=== PATIENT | female | born 1945 | race Caucasian/White ===

== ENCOUNTER 2024-05-19 04:10 | Inpatient (IN) | payer OTHER, MEDICAID, MEDICARE, SELFPAY ==
[2024-05-19] VITALS (10 sets, daily range): BP systolic 157–187; BP diastolic 73–88; PULSE 82–97; RESP 17–98; TEMP 36.2–37.2; O2SAT 93–99; BMI 18.1; BMI 19.9
--- NOTE | 2024-05-19 04:54 | PD.EDRME ---
Rapid Medical Screening Exam RME Arrival date/time: 05/19/24 04:10 78F with history of marijuana use, hypothyroidism, COPD/emphysema, fibromyalgia, and breast cancer s/p mastectomy presents to ED with several days of non-bloody diarrhea. Patient was here 2 days ago for this. Chief Complaint: Nausea/Vomiting/Diarrhea Vital signs: Vital Signs Temperature 98.5 F 05/19/24 04:22 Pulse Rate 97 05/19/24 04:22 Respiratory Rate 19 05/19/24 04:22 Blood Pressure 164/85 H 05/19/24 04:22 Pulse Oximetry (%) 97 05/19/24 04:22 Oxygen Delivery Method Room Air 05/19/24 04:22
[2024-05-19 06:15] LABS: Lactate (Lactic Acid) 1.3 mMol/L (0.4-2.0)
[2024-05-19 06:20] LABS: Basophils # (Auto) 0.1 Thou/mm3 (0.0-0.2); Basophils % (Auto) 1 % (0-2.5); Eosinophils % (Auto) 0 % (0-10); Hematocrit 41.8 % (36.0-46.0); Hemoglobin 14.2 g/dL (12.0-16.0); Immature Granulocytes % (Auto) 0 % (0-0); Immature Granulocytes Auto 0.02 Thou/mm3 (0.00-0.00); Lymphocytes # (Auto) 1.3 Thou/mm3 (1.0-4.8); Lymphocytes % (Auto) 15 % (10-50); Mean Corpuscular Hemoglobin 29.8 pg (25.0-35.0); Mean Corpuscular Volume 88 fL (80-100); Monocytes # (Auto) 0.7 Thou/mm3 (0.0-0.8); Monocytes % (Auto) 7 % (0-12); Neutrophils % (Auto) 77 % (37-80); Nucleated Red Blood Cell % 0 /100 WBC (0); Platelet Count 349 Thou/mm3 (140-440); RDW Standard Deviation 45.9 fL (36.4-46.3); Red Blood Count 4.76 Miln/mm3 (4.00-5.20); White Blood Count 9.1 Thou/mm3 (3.6-11.0)
[2024-05-19 07:03] LABS: Alanine Aminotransferase 7 U/L (10-49); Albumin, Serum 5.2 gm/dL (3.4-4.8); Albumin/Globulin Ratio 1.8 (1.2-2.2); Alkaline Phosphatase 88 U/L (46-116); Anion Gap 18 (7-16); Aspartate Amino Transferase 18 U/L (0-34); BUN/Creatinine Ratio 10 Ratio (12-20); Bilirubin,Total 0.8 mg/dL (0.3-1.2); Blood Urea Nitrogen 8 mg/dL (9-23); Calcium 9.9 mg/dL (8.3-10.6); Calcium (Corrected) 9.9 mg/dL (8.5-10.1); Carbon Dioxide 21.5 mMol/L (20.0-31.0); Chloride 98 mMol/L (98-107); Creatinine (Component) 0.8 mg/dL (0.6-1.3); Estimated Creatinine Clearance 43.3 mL/min (>60); Globulin 2.9 gm/dL (2.3-3.5); Glucose 110 mg/dL (74-106); Osmolality,Calculated 273 (275-295); Procalcitonin < 0.04 ng/ml (0.0-0.49); Sodium 137 mMol/L (136-145); Total Protein 8.1 gm/dL (5.7-8.2); eGFR > 60 See Note
--- NOTE | 2024-05-19 07:54 | EKG_ITS ---
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
--- NOTE | 2024-05-19 08:03 | XR_ITS ---
Examination: CT abdomen with intravenous contrast CT pelvis with intravenous contrast 2-D coronal reconstructions 2-D sagittal reconstructions Date and time of exam:May 19, 2024 0857 hrs. Comparison December 18, 2023 Indications: Abdominal pain and diarrhea beginning 3 days ago. CTDI: vol (mGy) 4.38 DLP: (mGycm) 190 Technique: Multiple axial sections of the abdomen and pelvis have been obtained. 64 slice high-resolution scanner used. 3 mm axial sections have been obtained, post intravenous injection 60 cc Isovue-370 2-D sagittal, coronal reconstructions obtained. Low dose protocols were performed. One or more of the following dose reduction techniques were used; automated exposure control, adjustment of the mA and/or KV according to patient size, use of iterative reconstruction technique. Findings: Retrocardiac gastric hernia No focal liver or splenic lesions 4.6 cm right renal cyst with smaller bilateral renal cysts No gallstones, suspicious for mild gallbladder wall thickening Heavy abdominal aortic calcification No hydronephrosis or ureteral calculi Normal appendix No bowel obstruction Wall of the colon shows mild diffuse hyperemia and wall thickening Intact urinary bladder Absent uterus No pelvic mass Moderate osteopenia advanced disc narrowing L1-L2, L2-L3 Bilateral advanced hip osteoarthritis, suspicious for avascular necrosis right femoral head coronal image 86 Impression: Benign renal cysts, no hydronephrosis or ureteral calculi Normal appendix Mild diffuse nonspecific colitis pattern Recommend hepatobiliary sonography follow-up to exclude gallbladder wall thickening
--- NOTE | 2024-05-19 08:25 | PD.EDNV ---
Nausea/Vomit./Diarrhea-RME/HPI General Chief complaint: Nausea/Vomiting/Diarrhea Stated complaint: diarrhea Time Seen by Provider: 05/19/24 05:03 Arrival date/time: 05/19/24 04:10 Limitations: no limitations RME / HPI RME / HPI Narrative: 05/19/24 04:10 78F with history of marijuana use, hypothyroidism, COPD/emphysema, fibromyalgia, and breast cancer s/p mastectomy presents to ED with several days of non-bloody diarrhea. Patient was here 2 days ago for this. DR. OMAR LOMBARDO ED EVALUATION: 78 year old female with history of COPD, fibromyalgia, anxiety, colitis, hypothyroidism, breast CA s/p mastectomy, recurrent UTI's, colitis presents to the ED for complaint of nausea, vomiting, and diarrhea today. Reportedly symptoms began 5 days ago and was evaluated here 2 days ago. States during that time she had pain and was given medications and sent home. Today notes the vomiting and diarrhea are green , nonbloody. Unable to control her symptoms at home. Additionally reports decreased appetite, decreased po intake, and 5lb weight loss over the course of 2 months. Denies fevers, chills, sweats, chest pain, cough, shortness of breath, or urinary symptoms. Related Data Home Medications ?Medication ?Instructions ?Recorded ?Confirmed Fluticasone Propionate NASAL * 1 spry NASAL QDAY #0 spry 11/11/13 12/28/23 (FLONASE *) albuterol sulfate 90 mcg/actuation 2 puff inhalation Q8H PRN 11/11/13 12/28/23 aerosol inhaler (ProAir HFA) SHORTNESS OF BREATH OR WHEEZE ##0 clonazepam 1 mg tablet (Klonopin) 1 mg PO TID PRN ANXIETY #0 tabs 11/11/13 12/28/23 levothyroxine 50 mcg tablet 50 mcg PO QAM 02/24/21 12/28/23 quetiapine 200 mg tablet 200 mg PO QPM 02/24/21 12/28/23 sertraline 100 mg tablet 200 mg PO QPM 02/24/21 12/28/23 gabapentin 300 mg capsule 300 mg PO TID 12/21/23 12/28/23 Previous Rx's ?Medication ?Instructions ?Recorded dicyclomine 20 mg tablet 20 mg PO BID #14 tabs 12/18/23 cephalexin 500 mg capsule 500 mg PO TID #21 caps 05/16/24 Allergies Allergy/AdvReac Type Severity Reaction Status Date / Time codeine Allergy Severe NAUSEA/VOMI Verified 05/19/24 04:11 TING gabapentin Allergy Severe Photosensit Verified 05/19/24 04:11 ivity Sulfa (Sulfonamide Allergy Severe NAUSEA/VOMI Verified 05/19/24 04:11 Antibiotics) TING Review of Systems Review of Systems Narrative Review of Systems: GEN: No fever, no chills, no weight loss EYES: No discharge, no visual changes, no pain HEENT: No ear pain, no congestion, no sore throat PULM: No shortness of breath, no cough, no congestion CV: No chest pain, no dyspnea on exertion, no palpitations GI: + nausea, +vomiting, +diarrhea, +pain, no constipation : No frequency, no urgency, no dysuria MUSC/SKEL: No joint pain, no back pain SKIN: No rash NEURO: No weakness, no headache Past Medical History Past Medical History CARDIAC: Positive Hypercholesterolemia and Hypotension REPRODUCTIVE: Positive Breast Cancer PSYCHO/SOCIAL: Positive Depression and Anxiety OTHER HISTORY: Positive Breast Cancer Family History FAMILY HISTORY: Positive Family Cancer Surgical History SURGICAL: Positive Mastectomy Social History SMOKING STATUS: Former smoker SUBSTANCE USE: does not use ED Exam General Limitations: Present no limitations General appearance: Present alert and in no apparent distress Head Head exam: Present atraumatic, normocephalic and normal inspection Eye Eye exam: Present normal appearance, PERRL and EOMI ENT ENT exam: Present normal exam, normal oropharynx and mucous membranes moist Neck Neck exam: Present normal inspection, full ROM and trachea midline Chest Chest inspection: Present normal inspection and symmetric chest wall rise Respiratory Respiratory exam: Present normal lung sounds bilaterally Cardiovascular Cardiovascular exam: Present regular rate, normal rhythm and normal heart sounds Abdominal Exam Abdominal exam: Present soft, tenderness (mild to moderate tenderness to palpation in the mid abdominal area ) and normal bowel sounds; Absent distention, guarding, rebound or rigidity Extremities Exam Extremities exam: Present normal inspection and full ROM Back Exam Back exam: Present normal inspection and full ROM Neurological Exam Neurological exam: Present alert, oriented X3 and CN II-XII intact Psychiatric Psychiatric exam: Present normal affect and normal mood Skin Skin exam: Present warm, dry, intact and normal color Course Quality Measures none Orders Category Date Time Status Admit to Inpatient Status Routine Admission 05/19/24 11:31 Active Patient Condition Routine Admission 05/19/24 11:[address] Screening NOW Care 05/19/24 08:03 Completed Bus Aide Q4H START 00 Care 05/19/24 07:54 Active Continuous Pulse Oximetry STAT Care 05/19/24 07:54 Completed EKG (ED ONLY) *Do not use* NOW Care 05/19/24 07:54 Completed In and Out Catheter X1 Care 05/19/24 07:54 Completed Insert IV STAT Care 05/19/24 07:54 Active Miscellaneous Nursing Order NOW Care 05/19/24 11:36 Active NPO NOW Care 05/19/24 11:33 Completed NPO STAT Care 05/19/24 07:54 Active Notify provider NEEDED Care 05/19/24 11:31 Active Obtain weight NOW Care 05/19/24 11:31 Active Strict Intake and Output Routine Care 05/19/24 11:[address] abdomen pelvis w con Stat Exams 05/19/24 08:03 Completed EKG (ED Only) Stat Exams 05/19/24 07:54 Draft A1C [Glycohemoglobin w (eAG)] Routine Lab 05/19/24 06:00 Completed CBC AM DRAW Lab 05/20/24 05:12 Completed CBC AM DRAW Lab 05/21/24 05:00 Ordered CBC AM DRAW Lab 05/22/24 05:00 Ordered CBC Stat Lab 05/19/24 06:00 Completed CMP [Comprehensive Metabolic Panel] Stat Lab 05/19/24 06:00 Completed Calprotectin, Stool* Routine Lab 05/19/24 Ordered Clostridium Difficile PCR Stat Lab 05/19/24 Ordered Comprehensive Metabolic Panel AM DRAW Lab 05/20/24 05:12 Completed Comprehensive Metabolic Panel AM DRAW Lab 05/21/24 05:00 Ordered Comprehensive Metabolic Panel AM DRAW Lab 05/22/24 05:00 Ordered Drug Screen,Urine Stat Lab 05/19/24 11:44 Ordered Free T4 (Free Thyroxine) AM DRAW Lab 05/20/24 05:12 Completed Giardia Antigen, EIA, Stool* Routine Lab 05/19/24 11:47 Ordered Ketone [Beta Hydroxybutyrate] Stat Lab 05/19/24 08:48 Completed Lactate (Lactic Acid) Stat Lab 05/19/24 06:00 Completed Lipase Stat Lab 05/19/24 08:48 Completed Lipid Panel AM DRAW Lab 05/20/24 05:12 Completed Magnesium AM DRAW Lab 05/20/24 05:12 Completed Magnesium Stat Lab 05/19/24 08:48 Completed Norovirus, EIA (Stool)* Routine Lab 05/19/24 11:47 Ordered Ova & Parasites, Conc, Smear* Stat Lab 05/19/24 11:47 Ordered Phosphorous AM DRAW Lab 05/20/24 05:12 Completed Phosphorous AM DRAW Lab 05/21/24 05:00 Ordered Phosphorous AM DRAW Lab 05/22/24 05:00 Ordered Procalcitonin Stat Lab 05/19/24 06:00 Completed Stool Culture Stat Lab 05/19/24 11:39 Ordered Stool for WBCs Routine Lab 05/19/24 11:39 Ordered Thyroid Stimulating Hormone AM DRAW Lab 05/20/24 05:12 Completed Urinalysis Routine Lab 05/19/24 05:00 Ordered Urinalysis Stat Lab 05/19/24 09:44 Completed VBG [Venous Blood Gas] Stat Lab 05/19/24 08:48 Completed Acetaminophen Tab [Tylenol Tab] Med 05/19/24 11:31 Active 650 mg PO Q6H PRN Acetaminophen Tab [Tylenol Tab] Med 05/19/24 11:31 Discontinued 650 mg PO Q6H PRN Albuterol* Inhaler [Proventil Inhaler] Med 05/19/24 11:42 Active 2 puff INH Q4HR PRN CIPROFLOXACIN/D5w 400 MG IVPB [Cipro Ivpb] Med 05/19/24 11:37 Active 400 mg in 200 ml IV Q12HR Heparin Inj Med 05/19/24 11:45 Active 5,000 unit SC Q12HR Ketorolac Inj [Toradol Inj] Med 05/19/24 11:42 Active 15 mg IVP Q6HR PRN Levothyroxine Sodium [Synthroid] Med 05/20/24 06:00 Active 50 mcg PO ACBR Ondansetron Inj [Zofran Inj] Med 05/19/24 11:31 Active 4 mg IV Q6HR PRN Ondansetron Inj [Zofran Inj] Med 05/19/24 07:55 Discontinued 4 mg IV X1 ONE POTASSIUM CHL 10 mEq IVPB [Kcl Ivpb] Med 05/19/24 11:45 Discontinued 10 meq in 100 ml IV Q1H Potassium Chloride [K-Dur] Med 05/19/24 11:44 Discontinued 40 meq PO X1 ONE QUEtiapine FUMARATE [SEROquel] Med 05/19/24 21:00 Active 200 mg PO HS Senna [Senokot] Med 05/19/24 11:31 Active 1 tab PO BID PRN Sodium Chloride 0.9% 1000 ml [Ns] 1,000 ml Med 05/19/24 11:45 Discontinued IV 50 mls/hr Sodium Chloride 0.9% 1000 ml [Ns] 1,000 ml Med 05/19/24 07:54 Discontinued IV 999 mls/hr Sodium Chloride 0.9% 1000 ml [Ns] 1,000 ml Med 05/19/24 10:37 Discontinued IV 999 mls/hr clonazePAM [KlonoPIN] Med 05/19/24 11:40 Active 1 mg PO TID PRN clonazePAM [KlonoPIN] Med 05/19/24 10:18 Discontinued 1 mg PO X1 ONE metroNIDAZOLE/NS 500 MG IVPB [Flagyl 500 mg IV] Med 05/19/24 12:00 Active 500 mg in 100 ml IV Q8HR Code Status Routine Oth 05/19/24 11:31 Ordered Oxygen Delivery PRN RT 05/19/24 11:31 Active Reevaluation(s) Reevaluation #1: We reviewed all the results, analysis, and treatment plans. Patient is amenable to admission. Time: 10:41 Vital Signs Vital signs: Vital Signs Temperature 98.5 F 05/19/24 04:22 Pulse Rate 97 05/19/24 04:22 Respiratory Rate 19 05/19/24 04:22 Blood Pressure 164/85 H 05/19/24 04:22 Pulse Oximetry (%) 97 05/19/24 04:22 Oxygen Delivery Method Room Air 05/19/24 04:22 Pulse ox is % on room air which is adequate. Nausea/Vomiting/Diarrhea MDM Narrative MDM Narrative:: Temitope Day am scribing for and in the presence of Dr. Chauhan. Patient data External records reviewed:: [facility] previous records (I reviewed ED visit on 05/17/2024, during that visit patient had lactic acidosis with UTI ) Clinical information provided by:: patient Social determinants that could affect healthcare access:: mental health (Anxiety ) Patient has the following chronic illnesses:: COPD, fibromyalgia, anxiety, colitis, hypothyroidism, breast CA s/p mastectomy, recurrent UTI's, colitis How is presenting disease/condition affected by chronic disease/condition?: exacerbated by Evaluation data The following diagnostics were reviewed and interpreted by me:: lab results, radiology exam(s) and EKG tracing(s) (Sinus rhythm, rate 83, normal axis, no ectopy, no signs of acute ischemia ) Lab and/or radiology exams considered but not ordered:: None Interpretation Summary: Ordering Physician: Alfredo Chauhan MD Date of Service: 05/19/24 Procedure(s): CT abdomen pelvis w con Accession Number(s): [id number] cc: Bo Garcia MD; Alfredo Chauhan MD; Yoan Ortiz PA-C~ Examination: CT abdomen with intravenous contrast CT pelvis with intravenous contrast 2-D coronal reconstructions 2-D sagittal reconstructions Date and time of exam:May 19, 2024 0857 hrs. Comparison December 18, 2023 Indications: Abdominal pain and diarrhea beginning 3 days ago. CTDI: vol (mGy) 4.38 DLP: (mGycm) 190 Technique: Multiple axial sections of the abdomen and pelvis have been obtained. 64 slice high-resolution scanner used. 3 mm axial sections have been obtained, post intravenous injection 60 cc Isovue-370 2-D sagittal, coronal reconstructions obtained. Low dose protocols were performed. One or more of the following dose reduction techniques were used; automated exposure control, adjustment of the mA and/or KV according to patient size, use of iterative reconstruction technique. Findings: Retrocardiac gastric hernia No focal liver or splenic lesions 4.6 cm right renal cyst with smaller bilateral renal cysts No gallstones, suspicious for mild gallbladder wall thickening Heavy abdominal aortic calcification No hydronephrosis or ureteral calculi Normal appendix No bowel obstruction Wall of the colon shows mild diffuse hyperemia and wall thickening Intact urinary bladder Absent uterus No pelvic mass Moderate osteopenia advanced disc narrowing L1-L2, L2-L3 Bilateral advanced hip osteoarthritis, suspicious for avascular necrosis right femoral head coronal image 86 Impression: Benign renal cysts, no hydronephrosis or ureteral calculi Normal appendix Mild diffuse nonspecific colitis pattern Recommend hepatobiliary sonography follow-up to exclude gallbladder wall thickening Dictated By: Bo Garcia MD Signed By: <Electronically signed by Bo Garcia MD in OV> 05/19/24 0933 Medications / Prescriptions Medications / Prescriptions considered but not ordered:: None Medication administrations:: Medication Administration History Acetaminophen (Acetaminophen 325 Mg Tablet) 650 mg PO Q6H PRN PRN Reason: PAIN SCALE 1-3 (mild Stop: 06/18/24 11:30 Acetaminophen (Acetaminophen 325 Mg Tablet) 650 mg PO Q6H PRN PRN Reason: Fever >100.4 Stop: 06/18/24 11:30 Albuterol (Albuterol Inh 8 Gm) 2 puff INH Q4HR PRN PRN Reason: SHORTNESS OF BREATH OR WHEEZE Stop: 06/18/24 11:41 Clonazepam (Clonazepam 0.5 Mg Tablet) 1 mg PO TID PRN PRN Reason: ANXIETY Stop: 05/24/24 13:59 Last Admin: 05/20/24 05:25 Dose: 1 mg Documented By: Admin: 05/19/24 20:27 Dose: 1 mg Documented By: Heparin Sodium (Porcine) (Heparin Sod Inj 5000 Unit/Ml Vial) 5,000 unit SC Q12HR [facility] Stop: 06/02/24 11:44 Last Admin: 05/20/24 08:08 Dose: 5,000 unit Documented By: MICHELE Co-signed By: ANA Admin: 05/19/24 20:09 Dose: 5,000 unit Documented By: Co-signed By: KAYLYN Admin: 05/19/24 12:41 Dose: 5,000 unit Documented By: RADHA Co-signed By: Ciprofloxacin/Dextrose (Cipro Ivpb) 400 mg in 200 mls @ 200 mls/hr IV Q12HR [facility] Stop: 05/26/24 11:36 Last Admin: 05/20/24 08:08 Dose: 200 mls/hr Documented By: Infusion: 05/19/24 21:17 Dose: Infused Documented By: Admin: 05/19/24 20:17 Dose: 200 mls/hr Documented By: Infusion: 05/19/24 13:40 Dose: Infused Documented By: Admin: 05/19/24 12:40 Dose: 200 mls/hr Documented By: RADHA Metronidazole (Flagyl 500 Mg Iv) 500 mg in 100 mls @ 200 mls/hr IV Q8HR [facility] Stop: 05/26/24 11:59 Last Admin: 05/20/24 13:45 Dose: 200 mls/hr Documented By: Infusion: 05/20/24 05:44 Dose: Infused Documented By: Admin: 05/20/24 05:14 Dose: 200 mls/hr Documented By: Infusion: 05/19/24 22:33 Dose: Infused Documented By: Admin: 05/19/24 22:03 Dose: 200 mls/hr Documented By: Infusion: 05/19/24 13:10 Dose: Infused Documented By: Admin: 05/19/24 12:40 Dose: 200 mls/hr Documented By: RADHA Ketorolac Tromethamine (Ketorolac Inj 30 Mg/Ml Vial) 15 mg IVP Q6HR PRN PRN Reason: Pain 4-10 Stop: 05/24/24 11:41 Levothyroxine Sodium (Levothyroxine Sodium 25 Mcg Tablet) 50 mcg PO ACBR [facility] Stop: 06/19/24 05:59 Last Admin: 05/20/24 05:13 Dose: 50 mcg Documented By: Ondansetron HCl (Ondansetron Inj 2 Mg/Ml Inj 2 Ml) 4 mg IV Q6HR PRN; Protocol PRN Reason: NAUSEA OR VOMITING Stop: 06/18/24 11:30 Quetiapine Fumarate (Quetiapine Fumarate 100 Mg Tablet) 200 mg PO [facility] Stop: 06/18/24 20:59 Last Admin: 05/19/24 20:24 Dose: Not Given Documented By: Non-Admin Reason: Patient Refused Sennosides (Senna Tablet) 1 tab PO BID PRN; Protocol PRN Reason: CONSTIPATION Stop: 06/18/24 11:30 Discontinued Medications Acetaminophen (Acetaminophen 325 Mg Tablet) 650 mg PO Q6H PRN PRN Reason: Fever >100.4 or pain Stop: 06/18/24 11:30 Calcium Carbonate (Calcium Carbonate 600 Mg Tablet) 600 mg PO X1 ONE Stop: 05/20/24 08:01 Last Admin: 05/20/24 08:00 Dose: Not Given Documented By: MICHELE Non-Admin Reason: Patient Refused Clonazepam (Clonazepam 0.5 Mg Tablet) 1 mg PO X1 ONE Stop: 05/19/24 10:19 Last Admin: 05/19/24 10:38 Dose: 1 mg Documented By: RADHA Sodium Chloride (Ns) 1,000 mls @ 999 mls/hr IV .Q1H1M ONE Stop: 05/19/24 08:54 Last Infusion: 05/19/24 09:49 Dose: Infused Documented By: Admin: 05/19/24 08:48 Dose: 999 mls/hr Documented By: RADHA Sodium Chloride (Ns) 1,000 mls @ 999 mls/hr IV .Q1H1M ONE Stop: 05/19/24 11:37 Last Admin: 05/19/24 10:46 Dose: 999 mls/hr Documented By: RADHA Sodium Chloride (Ns) 1,000 mls @ 50 mls/hr IV .Q20H [facility] Stop: 05/20/24 07:44 Last Admin: 05/19/24 14:16 Dose: 50 mls/hr Documented By: MICHELE Potassium Chloride (Kcl Ivpb) 10 meq in 100 mls @ 100 mls/hr IV Q1H [facility] Stop: 05/19/24 13:44 Last Admin: 05/19/24 14:15 Dose: 100 mls/hr Documented By: Infusion: 05/19/24 13:41 Dose: Infused Documented By: Admin: 05/19/24 12:41 Dose: 100 mls/hr Documented By: RADHA Sodium Chloride (Ns) 1,000 mls @ 75 mls/hr IV .[id number] [facility] Stop: 05/20/24 04:21 Dextrose/Sodium Chloride (D5-Ns) 500 mls @ 125 mls/hr IV .Q4H [facility] Stop: 05/21/24 20:14 Dextrose/Sodium Chloride (D5-Ns) 1,000 mls @ 125 mls/hr IV .Q8H [facility] Stop: 05/21/24 22:51 Last Admin: 05/19/24 23:16 Dose: 125 mls/hr Documented By: Ondansetron HCl (Ondansetron Inj 2 Mg/Ml Inj 2 Ml) 4 mg IV X1 ONE; Protocol Stop: 05/19/24 07:56 Last Admin: 05/19/24 08:48 Dose: 4 mg Documented By: RADHA Potassium Chloride (Potassium Chloride 20 Meq Tabcr) 40 meq PO X1 ONE Stop: 05/19/24 11:45 Last Admin: 05/19/24 14:15 Dose: 40 meq Documented By: MICHELE Potassium Chloride (Potassium Chloride 20 Meq Tabcr) 40 meq PO X1 ONE Stop: 05/20/24 08:01 Last Admin: 05/20/24 08:00 Dose: Not Given Documented By: MICHELE Non-Admin Reason: Patient Refused Potassium Chloride (Potassium Chloride 20 Meq Tabcr) 40 meq PO X1 ONE Stop: 05/20/24 12:01 Last Admin: 05/20/24 12:04 Dose: 40 meq Documented By: MICHELE See above Consultations Consultation(s) initiated? (list below): Yes Consultation #1 (Physician, Specialty, Details): I spoke with resident Dr. Hart working with Dr. Acharya. Discussed patients PMHx, HPI, ED course, exam findings, labs, and radiology results. The hospitalist agree to accept the patient for admission. Time: 10:36 Diagnosis Nausea Differential Diagnosis: gastroenteritis, clostridium difficile infection, drug-induced nausea and vomiting, dehydration and other (Colitis ) Most likely diagnosis given after review of the tests above:: Colitis Admission Indicated Admission indicated?: indicated Admission Request Was there a request for admission?: Yes Admission Attestation Admission request attestation: Discussed case with [] from Hospitalist service regarding admission. Discussed patients ED course, exam findings, labs, and radiology results. The Hospitalist [agrees,declines] to accept the patient for admission. Disposition Plan Disposition Plan: Admit Discharge Plan Plan Patient Disposition: Admit Acute Care w/in Hospital Problem List Clinical Impression: Colitis, Intractable vomiting with nausea
[2024-05-19] MEDS: ONDANSETRON INJ 2 MG/ML INJ 2 ML 4 MG IV (08:48)
[2024-05-19] MEDS: SODIUM CHLORIDE 0.9% 1000 ML 1,000 ML 999 ML IV ×2 (08:48→10:46)
[2024-05-19 09:02] LABS: Base Excess, Venous 1 (-3-3); O2 Saturation, Venous 54 % (96-97); PCO2, Venous 44 mmHg (36-56); PO2, Venous 30 mmHg (15-58); pH, Venous 7.38 (7.33-7.66)
[2024-05-19 09:49] LABS: Collection Type, Urine Catheter
[2024-05-19 09:57] LABS: Bilirubin,Urine Negative (Negative); Blood,Urine 1+ (Negative); Clarity,Urine Clear (Clear/Hazy); Color,Urine Lt-Yellow (Lt Yel-Yel); Glucose, Urine Negative (Negative); Ketones,Urine 2+ (Negative); Leukocyte Esterase,Urine Negative (Negative); Nitrite,Urine Negative (Negative); Protein,Urine 1+ (Neg - Trace); RBC,Urine 4 /hpf (0-3); Specific Gravity,Urine 1.009 (1.001-1.035); Squamous Epithelial Cell,Urine < 1 /hpf (0-5); Urobilinogen,Urine Negative mg/dL (0.0-1.0); WBC,Urine 1 /hpf (0-5)
--- NOTE | 2024-05-19 10:19 | PC.NURSE ---
Spoke w/MD about pt request for Klonopin that she typically takes for anxiety. Provider gave verbal pt could have one.
[2024-05-19] MEDS: clonazePAM 0.5 MG TABLET 1 MG PO ×2 (10:38→20:27)
--- NOTE | 2024-05-19 10:57 | PC.NURSE ---
Pt connected to [place] at this time at pts request.
[2024-05-19 11:46] LABS: Lipase 29 U/L (12-53)
[2024-05-19] MEDS: metroNIDAZOLE/NS 500 MG IVPB 500 MG/100 ML BAG 200 MG IV ×2 (12:40→22:03)
[2024-05-19] MEDS: CIPROFLOXACIN/D5w 400 MG IVPB 400 MG/200 ML BAG 200 MG IV ×2 (12:40→20:17)
[2024-05-19] MEDS: HEPARIN SOD INJ 5000 UNIT/ML VIAL SC ×2 (12:41→20:09)
[2024-05-19] MEDS: POTASSIUM CHL 10 mEq IVPB 10 MEQ/100 ML BAG 100 MEQ IV ×2 (12:41→14:15)
[2024-05-19 13:04] LABS: Glucose Estimated Average 103 mg/dL (80-131); Hemoglobin A1C 5.2 % Hgb (4.8-6.0)
--- NOTE | 2024-05-19 14:02 | PC.NURSE ---
Pt transferred up stairs w/meds infusing, confirmed iv compatability w/meds prior to starting infusions. Pt taken up connected to tele w/o incident by this RN and fellow [employer]
[2024-05-19] MEDS: POTASSIUM CHLORIDE 20 mEq TABCR 40 MEQ PO (14:15)
[2024-05-19] MEDS: SODIUM CHLORIDE 0.9% 1000 ML 1,000 ML 50 ML IV (14:16)
--- NOTE | 2024-05-19 15:06 | ESHP_ITS ---
<Statement entered by Rob Acharya MD - 05/20/24 12:15> I have discussed and was present for the essential components of the history, physical examination, diagnosis, and treatment plan with the resident. I agree with the patient's care as documented by the resident and amended herein by me. Rob Acharya MD. 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 Patient reported that she had been having weight loss of few pounds from past 1 month. She also lost her appetite. She reported that her stool is fluid in consistency with foul-smelling and greenish color. She reported that she was taking Keflex for UTI infection which was prescribed here in the ED and before that she was also taking an additional antibiotic the name she does not remember for possible UTI. She reported that she did not had any fever or chills, chest pain, shortness of breath or any other symptom. She denied any abdominal discomfort and there was no relation of diarrhea to her food intake. She denied any blood in the stools. No recent travel or sick contacts around her. Per chart review, patient appears to have previous history of diarrhea as well as she got prescription for ciprofloxacin and Flagyl in the past based on med rec. In the ED, patient was hypertensive with blood pressure 160/85, tachycardic, afebrile and saturating well on room air. Labs were stable with WBC 9.1 although WBC on 05/16 was 11. Hemoglobin was stable at 14.2. VBG showed pH 7.38, pCO2 44 and pO2 30. Chemistry panel showed mild hypokalemia anion gap elevated. BUN and creatinine was stable. Lipase was negative. Beta- hydroxybutyrate was more than 4. Procalcitonin was negative. UA showed mild proteinuria, ketones 2+ and blood 1+. RBCs 4+. CT abdomen pelvis was consistent with colitis pattern. Mild diffuse. Benign renal cyst. Retrocardiac gastric hernia. Mild gallbladder wall thickening EKG showed sinus rhythm. PMH: As above PSH: mastectomy post breast cancer, history of fracture repair for wrist fracture Allergies: Codeine causes nausea vomiting, gabapentin causes photosensitivity, sulfa causes nausea and vomiting Home medications: Levothyroxine, quetiapine, sertraline, albuterol inhaler, clonazepam 3 times daily as needed Patient is admitted for further workup and management for workup of diarrhea, possible GI infection versus colitis. Review of Systems Review of Systems Systems Reviewed: All systems reviewed, normal except as documented Past Medical History Past Medical History CARDIAC: Positive Hypercholesterolemia and Hypotension REPRODUCTIVE: Positive Breast Cancer PSYCHO/SOCIAL: Positive Depression and Anxiety OTHER HISTORY: Positive Breast Cancer Family History FAMILY HISTORY: Positive Family Cancer Surgical History SURGICAL: Positive Mastectomy Social History SMOKING STATUS: Former smoker SUBSTANCE USE: does not use Exam Vital Signs Temp Pulse Resp BP Pulse Ox O2 Del Method 98.2 F 88 20 184/86 H 97 Room Air 05/19/24 11:00 05/19/24 11:00 05/19/24 11:00 05/19/24 11:00 05/19/24 11:00 05/19/24 11:00 Narrative Exam GENERAL APPEARANCE: Patient is cachectic appearing thin female AOx3 was lying on bed. HEENT: NC, AT. Dry mucous membrane. EOMI, clear conjunctiva, oropharynx clear. NECK: Supple without lymphadenopathy. No stiffness or restricted ROM. HEART: Sinus tachycardia with regular rhythm, normal S1/S2, no m/r/g LUNGS: CTAB, moving air well. No crackles or wheezes are heard. ABDOMEN: Soft, nontender, nondistended with good bowel sounds heard. BACK: No CVAT, no obvious deformity. EXTREMITIES: Upper extremities right wrist joint deviated laterally. No extremity edema noticed. NEUROLOGICAL: Grossly nonfocal. Alert and oriented, moving all 4 extremities. CN not formally tested but appear grossly intact. Use walker for ambulation. Skin: Warm and dry without any rash. Decreased skin turgor. Psych: Appropriate mood and affect Results: Labs 05/19/24 06:00 05/19/24 06:00 Labs: Short CBC 05/19/24 Range/Units 06:00 WBC 9.1 (3.6-11.0) Thou/mm3 Hgb 14.2 (12.0-16.0) g/dL Hct 41.8 (36.0-46.0) % Plt Count 349 (140-440) Thou/mm3 BMP 05/19/24 06:00 Sodium 137 Potassium 3.0 L D Chloride 98 Carbon Dioxide 21.5 BUN 8 L Creatinine 0.8 Glucose 110 H Calcium 9.9 Liver Function 05/19/24 Range/Units 06:00 Total Bilirubin 0.8 (0.3-1.2) mg/dL AST 18 (0-34) U/L ALT 7 L (10-49) U/L Alkaline Phosphatase 88 (46-116) U/L Albumin 5.2 H (3.4-4.8) gm/dL Urine 05/19/24 05/19/24 Range/Units 06:00 09:44 Urine Color Cancelled Lt-Yellow Urine Clarity Cancelled Clear Urine pH Cancelled 6.0 Ur Specific [place] Cancelled 1.009 Urine Protein Cancelled 1+ A Urine Glucose (UA) Cancelled Negative ABG Interpretation ABG results: 05/19/24 08:48 VBG pH 7.38 VBG pCO2 44 VBG pO2 30 VBG Base Excess 1 Quality Measures Quality Measures VTE prophylaxis (Heparin subcut) Advance care planning discussed with:: patient Medications Home Medications and Allergies Home Medications ?Medication ?Instructions ?Recorded ?Confirmed ?Type Fluticasone Propionate NASAL * 1 spry NASAL QDAY #0 spry 11/11/13 12/28/23 History (FLONASE *) albuterol sulfate 90 mcg/actuation 2 puff inhalation Q8H PRN 11/11/13 12/28/23 History aerosol inhaler (ProAir HFA) SHORTNESS OF BREATH OR WHEEZE ##0 clonazepam 1 mg tablet (Klonopin) 1 mg PO TID PRN ANXIETY #0 tabs 11/11/13 12/28/23 History levothyroxine 50 mcg tablet 50 mcg PO QAM 02/24/21 12/28/23 History quetiapine 200 mg tablet 200 mg PO QPM 02/24/21 12/28/23 History sertraline 100 mg tablet 200 mg PO QPM 02/24/21 12/28/23 History gabapentin 300 mg capsule 300 mg PO TID 12/21/23 12/28/23 History Allergies Allergy/AdvReac Type Severity Reaction Status Date / Time codeine Allergy Severe NAUSEA/VOMI Verified 05/19/24 04:11 TING gabapentin Allergy Severe Photosensit Verified 05/19/24 04:11 ivity Sulfa (Sulfonamide Allergy Severe NAUSEA/VOMI Verified 05/19/24 04:11 Antibiotics) TING Visit Medications Acetaminophen (Acetaminophen 325 Mg Tablet) 650 mg PO Q6H PRN PRN Reason: Fever >100.4 or pain Stop: 06/18/24 11:30 Acetaminophen (Acetaminophen 325 Mg Tablet) 650 mg PO Q6H PRN PRN Reason: PAIN SCALE 1-3 (mild Stop: 06/18/24 11:30 Albuterol (Albuterol Inh 8 Gm) 2 puff INH Q4HR PRN PRN Reason: SHORTNESS OF BREATH OR WHEEZE Stop: 06/18/24 11:41 Clonazepam (Clonazepam 0.5 Mg Tablet) 1 mg PO TID PRN PRN Reason: ANXIETY Stop: 05/24/24 13:59 Heparin Sodium (Porcine) (Heparin Sod Inj 5000 Unit/Ml Vial) 5,000 unit SC Q12HR [facility] Stop: 06/02/24 11:44 Last Admin: 05/19/24 12:41 Dose: 5,000 unit Ciprofloxacin/Dextrose (Cipro Ivpb) 400 mg in 200 mls @ 200 mls/hr IV Q12HR [facility] Stop: 05/26/24 11:36 Last Admin: 05/19/24 12:40 Dose: 200 mls/hr Metronidazole (Flagyl 500 Mg Iv) 500 mg in 100 mls @ 200 mls/hr IV Q8HR [facility] Stop: 05/26/24 11:59 Last Admin: 05/19/24 12:40 Dose: 200 mls/hr Sodium Chloride (Ns) 1,000 mls @ 75 mls/hr IV .[id number] [facility] Stop: 05/20/24 04:21 Ketorolac Tromethamine (Ketorolac Inj 30 Mg/Ml Vial) 15 mg IVP Q6HR PRN PRN Reason: Pain 4-10 Stop: 05/24/24 11:41 Levothyroxine Sodium (Levothyroxine Sodium 25 Mcg Tablet) 50 mcg PO ACBR [facility] Stop: 06/19/24 05:59 Ondansetron HCl (Ondansetron Inj 2 Mg/Ml Inj 2 Ml) 4 mg IV Q6HR PRN; Protocol PRN Reason: NAUSEA OR VOMITING Stop: 06/18/24 11:30 Quetiapine Fumarate (Quetiapine Fumarate 100 Mg Tablet) 200 mg PO HS HONORIO Stop: 06/18/24 20:59 Sennosides (Senna Tablet) 1 tab PO BID PRN; Protocol PRN Reason: CONSTIPATION Stop: 06/18/24 11:30 Discontinued Medications Clonazepam (Clonazepam 0.5 Mg Tablet) 1 mg PO X1 ONE Stop: 05/19/24 10:19 Last Admin: 05/19/24 10:38 Dose: 1 mg Sodium Chloride (Ns) 1,000 mls @ 999 mls/hr IV .Q1H1M ONE Stop: 05/19/24 08:54 Last Infusion: 05/19/24 09:49 Dose: Infused Sodium Chloride (Ns) 1,000 mls @ 999 mls/hr IV .Q1H1M ONE Stop: 05/19/24 11:37 Last Admin: 05/19/24 10:46 Dose: 999 mls/hr Sodium Chloride (Ns) 1,000 mls @ 50 mls/hr IV .Q20H HONORIO Stop: 05/20/24 07:44 Last Admin: 05/19/24 14:16 Dose: 50 mls/hr Potassium Chloride (Kcl Ivpb) 10 meq in 100 mls @ 100 mls/hr IV Q1H HON[facility]IO Stop: 05/19/24 13:44 Last Admin: 05/19/24 14:15 Dose: 100 mls/hr Ondansetron HCl (Ondansetron Inj 2 Mg/Ml Inj 2 Ml) 4 mg IV X1 ONE; Protocol Stop: 05/19/24 07:56 Last Admin: 05/19/24 08:48 Dose: 4 mg Potassium Chloride (Potassium Chloride 20 Meq Tabcr) 40 meq PO X1 ONE Stop: 05/19/24 11:45 Last Admin: 05/19/24 14:15 Dose: 40 meq Assessment & Plan Plan This 78-year-old female with 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 Admitted for workup of diarrhea possible GI infection/colitis. # ?Acute on chronic diarrhea # Possible malabsorption syndrome # Possible GI infection versus colitis ? Patient presented with chief complaint of nausea, vomiting and diarrhea from past 6 days. She reported that her stool is greenish color foul-smelling and fluid in consistency. She was taking antibiotics Keflex for UTI infection for last 2 days and was taking an additional antibiotic earlier a week ago. No fevers recorded. No abdominal discomfort on examination. She appears to be dehydrated and looks cachectic. Endorses appetite loss and some weight loss from past 1 month. Diarrhea is not related to food intake. ? Vitals were stable. WBC count was elevated on 05/16 downtrended to 9.1. VBG's showed normal pH. Elevated anion gap. Lactic acid within normal limits. ? Patient received 2 L bolus of NS in the ED. Elevated beta-hydroxybutyrate ? Patient's CT abdomen showed colitis pattern with gallbladder wall thickening. Procalcitonin negative Plan: ? Started IV fluids at 75 cc/h ? Started IV antibiotic therapy with ciprofloxacin and Flagyl ? Follow-up on stool studies ? Given history of recent antibiotic use and mild elevation of white count on 05/16 ordered C. difficile testing ? Replating electrolytes as necessary ? Follow-up on morning labs ? Follow-up on liver ultrasound # Starvation ketosis # Low BMI ? Related to diarrhea/appetite loss ? Patient had mildly elevated blood glucose however BHB was elevated ? Patient has been having weight loss, appetite loss and chronic diarrhea Plan: ? Started fluid therapy D5 NS due to starvation ketosis and discontinue normal saline ? Refer to registered dietitianfito # Electrolyte disturbance # Hypokalemia ? Potassium was 3.0 Plan: ? Patient received 40 mEq potassium x 1 and IV potassium therapy ? Replete as necessary # History of fibromyalgia's # History of anxiety # History of depression ? Patient takes clonazepam, Seroquel and Zoloft Plan: ? Resumed home medications # History of recurrent UTIs ? Patient denied any symptoms of burning sensation or discomfort in urination. ? She was taking Keflex from past 2 days. Before that she took some unknown antibiotic therapy for a week. Plan: ? Urinalysis showed proteinuria, ketones and blood 1+ with RBCs 4+. No elevation of WBCs or negative leukocyte esterase # History of hypothyroidism ? Patient takes levothyroxine Plan: ? Resumed home medications ?Follow-up on thyroid functions Health maintenance Diet: Clear liquid diet GI prophylaxis: Not given due to concern for C. difficile infection DVT prophylaxis: Heparin subcut Disposition: Patient is admitted for workup and management of acute diarrhea possible GI infection/colitis. CODE STATUS: Full code -- Patient was seen and discussed with attending physician, Dr. Patrizia Hart MD, PGY 2
--- NOTE | 2024-05-19 20:00 | XR_ITS ---
Examination: Abdomen sonogram, Limited Date and time of exam: May 19, 2024 10:25 PM Indications: Abdominal pain beginning 4 days ago Technique: Real-time manzo scale transabdominal sonographic images of the upper abdomen obtained. Findings: Gallbladder wall 0.3 cm with possible edema Common bile duct 0.6 cm no stones Pancreatic head 2.8 cm Liver 14.6 cm fatty infiltration no focal liver lesions Normal hepatopedal portal venous flow Patent IVC Right renal cysts, the largest 4 cm Impression: Gallbladder wall 0.3 cm with possible edema, clinical correlation advised, if cholecystitis is a clinical consideration, recommend HIDA scan or MRCP follow-up
[2024-05-19] MEDS: DEXTROSE 5%-NS 1,000 ML 125 ML IV (23:16)
--- NOTE | 2024-05-19 23:16 | PC.NURSE ---
Unable to scan barcode of D5-NS despite multiple attempts, RX# entered manually. Charge Nurse, akil Gaytan.
[2024-05-20] VITALS (13 sets, daily range): BP systolic 130–153; BP diastolic 63–87; PULSE 69–93; RESP 15–96; TEMP 36.2–37.3; O2SAT 92–96
[2024-05-20] MEDS: LEVOTHYROXINE SODIUM 25 MCG TABLET 50 MCG PO (05:13)
[2024-05-20] MEDS: metroNIDAZOLE/NS 500 MG IVPB 500 MG/100 ML BAG 200 MG IV ×3 (05:14→22:21)
[2024-05-20] MEDS: clonazePAM 0.5 MG TABLET 1 MG PO ×2 (05:25→18:10)
[2024-05-20 05:48] LABS: Basophils % (Auto) 1 % (0-2.5); Eosinophils % (Auto) 1 % (0-10); Hematocrit 34.7 % (36.0-46.0); Immature Granulocytes % (Auto) 0 % (0-0); Immature Granulocytes Auto 0.01 Thou/mm3 (0.00-0.00); Lymphocytes # (Auto) 1.4 Thou/mm3 (1.0-4.8); Lymphocytes % (Auto) 26 % (10-50); Mean Corpuscular HGB Conc 34.6 g/dl (31.0-37.0); Mean Corpuscular Hemoglobin 30.7 pg (25.0-35.0); Mean Corpuscular Volume 89 fL (80-100); Monocytes # (Auto) 0.5 Thou/mm3 (0.0-0.8); Monocytes % (Auto) 9 % (0-12); Neutrophils # (Auto) 3.3 Thou/mm3 (1.8-7.7); Neutrophils % (Auto) 63 % (37-80); Nucleated Red Blood Cell % 0 /100 WBC (0); Platelet Count 216 Thou/mm3 (140-440); RDW Standard Deviation 46.4 fL (36.4-46.3); Red Blood Count 3.91 Miln/mm3 (4.00-5.20); White Blood Count 5.2 Thou/mm3 (3.6-11.0)
[2024-05-20 06:26] LABS: Alanine Aminotransferase < 7 U/L (10-49); Albumin/Globulin Ratio 1.9 (1.2-2.2); Alkaline Phosphatase 67 U/L (46-116); Anion Gap 9 (7-16); Aspartate Amino Transferase 15 U/L (0-34); BUN/Creatinine Ratio 6 Ratio (12-20); Bilirubin,Total 0.5 mg/dL (0.3-1.2); Blood Urea Nitrogen < 5 mg/dL (9-23); Calcium 8.3 mg/dL (8.3-10.6); Calcium (Corrected) 8.3 mg/dL (8.5-10.1); Carbon Dioxide 26.5 mMol/L (20.0-31.0); Cardiac Risk Estimate 4.6 RATIO (3.7-5.6); Chloride 103 mMol/L (98-107); Cholesterol 232 mg/dL (132-200); Creatinine (Component) 0.8 mg/dL (0.6-1.3); Estimated Creatinine Clearance 43.3 mL/min (>60); Free T4 (Free Thyroxine) 1.08 ng/dL (0.89-1.76); Globulin 2.1 gm/dL (2.3-3.5); Glucose 116 mg/dL (74-106); HDL Cholesterol 50 mg/dL (40-60); LDL Cholesterol,Calculated 156 mg/dL (0-130); Magnesium 1.6 mg/dL (1.6-2.6); Osmolality,Calculated 273 (275-295); Phosphorous 2.5 mg/dL (2.4-5.1); Potassium 3.1 mMol/L (3.4-5.1); Sodium 138 mMol/L (136-145); Thyroid Stimulating Hormone 5.65 uIU/mL (0.55-4.78); Total Protein 6.1 gm/dL (5.7-8.2); Triglycerides 128 mg/dL (30-150); eGFR > 60 See Note
--- NOTE | 2024-05-20 08:01 | ESPR_ITS ---
<Statement entered by Rob Acharya MD - 05/20/24 13:06> I have discussed and was present for the essential components of the history, physical examination, diagnosis, and treatment plan with the resident. I agree with the patient's care as documented by the resident and amended herein by me. Rob Acharya MD. Documentation for date of: 05/20/24 Subjective Subjective Interval history: Patient seen and examined at bedside. Patient states she had 3 episodes of green diarrhea yesterday but no bowel movement today. Noted electrolytes were low, patient was not able to tolerate to oral electrolyte repletion yesterday. Will attempt to crush meds, patient says she may be able to take them with vanilla pudding. Exam Vital Signs Temp Pulse Resp BP Pulse Ox O2 Del Method 97.5 F 92 16 153/72 H 94 L Room Air 05/20/24 07:56 05/20/24 07:56 05/20/24 07:56 05/20/24 07:56 05/20/24 07:56 05/20/24 07:56 Narrative Exam Constitutional: NAD. Resting comfortably. Cachetic, thin HEENT: NCAT. Vision grossly intact. Respiratory: CTAB bilaterally. Normal S1, S2. No MRG appreciated. Abdomen: Soft, non-distended, non-tender. No guarding, no rebound. MSK: No B/L LE edema. Skin: Warm, dry, intact. No obvious lesions. Neuro: Motor and sensation grossly intact. Psychiatric: Appropriate mood and affect. Objective Labs 05/20/24 05:12 05/20/24 05:12 Labs: Laboratory Results - last 24 hr 05/19/24 05/19/24 05/19/24 06:00 08:48 09:44 WBC RBC Hgb Hct MCV MCH MCHC RDW Std Deviation Plt Count Neut % (Auto) Lymph % (Auto) [place] % (Auto) Eos % (Auto) Baso % (Auto) Neut # (Auto) Lymph # (Auto) [place] # (Auto) Eos # (Auto) Baso # (Auto) Immature Gran # (Auto) Absolute Nucleated RBC Immature Gran % Nucleated RBC % VBG pH 7.38 VBG pCO2 44 VBG pO2 30 VBG O2 Sat ([place]) 54 L VBG Base Excess 1 Sodium Potassium Chloride Carbon Dioxide Anion Gap BUN Creatinine Estim Creat Clear Calc eGFR BUN/Creatinine Ratio Glucose Estimated Ave Glu mg/dL 103 Hemoglobin A1c 5.2 Calculated Osmolality Calcium Corrected Calcium Phosphorus Magnesium 2.0 Total Bilirubin AST ALT Alkaline Phosphatase Total Protein Albumin Globulin Albumin/Globulin Ratio Triglycerides Cholesterol LDL Cholesterol, Calc HDL Cholesterol Cholesterol/HDL Ratio Lipase 29 Beta-Hydroxybutyrate/Acetoacetate 4.0 H TSH Free T4 Ur Collection Type Catheter Urine Color Lt-Yellow Urine Clarity Clear Urine pH 6.0 Ur Specific [place] 1.009 Urine Protein 1+ A Urine Glucose (UA) Negative Urine Ketones 2+ A Urine Blood 1+ A Urine Nitrite Negative Urine Bilirubin Negative Urine Urobilinogen (Auto) Negative Ur Leukocyte Esterase Negative Urine RBC 4 H Urine WBC 1 Ur Squamous Epith Cells < 1 Urine Bacteria None 05/20/24 05:12 WBC 5.2 D RBC 3.91 L Hgb 12.0 D Hct 34.7 L MCV 89 MCH 30.7 MCHC 34.6 RDW Std Deviation 46.4 H Plt Count 216 D Neut % (Auto) 63 Lymph % (Auto) 26 [place] % (Auto) 9 Eos % (Auto) 1 Baso % (Auto) 1 Neut # (Auto) 3.3 Lymph # (Auto) 1.4 [place] # (Auto) 0.5 Eos # (Auto) 0.0 Baso # (Auto) 0.0 Immature Gran # (Auto) 0.01 H Absolute Nucleated RBC 0.00 Immature Gran % 0 Nucleated RBC % 0 VBG pH VBG pCO2 VBG pO2 VBG O2 Sat ([place]) VBG Base Excess Sodium 138 Potassium 3.1 L Chloride 103 Carbon Dioxide 26.5 Anion Gap 9 BUN < 5 L Creatinine 0.8 Estim Creat Clear Calc 43.3 L eGFR > 60 BUN/Creatinine Ratio 6 L Glucose [address] Glu mg/dL Hemoglobin A1c Calculated Osmolality 273 L Calcium 8.3 D Corrected Calcium 8.3 L D Phosphorus 2.5 Magnesium 1.6 Total Bilirubin 0.5 AST 15 ALT < 7 L Alkaline Phosphatase 67 D Total Protein 6.1 Albumin 4.0 D Globulin 2.1 L Albumin/Globulin Ratio 1.9 Triglycerides 128 Cholesterol 232 H LDL Cholesterol, Calc 156 H HDL Cholesterol 50 Cholesterol/HDL Ratio 4.6 Lipase Beta-Hydroxybutyrate/Acetoacetate TSH 5.65 H Free T4 1.08 Ur Collection Type Urine Color Urine Clarity Urine pH Ur Specific [place] Urine Protein Urine Glucose (UA) Urine Ketones Urine Blood Urine Nitrite Urine Bilirubin Urine Urobilinogen (Auto) Ur Leukocyte Esterase Urine RBC Urine WBC Ur Squamous Epith Cells Urine Bacteria ABG Interpretation ABG results: 05/19/24 08:48 VBG pH 7.38 VBG pCO2 44 VBG pO2 30 VBG Base Excess 1 Quality Measures Quality Measures VTE prophylaxis (Heparin subcut) Advance care planning discussed with:: patient Assessment & Plan Assessment Current Active Medications: Generic Name Dose Route Start Last Admin Trade Name Freq PRN Reason Stop Dose Admin Acetaminophen 650 mg 05/19/24 11:31 Acetaminophen 325 Mg Tablet PO 06/18/24 11:30 Q6H PRN Fever >100.4 or pain Acetaminophen 650 mg 05/19/24 11:31 Acetaminophen 325 Mg Tablet PO 06/18/24 11:30 Q6H PRN PAIN SCALE 1-3 (mild Albuterol 2 puff 05/19/24 11:42 Albuterol Inh 8 Gm INH 06/18/24 11:41 Q4HR PRN SHORTNESS OF BREATH OR WHEEZE Calcium Carbonate 600 mg 05/20/24 08:00 Calcium Carbonate 600 Mg Tablet PO 05/20/24 08:01 X1 ONE Clonazepam 1 mg 05/19/24 11:40 05/20/24 05:25 Clonazepam 0.5 Mg Tablet PO 05/24/24 13:59 1 mg TID PRN Administration ANXIETY Heparin Sodium (Porcine) 5,000 unit 05/19/24 11:45 05/19/24 20:09 Heparin Sod Inj 5000 Unit/Ml Vial SC 06/02/24 11:44 5,000 unit Q12HR HONORIO Administration Ciprofloxacin/Dextrose 400 mg in 200 mls @ 200 mls/hr 05/19/24 11:37 05/19/24 20:17 Cipro Ivpb IV 05/26/24 11:36 200 mls/hr Q12HR HONORIO Administration Metronidazole 500 mg in 100 mls @ 200 mls/hr 05/19/24 12:00 05/20/24 05:14 Flagyl 500 Mg Iv IV 05/26/24 11:59 200 mls/hr Q8HR HON[facility]IO Administration Dextrose/Sodium Chloride 1,000 mls @ 125 mls/hr 05/19/24 22:52 05/19/24 23:16 D5-Ns IV 05/21/24 22:51 125 mls/hr .Q8H HONORIO Administration Ketorolac Tromethamine 15 mg 05/19/24 11:42 Ketorolac Inj 30 Mg/Ml Vial IVP 05/24/24 11:41 Q6HR PRN Pain 4-10 Levothyroxine Sodium 50 mcg 05/20/24 06:00 05/20/24 05:13 Levothyroxine Sodium 25 Mcg Tablet PO 06/19/24 05:59 50 mcg ACBR HONORIO Administration Ondansetron HCl 4 mg 05/19/24 11:31 Ondansetron Inj 2 Mg/Ml Inj 2 Ml IV 06/18/24 11:30 Q6HR PRN NAUSEA OR VOMITING Protocol Potassium Chloride 40 meq 05/20/24 08:00 Potassium Chloride 20 Meq Tabcr PO 05/20/24 08:01 X1 ONE Potassium Chloride 40 meq 05/20/24 12:00 Potassium Chloride 20 Meq Tabcr PO 05/20/24 12:01 X1 ONE Quetiapine Fumarate 200 mg 05/19/24 21:00 05/19/24 20:24 Quetiapine Fumarate 100 Mg Tablet PO 06/18/24 20:59 Not Given HS HONORIO Sennosides 1 tab 05/19/24 11:31 Senna Tablet PO 06/18/24 11:30 BID PRN CONSTIPATION Protocol Plan Radha Hu is a 78-year-old female with 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 Admitted for workup of diarrhea possible GI infection/colitis. # ?Acute on chronic diarrhea, colitis Differential diagnosis include acute gastritis versus colitis vs malabsoprtion disorder N/V, diarrhea x 6 days with green foul-smelling stool, unrelated to food intake Recent antibiotic use (Keflex) for UTI x 2 days, and additional antibiotic 1 week ago. No fever, no significant leukocytosis so low suspicion for C-Diff but give recent antibiotic use will check anyway CT abd/p shows Mild diffuse nonspecific colitis pattern - Discontinue IVF - Encourage oral intake - Follow up stool studies, C-diff - Continue cipro, flaglyl (05/19- #Starvation ketosis #Low BMI Elevated BHB. Suspect related to diarrhea, appetite, loss, diarrhea - Ensure plus BID ? Refer to registered dietitian, appreciate recs #Electrolyte disturbance #Hypokalemia Related to GI loss - Repleted # History of fibromyalgia # History of anxiety # History of depression ? Patient takes clonazepam, Seroquel and Zoloft ? Resumed home medications # History of hypothyroidism ? Continue home levothyroxine Health Maintenance Disposition: Admit for acute colitis Diet and fluids: FLD, advance as tolerated DVT prophylaxis: heparin GI prophylaxis: none CODE STATUS: FULL I have reviewed and discussed the patient's care with my attending, Dr. Patrizia Valles MD PGY-3
[2024-05-20] MEDS: HEPARIN SOD INJ 5000 UNIT/ML VIAL SC ×2 (08:08→20:38)
[2024-05-20] MEDS: CIPROFLOXACIN/D5w 400 MG IVPB 400 MG/200 ML BAG 200 MG IV ×2 (08:08→20:41)
[2024-05-20] MEDS: POTASSIUM CHLORIDE 20 mEq TABCR 40 MEQ PO (12:04)
[2024-05-21] VITALS (12 sets, daily range): BP systolic 116–160; BP diastolic 61–74; PULSE 69–92; RESP 16–94; TEMP 36.4–37.6; O2SAT 90–95; BMI 18.1
[2024-05-21] MEDS: clonazePAM 0.5 MG TABLET 1 MG PO ×3 (01:52→22:36)
[2024-05-21] MEDS: metroNIDAZOLE/NS 500 MG IVPB 500 MG/100 ML BAG 200 MG IV ×3 (05:16→22:17)
[2024-05-21] MEDS: LEVOTHYROXINE SODIUM 25 MCG TABLET 50 MCG PO (05:19)
[2024-05-21 06:17] LABS: Basophils % (Auto) 1 % (0-2.5); Eosinophils # (Auto) 0.1 Thou/mm3 (0.0-0.5); Eosinophils % (Auto) 2 % (0-10); Hematocrit 35.3 % (36.0-46.0); Immature Granulocytes % (Auto) 0 % (0-0); Immature Granulocytes Auto 0.01 Thou/mm3 (0.00-0.00); Lymphocytes # (Auto) 1.6 Thou/mm3 (1.0-4.8); Lymphocytes % (Auto) 28 % (10-50); Mean Corpuscular Hemoglobin 30.3 pg (25.0-35.0); Mean Corpuscular Volume 89 fL (80-100); Monocytes # (Auto) 0.5 Thou/mm3 (0.0-0.8); Monocytes % (Auto) 10 % (0-12); Neutrophils # (Auto) 3.4 Thou/mm3 (1.8-7.7); Neutrophils % (Auto) 59 % (37-80); Nucleated Red Blood Cell % 0 /100 WBC (0); Platelet Count 221 Thou/mm3 (140-440); RDW Standard Deviation 46.5 fL (36.4-46.3); Red Blood Count 3.96 Miln/mm3 (4.00-5.20); White Blood Count 5.6 Thou/mm3 (3.6-11.0)
[2024-05-21 06:50] LABS: Alanine Aminotransferase 7 U/L (10-49); Albumin, Serum 3.8 gm/dL (3.4-4.8); Albumin/Globulin Ratio 1.8 (1.2-2.2); Alkaline Phosphatase 65 U/L (46-116); Anion Gap 9 (7-16); Aspartate Amino Transferase 12 U/L (0-34); BUN/Creatinine Ratio 13 Ratio (12-20); Bilirubin,Total 0.5 mg/dL (0.3-1.2); Blood Urea Nitrogen 9 mg/dL (9-23); Calcium 8.7 mg/dL (8.3-10.6); Calcium (Corrected) 8.9 mg/dL (8.5-10.1); Carbon Dioxide 26.3 mMol/L (20.0-31.0); Chloride 103 mMol/L (98-107); Creatinine (Component) 0.7 mg/dL (0.6-1.3); Estimated Creatinine Clearance 49.5 mL/min (>60); Globulin 2.1 gm/dL (2.3-3.5); Glucose 99 mg/dL (74-106); Osmolality,Calculated 274 (275-295); Phosphorous 3.7 mg/dL (2.4-5.1); Potassium 3.1 mMol/L (3.4-5.1); Sodium 138 mMol/L (136-145); Total Protein 5.9 gm/dL (5.7-8.2); eGFR > 60 See Note
[2024-05-21] MEDS: POTASSIUM CHLORIDE 20 mEq TABCR 40 MEQ PO (08:32)
[2024-05-21] MEDS: Magnesium Sulfate 2 GM Ivpb 2 GM/50 ML BAG IV (08:32)
[2024-05-21 09:18] LABS: Magnesium 1.9 mg/dL (1.6-2.6)
[2024-05-21] MEDS: LACTOBACILLUS RHAMNOSUS 1 CAP PO ×2 (10:02→20:23)
[2024-05-21] MEDS: HEPARIN SOD INJ 5000 UNIT/ML VIAL SC ×2 (10:03→20:19)
[2024-05-21] MEDS: CIPROFLOXACIN/D5w 400 MG IVPB 400 MG/200 ML BAG 200 MG IV ×2 (10:54→20:23)
--- NOTE | 2024-05-21 12:17 | ESPR_ITS ---
<Statement entered by Marquez Hart MD - 05/21/24 15:55> Patient was seen and examined at the bedside. Patient reported that she still have some loose stools however appears to be better in terms of her appetite. We consulted GI for further evaluation given weight loss and appetite loss in past couple of months and based on her presentation of chronic diarrhea. Will continue with ciprofloxacin and Flagyl and follow on GI recommendations. Electrolytes were repleted. All labs and orders were reviewed. I saw and examined the patient, and I agree with current management stated by Dr Low MD,PGY1. Plan of care was discussed with the attending physician and resident physician. Disclaimer: Despite multiple revisions, due to the dictation software being used, the document bellow may not be free of grammatical errors including phonetic/typographic errors. However, this does not deter from our commitment to providing health care in the patient's best interest in mind. Dr. Hailey MD, PGY 2 Documentation for date of: 05/21/24 Subjective Subjective Interval history: Patient was seen and examined at bedside this AM. No acute exents overnight. Patient tolerating Full liquid diet, adequate urine output and mentation is at baseline. Patient had two episodes of green diarrhea this am Will graduate to regular diet from lunch Patient reported that she had an episode of colitis when she was 7 years old and also 1-2 episodes in the 1980s for months for which she received treatment but unsure of the medication she used. Stool studies including C. difficile, stool culture and Gram stain, ova system parasites, calprotectin stool, Giardia antigen, norovirus and stool for WBCs were ordered Patient currently on day 3 Cipro and Flagyl IV for treatment of colitis K3.1. Patient repleted with KCl 40 Mg p.o. and mag sulfate 2 g IV x 1 GI, Dr. Whittaker was consulted for change in bowel habits and history of colitis. Appreciate recommendations Exam Vital Signs Temp Pulse Resp BP Pulse Ox O2 Del Method 98.6 F 70 16 139/71 H 94 L Room Air 05/21/24 11:32 05/21/24 11:32 05/21/24 11:32 05/21/24 11:32 05/21/24 11:32 05/21/24 11:32 Narrative Exam Constitutional Alert, oriented x 3 and comfortable. Elderly female, thin HEENT Vision grossly intact. Patent nares. Trachea midline Respiratory Chest normal on inspection and clear auscultation bilaterally Cardiovascular S1 and S2 audible, RRR. No murmurs carotid bruit. No gross JVD. Abdominal Soft and non tender to palpation in all quadrants. BS + Genitourinary No bladder tenderness, no flank pain. Normal to palpation Musculoskeletal Extremities tone within normal limits. No LE edema. Neurological CN II - XII grossly intact. Extremity motor and sensation grossly intact. Skin Warm, dry and intact. No apparent lesions. Psychiatric Patient has good affect, is cooperative Objective Labs 05/22/24 05:03 05/22/24 05:03 Labs: Laboratory Results - last 24 hr 05/21/24 05:28 WBC 5.6 RBC 3.96 L Hgb 12.0 Hct 35.3 L MCV 89 MCH 30.3 MCHC 34.0 RDW Std Deviation 46.5 H Plt Count 221 Neut % (Auto) 59 Lymph % (Auto) 28 [place] % (Auto) 10 Eos % (Auto) 2 Baso % (Auto) 1 Neut # (Auto) 3.4 Lymph # (Auto) 1.6 [place] # (Auto) 0.5 Eos # (Auto) 0.1 Baso # (Auto) 0.0 Immature Gran # (Auto) 0.01 H Absolute Nucleated RBC 0.00 Immature Gran % 0 Nucleated RBC % 0 Sodium 138 Potassium 3.1 L Chloride 103 Carbon Dioxide 26.3 Anion Gap 9 BUN 9 Creatinine 0.7 Estim Creat Clear Calc 49.5 L eGFR > 60 BUN/Creatinine Ratio 13 Glucose 99 Calculated Osmolality 274 L Calcium 8.7 Corrected Calcium 8.9 Phosphorus 3.7 Magnesium 1.9 Total Bilirubin 0.5 AST 12 ALT 7 L Alkaline Phosphatase 65 Total Protein 5.9 Albumin 3.8 Globulin 2.1 L Albumin/Globulin Ratio 1.8 ABG Interpretation ABG results: 05/19/24 08:48 VBG pH 7.38 VBG pCO2 44 VBG pO2 30 VBG Base Excess 1 Quality Measures Quality Measures VTE prophylaxis (Heparin subcut) Advance care planning discussed with:: patient Assessment & Plan Assessment Current Active Medications: Generic Name Dose Route Start Last Admin Trade Name Freq PRN Reason Stop Dose Admin Acetaminophen 650 mg 05/19/24 11:31 Acetaminophen 325 Mg Tablet PO 06/18/24 11:30 Q6H PRN PAIN SCALE 1-3 (mild Acetaminophen 650 mg 05/20/24 11:30 Acetaminophen 325 Mg Tablet PO 06/18/24 11:30 Q6H PRN Fever >100.4 Albuterol 2 puff 05/19/24 11:42 Albuterol Inh 8 Gm INH 06/18/24 11:41 Q4HR PRN SHORTNESS OF BREATH OR WHEEZE Clonazepam 1 mg 05/19/24 11:40 05/21/24 10:02 Clonazepam 0.5 Mg Tablet PO 05/24/24 13:59 1 mg TID PRN Administration ANXIETY Heparin Sodium (Porcine) 5,000 unit 05/19/24 11:45 05/21/24 10:03 Heparin Sod Inj 5000 Unit/Ml Vial SC 06/02/24 11:44 5,000 unit Q12HR HONORIO Administration Ciprofloxacin/Dextrose 400 mg in 200 mls @ 200 mls/hr 05/19/24 11:37 05/21/24 10:54 Cipro Ivpb IV 05/26/24 11:36 200 mls/hr Q12HR HONORIO Administration Metronidazole 500 mg in 100 mls @ 200 mls/hr 05/19/24 12:00 05/21/24 05:16 Flagyl 500 Mg Iv IV 05/26/24 11:59 200 mls/hr Q8HR HONORIO Administration Ketorolac Tromethamine 15 mg 05/19/24 11:42 Ketorolac Inj 30 Mg/Ml Vial IVP 05/24/24 11:41 Q6HR PRN Pain 4-10 Lactobacillus Rhamnosus 1 cap 05/21/24 09:00 05/21/24 10:02 Lactobacillus Rhamnosus 1 Cap PO 05/25/24 08:59 1 cap BID HONORIO Administration Levothyroxine Sodium 50 mcg 05/20/24 06:00 05/21/24 05:19 Levothyroxine Sodium 25 Mcg Tablet PO 06/19/24 05:59 50 mcg ACBR HONORIO Administration Ondansetron HCl 4 mg 05/19/24 11:31 Ondansetron Inj 2 Mg/Ml Inj 2 Ml IV 06/18/24 11:30 Q6HR PRN NAUSEA OR VOMITING Protocol Quetiapine Fumarate 200 mg 05/19/24 21:00 05/20/24 20:48 Quetiapine Fumarate 100 Mg Tablet PO 06/18/24 20:59 Not Given HS HONORIO Sennosides 1 tab 05/19/24 11:31 Senna Tablet PO 06/18/24 11:30 BID PRN CONSTIPATION Protocol Plan Radha Hu is a 78-year-old female with 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 Admitted for workup of diarrhea possible GI infection/colitis. # ?Acute on chronic diarrhea, colitis Differential diagnosis include acute gastritis versus colitis vs malabsoprtion disorder N/V, diarrhea x 6 days with green foul-smelling stool, unrelated to food intake Recent antibiotic use (Keflex) for UTI x 2 days, and additional antibiotic 1 week ago. No fever, no significant leukocytosis so low suspicion for C-Diff but give recent antibiotic use will check anyway CT abd/p shows Mild diffuse nonspecific colitis pattern Patient tolerating Full liquid diet, adequate urine output and mentation is at baseline. Patient had two episodes of green diarrhea this am Will graduate to regular diet from lunch Patient reported that she had an episode of colitis when she was 7 years old and also 1-2 episodes in the 1980s for months for which she received treatment but unsure of the medication she used. Stool studies including C. difficile, stool culture and Gram stain, ova system parasites, calprotectin stool, Giardia antigen, norovirus and stool for WBCs were ordered Plan: ? Graduate to solid diet from lunch - Stool studies including C. difficile, stool culture and Gram stain, ova system parasites, calprotectin stool, Giardia antigen, norovirus and stool for WBCs were ordered - D3 cipro, flaglyl (05/19- - GI, Dr. Whittaker was consulted for change in bowel habits and history of colitis. Appreciate recommendations #Starvation ketosis #Low BMI Elevated BHB. Suspect related to diarrhea, appetite, loss, diarrhea Referred to vice president underwriting #Electrolyte disturbance #Hypokalemia Related to diarrhea K3.1. Patient repleted with KCl 40 Mg p.o. and mag sulfate 2 g IV x 1 # History of fibromyalgia # History of anxiety # History of depression ? Patient takes clonazepam, Seroquel and Zoloft ? Resumed home medications # History of hypothyroidism Plan: ? Continue home levothyroxine 50mcg po ACBR .Health maintenance: Disposition: Pending Stool studies and GI recommendations Diet: Regular Lines: pIVs GI Prophylaxis: None Thrombo Prophylaxis: Heparin Code status: FULL CODE Plan of care discussed with Attending Dr. Bass and PGY2 Dr. Hailey Gregorio MD PGY 1 Attending Provider Attestation/Addendum I have discussed and was present for the essential components of the history, physical examination, diagnosis, and treatment plan with the resident. I agree with the patient's care as documented by the resident and amended herein by me. Clint Bass DO. Although this document has been carefully reviewed, there may still be some phonetic and other typographical errors. These errors are purely grammatical due to imperfections in the software program and should not be construed in any way to compromise the substance of the patient's medical care during this visit.
--- NOTE | 2024-05-21 12:47 | PC.SS ---
This is 78-year-old, , single female who presente to the ED due to suffering from nausea and vomiting. Patient appeared alert and oriented to self, place and situation. Patient was pleasant. Patient resides at an apartment. She is independent with all ADLs; she uses a walker and nebulizer. Patient assigned her friend, Suyapa HendricksBrayan ([phone]) as her medical decision maker. Patient's PCP is [facility]. When medically clear, patient will return home.
[2024-05-21] MEDS: QUEtiapine FUMARATE 100 MG TABLET 200 MG PO (20:24)
[2024-05-21 21:52] LABS: Stool for WBCs Negative (Negative)
--- NOTE | 2024-05-21 22:18 | ESCONSULT_ITS ---
HPI Data of Consult Requesting Physician: Kenan Bass DO Primary Care Provider: Yoan Ortiz PA-C Consult Narrative Reason for consult: Nonbloody diarrhea, abnormal CTAP History of present illness: 70 years old female presented to the emergency room evaluated by the ER physician trust operations assistant for nonbloody diarrhea for few days Multiple stools CT scan of the abdomen pelvis with contrast showed nonspecific colitis Patient has a history of colitis at age 7 and then reemerges few years later He does not recall the exact amount of treatment No blood in the stool All the stool studies have been ordered cc:: cc: Kenan Bass DO Review of Systems Review of Systems Systems Reviewed: All systems reviewed, normal except as documented Past Medical History Surgical History OTHER SURGICAL HX: COPD Fibromyalgia's Recurrent UTI Status postmastectomy for breast carcinoma Meds Home Medications and Allergies Home Medications ?Medication ?Instructions ?Recorded ?Confirmed ?Type Fluticasone Propionate NASAL * 1 spry NASAL QDAY #0 spry 11/11/13 12/28/23 History (FLONASE *) albuterol sulfate 90 mcg/actuation 2 puff inhalation Q8H PRN 11/11/13 12/28/23 History aerosol inhaler (ProAir HFA) SHORTNESS OF BREATH OR WHEEZE ##0 clonazepam 1 mg tablet (Klonopin) 1 mg PO TID PRN ANXIETY #0 tabs 11/11/13 12/28/23 History levothyroxine 50 mcg tablet 50 mcg PO QAM 02/24/21 12/28/23 History quetiapine 200 mg tablet 200 mg PO QPM 02/24/21 12/28/23 History sertraline 100 mg tablet 200 mg PO QPM 02/24/21 12/28/23 History gabapentin 300 mg capsule 300 mg PO TID 12/21/23 12/28/23 History Allergies Allergy/AdvReac Type Severity Reaction Status Date / Time codeine Allergy Severe NAUSEA/VOMI Verified 05/19/24 04:11 TING gabapentin Allergy Severe Photosensit Verified 05/19/24 04:11 ivity Sulfa (Sulfonamide Allergy Severe NAUSEA/VOMI Verified 05/19/24 04:11 Antibiotics) TING Exam Vital Signs Temp Pulse Resp BP Pulse Ox O2 Del Method 98.8 F 71 17 128/70 95 Room Air 05/21/24 20:00 05/21/24 20:22 05/21/24 20:00 05/21/24 20:00 05/21/24 20:00 05/21/24 20:00 Constitutional Comments: Chronically ill-appearing Routine Respiratory Exam Comments: Normal to auscultation Routine Abdominal Exam Comments: Soft nontender Results Labs 05/22/24 05:03 05/22/24 05:03 Labs: Short CBC 05/21/24 Range/Units 05:28 WBC 5.6 (3.6-11.0) Thou/mm3 Hgb 12.0 (12.0-16.0) g/dL Hct 35.3 L (36.0-46.0) % Plt Count 221 (140-440) Thou/mm3 BMP 05/21/24 05:28 Sodium 138 Potassium 3.1 L Chloride 103 Carbon Dioxide 26.3 BUN 9 Creatinine 0.7 Glucose 99 Calcium 8.7 Liver Function 05/21/24 Range/Units 05:28 Total Bilirubin 0.5 (0.3-1.2) mg/dL AST 12 (0-34) U/L ALT 7 L (10-49) U/L Alkaline Phosphatase 65 (46-116) U/L Albumin 3.8 (3.4-4.8) gm/dL ABG Interpretation ABG results: 05/19/24 08:48 VBG pH 7.38 VBG pCO2 44 VBG pO2 30 VBG Base Excess 1 Assessment and Plan Additional Assessment & Plan Additional Plan: # chronic persistent diarrhea with previous history of colitis Patient may have underlying inflammatory bowel disease microscopic colitis or symptom complex of functional bowel disease Plan Will await results of the stool analysis ANCA antibody CRP GoLytely prep Colonoscopy with possible biopsies possible therapeutic intervention for diagnostic reasons Informed consent obtained At the procedure has been scheduled tentatively for tomorrow pending patient's GoLytely prep Other medical problems include # COPD # Anxiety neurosis # Fibromyalgia's # Status postmastectomy for breast carcinoma Thank you very much for the opportunity to participate in the care of this patient
[2024-05-21] MEDS: NA SU/NAHCO3/KC/PEG (Golytely) 4,000 ML BTL 4000 ML PO (22:39)
--- NOTE | 2024-05-21 22:53 | PC.NURSE ---
Patient agreed to drink Golytely but said will start it in the morning 05/22/[address] Panfilo martinez.
[2024-05-22] VITALS (11 sets, daily range): BP systolic 122–168; BP diastolic 67–88; PULSE 66–87; RESP 16–97; TEMP 36.2–36.8; O2SAT 91–97
[2024-05-22] MEDS: metroNIDAZOLE/NS 500 MG IVPB 500 MG/100 ML BAG 200 MG IV ×3 (05:33→22:00)
[2024-05-22] MEDS: LEVOTHYROXINE SODIUM 25 MCG TABLET 50 MCG PO (05:33)
--- NOTE | 2024-05-22 06:05 | PC.NURSE ---
Pt started drinking golytely, tolerating well.
[2024-05-22 06:11] LABS: Basophils % (Auto) 1 % (0-2.5); Eosinophils # (Auto) 0.2 Thou/mm3 (0.0-0.5); Eosinophils % (Auto) 4 % (0-10); Hematocrit 35.3 % (36.0-46.0); Hemoglobin 11.8 g/dL (12.0-16.0); Immature Granulocytes % (Auto) 0 % (0-0); Immature Granulocytes Auto 0.01 Thou/mm3 (0.00-0.00); Lymphocytes # (Auto) 1.3 Thou/mm3 (1.0-4.8); Lymphocytes % (Auto) 27 % (10-50); Mean Corpuscular HGB Conc 33.4 g/dl (31.0-37.0); Mean Corpuscular Hemoglobin 29.9 pg (25.0-35.0); Mean Corpuscular Volume 90 fL (80-100); Monocytes # (Auto) 0.6 Thou/mm3 (0.0-0.8); Monocytes % (Auto) 12 % (0-12); Neutrophils # (Auto) 2.7 Thou/mm3 (1.8-7.7); Neutrophils % (Auto) 57 % (37-80); Nucleated Red Blood Cell % 0 /100 WBC (0); Platelet Count 209 Thou/mm3 (140-440); RDW Standard Deviation 47.8 fL (36.4-46.3); Red Blood Count 3.94 Miln/mm3 (4.00-5.20); White Blood Count 4.7 Thou/mm3 (3.6-11.0)
[2024-05-22 06:51] LABS: Alanine Aminotransferase < 7 U/L (10-49); Albumin, Serum 3.7 gm/dL (3.4-4.8); Albumin/Globulin Ratio 1.7 (1.2-2.2); Alkaline Phosphatase 63 U/L (46-116); Anion Gap 9 (7-16); Aspartate Amino Transferase 11 U/L (0-34); BUN/Creatinine Ratio 11 Ratio (12-20); Bilirubin,Total 0.4 mg/dL (0.3-1.2); Blood Urea Nitrogen 9 mg/dL (9-23); C-Reactive Protein < 0.4 mg/dL (0.0-0.9); Calcium 8.8 mg/dL (8.3-10.6); Carbon Dioxide 26.9 mMol/L (20.0-31.0); Chloride 106 mMol/L (98-107); Creatinine (Component) 0.8 mg/dL (0.6-1.3); Estimated Creatinine Clearance 43.3 mL/min (>60); Globulin 2.2 gm/dL (2.3-3.5); Glucose 92 mg/dL (74-106); Osmolality,Calculated 281 (275-295); Phosphorous 3.6 mg/dL (2.4-5.1); Potassium 3.4 mMol/L (3.4-5.1); Sodium 142 mMol/L (136-145); Total Protein 5.9 gm/dL (5.7-8.2); eGFR > 60 See Note
--- NOTE | 2024-05-22 08:35 | ESPR_ITS ---
<Statement entered by Marquez Hart MD - 05/22/24 15:59> Patient was seen and examined at the bedside. She reported that she has been passing bowel movements due to GoLytely prep. GI specialist ordered JUSTINO, ANCA, CRP and recommended that he wants to proceed with colonoscopy. Stool cultures and C. difficile testing pending. Will continuing ciprofloxacin and Flagyl for now. All labs and orders were reviewed. I saw and examined the patient, and I agree with current management stated by Dr Yuliya MD,PGY1. Plan of care was discussed with the attending physician and resident physician. Disclaimer: Despite multiple revisions, due to the dictation software being used, the document bellow may not be free of grammatical errors including phonetic/typographic errors. However, this does not deter from our commitment to providing health care in the patient's best interest in mind. Dr. Hailey MD, PGY 2 Documentation for date of: 05/22/24 Subjective Subjective Interval history: Patient was seen and examined at bedside this AM. No acute exents overnight. Patient tolerating clear liquid diet, adequate urine output and mentation is at baseline. Patient started GoLytely prep this a.m. and currently has no complaints Patient currently on day 4 Cipro and Flagyl IV for treatment of colitis K3.4. Patient repleted with KCl 20 Mg p.o. For colonoscopy once cleared GI, Dr. Whittaker was consulted for change in bowel habits and history of colitis. Appreciate recommendations Exam Vital Signs Temp Pulse Resp BP Pulse Ox O2 Del Method 97.3 F 77 16 143/70 H 91 L Room Air 05/22/24 07:55 05/22/24 07:55 05/22/24 07:55 05/22/24 07:55 05/22/24 07:55 05/22/24 04:00 Narrative Exam Constitutional Alert, oriented x 3 and comfortable. Elderly female, thin HEENT Vision grossly intact. Patent nares. Trachea midline Respiratory Chest normal on inspection and clear auscultation bilaterally Cardiovascular S1 and S2 audible, RRR. No murmurs carotid bruit. No gross JVD. Abdominal Soft and non tender to palpation in all quadrants. BS + Genitourinary No bladder tenderness, no flank pain. Normal to palpation Musculoskeletal Extremities tone within normal limits. No LE edema. Neurological CN II - XII grossly intact. Extremity motor and sensation grossly intact. Skin Warm, dry and intact. No apparent lesions. Psychiatric Patient has good affect, is cooperative Objective Labs 05/22/24 05:03 05/22/24 05:03 Labs: Laboratory Results - last 24 hr 05/21/24 05/21/24 05/22/24 05:28 21:05 05:03 WBC 4.7 RBC 3.94 L Hgb 11.8 L Hct 35.3 L MCV 90 MCH 29.9 MCHC 33.4 RDW Std Deviation 47.8 H Plt Count 209 Neut % (Auto) 57 Lymph % (Auto) 27 [place] % (Auto) 12 Eos % (Auto) 4 Baso % (Auto) 1 Neut # (Auto) 2.7 Lymph # (Auto) 1.3 [place] # (Auto) 0.6 Eos # (Auto) 0.2 Baso # (Auto) 0.0 Immature Gran # (Auto) 0.01 H Absolute Nucleated RBC 0.00 Immature Gran % 0 Nucleated RBC % 0 Sodium 142 Potassium 3.4 Chloride 106 Carbon Dioxide 26.9 Anion Gap 9 BUN 9 Creatinine 0.8 Estim Creat Clear Calc 43.3 L eGFR > 60 BUN/Creatinine Ratio 11 L Glucose 92 Calculated Osmolality 281 Calcium 8.8 Corrected Calcium 9.0 Phosphorus 3.6 Magnesium 1.9 Total Bilirubin 0.4 AST 11 ALT < 7 L Alkaline Phosphatase 63 C-Reactive Prot, Quant < 0.4 Total Protein 5.9 Albumin 3.7 Globulin 2.2 L Albumin/Globulin Ratio 1.7 Stool for White Cells Negative Stl C. diff Tox B Gene Cancelled ABG Interpretation ABG results: 05/19/24 08:48 VBG pH 7.38 VBG pCO2 44 VBG pO2 30 VBG Base Excess 1 Quality Measures Quality Measures VTE prophylaxis (Heparin subcut) Advance care planning discussed with:: patient Assessment & Plan Assessment Current Active Medications: Generic Name Dose Route Start Last Admin Trade Name Freq PRN Reason Stop Dose Admin Acetaminophen 650 mg 05/19/24 11:31 Acetaminophen 325 Mg Tablet PO 06/18/24 11:30 Q6H PRN PAIN SCALE 1-3 (mild Acetaminophen 650 mg 05/20/24 11:30 Acetaminophen 325 Mg Tablet PO 06/18/24 11:30 Q6H PRN Fever >100.4 Albuterol 2 puff 05/19/24 11:42 Albuterol Inh 8 Gm INH 06/18/24 11:41 Q4HR PRN SHORTNESS OF BREATH OR WHEEZE Clonazepam 1 mg 05/19/24 11:40 05/21/24 22:36 Clonazepam 0.5 Mg Tablet PO 05/24/24 13:59 1 mg TID PRN Administration ANXIETY Heparin Sodium (Porcine) 5,000 unit 05/19/24 11:45 05/21/24 20:19 Heparin Sod Inj 5000 Unit/Ml Vial SC 06/02/24 11:44 5,000 unit Q12HR HONORIO Administration Ciprofloxacin/Dextrose 400 mg in 200 mls @ 200 mls/hr 05/19/24 11:37 05/21/24 20:23 Cipro Ivpb IV 05/26/24 11:36 200 mls/hr Q12HR HONORIO Administration Metronidazole 500 mg in 100 mls @ 200 mls/hr 05/19/24 12:00 05/22/24 05:33 Flagyl 500 Mg Iv IV 05/26/24 11:59 200 mls/hr Q8HR HONORIO Administration Ketorolac Tromethamine 15 mg 05/19/24 11:42 Ketorolac Inj 30 Mg/Ml Vial IVP 05/24/24 11:41 Q6HR PRN Pain 4-10 Lactobacillus Rhamnosus 1 cap 05/21/24 09:00 05/21/24 20:23 Lactobacillus Rhamnosus 1 Cap PO 05/25/24 08:59 1 cap BID HONORIO Administration Levothyroxine Sodium 50 mcg 05/20/24 06:00 05/22/24 05:33 Levothyroxine Sodium 25 Mcg Tablet PO 06/19/24 05:59 50 mcg ACBR HONORIO Administration Ondansetron HCl 4 mg 05/19/24 11:31 Ondansetron Inj 2 Mg/Ml Inj 2 Ml IV 06/18/24 11:30 Q6HR PRN NAUSEA OR VOMITING Protocol Quetiapine Fumarate 200 mg 05/19/24 21:00 05/21/24 20:24 Quetiapine Fumarate 100 Mg Tablet PO 06/18/24 20:59 200 mg HS HONORIO Administration Sennosides 1 tab 05/19/24 11:31 Senna Tablet PO 06/18/24 11:30 BID PRN CONSTIPATION Protocol Plan Radha Hu is a 78-year-old female with 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 Admitted for workup of diarrhea possible GI infection/colitis. # ?Acute on chronic diarrhea, colitis Differential diagnosis include acute gastritis versus colitis vs malabsoprtion disorder N/V, diarrhea x 6 days with green foul-smelling stool, unrelated to food intake Recent antibiotic use (Keflex) for UTI x 2 days, and additional antibiotic 1 week ago. No fever, no significant leukocytosis so low suspicion for C-Diff but give recent antibiotic use will check anyway CT abd/p shows Mild diffuse nonspecific colitis pattern Patient reported that she had an episode of colitis when she was 7 years old and also 1-2 episodes in the 1980s for months for which she received treatment but unsure of the medication she used. Stool for WBC negative Pending ANCA panel Pending Stool studies including C. difficile, stool culture and Gram stain, ova system parasites, calprotectin stool, Giardia antigen, norovirus Patient tolerating clear liquid diet, adequate urine output and mentation is at baseline. Patient started GoLytely prep this a.m. and currently has no complaints Patient currently on day 4 Cipro and Flagyl IV for treatment of colitis K3.4. Patient repleted with KCl 20 Mg p.o. For colonoscopy once cleared Plan: ? Clear liquid diet - Pending stool studies including C. difficile, stool culture and Gram stain, ova system parasites, calprotectin stool, Giardia antigen, norovirus ? Pending ANCA panel - D4 cipro, flaglyl (05/19- ? For colonoscopy once GoLytely I have discussed and was present for the essential components of the history, physical examination, diagnosis, and treatment plan with the resident. I agree with the patient's care as documented by the resident and amended herein by me. Clint Bass, . #Starvation ketosis #Low BMI Elevated BHB. Suspect related to diarrhea, appetite, loss, diarrhea Referred to mobile therapist #Electrolyte disturbance #Hypokalemia Related to diarrhea K3.1. Patient repleted with KCl 40 Mg p.o. and mag sulfate 2 g IV x 1 # History of fibromyalgia # History of anxiety # History of depression ? Patient takes clonazepam, Seroquel and Zoloft ? Continue home medications # History of hypothyroidism Plan: ? Continue home levothyroxine 50mcg po ACBR .Health maintenance: Disposition: Pending Stool studies and colonoscopy Diet: Clear liquid Lines: pIVs GI Prophylaxis: None Thrombo Prophylaxis: Heparin Code status: FULL CODE Plan of care discussed with Attending Dr. Bass and PGY2 Dr. Hailey Gregorio MD PGY 1 Attending Provider Attestation/Addendum I have discussed and was present for the essential components of the history, physical examination, diagnosis, and treatment plan with the resident. I agree with the patient's care as documented by the resident and amended herein by me. Clint Bass, DO. Patient seen and evaluated this AM. In Short, patient is a 78-year-old female with a significant past medical history of COPD secondary to tobacco use, virology, longstanding history of unspecified colitis since approximately 7 years old, hypothyroidism, anxiety, breast cancer status postmastectomy, recurrent UTIs who presented to the ED 05/19 for persistent nausea and vomiting approximately 6 days prior to admission, subsequently admitted for intractable nausea and vomiting and colitis. Interval Hx: 05/22: No significant events overnight, vital signs stable, patient afebrile overnight, CBC unremarkable, BMP largely unremarkable, stool cultures as well as additional autoimmune studies are pending. Liver ultrasound performed on 05/19 demonstrated gallbladder wall is 0.3 cm with possible edema however, patient completely asymptomatic, no TTP to the right upper quadrant, negative Lombardo sign. Patient has no other additional complaints SIGNIFICANT PROBLEM LIST: #Colitis with associated nausea, vomiting and diarrhea?improved #Likely starvation ketosis -resolved #Hypokalemia likely secondary to diarrhea?improved PLAN: Will continue to follow-up with stool studies and autoimmune workup. I do not feel the need to pursue any other studies on the patient's gallbladder she is completely asymptomatic, liver enzymes normal. Will continue ciprofloxacin and Flagyl at this time for possible infectious causes. GI consulted, colonoscopy pending, the patient is tolerating GoLytely well. Will continue to monitor closely MEDICATIONS: Ciprofloxacin 400 mg every 12 hours Clonazepam 1 mg p.o. 3 times daily as needed for anxiety Heparin PPx 5000 units every 12 hours Lactobacillus 1 capsule p.o. twice daily Levothyroxine 50 mcg daily Flagyl 500 mg every 8 hours GoLytely Seroquel 200 mg p.o. at bedtime Although this document has been carefully reviewed, there may still be some phonetic and other typographical errors. These errors are purely grammatical due to imperfections in the software program and should not be construed in any way to compromise the substance of the patient's medical care during this visit.
[2024-05-22] MEDS: POTASSIUM CHLORIDE 20 mEq TABCR PO (08:36)
[2024-05-22] MEDS: CIPROFLOXACIN/D5w 400 MG IVPB 400 MG/200 ML BAG 200 MG IV ×2 (08:36→20:33)
[2024-05-22] MEDS: HEPARIN SOD INJ 5000 UNIT/ML VIAL SC ×2 (08:36→20:38)
[2024-05-22] MEDS: LACTOBACILLUS RHAMNOSUS 1 CAP PO ×2 (08:36→20:38)
[2024-05-22 10:38] LABS: Magnesium 1.6 mg/dL (1.6-2.6)
--- NOTE | 2024-05-22 18:32 | PC.NURSE ---
update Dr. Oliveira about pt. bowel still no clear. quater of golytely left in 1st bottle per Dr. oliveira possible colonoscopy tommorow and have pt. started on 2nd bottle for golytely if bowel is still not clear after the 1st bottle complete.
[2024-05-22] MEDS: QUEtiapine FUMARATE 100 MG TABLET 200 MG PO (20:38)
--- NOTE | 2024-05-22 20:47 | ESPR_ITS ---
Documentation for date of: 05/22/24 Subjective Subjective Interval history: Patient was on the schedule for colonoscopy But she is not clear Continue GoLytely prep Colonoscopy scheduled for tomorrow Exam Vital Signs Temp Pulse Resp BP Pulse Ox O2 Del Method 98.3 F 78 18 168/88 H 92 L Room Air 05/22/24 20:00 05/22/24 20:00 05/22/24 20:00 05/22/24 20:00 05/22/24 20:00 05/22/24 20:00 Objective Labs 05/22/24 05:03 05/22/24 05:03 Labs: Laboratory Results - last 24 hr 05/21/24 05/22/24 05/22/24 21:05 05:03 09:48 WBC 4.7 RBC 3.94 L Hgb 11.8 L Hct 35.3 L MCV 90 MCH 29.9 MCHC 33.4 RDW Std Deviation 47.8 H Plt Count 209 Neut % (Auto) 57 Lymph % (Auto) 27 [place] % (Auto) 12 Eos % (Auto) 4 Baso % (Auto) 1 Neut # (Auto) 2.7 Lymph # (Auto) 1.3 [place] # (Auto) 0.6 Eos # (Auto) 0.2 Baso # (Auto) 0.0 Immature Gran # (Auto) 0.01 H Absolute Nucleated RBC 0.00 Immature Gran % 0 Nucleated RBC % 0 Sodium 142 Potassium 3.4 Chloride 106 Carbon Dioxide 26.9 Anion Gap 9 BUN 9 Creatinine 0.8 Estim Creat Clear Calc 43.3 L eGFR > 60 BUN/Creatinine Ratio 11 L Glucose 92 Calculated Osmolality 281 Calcium 8.8 Corrected Calcium 9.0 Phosphorus 3.6 Magnesium 1.6 Total Bilirubin 0.4 AST 11 ALT < 7 L Alkaline Phosphatase 63 C-Reactive Prot, Quant < 0.4 Total Protein 5.9 Albumin 3.7 Globulin 2.2 L Albumin/Globulin Ratio 1.7 Stool for White Cells Negative Stl C. diff Tox B Gene Cancelled Impressions Impression: # Chronic persistent diarrhea Colonoscopy a.m. once the colon is clear Continue GoLytely prep ABG Interpretation ABG results: 05/19/24 08:48 VBG pH 7.38 VBG pCO2 44 VBG pO2 30 VBG Base Excess 1 Assessment & Plan A&P Narrative # chronic persistent diarrhea with previous history of colitis Patient may have underlying inflammatory bowel disease microscopic colitis or symptom complex of functional bowel disease Plan Will await results of the stool analysis ANCA antibody CRP GoLytely prep Colonoscopy with possible biopsies possible therapeutic intervention for diagnostic reasons Informed consent obtained At the procedure has been scheduled tentatively for tomorrow pending patient's GoLytely prep Other medical problems include # COPD # Anxiety neurosis # Fibromyalgia's # Status postmastectomy for breast carcinoma Thank you very much for the opportunity to participate in the care of this patient Time Spent With Patient Time: Total time spent is greater than 50% in coordination of care (as documented) at patient's floor/unit and/or counseling patient:
[2024-05-23] VITALS (19 sets, daily range): BP systolic 127–194; BP diastolic 67–96; PULSE 71–99; RESP 15–20; TEMP 36.2–36.9; O2SAT 93–100
[2024-05-23] MEDS: metroNIDAZOLE/NS 500 MG IVPB 500 MG/100 ML BAG 200 MG IV (05:00)
[2024-05-23] MEDS: LEVOTHYROXINE SODIUM 25 MCG TABLET 50 MCG PO (05:00)
[2024-05-23 05:59] LABS: Basophils % (Auto) 1 % (0-2.5); Eosinophils # (Auto) 0.2 Thou/mm3 (0.0-0.5); Eosinophils % (Auto) 4 % (0-10); Hematocrit 37.1 % (36.0-46.0); Hemoglobin 12.7 g/dL (12.0-16.0); Immature Granulocytes % (Auto) 0 % (0-0); Immature Granulocytes Auto 0.01 Thou/mm3 (0.00-0.00); Lymphocytes # (Auto) 1.2 Thou/mm3 (1.0-4.8); Lymphocytes % (Auto) 25 % (10-50); Mean Corpuscular HGB Conc 34.2 g/dl (31.0-37.0); Mean Corpuscular Hemoglobin 30.5 pg (25.0-35.0); Mean Corpuscular Volume 89 fL (80-100); Monocytes # (Auto) 0.7 Thou/mm3 (0.0-0.8); Monocytes % (Auto) 14 % (0-12); Neutrophils # (Auto) 2.7 Thou/mm3 (1.8-7.7); Neutrophils % (Auto) 56 % (37-80); Nucleated Red Blood Cell % 0 /100 WBC (0); Platelet Count 201 Thou/mm3 (140-440); RDW Standard Deviation 47.8 fL (36.4-46.3); Red Blood Count 4.16 Miln/mm3 (4.00-5.20); White Blood Count 4.8 Thou/mm3 (3.6-11.0)
[2024-05-23] MEDS: clonazePAM 0.5 MG TABLET 1 MG PO (06:13)
[2024-05-23 06:48] LABS: Alanine Aminotransferase 9 U/L (10-49); Albumin, Serum 3.9 gm/dL (3.4-4.8); Albumin/Globulin Ratio 1.7 (1.2-2.2); Alkaline Phosphatase 66 U/L (46-116); Anion Gap 10 (7-16); Aspartate Amino Transferase 17 U/L (0-34); BUN/Creatinine Ratio 6 Ratio (12-20); Bilirubin,Total 0.5 mg/dL (0.3-1.2); Blood Urea Nitrogen < 5 mg/dL (9-23); Calcium 9.1 mg/dL (8.3-10.6); Calcium (Corrected) 9.2 mg/dL (8.5-10.1); Chloride 103 mMol/L (98-107); Creatinine (Component) 0.8 mg/dL (0.6-1.3); Estimated Creatinine Clearance 43.3 mL/min (>60); Globulin 2.3 gm/dL (2.3-3.5); Glucose 95 mg/dL (74-106); Magnesium 1.9 mg/dL (1.6-2.6); Osmolality,Calculated 272 (275-295); Potassium 3.7 mMol/L (3.4-5.1); Sodium 138 mMol/L (136-145); Total Protein 6.2 gm/dL (5.7-8.2); eGFR > 60 See Note
[2024-05-23] MEDS: LACTOBACILLUS RHAMNOSUS 1 CAP PO ×2 (08:36→20:12)
[2024-05-23] MEDS: HEPARIN SOD INJ 5000 UNIT/ML VIAL SC ×2 (08:36→20:10)
[2024-05-23] MEDS: CIPROFLOXACIN/D5w 400 MG IVPB 400 MG/200 ML BAG 200 MG IV ×2 (08:36→20:10)
[2024-05-23] MEDS: NA SU/NAHCO3/KC/PEG (Golytely) 4,000 ML BTL 4000 ML PO (09:51)
--- NOTE | 2024-05-23 11:00 | PC.NURSE ---
Pt. is clear and spoke with Dr. Jimenez put pt NPO now
--- NOTE | 2024-05-23 11:21 | ESPR_ITS ---
<Statement entered by Marquez Hart MD - 05/23/24 14:36> Patient was seen and examined at the bedside. She was feeling fine and was passing bowel movement still. She was still not clear in terms of bowel movement with GoLytely prep and was started on second GoLytely prep for colonoscopy today. Will continue ciprofloxacin and Flagyl until today and likely discontinue tomorrow morning. Patient was maintaining stable vitals and labs were stable as well. All labs and orders were reviewed. I saw and examined the patient, and I agree with current management stated by Dr Darline MD,PGY1. Plan of care was discussed with the attending physician and resident physician. Disclaimer: Despite multiple revisions, due to the dictation software being used, the document bellow may not be free of grammatical errors including phonetic/typographic errors. However, this does not deter from our commitment to providing health care in the patient's best interest in mind. Dr. Hailey MD, PGY 2 Documentation for date of: 05/23/24 Subjective Subjective Interval history: Patient was seen and examined at bedside this AM. No acute exents overnight. Patient tolerating clear liquid diet, adequate urine output and mentation is at baseline. Patient started on second GoLytely prep this a.m. as she is still not clear and currently has no complaints Patient currently on day 5 Cipro and Flagyl IV for treatment of colitis. Will discontinue antibiotics tomorrow K 3.7 and Mg 1.9. For colonoscopy once cleared GI, Dr. Whittaker was consulted for change in bowel habits and history of colitis. Appreciate recommendations Exam Vital Signs Temp Pulse Resp BP Pulse Ox O2 Del Method 97.2 F 83 18 132/70 H 94 L Room Air 05/23/24 08:00 05/23/24 08:00 05/23/24 08:00 05/23/24 08:00 05/23/24 08:00 05/23/24 08:00 Narrative Exam Constitutional Alert, oriented x 3 and comfortable. Elderly female, thin HEENT Vision grossly intact. Patent nares. Trachea midline Respiratory Chest normal on inspection and clear auscultation bilaterally Cardiovascular S1 and S2 audible, RRR. No murmurs carotid bruit. No gross JVD. Abdominal Soft and non tender to palpation in all quadrants. BS + Genitourinary No bladder tenderness, no flank pain. Normal to palpation Musculoskeletal Extremities tone within normal limits. No LE edema. Neurological CN II - XII grossly intact. Extremity motor and sensation grossly intact. Skin Warm, dry and intact. No apparent lesions. Psychiatric Patient has good affect, is cooperative Objective Labs 05/24/24 05:40 05/24/24 05:40 Labs: Laboratory Results - last 24 hr 05/23/24 05:44 WBC 4.8 RBC 4.16 Hgb 12.7 Hct 37.1 MCV 89 MCH 30.5 MCHC 34.2 RDW Std Deviation 47.8 H Plt Count 201 Neut % (Auto) 56 Lymph % (Auto) 25 [place] % (Auto) 14 H Eos % (Auto) 4 Baso % (Auto) 1 Neut # (Auto) 2.7 Lymph # (Auto) 1.2 [place] # (Auto) 0.7 Eos # (Auto) 0.2 Baso # (Auto) 0.0 Immature Gran # (Auto) 0.01 H Absolute Nucleated RBC 0.00 Immature Gran % 0 Nucleated RBC % 0 Sodium 138 Potassium 3.7 Chloride 103 Carbon Dioxide 25.0 Anion Gap 10 BUN < 5 L Creatinine 0.8 Estim Creat Clear Calc 43.3 L eGFR > 60 BUN/Creatinine Ratio 6 L Glucose 95 Calculated Osmolality 272 L Calcium 9.1 Corrected Calcium 9.2 Phosphorus 4.0 Magnesium 1.9 Total Bilirubin 0.5 AST 17 ALT 9 L Alkaline Phosphatase 66 Total Protein 6.2 Albumin 3.9 Globulin 2.3 Albumin/Globulin Ratio 1.7 ABG Interpretation ABG results: 05/19/24 08:48 VBG pH 7.38 VBG pCO2 44 VBG pO2 30 VBG Base Excess 1 Quality Measures Quality Measures VTE prophylaxis (Heparin subcut) Advance care planning discussed with:: other Assessment & Plan Assessment Current Active Medications: Generic Name Dose Route Start Last Admin Trade Name Freq PRN Reason Stop Dose Admin Acetaminophen 650 mg 05/19/24 11:31 Acetaminophen 325 Mg Tablet PO 06/18/24 11:30 Q6H PRN PAIN SCALE 1-3 (mild Acetaminophen 650 mg 05/20/24 11:30 Acetaminophen 325 Mg Tablet PO 06/18/24 11:30 Q6H PRN Fever >100.4 Albuterol 2 puff 05/19/24 11:42 Albuterol Inh 8 Gm INH 06/18/24 11:41 Q4HR PRN SHORTNESS OF BREATH OR WHEEZE Clonazepam 1 mg 05/19/24 11:40 05/23/24 06:13 Clonazepam 0.5 Mg Tablet PO 05/24/24 13:59 1 mg TID PRN Administration ANXIETY Heparin Sodium (Porcine) 5,000 unit 05/19/24 11:45 05/23/24 08:36 Heparin Sod Inj 5000 Unit/Ml Vial SC 06/02/24 11:44 5,000 unit Q12HR HONORIO Administration Ciprofloxacin/Dextrose 400 mg in 200 mls @ 200 mls/hr 05/19/24 11:37 05/23/24 08:36 Cipro Ivpb IV 05/24/24 11:36 200 mls/hr Q12HR HONORIO Administration Ketorolac Tromethamine 15 mg 05/19/24 11:42 Ketorolac Inj 30 Mg/Ml Vial IVP 05/24/24 11:41 Q6HR PRN Pain 4-10 Lactobacillus Rhamnosus 1 cap 05/21/24 09:00 05/23/24 08:36 Lactobacillus Rhamnosus 1 Cap PO 05/25/24 08:59 1 cap BID HONORIO Administration Levothyroxine Sodium 50 mcg 05/20/24 06:00 05/23/24 05:00 Levothyroxine Sodium 25 Mcg Tablet PO 06/19/24 05:59 50 mcg ACBR HONORIO Administration Ondansetron HCl 4 mg 05/19/24 11:31 Ondansetron Inj 2 Mg/Ml Inj 2 Ml IV 06/18/24 11:30 Q6HR PRN NAUSEA OR VOMITING Protocol Quetiapine Fumarate 200 mg 05/19/24 21:00 05/22/24 20:38 Quetiapine Fumarate 100 Mg Tablet PO 06/18/24 20:59 200 mg HS HONORIO Administration Sennosides 1 tab 05/19/24 11:31 Senna Tablet PO 06/18/24 11:30 BID PRN CONSTIPATION Protocol Plan Radha Hu is a 78-year-old female with 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 Admitted for workup of diarrhea possible GI infection/colitis. # Acute on chronic diarrhea #Colitis likely noninfectious Differential diagnosis include acute gastritis versus microscopic colitis vs malabsoprtion disorder N/V, diarrhea x 6 days with green foul-smelling stool, unrelated to food intake Recent antibiotic use (Keflex) for UTI x 2 days, and additional antibiotic 1 week ago. No fever, no significant leukocytosis so low suspicion for C-Diff but give recent antibiotic use will check anyway CT abd/p shows Mild diffuse nonspecific colitis pattern Patient reported that she had an episode of colitis when she was 7 years old and also 1-2 episodes in the 1980s for months for which she received treatment but unsure of the medication she used. Stool for WBC negative. Stool culture negative Pending ANCA panel Pending Stool studies, ova system parasites, calprotectin stool, Giardia antigen, norovirus Stool study for C. difficile not done as it did not meet criteria [foul- smelling, watery] Patient tolerating clear liquid diet, adequate urine output and mentation is at baseline. Patient started on second GoLytely prep this a.m. as she is still not clear and currently has no complaints Patient currently on day 5 Cipro and Flagyl IV for treatment of colitis. Will discontinue antibiotics tomorrow K 3.7 and Mg 1.9. For colonoscopy once cleared GI, Dr. Whittaker was consulted for change in bowel habits and history of colitis. Appreciate recommendations Plan: ? Clear liquid diet - Pending stool studies including C. difficile, stool culture and Gram stain, ova system parasites, calprotectin stool, Giardia antigen, norovirus ? Pending ANCA panel - D5 cipro, flaglyl (05/19-will discontinue antibiotics tomorrow as etiology likely inflammatory and not infectious. Stool culture returned negative and Pro-José <0.04 ? For colonoscopy once GoLytely bowel prep completed ? GI, Dr. Whittaker consulted. Appreciate recommendations #Starvation ketosis?resolved #Low BMI Elevated BHB. Suspect related to diarrhea, appetite, loss, diarrhea Referred to seismograph chief #Electrolyte disturbance #Hypokalemia?resolved Related to diarrhea Currently K3.7 and Mg 1.9 # History of fibromyalgia # Anxiety # Major depressive disorder ? Patient takes clonazepam, Seroquel and Zoloft ? Continue home medications # Hypothyroidism Plan: ? Continue home levothyroxine 50mcg po ACBR .Health maintenance: Disposition: Pending Stool studies and colonoscopy Diet: Clear liquid Lines: pIVs GI Prophylaxis: None Thrombo Prophylaxis: Heparin Code status: FULL CODE Plan of care discussed with Attending Dr. Bass and PGY2 Dr. Hailey Gregorio MD PGY 1 Attending Provider Attestation/Addendum I have discussed and was present for the essential components of the history, physical examination, diagnosis, and treatment plan with the resident. I agree with the patient's care as documented by the resident and amended herein by me. Clint Bass, DO. Although this document has been carefully reviewed, there may still be some phonetic and other typographical errors. These errors are purely grammatical due to imperfections in the software program and should not be construed in any way to compromise the substance of the patient's medical care during this visit.
--- NOTE | 2024-05-23 12:02 | PD.IMPROG ---
Documentation for date of: 05/23/24 Exam Vital Signs Temp Pulse Resp BP Pulse Ox O2 Del Method 97.2 F 83 18 132/70 H 94 L Room Air 05/23/24 08:00 05/23/24 08:00 05/23/24 08:00 05/23/24 08:00 05/23/24 08:00 05/23/24 08:00 Objective Labs 05/24/24 05:40 05/24/24 05:40 Labs: Laboratory Results - last 24 hr 05/23/24 05:44 WBC 4.8 RBC 4.16 Hgb 12.7 Hct 37.1 MCV 89 MCH 30.5 MCHC 34.2 RDW Std Deviation 47.8 H Plt Count 201 Neut % (Auto) 56 Lymph % (Auto) 25 [place] % (Auto) 14 H Eos % (Auto) 4 Baso % (Auto) 1 Neut # (Auto) 2.7 Lymph # (Auto) 1.2 [place] # (Auto) 0.7 Eos # (Auto) 0.2 Baso # (Auto) 0.0 Immature Gran # (Auto) 0.01 H Absolute Nucleated RBC 0.00 Immature Gran % 0 Nucleated RBC % 0 Sodium 138 Potassium 3.7 Chloride 103 Carbon Dioxide 25.0 Anion Gap 10 BUN < 5 L Creatinine 0.8 Estim Creat Clear Calc 43.3 L eGFR > 60 BUN/Creatinine Ratio 6 L Glucose 95 Calculated Osmolality 272 L Calcium 9.1 Corrected Calcium 9.2 Phosphorus 4.0 Magnesium 1.9 Total Bilirubin 0.5 AST 17 ALT 9 L Alkaline Phosphatase 66 Total Protein 6.2 Albumin 3.9 Globulin 2.3 Albumin/Globulin Ratio 1.7 ABG Interpretation ABG results: 05/19/24 08:48 VBG pH 7.38 VBG pCO2 44 VBG pO2 30 VBG Base Excess 1 Assessment & Plan A&P Narrative # chronic persistent diarrhea with previous history of colitis Patient may have underlying inflammatory bowel disease microscopic colitis or symptom complex of functional bowel disease Plan Will await results of the stool analysis ANCA antibody CRP GoLytely prep Colonoscopy with possible biopsies possible therapeutic intervention for diagnostic reasons Informed consent obtained At the procedure has been scheduled tentatively for tomorrow pending patient's GoLytely prep Other medical problems include # COPD # Anxiety neurosis # Fibromyalgia's # Status postmastectomy for breast carcinoma Thank you very much for the opportunity to participate in the care of this patient Time Spent With Patient Time: Total time spent is greater than 50% in coordination of care (as documented) at patient's floor/unit and/or counseling patient:
--- NOTE | 2024-05-23 19:35 | PC.NURSE ---
RECVD FROM PACU S/P COLONOSCOPY. MADE COMFORTABLE IN BED. FULLY AWAKE AND VERBAL. NO C/O OFFERED. VS MONITORED. CLEAR LIQUIDS OFFERED TOOK SIPS ONLY. BED LOCKED AND IN LOWEST POSITION CALL LIGHT AND BEDSIDE TABLE IN REACH
[2024-05-24] VITALS (7 sets, daily range): BP systolic 119–143; BP diastolic 57–83; PULSE 73–94; RESP 13–94; TEMP 36.3–36.7; O2SAT 91–94; BMI 18.1; BMI 13.0
[2024-05-24 05:56] LABS: Basophils # (Auto) 0.1 Thou/mm3 (0.0-0.2); Basophils % (Auto) 1 % (0-2.5); Eosinophils # (Auto) 0.2 Thou/mm3 (0.0-0.5); Eosinophils % (Auto) 3 % (0-10); Hematocrit 36.1 % (36.0-46.0); Hemoglobin 12.4 g/dL (12.0-16.0); Immature Granulocytes % (Auto) 0 % (0-0); Immature Granulocytes Auto 0.01 Thou/mm3 (0.00-0.00); Lymphocytes # (Auto) 1.2 Thou/mm3 (1.0-4.8); Lymphocytes % (Auto) 18 % (10-50); Mean Corpuscular HGB Conc 34.3 g/dl (31.0-37.0); Mean Corpuscular Hemoglobin 30.5 pg (25.0-35.0); Mean Corpuscular Volume 89 fL (80-100); Monocytes # (Auto) 0.6 Thou/mm3 (0.0-0.8); Monocytes % (Auto) 10 % (0-12); Neutrophils # (Auto) 4.4 Thou/mm3 (1.8-7.7); Neutrophils % (Auto) 68 % (37-80); Nucleated Red Blood Cell % 0 /100 WBC (0); Platelet Count 201 Thou/mm3 (140-440); Red Blood Count 4.07 Miln/mm3 (4.00-5.20); White Blood Count 6.5 Thou/mm3 (3.6-11.0)
[2024-05-24] MEDS: LEVOTHYROXINE SODIUM 25 MCG TABLET 50 MCG PO (05:57)
[2024-05-24] MEDS: clonazePAM 0.5 MG TABLET 1 MG PO ×2 (05:59→17:16)
[2024-05-24 06:30] LABS: Alanine Aminotransferase 11 U/L (10-49); Albumin, Serum 3.9 gm/dL (3.4-4.8); Albumin/Globulin Ratio 1.8 (1.2-2.2); Alkaline Phosphatase 63 U/L (46-116); Anion Gap 9 (7-16); Aspartate Amino Transferase 20 U/L (0-34); BUN/Creatinine Ratio 10 Ratio (12-20); Bilirubin,Total 0.5 mg/dL (0.3-1.2); Blood Urea Nitrogen 8 mg/dL (9-23); Calcium 8.9 mg/dL (8.3-10.6); Carbon Dioxide 25.2 mMol/L (20.0-31.0); Chloride 104 mMol/L (98-107); Creatinine (Component) 0.8 mg/dL (0.6-1.3); Estimated Creatinine Clearance 43.3 mL/min (>60); Globulin 2.2 gm/dL (2.3-3.5); Glucose 84 mg/dL (74-106); Magnesium 1.9 mg/dL (1.6-2.6); Osmolality,Calculated 272 (275-295); Phosphorous 3.7 mg/dL (2.4-5.1); Potassium 3.5 mMol/L (3.4-5.1); Sodium 138 mMol/L (136-145); Total Protein 6.1 gm/dL (5.7-8.2); eGFR > 60 See Note
--- NOTE | 2024-05-24 08:30 | ESDS_ITS ---
<Statement entered by Marquez Hart MD - 05/24/24 12:47> Patient was seen and examined at the bedside. Patient was doing well and reported that she did not had any abdominal discomfort now after eating her breakfast. Colonoscopy results showed multiple rectal polyps and erythema in her colon. Biopsies were taken. Patient was advised to follow-up with [facility] as outpatient. Patient wanted to go to SNF as she has some pain in her right hip. PT evaluation ordered. Patient will likely discharge to SNF once we find a place. We recommended her to continue l actobacillus/probiotic and continue her home medications as prescribed. All labs and orders were reviewed. I saw and examined the patient, and I agree with current management stated by Dr Darline MD,PGY1. Plan of care was discussed with the attending physician and resident physician. Disclaimer: Despite multiple revisions, due to the dictation software being used, the document bellow may not be free of grammatical errors including phonetic/typographic errors. However, this does not deter from our commitment to providing health care in the patient's best interest in mind. Dr. Hailey MD, PGY 2 Planned Discharge Date 05/24/24 DS: Providers Provider Date of admission: 05/19/24 12:06 Primary care physician: Yoan Ortiz PA-C Admitting Provider: Rob Acharya MD Attending Provider on Admission: Kenan Bass DO Consults: 05/19/24 15:01 Referral Registered Dietitian Routine Comment: 05/21/24 11:52 Consult to Gastroenterology Routine Comment: change in bowel habitus and weight loss Consulting Provider: Kaye Whittaker Attending Provider on DC: Low Gregorio MD Discharging Provider: Low Gregorio MD DS: Diagnosis Problem List Completed Was Problem List Reviewed/Reconciled?: Yes Hospital Course Time Spent with Patient Time attestation: Total time spent providing and/or coordinating discharge services: Exam Vital Signs Temp Pulse Resp BP Pulse Ox O2 Del Method O2 Flow Rate 97.6 F 92 16 119/59 L 92 L Room Air 1 05/24/24 08:00 05/24/24 08:00 05/24/24 08:00 05/24/24 08:00 05/24/24 08:00 05/24/24 08:00 05/23/24 22:24 Discharge Plan Plan Patient Disposition: Home w/HOME HEALTH Patient condition on transfer: Stable Care Plan Goals: ? We have started you on a probiotic, lactobacilli. Please take 1 tablet once daily for the next 2 days. This will help with your diarrhea. ? You have been treated with 5 days of antibiotics during your hospital stay, and have completed your course. ? Please follow-up with your primary doctor within 1 week of discharge. ? Please ask your primary doctor for a referral to [facility], Dr. Whittaker and also call his office to make an appointment. ? Please follow-up with [facility], Dr. Whittaker in 2 weeks to review your biopsy results and the results of your blood tests. ? Recommend a low residue diet due to your diarrhea, avoid diarrhea and limits vegetables. ? If you experience any new, worsening or persistent symptoms please call your primary doctor, or dial [phone] or present to the emergency department. We are grateful to be able to participate in your care Ms. Hu and we wish you all the best. Prescriptions/Referrals Prescriptions/Med Rec: New Lactobacillus acidophilus 20 billion cell capsule 100 mmu cells PO QDAY Qty: 30 0RF Continued clonazepam [Klonopin] 1 MG tablet 1 mg PO TID PRN (Reason: ANXIETY) Qty: 0 albuterol sulfate [ProAir HFA] 8.5 GM HFA aerosol inhaler 2 puff Inhalation Q8H PRN (Reason: SHORTNESS OF BREATH OR WHEEZE) Qty: 0 Fluticasone Propionate NASAL * (FLONASE *) 160 SPRAY/BTL SPRAY 1 spry NASAL QDAY Qty: 0 sertraline 100 mg tablet 200 mg PO QPM Patient Comments: TAKE 2 TABLETS BY MOUTH AT BEDTIME (90 DAYS) quetiapine 200 mg tablet 200 mg PO QPM Patient Comments: TAKE 1 TABLET BY MOUTH AT BEDTIME (90 DAYS) levothyroxine 50 mcg tablet 50 mcg PO QAM Patient Comments: TAKE 1 TABLET BY MOUTH IN THE MORNING FOR 90 DAYS TAKE ON AN EMPTY STOMACH dicyclomine 20 mg tablet 20 mg PO BID Qty: 14 0RF Discontinued gabapentin 300 mg capsule 300 mg PO TID Patient Comments: TAKE 1 CAPSULE BY MOUTH THREE TIMES A DAY FOR 90 DAYS cephalexin 500 mg capsule 500 mg PO TID Qty: 21 0RF Referrals: Kaye Whittaker MD [Physician] - Yoan Ortiz PA-C [Primary Care Provider] - Patient/Caregiver Discharge Instructions Other Discharge Activity Instructions:: Please f/u with PCP within 1 week of discharge for refills. Print Language: Malay Stand Alone Forms: [facility] Award Info., Patient Portal Info Letter Discharge Order Discharge Orders: Discharge (Routine); Ordered 05/24/24 Ordered By: Marquez Hart Quality Discharge Quality Measures VTE prophylaxis Attestestation MD Attestation Please see progress note for 05/24, patient not discharged today
[2024-05-24] MEDS: POTASSIUM CHLORIDE 20 mEq TABCR PO (10:09)
[2024-05-24] MEDS: LACTOBACILLUS RHAMNOSUS 1 CAP PO ×2 (10:09→20:06)
[2024-05-24] MEDS: Magnesium Sulfate 2 GM Ivpb 2 GM/50 ML BAG IV (10:13)
[2024-05-24] MEDS: HEPARIN SOD INJ 5000 UNIT/ML VIAL SC ×2 (10:22→20:08)
--- NOTE | 2024-05-24 10:51 | PC.SS ---
SS was informed by DR. Lovett that patient was requesting SNF. SS submitted inquiry to local facilities via [employer].
--- NOTE | 2024-05-24 11:01 | PC.SS ---
Addendum entered by NICK Rivera 05/24/24 16:30: Received call from [facility] refrigeration unit repairer Sergio Goddard. [facility]. Addendum entered by NICK Rivera 05/24/24 15:40: Informed Irina with physical therapy that evaluation would be needed to submit for insurance authorization for SNF. Addendum entered by NICK Rivera 05/24/24 12:12: [facility] completed. Level 2. Pending review. Addendum entered by NICK Rivera 05/24/24 12:07: Updated Dr. Valles that patient will need insurance authorization for SNF. Addendum entered by NICK Rivera 05/24/24 12:02: Spoke with Evelyn at [facility], informs she can accept the patient and will begin insurance authorization process for SNF today. Addendum entered by NICK Rivera 05/24/24 11:24: Patient will require insurance authorization for SNF. Informed the patient. Original Note: SS update: patient informed she would like SNF placement. Preferred is [facility] as she has been there before. Updated bed side nurse.
--- NOTE | 2024-05-24 14:24 | ESPR_ITS ---
<Statement entered by Marquez Hart MD - 05/24/24 14:54> Patient was seen and examined at the bedside. Patient was doing well and reported that she did not had any abdominal discomfort now after eating her breakfast. Colonoscopy results showed multiple rectal polyps and erythema in her colon. Biopsies were taken. Patient was advised to follow-up with intervention specialist as outpatient. Patient wanted to go to SNF as she has some pain in her right hip. PT evaluation ordered. [facility]. We recommended her to continue lactobacillus/probiotic and continue her home medications as prescribed. All labs and orders were reviewed. I saw and examined the patient, and I agree with current management stated by Dr Darline MD,PGY1. Plan of care was discussed with the attending physician and resident physician. Disclaimer: Despite multiple revisions, due to the dictation software being used, the document bellow may not be free of grammatical errors including phonetic/typographic errors. However, this does not deter from our commitment to providing health care in the patient's best interest in mind. Dr. Hailey MD, PGY 2 Documentation for date of: 05/24/24 Subjective Subjective Interval history: Patient was seen and examined at bedside this AM. No acute exents overnight. Patient tolerating clear liquid diet, adequate urine output and mentation is at baseline. Patient says she feels weak this a.m. and would also like a employment advisor Colonoscopy completed on 05/23/2024 findings include: Hemorrhoids on perianal exam. A large [1 cm or greater] polyp was found in the rectum. Polyp was sessile and removed with hot snare, resection and retrieval were complete. Multiple additional rectal polyps also sessile, at least 5 were found in the rectum. Varied in size from 7-9 mm. A localized area of mildly erythematous mucosa was found in descending colon, sigmoid colon and rectum. Biopsies were taken for histology. Will order physiotherapy, news assistant referral and switch to regular diet from lunch with ensure Also started patient on pure wik catheter as she is too weak to ambulate. Exam Vital Signs Temp Pulse Resp BP Pulse Ox O2 Del Method O2 Flow Rate 97.3 F 82 17 129/60 91 L Room Air 1 05/24/24 12:00 05/24/24 12:00 05/24/24 12:00 05/24/24 12:00 05/24/24 12:00 05/24/24 12:00 05/23/24 22:24 Narrative Exam Constitutional Alert, oriented x 3 and comfortable. Elderly female, thin HEENT Vision grossly intact. Patent nares. Trachea midline Respiratory Chest normal on inspection and clear auscultation bilaterally Cardiovascular S1 and S2 audible, RRR. No murmurs carotid bruit. No gross JVD. Abdominal Soft and non tender to palpation in all quadrants. BS + Genitourinary No bladder tenderness, no flank pain. Normal to palpation Musculoskeletal Extremities tone within normal limits. No LE edema. Neurological CN II - XII grossly intact. Extremity motor and sensation grossly intact. Skin Warm, dry and intact. No apparent lesions. Psychiatric Patient has good affect, is cooperative Objective Labs 05/24/24 05:40 05/24/24 05:40 Labs: Laboratory Results - last 24 hr 05/24/24 05:40 WBC 6.5 RBC 4.07 Hgb 12.4 Hct 36.1 MCV 89 MCH 30.5 MCHC 34.3 RDW Std Deviation 48.0 H Plt Count 201 Neut % (Auto) 68 Lymph % (Auto) 18 Benson % (Auto) 10 Eos % (Auto) 3 Baso % (Auto) 1 Neut # (Auto) 4.4 Lymph # (Auto) 1.2 Benson # (Auto) 0.6 Eos # (Auto) 0.2 Baso # (Auto) 0.1 Immature Gran # (Auto) 0.01 H Absolute Nucleated RBC 0.00 Immature Gran % 0 Nucleated RBC % 0 Sodium 138 Potassium 3.5 Chloride 104 Carbon Dioxide 25.2 Anion Gap 9 BUN 8 L Creatinine 0.8 Estim Creat Clear Calc 43.3 L eGFR > 60 BUN/Creatinine Ratio 10 L Glucose 84 Calculated Osmolality 272 L Calcium 8.9 Corrected Calcium 9.0 Phosphorus 3.7 Magnesium 1.9 Total Bilirubin 0.5 AST 20 ALT 11 Alkaline Phosphatase 63 Total Protein 6.1 Albumin 3.9 Globulin 2.2 L Albumin/Globulin Ratio 1.8 ABG Interpretation ABG results: 05/19/24 08:48 VBG pH 7.38 VBG pCO2 44 VBG pO2 30 VBG Base Excess 1 Quality Measures Quality Measures VTE prophylaxis Advance care planning discussed with:: patient Assessment & Plan Assessment Current Active Medications: Generic Name Dose Route Start Last Admin Trade Name Freq PRN Reason Stop Dose Admin Acetaminophen 650 mg 05/19/24 11:31 Acetaminophen 325 Mg Tablet PO 06/18/24 11:30 Q6H PRN PAIN SCALE 1-3 (mild Acetaminophen 650 mg 05/20/24 11:30 Acetaminophen 325 Mg Tablet PO 06/18/24 11:30 Q6H PRN Fever >100.4 Albuterol 2 puff 05/19/24 11:42 Albuterol Inh 8 Gm INH 06/18/24 11:41 Q4HR PRN SHORTNESS OF BREATH OR WHEEZE Heparin Sodium (Porcine) 5,000 unit 05/19/24 11:45 05/24/24 10:22 Heparin Sod Inj 5000 Unit/Ml Vial SC 06/02/24 11:44 5,000 unit Q12HR HONORIO Administration Lactobacillus Rhamnosus 1 cap 05/21/24 09:00 05/24/24 10:09 Lactobacillus Rhamnosus 1 Cap PO 05/25/24 08:59 1 cap BID HONORIO Administration Levothyroxine Sodium 50 mcg 05/20/24 06:00 05/24/24 05:57 Levothyroxine Sodium 25 Mcg Tablet PO 06/19/24 05:59 50 mcg ACBR HONORIO Administration Ondansetron HCl 4 mg 05/19/24 11:31 Ondansetron Inj 2 Mg/Ml Inj 2 Ml IV 06/18/24 11:30 Q6HR PRN NAUSEA OR VOMITING Protocol Quetiapine Fumarate 200 mg 05/19/24 21:00 05/23/24 20:11 Quetiapine Fumarate 100 Mg Tablet PO 06/18/24 20:59 Not Given HS HONORIO Sennosides 1 tab 05/19/24 11:31 Senna Tablet PO 06/18/24 11:30 BID PRN CONSTIPATION Protocol Plan Radha Hu is a 78-year-old female with 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 Admitted for workup of diarrhea possible GI infection/colitis. 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 No fever, no significant leukocytosis so low suspicion for C-Diff but give recent antibiotic use will check anyway CT abd/p shows Mild diffuse nonspecific colitis pattern Patient reported that she had an episode of colitis when she was 7 years old and also 1-2 episodes in the 1980s for months for which she received treatment but unsure of the medication she used. Stool for WBC negative. Stool culture negative Pending ANCA panel Pending Stool studies, ova system parasites, calprotectin stool, Giardia antigen, norovirus Stool study for C. difficile not done as it did not meet criteria [foul- smelling, watery] Completed 5 days of IV Cipro and Flagyl [05/19 - 05/23] Colonoscopy completed on 05/23/2024 findings include: Hemorrhoids on perianal exam. A large [1 cm or greater] polyp was found in the rectum. Polyp was sessile and removed with hot snare, resection and retrieval were complete. Multiple additional rectal polyps also sessile, at least 5 were found in the rectum. Varied in size from 7-9 mm. A localized area of mildly erythematous mucosa was found in descending colon, sigmoid colon and rectum. Biopsies were taken for histology. Plan: ? Advance to solid diet with Ensure - Pending stool studies including C. difficile, stool culture and Gram stain, ova system parasites, calprotectin stool, Giardia antigen, norovirus ? Pending ANCA panel - Pending PT recommendations and insurance authorization to decide on disposition upon discharge ? GI, Dr. Whittaker consulted. Appreciate recommendations #Starvation ketosis?resolved #Low BMI Elevated BHB. Suspect related to diarrhea, appetite, loss, diarrhea Referred to information security specialist #Electrolyte disturbance #Hypokalemia?resolved Related to diarrhea Currently K3.7 and Mg 1.9 # History of fibromyalgia # Anxiety # Major depressive disorder ? Patient takes clonazepam, Seroquel and Zoloft ? Continue home medications # Hypothyroidism Plan: ? Continue home levothyroxine 50mcg po ACBR Health maintenance: Disposition: Pending PT recommendations and insurance authorization to decide on disposition [SNF versus home health] upon discharge. Diet: Regular with Ensure Lines: pIVs GI Prophylaxis: None Thrombo Prophylaxis: Heparin Code status: FULL CODE Plan of care discussed with Attending Dr. Bass and PGY2 Dr. Hailey Gregorio MD PGY 1 Attending Provider Attestation/Addendum I have discussed and was present for the essential components of the history, physical examination, diagnosis, and treatment plan with the resident. I agree with the patient's care as documented by the resident and amended herein by me. Clint Bass, DO. In short, the patient is a 78-year-old female with significant past medical history of COPD, fibromyalgia, anxiety, longstanding history of unspecified colitis beginning when she was approximately 7 years old, hypothyroidism, breast cancer post vasectomy, recurrent UTIs who presented to the ED with complaints of intractable nausea and vomiting which began approximately 1 week prior to admission. Patient subsequently admitted for colitis/and/or other potential intra-abdominal infection No acute events overnight, patient has no subjective complaints in the AM. Labs largely unremarkable, Dr. Whittaker did perform an EGD on 05/23 demonstrating hemorrhoids and 1 large polyp greater than 1 cm which was removed. Biopsies were taken in the left, right and rectum, results pending. Will advance diet today, follow-up with pathology results however likely will not return while the patient is here. Will continue to follow-up with stool studies that were ordered, physical therapy is recommending SNF for the patient however insurance authorization pending. Will continue to monitor closely while she is here. Although this document has been carefully reviewed, there may still be some phonetic and other typographical errors. These errors are purely grammatical due to imperfections in the software program and should not be construed in any way to compromise the substance of the patient's medical care during this visit.
--- NOTE | 2024-05-24 19:01 | PD.IMPROG ---
Documentation for date of: 05/24/24 Subjective Subjective Interval history: Patient evaluated Colonic biopsies and rectal polyp resection path results are pending Exam Vital Signs Temp Pulse Resp BP Pulse Ox O2 Del Method O2 Flow Rate 97.7 F 78 17 120/57 L 92 L Room Air 1 05/24/24 16:00 05/24/24 16:00 05/24/24 16:00 05/24/24 16:00 05/24/24 16:00 05/24/24 16:00 05/23/24 22:24 Objective Labs 05/24/24 05:40 05/24/24 05:40 Labs: Laboratory Results - last 24 hr 05/24/24 05:40 WBC 6.5 RBC 4.07 Hgb 12.4 Hct 36.1 MCV 89 MCH 30.5 MCHC 34.3 RDW Std Deviation 48.0 H Plt Count 201 Neut % (Auto) 68 Lymph % (Auto) 18 [place] % (Auto) 10 Eos % (Auto) 3 Baso % (Auto) 1 Neut # (Auto) 4.4 Lymph # (Auto) 1.2 [place] # (Auto) 0.6 Eos # (Auto) 0.2 Baso # (Auto) 0.1 Immature Gran # (Auto) 0.01 H Absolute Nucleated RBC 0.00 Immature Gran % 0 Nucleated RBC % 0 Sodium 138 Potassium 3.5 Chloride 104 Carbon Dioxide 25.2 Anion Gap 9 BUN 8 L Creatinine 0.8 Estim Creat Clear Calc 43.3 L eGFR > 60 BUN/Creatinine Ratio 10 L Glucose 84 Calculated Osmolality 272 L Calcium 8.9 Corrected Calcium 9.0 Phosphorus 3.7 Magnesium 1.9 Total Bilirubin 0.5 AST 20 ALT 11 Alkaline Phosphatase 63 Total Protein 6.1 Albumin 3.9 Globulin 2.2 L Albumin/Globulin Ratio 1.8 Impressions Impression: # Diarrhea chronic colonoscopy has no evidence of inflammatory bowel disease Could be microscopic colitis biopsies pending Continue current management ABG Interpretation ABG results: 05/19/24 08:48 VBG pH 7.38 VBG pCO2 44 VBG pO2 30 VBG Base Excess 1 Assessment & Plan A&P Narrative # chronic persistent diarrhea with previous history of colitis Patient may have underlying inflammatory bowel disease microscopic colitis or symptom complex of functional bowel disease Plan Will await results of the stool analysis ANCA antibody CRP GoLytely prep Colonoscopy with possible biopsies possible therapeutic intervention for diagnostic reasons Informed consent obtained At the procedure has been scheduled tentatively for tomorrow pending patient's GoLytely prep Other medical problems include # COPD # Anxiety neurosis # Fibromyalgia's # Status postmastectomy for breast carcinoma Thank you very much for the opportunity to participate in the care of this patient Time Spent With Patient Time: Total time spent is greater than 50% in coordination of care (as documented) at patient's floor/unit and/or counseling patient:
[2024-05-24] MEDS: QUEtiapine FUMARATE 100 MG TABLET 200 MG PO (20:05)
--- NOTE | 2024-05-24 23:46 | PC.NURSE ---
Addendum entered by True Jenkins RN 05/25/24 05:31: was also made aware. Original Note: Per patient, is upset regarding not having her Zoloft ordered by the doctor and added to her medication list. House sup made aware.
[2024-05-24] MEDS: SERTRALINE HCL 25 MG TABLET 200 MG PO (23:59)
[2024-05-25] VITALS: BP 108/54; PULSE 81; PULSE 93; RESP 21; TEMP 37; O2SAT 92
[2024-05-25] MEDS: clonazePAM 0.5 MG TABLET 1 MG PO (02:31)
--- NOTE | 2024-05-25 02:31 | PC.NURSE ---
Patient requested to speak with nurse. Per patient, I would like to have my Clonazepam . House sup made aware of patient's request.
[2024-05-25 04:00] VITALS: BP 116/59; PULSE 78; PULSE 82; RESP 14; TEMP 36.5; O2SAT 92
[2024-05-25] MEDS: LEVOTHYROXINE SODIUM 25 MCG TABLET 50 MCG PO (05:25)
[2024-05-25 05:54] LABS: Basophils % (Auto) 1 % (0-2.5); Eosinophils # (Auto) 0.3 Thou/mm3 (0.0-0.5); Eosinophils % (Auto) 5 % (0-10); Hematocrit 34.4 % (36.0-46.0); Hemoglobin 11.5 g/dL (12.0-16.0); Immature Granulocytes % (Auto) 0 % (0-0); Immature Granulocytes Auto 0.01 Thou/mm3 (0.00-0.00); Lymphocytes # (Auto) 1.8 Thou/mm3 (1.0-4.8); Lymphocytes % (Auto) 33 % (10-50); Mean Corpuscular HGB Conc 33.4 g/dl (31.0-37.0); Mean Corpuscular Hemoglobin 30.3 pg (25.0-35.0); Mean Corpuscular Volume 91 fL (80-100); Monocytes # (Auto) 0.6 Thou/mm3 (0.0-0.8); Monocytes % (Auto) 11 % (0-12); Neutrophils # (Auto) 2.9 Thou/mm3 (1.8-7.7); Neutrophils % (Auto) 51 % (37-80); Nucleated Red Blood Cell % 0 /100 WBC (0); Platelet Count 205 Thou/mm3 (140-440); RDW Standard Deviation 50.3 fL (36.4-46.3); Red Blood Count 3.79 Miln/mm3 (4.00-5.20); White Blood Count 5.7 Thou/mm3 (3.6-11.0)
[2024-05-25 06:09] LABS: Alanine Aminotransferase 10 U/L (10-49); Albumin, Serum 3.8 gm/dL (3.4-4.8); Albumin/Globulin Ratio 1.8 (1.2-2.2); Alkaline Phosphatase 57 U/L (46-116); Anion Gap 6 (7-16); Aspartate Amino Transferase 15 U/L (0-34); BUN/Creatinine Ratio 10 Ratio (12-20); Bilirubin,Total 0.4 mg/dL (0.3-1.2); Blood Urea Nitrogen 9 mg/dL (9-23); Calcium 8.9 mg/dL (8.3-10.6); Calcium (Corrected) 9.1 mg/dL (8.5-10.1); Carbon Dioxide 27.3 mMol/L (20.0-31.0); Chloride 105 mMol/L (98-107); Creatinine (Component) 0.9 mg/dL (0.6-1.3); Estimated Creatinine Clearance 38.5 mL/min (>60); Globulin 2.1 gm/dL (2.3-3.5); Glucose 91 mg/dL (74-106); Osmolality,Calculated 274 (275-295); Potassium 3.7 mMol/L (3.4-5.1); Sodium 138 mMol/L (136-145); Total Protein 5.9 gm/dL (5.7-8.2); eGFR > 60 See Note
[2024-05-25 08:00] VITALS: BP 120/51; PULSE 71; PULSE 80; RESP 17; TEMP 36.6; O2SAT 93
[2024-05-25 08:27] VITALS: PULSE 83; RESP 16; O2SAT 99
[2024-05-25] MEDS: HEPARIN SOD INJ 5000 UNIT/ML VIAL SC (08:33)
--- NOTE | 2024-05-25 11:11 | PD.HHDS ---
Planned Discharge Date 05/25/24 DS: Providers Provider Date of admission: 05/19/24 12:06 Primary care physician: Yoan Ortiz PA-C Admitting Provider: Rob Acharya MD Attending Provider on Admission: Kenan Bass DO Consults: 05/19/24 15:01 Referral Registered Dietitian Routine Comment: 05/21/24 11:52 Consult to Gastroenterology Routine Comment: change in bowel habitus and weight loss Consulting Provider: Kaye Whittaker 05/24/24 09:10 Referral [facility] Comment: Wants a spiritual adviser 05/24/24 09:15 PT [Referral Physical Therapy] Routine Comment: Physician Instructions: Instructions: Uses a walker at home. Did not ambulate since admission. She feels weak Attending Provider on DC: Alexandra Espinal DO Discharging Provider: Alexandra Espinal DO Diagnosis Problem List Completed Was Problem List Reviewed/Reconciled?: Yes Hospital Course - Hospitalist Hospital Course Hospital course: # Acute colitis, infectious versus inflammatory; Suspicious for microscopic colitis # Acute on chronic diarrhea # Generalized weakness #Starvation ketosis?resolved #Low BMI #Electrolyte disturbance #Hypokalemia?resolved # History of fibromyalgia # Anxiety # Major depressive disorder # Hypothyroidism Patient is a 78-year-old female with past medical history of COPD, fibromyalgia, anxiety, colitis, hypothyroid, breast cancer status postmastectomy and recurrent UTI who presented to the ED due to nausea, vomiting and diarrhea for the past 6 days. Patient states she had lost weight for the past month due to poor p.o. intake. She reported that her stool is fluid in consistency with foul-smelling and greenish color. She reported that she was taking Keflex for UTI infection which was prescribed here in the ED and before that she was also taking an additional antibiotic the name she does not remember for possible UTI. She reported that she did not had any fever or chills, chest pain, shortness of breath or any other symptom. She denied any abdominal discomfort and there was no relation of diarrhea to her food intake. She denied any blood in the stools. No recent travel or sick contacts around her. Per chart review, patient appears to have previous history of diarrhea as well as she got prescription for ciprofloxacin and Flagyl in the past based on med rec. In the ED, patient was hypertensive with blood pressure 160/85, tachycardic, afebrile and saturating well on room air. Labs were stable with WBC 9.1 although WBC on 05/16 was 11. Hemoglobin was stable at 14.2. VBG showed pH 7.38, pCO2 44 and pO2 30. Chemistry panel showed mild hypokalemia anion gap elevated. BUN and creatinine was stable. Lipase was negative. Beta-hydroxybutyrate was more than 4. Procalcitonin was negative. UA showed mild proteinuria, ketones 2+ and blood 1+. RBCs 4+. CT abdomen pelvis was consistent with colitis pattern. Mild diffuse. Benign renal cyst. Retrocardiac gastric hernia. Mild gallbladder wall thickening EKG showed sinus rhythm. Patient was admitted to med/surg on chronic diarrhea and possible colitis. Elevated beta hydroxybutyrate likely 2/2 starvation ketoacidosis. GI was consulted and did a colonoscopy on 05/23/2024 during which patient was found to have hemorrhoids on perianal exam, a large polyp in the rectum removed with biopsy, as well as erythematous mucosa in the ascending colon send sigmoid and rectum. Patient will need to follow-up outpatient regarding biopsies. She reported improvement of her abdominal pain and diarrhea. Patient has been tolerating p.o. intake without issue. She is encouraged p.o. hydration. Patient completed IV antibiotics here in the hospital on 05/24. Stool culture was negative and stool WBCs were also negative. Patient recommended to follow-up with PCP within 1 week of discharge as well as GI for biopsy results. There is a suspicion for possible microscopic colitis. On discharge, Patient stated that she ran out of clonazepam at home which she has been taking 3 times a day daily at home. Patient was given a short supply before she could see her PCP outpatient. She is also to continue with lactobacillus. Patient is stable for discharge home with home health Time Spent with Patient Time attestation: Total time spent providing and/or coordinating discharge services: >30min Home Health Home Health Referral Orders: 05/25/24 11:08 Home Health Referral Routine Reason For Exam: colitis Home-Bound The patient must either because of illness or injury, need the aid of supportive devices such as crutches, canes, wheelchairs, and walkers; the use of special transportation; or the assistance of another person in order to leave their place of residence; OR have a condition such that leaving his or her home is medically contraindicated. In addition, the patient also meets the following criteria: patient is normally unable to leave the home and leaving home requires considerable taxing effort. Addendum to Home Health Certification Practitioner's Certification: I certify that the patient has been under my care in the hospital and the care of attending physician (see below). We had a [id number] encounter on (see date below). My clinical findings indicate that the patient is home bound per the above criteria and the Home Health Services noted in these orders are medically necessary. The primary reason for the [id number] encounter is related to the fact that the patient requires home health services. Date Certifying Dazg-hi-[id number] Physician Encounter: 05/19/24 Physician's Name who will Assume Oversight for Services: Yoan Ortiz Physician's Phone No.who will Assume Oversight for Service: AIR CONDITIONING EQUIPMENT MECHANIC - Community Resources: No PT to Evaluate: Yes PT to evaluate and provide a treatmnet plan to increase patient's mobility and strength. Wound Care: No IV Therapy: No RN Safety Evaluation: Yes RN to evaluate and create a plan of care that will produce positive outcomes. Palliative Treatment: No Palliative treatment and evaluate the need for hospice. Home Health Aide - Personal Care: Yes Home Health Aide to assist with any ADL's. Discharge Results Labs Diagrams: 05/25/24 05:04 05/25/24 05:04 Labs: Short CBC 05/25/24 Range/Units 05:04 WBC 5.7 (3.6-11.0) Thou/mm3 Hgb 11.5 L (12.0-16.0) g/dL Hct 34.4 L (36.0-46.0) % Plt Count 205 (140-440) Thou/mm3 BMP 05/25/24 05:04 Sodium 138 Potassium 3.7 Chloride 105 Carbon Dioxide 27.3 BUN 9 Creatinine 0.9 Glucose 91 Calcium 8.9 Liver Function 05/25/24 Range/Units 05:04 Total Bilirubin 0.4 (0.3-1.2) mg/dL AST 15 (0-34) U/L ALT 10 (10-49) U/L Alkaline Phosphatase 57 (46-116) U/L Albumin 3.8 (3.4-4.8) gm/dL Exam Vital Signs Temp Pulse Resp BP Pulse Ox O2 Del Method O2 Flow Rate 97.8 F 83 16 120/51 L 99 Room Air 1 05/25/24 08:00 05/25/24 08:27 05/25/24 08:27 05/25/24 08:00 05/25/24 08:27 05/25/24 08:00 05/23/24 22:24 Narrative Gen: No acute distress, thin HEENT: NCAT, PERRLOU, Sclera anicteric, conjunctiva noninjected, oral mucosa moist without erythema Neck: Supple, full range of motion, no LAD CV: RRR, no murmurs, rubs or gallops Resp: CTAB/L, no wheezing, rhonchi or rales GI: abdomen soft, bowel sounds noted, no tenderness to palpation, no guarding or rebound tenderness, no organomegaly Skin: clean, dry, no rashes, lesions or ecchymosis Ext: no clubbing, cyanosis, or edema Neuro: A&O x3, CN II- XII intact b/l, no focal neurological deficits Discharge Plan Plan Patient Disposition: Home w/HOME HEALTH Patient condition on transfer: Stable Care Plan Goals: ? We have started you on a probiotic, lactobacilli. Please take 1 tablet once daily for the next 2 days. This will help with your diarrhea. ? You have been treated with 5 days of antibiotics during your hospital stay, and have completed your course. ? Please follow-up with your primary doctor within 1 week of discharge. ? Please ask your primary doctor for a referral to Dr. Panfilo RIVERA and also call his office to make an appointment. ? Please follow-up with Dr. Panfilo RIVERA in 2 weeks to review your biopsy results and the results of your blood tests. ? Recommend a low residue diet due to your diarrhea, avoid diarrhea and limits vegetables. ? If you experience any new, worsening or persistent symptoms please call your primary doctor, or dial [phone] or present to the emergency department. We are grateful to be able to participate in your care Ms. Hu and we wish you all the best. Prescriptions/Referrals Prescriptions/Med Rec: New Lactobacillus acidophilus 20 billion cell capsule 100 mmu cells PO QDAY Qty: 30 0RF clonazepam 1 mg tablet 1 mg PO TID MDD 3 PRN (Reason: anxiety) 3 Days Qty: 8 0RF Continued clonazepam [Klonopin] 1 MG tablet 1 mg PO TID PRN (Reason: ANXIETY) Qty: 0 albuterol sulfate [ProAir HFA] 8.5 GM HFA aerosol inhaler 2 puff Inhalation Q8H PRN (Reason: SHORTNESS OF BREATH OR WHEEZE) Qty: 0 Fluticasone Propionate NASAL * (FLONASE *) 160 SPRAY/BTL SPRAY 1 spry NASAL QDAY Qty: 0 sertraline 100 mg tablet 200 mg PO QPM Patient Comments: TAKE 2 TABLETS BY MOUTH AT BEDTIME (90 DAYS) quetiapine 200 mg tablet 200 mg PO QPM Patient Comments: TAKE 1 TABLET BY MOUTH AT BEDTIME (90 DAYS) levothyroxine 50 mcg tablet 50 mcg PO QAM Patient Comments: TAKE 1 TABLET BY MOUTH IN THE MORNING FOR 90 DAYS TAKE ON AN EMPTY STOMACH dicyclomine 20 mg tablet 20 mg PO BID Qty: 14 0RF Discontinued gabapentin 300 mg capsule 300 mg PO TID Patient Comments: TAKE 1 CAPSULE BY MOUTH THREE TIMES A DAY FOR 90 DAYS cephalexin 500 mg capsule 500 mg PO TID Qty: 21 0RF Referrals: Kaye Whittaker MD [Physician] - Yoan Ortiz PA-C [Primary Care Provider] - Patient/Caregiver Discharge Instructions Other Discharge Activity Instructions:: Please f/u with PCP within 1 week of discharge for refills. Print Language: Frisian Stand Alone Forms: [facility] Award Info., Patient Portal Info Letter Discharge Order Discharge Orders: Discharge (Routine); Ordered 05/24/24 Ordered By: Marquez Hart Quality Discharge Quality Measures VTE prophylaxis
[2024-05-25 12:00] VITALS: BP 118/62; PULSE 77; PULSE 83; RESP 18; TEMP 36.8; O2SAT 93
--- NOTE | 2024-05-25 12:14 | PC.SS ---
Addendum entered by NICK Rivera 05/25/24 12:25: Updated bed side nurse on the d/c plan. Addendum entered by NICK Rivera 05/25/24 12:21: Spoke with the patient to confirm d/c home with home health. No preferred agency. Patient informs her friend, Suyapa is able to transport her home today. Suyapa's contact number is . Original Note: SS update: plan is for the patient to return home with home health. Contacted Evelyn at [facility] to make aware of change of discharge plan back to home.
--- NOTE | 2024-05-25 13:00 | PC.CM ---
Patient was referred to [facility], SOC 05/29/24.
[2024-05-25 16:00] VITALS: BP 141/81; PULSE 82; PULSE 90; RESP 16; TEMP 36.3; O2SAT 91
--- NOTE | 2024-05-26 17:50 | PC.CM ---
Per SS notes no preferred HH agency.
--- NOTE | 2024-05-26 17:53 | PC.CM ---
HH referral was sent on [facility] by [facility] transfer nurse. [facility] accepted the pt and it was booked by [facility]. Start of care date is 05/29/24.
[2024-05-28 06:56] LABS: Calprotectin, Stool* 24 mcg/g
[2024-05-28 07:02] LABS: Giardia Result NOT DETECTED; Norovirus, EIA (Stool)* NOT DETECTED
[2024-05-28 07:02] LABS: ANCA Screen NEGATIVE (NEGATIVE); Myeloperoxidase Ab <1.0 AI (<1.0); Proteinase-3 Ab <1.0 AI (<1.0)
== END 2024-05-25 17:10 | disposition home health service (06) | DRG 392 ==
LOC: SERX 07:44 → S3NX 05-21 08:25 → SERHOLD 06-01 11:15
PROVIDERS: Emergency Medicine; Physician Assistant; Specialist; Student in an Organized Health Care Education/Training Program; Admitting Provider Internal Medicine; Emergency Provider Emergency Medicine; PCP Physician Assistant; Visit Provider Student in an Organized Health Care Education/Training Program
PROC: 0DJD8ZZ Inspection of Lower Intestinal Tract, Via Natural or Artificial Opening Endoscopic (ICD-10-PCS; CPT 45378; principal; 2024-05-23 15:00)
DX: K52.839 Microscopic colitis, unspecified (principal); Z68.1 Body mass index [BMI] 19.9 or less, adult; E87.29 Other acidosis; E87.6 Hypokalemia; M79.7 Fibromyalgia; E03.9 Hypothyroidism, unspecified; R63.4 Abnormal weight loss; N28.1 Cyst of kidney, acquired; R63.0 Anorexia; R73.9 Hyperglycemia, unspecified; K64.9 Unspecified hemorrhoids; D12.8 Benign neoplasm of rectum; K63.89 Other specified diseases of intestine; K62.89 Other specified diseases of anus and rectum; F32.9 Major depressive disorder, single episode, unspecified; F41.1 Generalized anxiety disorder; K45.8 Other specified abdominal hernia without obstruction or gangrene; I10 Essential (primary) hypertension; E78.00 Pure hypercholesterolemia, unspecified; J44.9 Chronic obstructive pulmonary disease, unspecified; Z85.3 Personal history of malignant neoplasm of breast; Z87.440 Personal history of urinary (tract) infections; Z90.10 Acquired absence of unspecified breast and nipple; Z87.891 Personal history of nicotine dependence; Z79.890 Hormone replacement therapy; Z79.899 Other long term (current) drug therapy; Z88.5 Allergy status to narcotic agent; Z88.2 Allergy status to sulfonamides
CPT/HCPCS: 36415; 74177; 76705; 80053; 80061; 81001; 82010; 82803; 83036; 83605; 83690; 83735; 83993; 84100; 84145; 84439; 84443; 85025; 86021; 86036; 86140; 87015; 87045; 87046; 87177; 87205; 87209; 87329; 87449; 87493; 87899; 93005; 93225; 94664; 96361; 96372; 96374; 97162; 99285; A4217; A4649; J0744; J1200; J1643; J2175; J2250; J2405; J3010; J3475; J3480; J3490; J7030; J7042; Q9967; A9270; J1644; J1836

== ENCOUNTER 2024-06-28 01:13 | Emergency (ER) | payer OTHER, MEDICAID, SELFPAY ==
[2024-06-28 01:22] VITALS: BP 156/80; PULSE 100; RESP 16; TEMP 36.6; O2SAT 95
[2024-06-28 02:32] LABS: Basophils % (Auto) 0 % (0-2.5); Eosinophils % (Auto) 0 % (0-10); Hematocrit 37.5 % (36.0-46.0); Hemoglobin 12.9 g/dL (12.0-16.0); Immature Granulocytes % (Auto) 0 % (0-0); Immature Granulocytes Auto 0.01 Thou/mm3 (0.00-0.00); Lymphocytes # (Auto) 1.4 Thou/mm3 (1.0-4.8); Lymphocytes % (Auto) 21 % (10-50); Mean Corpuscular HGB Conc 34.4 g/dl (31.0-37.0); Mean Corpuscular Hemoglobin 30.9 pg (25.0-35.0); Mean Corpuscular Volume 90 fL (80-100); Monocytes # (Auto) 0.4 Thou/mm3 (0.0-0.8); Monocytes % (Auto) 6 % (0-12); Neutrophils # (Auto) 4.9 Thou/mm3 (1.8-7.7); Neutrophils % (Auto) 73 % (37-80); Nucleated Red Blood Cell % 0 /100 WBC (0); Platelet Count 214 Thou/mm3 (140-440); RDW Standard Deviation 49.4 fL (36.4-46.3); Red Blood Count 4.17 Miln/mm3 (4.00-5.20); White Blood Count 6.8 Thou/mm3 (3.6-11.0)
[2024-06-28 02:40] LABS: Albumin, Serum 4.9 gm/dL (3.4-4.8); Alkaline Phosphatase 69 U/L (46-116); Anion Gap 9 (7-16); Aspartate Amino Transferase 18 U/L (0-34); BUN/Creatinine Ratio 11 Ratio (12-20); Bilirubin,Total 0.6 mg/dL (0.3-1.2); Blood Urea Nitrogen 9 mg/dL (9-23); Calcium 9.8 mg/dL (8.3-10.6); Calcium (Corrected) 9.8 mg/dL (8.5-10.1); Carbon Dioxide 24.8 mMol/L (20.0-31.0); Chloride 98 mMol/L (98-107); Creatinine (Component) 0.8 mg/dL (0.6-1.3); Globulin 2.5 gm/dL (2.3-3.5); Glucose 112 mg/dL (74-106); Osmolality,Calculated 264 (275-295); Potassium 3.6 mMol/L (3.4-5.1); Sodium 132 mMol/L (136-145); Total Protein 7.4 gm/dL (5.7-8.2); eGFR > 60 See Note
[2024-06-28 02:43] LABS: Alanine Aminotransferase 8 U/L (10-49)
--- NOTE | 2024-06-28 02:49 | PD.EDANX ---
ED Anxiety RME/HPI General Chief Complaint: Anxiety Stated Complaint: ANXIETY Time Seen by Provider: 06/28/24 02:40 Source: patient Arrival date/time: 06/28/24 01:13 78-year-old female presents to the emergency room with a chief complaint of anxiety after taking her Zoloft without food, and not being able to sleep x 1 day. Patient states he normally takes clonazepam and recently ran out of her medication. Mode of arrival: ambulatory Limitations: no limitations Related Data Home Medications ?Medication ?Instructions ?Recorded ?Confirmed Fluticasone Propionate NASAL * 1 spry NASAL QDAY #0 spry 11/11/13 12/28/23 (FLONASE *) albuterol sulfate 90 mcg/actuation 2 puff inhalation Q8H PRN 11/11/13 12/28/23 aerosol inhaler (ProAir HFA) SHORTNESS OF BREATH OR WHEEZE ##0 clonazepam 1 mg tablet (Klonopin) 1 mg PO TID PRN ANXIETY #0 tabs 11/11/13 12/28/23 levothyroxine 50 mcg tablet 50 mcg PO QAM 02/24/21 12/28/23 quetiapine 200 mg tablet 200 mg PO QPM 02/24/21 12/28/23 sertraline 100 mg tablet 200 mg PO QPM 02/24/21 05/24/24 Previous Rx's ?Medication ?Instructions ?Recorded dicyclomine 20 mg tablet 20 mg PO BID #14 tabs 12/18/23 Lactobacillus acidophilus 20 100 mmu cells (0.005 x 20 billion 05/24/24 billion cell capsule cell) PO QDAY #30 caps Allergies Allergy/AdvReac Type Severity Reaction Status Date / Time codeine Allergy Severe NAUSEA/VOMI Verified 05/19/24 04:11 TING gabapentin Allergy Severe Photosensit Verified 05/19/24 04:11 ivity Sulfa (Sulfonamide Allergy Severe NAUSEA/VOMI Verified 05/19/24 04:11 Antibiotics) TING Review of Systems Review of Systems Systems Reviewed: All systems reviewed, normal except as documented Constitutional Constitutional: Reports system reviewed and no additional complaints, except as documented, Denies fatigue, Denies fever(s), Denies headache(s) and Reports weakness Eyes Eyes: Reports system reviewed and no additional complaints, except as documented, Denies blurry vision and Denies change in vision ENT Ears, Nose, Mouth, and Throat: Reports system reviewed and no additional complaints, except as documented, Denies otalgia, Denies headache(s), Denies nasal congestion, Denies throat swelling and Denies vertigo Cardiovascular Cardiovascular: Reports system reviewed and no additional complaints, except as documented, Denies chest pain, Denies dyspnea and Denies dyspnea on exertion Respiratory Respiratory: Reports system reviewed and no additional complaints, except as documented, Denies chest congestion, Denies cough, Denies dyspnea, Denies dyspnea on exertion and Denies wheezing Gastrointestinal Gastrointestinal: Reports system reviewed and no additional complaints, except as documented, Denies abdominal pain, Denies cramping, Denies nausea and Denies vomiting Genitourinary Genitourinary: Reports system reviewed and no additional complaints, except as documented Musculoskeletal Musculoskeletal: Reports system reviewed and no additional complaints, except as documented and Denies back pain Integumentary/Breasts Skin/Breast: Reports system reviewed and no additional complaints, except as documented and Denies wounds Neurologic Neurologic: Reports system reviewed and no additional complaints, except as documented, Denies confusion, Denies headache(s), Denies lack of coordination, Denies vertigo and Reports weakness Psychiatric Psychiatric: Reports system reviewed and no additional complaints, except as documented, Reports anxiety, Denies confusion, Denies depression, Reports panic attacks, Denies paranoia, Denies suicidal ideation and Denies tactile hallucinations Endocrine Endocrine: Reports system reviewed and no additional complaints, except as documented and Denies fatigue Hematologic/Lymphatic Hematologic/Lymphatic: Reports system reviewed and no additional complaints, except as documented and Denies lymphadenopathy Allergic/Immunologic Allergic/Immunologic: Reports system reviewed and no additional complaints, except as documented, Denies throat swelling, Denies urticaria and Denies wheezing Past Medical History Past Medical History NEUROLOGIC: Negative Seizures CARDIAC: Positive Hypercholesterolemia and Hypotension; Negative Cardiac Disorders or Congestive Heart Failure RESPIRATORY: Positive Chronic Obstructive Pulmonary Disease (COPD); Negative Asthma GENITOURINARY: Negative Renal Disease REPRODUCTIVE: Positive Breast Cancer ENT: Positive Ear Infection ENDOCRINE: Negative Diabetes Mellitus Type 1 or Diabetes Mellitus Type 2 HEMATOLOGIC: Negative Sickle Cell Disease PSYCHO/SOCIAL: Positive Depression and Anxiety OTHER HISTORY: Positive Breast Cancer; Negative Blood Transfusions or Anesthesia Reactions Family History FAMILY HISTORY: Positive Family Cancer Surgical History SURGICAL: Positive Mastectomy and Hysterectomy Social History SMOKING STATUS: Never smoker SUBSTANCE USE: does not use ED Exam General Limitations: Present no limitations General appearance: Present alert, in no apparent distress and anxious; Absent appears intoxicated, lethargic, obtunded, in distress, obese or cachectic Head Head exam: Present atraumatic Eye Eye exam: Present normal appearance, PERRL and EOMI ENT ENT exam: Present normal exam, normal oropharynx and mucous membranes moist Neck Neck exam: Present normal inspection, full ROM and trachea midline Chest Chest inspection: Present normal inspection and symmetric chest wall rise Respiratory Respiratory exam: Present normal lung sounds bilaterally Cardiovascular Cardiovascular exam: Present regular rate, normal rhythm and normal heart sounds Abdominal Exam Abdominal exam: Present soft and normal bowel sounds Extremities Exam Extremities exam: Present normal inspection and full ROM Back Exam Back exam: Present normal inspection and full ROM Neurological Exam Neurological exam: Present alert, oriented X3, CN II-XII intact, normal gait and reflexes normal Expanded Neurological Exam Patient oriented to: Present person, place and time Coma scale eye opening: spontaneous Coma scale motor response: obeys commands Coma scale verbal response: oriented Coma scale total: 15 Psychiatric Psychiatric exam: Present normal affect, normal mood and anxious; Absent depressed, agitated, flat affect, manic, homicidal ideation or suicidal ideation Skin Skin exam: Present warm, dry, intact and normal color Course Quality Measures none Orders Category Date Time Status CBC Stat Lab 06/28/24 01:48 Completed CMP [Comprehensive Metabolic Panel] Stat Lab 06/28/24 01:48 Completed clonazePAM [KlonoPIN] Med 06/28/24 01:26 Discontinued 1 mg PO X1 ONE clonazePAM [KlonoPIN] Med 06/28/24 02:48 Once 1 mg PO X1 ONE Vital Signs Vital signs: Vital Signs Temperature 97.8 F 06/28/24 01:22 Pulse Rate 100 06/28/24 01:22 Respiratory Rate 16 06/28/24 01:22 Blood Pressure 156/80 H 06/28/24 01:22 Pulse Oximetry (%) 95 06/28/24 01:22 Oxygen Delivery Method Room Air 06/28/24 01:22 Anxiety MDM Narrative MDM Narrative: 78-year-old female presents to the emergency room with a chief complaint of anxiety after taking her Zoloft without food, and not being able to sleep x 1 day. Patient states he normally takes clonazepam and recently ran out of her medication. Clinically the patient appears nontoxic and in no apparent distress. Physical examination shows a normal neurological exam. The patient is a GCS of 15 AAO x 3. Pupils are PERRLA EOMs are intact. Patient states she is having anxiety due to taking medication without food. 1 mg of clonazepam was given and the patient was reevaluated in 45 minutes with significant improvement to her symptoms. CBC CMP were also completed and were negative for any acute findings. Patient was discharged and educated to follow-up with her primary care provider and return to the emergency room for any evidence of worsening signs or symptoms Patient data External records reviewed:: [facility] previous records Clinical information provided by:: patient Social determinants that could affect healthcare access:: none Patient has the following chronic illnesses:: Hypothyroidism How is presenting disease/condition affected by chronic disease/condition?: no chronic disease Evaluation data The following diagnostics were reviewed and interpreted by me:: lab results and radiology exam(s) Lab and/or radiology exams considered but not ordered:: Labs and radiology exams considered and ordered Interpretation Summary: N/A Medications / Prescriptions Medications or Prescriptions considered but not ordered:: Medication given Medication administrations:: Medication Administration History Discontinued Medications Clonazepam (Clonazepam 0.5 Mg Tablet) 1 mg PO X1 ONE Stop: 06/28/24 01:27 Consultations Consultation(s) initiated? (list below): No Diagnosis Differential diagnosis anxiety: panic disorder and acute anxiety Most likely diagnosis given after review of the tests above:: Acute anxiety Admission Indicated Admission indicated?: not indicated Admission Request Was there a request for admission?: No Disposition Plan Disposition Plan: Discharge Discharge Attestation Discharge Attestation: The patient and all family members were given an opportunity to ask questions and understood the discharge instructions. Discharge instructions specifically effects, indications for sooner follow up or return to the emergency department, and the expected course of current diagnosis. Patient condition: Stable Discharge Plan Plan Patient Disposition: HOME (Self Care) Disposition Comment: Stable Prescriptions/Referrals Prescriptions/Med Rec: No Action clonazepam [Klonopin] 1 MG tablet 1 mg PO TID PRN (Reason: ANXIETY) Qty: 0 albuterol sulfate [ProAir HFA] 8.5 GM HFA aerosol inhaler 2 puff Inhalation Q8H PRN (Reason: SHORTNESS OF BREATH OR WHEEZE) Qty: 0 Fluticasone Propionate NASAL * (FLONASE *) 160 SPRAY/BTL SPRAY 1 spry NASAL QDAY Qty: 0 sertraline 100 mg tablet 200 mg PO QPM Patient Comments: TAKE 2 TABLETS BY MOUTH AT BEDTIME (90 DAYS) quetiapine 200 mg tablet 200 mg PO QPM Patient Comments: TAKE 1 TABLET BY MOUTH AT BEDTIME (90 DAYS) levothyroxine 50 mcg tablet 50 mcg PO QAM Patient Comments: TAKE 1 TABLET BY MOUTH IN THE MORNING FOR 90 DAYS TAKE ON AN EMPTY STOMACH dicyclomine 20 mg tablet 20 mg PO BID Qty: 14 0RF Lactobacillus acidophilus 20 billion cell capsule 100 mmu cells PO QDAY Qty: 30 0RF Referrals: Donovan Vasques MD [Primary Care Provider] - In 1 week Problem List Clinical Impression: Acute anxiety Patient/Caregiver Discharge Instructions Education Materials: ED Anxiety Reaction Additional Instructions: Please follow-up with your primary care provider in the next 24 to 48 hours. For any evidence of worsening signs or symptoms please return to emergency room immediately Print Language: Latvian Stand Alone Forms: [facility] Award Info., Patient Portal Info Letter PA/RAJESH Supervising Physician PA/RAJESH Supervising Physician: Dr. Ahuja
[2024-06-28] MEDS: clonazePAM 0.5 MG TABLET 1 MG PO (03:33)
[2024-06-28 04:38] VITALS: RESP 18
--- NOTE | 2024-06-28 07:42 | PC.CC ---
ASW, was consulted regarding ride for patient. ASW arranged [facility].
== END 2024-06-28 04:39 | disposition home or self-care (01) ==
PROVIDERS: Nurse Practitioner Family; Emergency Provider Emergency Medicine; PCP Family Medicine
DX: F41.9 Anxiety disorder, unspecified (principal)
CPT/HCPCS: 36415; 80053; 85025; 99283; A9270

== ENCOUNTER 2024-06-29 06:18 | Emergency (ER) | payer OTHER, MEDICAID, SELFPAY ==
[2024-06-29] VITALS (10 sets, daily range): BP systolic 112–173; BP diastolic 68–86; PULSE 79–109; RESP 16–19; TEMP 36.7–37; O2SAT 95–97; BMI 18.0
--- NOTE | 2024-06-29 06:43 | XR_ITS ---
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
--- NOTE | 2024-06-29 06:43 | PD.EDRME ---
Rapid Medical Screening Exam RME Arrival date/time: 06/29/24 06:18 78-year-old female presents the emergency department today complaints of inability to sleep patient reports has not been able to take her psychiatric medication for 1 week patient reports she has been shaky and she fell patient reports previous hip injury requiring surgery patient reports pain to the right hip region Chief Complaint: Psychiatric Symptoms Time Seen by Provider: 06/29/24 06:29
[2024-06-29] MEDS: ONDANSETRON ODT 4 MG TABRAP PO (06:53)
[2024-06-29] MEDS: LORazepam 0.5 MG TABLET PO (06:53)
[2024-06-29 07:36] LABS: Basophils # (Auto) 0.1 Thou/mm3 (0.0-0.2); Basophils % (Auto) 1 % (0-2.5); Eosinophils % (Auto) 0 % (0-10); Hematocrit 40.9 % (36.0-46.0); Hemoglobin 14.2 g/dL (12.0-16.0); Immature Granulocytes % (Auto) 0 % (0-0); Immature Granulocytes Auto 0.02 Thou/mm3 (0.00-0.00); Lymphocytes # (Auto) 1.5 Thou/mm3 (1.0-4.8); Lymphocytes % (Auto) 15 % (10-50); Mean Corpuscular HGB Conc 34.7 g/dl (31.0-37.0); Mean Corpuscular Volume 89 fL (80-100); Monocytes # (Auto) 0.6 Thou/mm3 (0.0-0.8); Monocytes % (Auto) 6 % (0-12); Neutrophils # (Auto) 7.7 Thou/mm3 (1.8-7.7); Neutrophils % (Auto) 78 % (37-80); Nucleated Red Blood Cell % 0 /100 WBC (0); Platelet Count 334 Thou/mm3 (140-440); Red Blood Count 4.58 Miln/mm3 (4.00-5.20)
[2024-06-29 08:12] LABS: Alanine Aminotransferase 11 U/L (10-49); Albumin, Serum 5.1 gm/dL (3.4-4.8); Albumin/Globulin Ratio 1.8 (1.2-2.2); Alkaline Phosphatase 73 U/L (46-116); Anion Gap 13 (7-16); Aspartate Amino Transferase 20 U/L (0-34); BUN/Creatinine Ratio 11 Ratio (12-20); Bilirubin,Total 0.7 mg/dL (0.3-1.2); Blood Urea Nitrogen 9 mg/dL (9-23); Calcium 9.8 mg/dL (8.3-10.6); Calcium (Corrected) 9.8 mg/dL (8.5-10.1); Carbon Dioxide 21.3 mMol/L (20.0-31.0); Chloride 100 mMol/L (98-107); Creatinine (Component) 0.8 mg/dL (0.6-1.3); Estimated Creatinine Clearance 42.9 mL/min (>60); Globulin 2.8 gm/dL (2.3-3.5); Glucose 120 mg/dL (74-106); Lipase 28 U/L (12-53); Osmolality,Calculated 267 (275-295); Potassium 3.9 mMol/L (3.4-5.1); Sodium 134 mMol/L (136-145); Total Protein 7.9 gm/dL (5.7-8.2); eGFR > 60 See Note
--- NOTE | 2024-06-29 08:48 | PC.NURSE ---
PT NOW C/O BEING DIZZY. INFORMED MONO Miller N/P WHO WANTS EKG DONE.
--- NOTE | 2024-06-29 08:50 | EKG_ITS ---
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
--- NOTE | 2024-06-29 10:03 | PD.EDPSYCH ---
ED Psych RME/HPI General Chief Complaint: Psychiatric Symptoms Stated Complaint: CANT SLEEP Time Seen by Provider: 06/29/24 06:29 Arrival date/time: 06/29/24 06:18 RME / HPI RME / HPI Narrative: DR. OLEARY MAIN ED EVALUATION: 78 year old female presents to the Emergency Department BIB from home with complaint of insomnia, can't sleep . Patient states she ran out of her psychiatric medication a week ago and feels shaky and anxious. She also reported right hip pain. PMHx: COPD, fibromyalgia, anxiety, colitis, hypothyroidism, breast CA s/p mastectomy, recurrent UTI's, colitis. Social Hx: No tobacco, alcohol, or substance use. Related Data Home Medications ?Medication ?Instructions ?Recorded ?Confirmed albuterol sulfate 90 mcg/actuation 2 puff inhalation Q8H PRN 11/11/13 06/30/24 aerosol inhaler (ProAir HFA) SHORTNESS OF BREATH OR WHEEZE ##0 clonazepam 1 mg tablet (Klonopin) 1 mg PO TID PRN ANXIETY #0 tabs 11/11/13 06/30/24 levothyroxine 50 mcg tablet 50 mcg PO QAM 02/24/21 06/30/24 quetiapine 200 mg tablet 200 mg PO QPM 02/24/21 06/30/24 sertraline 100 mg tablet 200 mg PO QPM 02/24/21 06/30/24 Previous Rx's ?Medication ?Instructions ?Recorded dicyclomine 20 mg tablet 20 mg PO BID #14 tabs 12/18/23 Allergies Allergy/AdvReac Type Severity Reaction Status Date / Time codeine Allergy Severe NAUSEA/VOMI Verified 06/29/24 06:22 TING gabapentin Allergy Severe Photosensit Verified 06/29/24 06:22 ivity Sulfa (Sulfonamide Allergy Severe NAUSEA/VOMI Verified 06/29/24 06:22 Antibiotics) TING Review of Systems Review of Systems Systems Reviewed: All systems reviewed, normal except as documented Narrative Review of Systems: GEN: No fever, no chills, no weight loss EYES: No discharge, no visual changes, no pain HEENT: No ear pain, no congestion, no sore throat PULM: No shortness of breath, no cough, no congestion CV: No chest pain, no dyspnea on exertion, no palpitations GI: No nausea, no vomiting, no diarrhea, no pain, no constipation : No frequency, no urgency and no dysuria MUSC/SKEL: + right hip pain, no back pain SKIN: No rash PSYCH: No hallucinations, no depression, + anxiety HEME/LYMPH: No easy bleeding or bruising tendencies NEURO: No weakness, no headache Past Medical History Past Medical History NEUROLOGIC: Negative Seizures CARDIAC: Positive Hypercholesterolemia and Hypotension; Negative Cardiac Disorders or Congestive Heart Failure RESPIRATORY: Positive Chronic Obstructive Pulmonary Disease (COPD); Negative Asthma GENITOURINARY: Negative Renal Disease REPRODUCTIVE: Positive Breast Cancer ENT: Positive Ear Infection ENDOCRINE: Negative Diabetes Mellitus Type 1 or Diabetes Mellitus Type 2 HEMATOLOGIC: Negative Sickle Cell Disease PSYCHO/SOCIAL: Positive Depression and Anxiety OTHER HISTORY: Positive Breast Cancer; Negative Blood Transfusions or Anesthesia Reactions Family History FAMILY HISTORY: Positive Family Cancer Surgical History SURGICAL: Positive Mastectomy and Hysterectomy Social History SMOKING STATUS: Never smoker SUBSTANCE USE: does not use ALCOHOL: Never ED Exam Narrative Physical exam: GENERAL APPEARANCE: alert and oriented x 4, well-developed, well-nourished, no acute distress VITALS: All vitals were reviewed and the pulse ox is 95% on room air, which is normal according to my interpretation. HEENT: Normocephalic, atraumatic; pupils equal, round, reactive to light; EOMI; mucous membranes pink, moist; oropharynx clear NECK: Supple LUNGS: CTABL; no wheezes, no rales, no rhonchi HEART: Regular rate, regular rhythm; normal S1, S2; no murmurs ABDOMEN: non distended; normal BS; soft, no tenderness, no guarding, no rebound; no masses, no organomegaly, no hernia BACK: no CVA tenderness EXTREMITIES: atraumatic; no edema NEUROLOGIC: awake; alert and oriented x4; cranial nerves II-XII grossly intact; no focal sensory or motor deficits PSYCHIATRIC: appropriate mood and affect SKIN: warm, dry, normal color; no rashes Course Course Course Narrative: 1800: Patient was signed out to Dr. Vasquez. Past medical, surgical, social and family history reviewed. Vitals and home medications reviewed. Results and treatment plan discussed. They will assume the care of the patient at this time and will follow the patient, pending insurance authorization for SNF. Quality Measures none Orders Category Date Time Status Bedside Influenza A&B Antigen Test NOW Care 06/29/24 06:43 Completed EKG (ED ONLY) *Do not use* NOW Care 06/29/24 08:50 Completed Referral Physical Therapy Stat Cons 06/29/24 13:51 Completed Diet Regular Diet 06/30/24 Lunch Completed Diet Regular Diet 07/01/24 Breakfast Completed Diet Regular Diet 07/03/24 Lunch Active EKG (ED Only) Stat Exams 06/29/24 08:50 Draft XR hip RT w pelvis 2-3V Stat Exams 06/29/24 06:43 Completed CBC Stat Lab 06/29/24 07:23 Completed Comprehensive Metabolic Panel Stat Lab 06/29/24 07:23 Completed Drug Screen,Urine Stat Lab 06/29/24 10:15 Completed Lipase Stat Lab 06/29/24 07:23 Completed UA, C/S IF [Urinalysis, C/S if Indicated] Stat Lab 06/29/24 10:15 Completed Acetaminophen Tab [Tylenol Tab] Med 07/03/24 15:09 Discontinued 650 mg PO X1 ONE Albuterol* Inhaler [Proventil Inhaler] Med 07/01/24 14:39 Discontinued 2 puff INH Q8HR PRN Diazepam [Valium] Med 06/30/24 18:55 Discontinued 10 mg PO X1 ONE Diazepam [Valium] Med 06/30/24 22:23 Discontinued 10 mg PO X1 ONE Diazepam [Valium] Med 06/29/24 19:51 Discontinued 5 mg PO X1 ONE Diazepam [Valium] Med 06/30/24 01:04 Discontinued 5 mg PO X1 ONE Diazepam [Valium] Med 06/30/24 03:43 Discontinued 5 mg PO X1 ONE Dicyclomine [Bentyl] Med 07/01/24 21:00 Discontinued 20 mg PO BID LORazepam [Ativan] Med 06/29/24 06:43 Discontinued 0.5 mg PO X1 ONE Levothyroxine Sodium [Synthroid] Med 07/02/24 06:00 Discontinued 50 mcg PO ACBR Ondansetron Odt [Zofran Odt] Med 06/29/24 06:43 Discontinued 4 mg PO X1 ONE QUEtiapine FUMARATE [SEROquel] Med 07/01/24 21:00 Discontinued 200 mg PO QPM Sertraline HCl [Zoloft] Med 07/01/24 21:00 Discontinued 100 mg PO QPM clonazePAM [KlonoPIN] Med 07/01/24 14:41 Discontinued 1 mg PO TID PRN clonazePAM [KlonoPIN] Med 07/01/24 11:46 Discontinued 1 mg PO X1 ONE Late Tray Request Routine Oth 07/03/24 13:01 Active Oxygen Delivery PRN RT 07/01/24 15:54 Completed Vital Signs Vital signs: Vital Signs Temperature 98.1 F 06/29/24 06:51 Pulse Rate 109 H 06/29/24 06:51 Respiratory Rate 19 06/29/24 06:51 Blood Pressure 114/80 06/29/24 06:51 Pulse Oximetry (%) 96 06/29/24 06:51 Oxygen Delivery Method Room Air 06/29/24 06:51 Psych MDM Narrative MDM Narrative:: I, Catarina Pemberton am scribing for and in the presence of Dr. Oleary. Patient data External records reviewed:: [facility] previous records (Reviewed last ED visit dated 06/28/24, discharged with the following: Acute anxiety.) Clinical information provided by:: patient and EMS Social determinants that could affect healthcare access:: none Patient has the following chronic illnesses:: COPD, fibromyalgia, anxiety, colitis, hypothyroidism, breast CA s/p mastectomy, recurrent UTI's, colitis How is presenting disease/condition affected by chronic disease/condition?: exacerbated by Evaluation data The following diagnostics were reviewed and interpreted by me:: lab results, radiology exam(s) and EKG tracing(s) (EKG at 0912: sinus rhythm, rate 84, QTc 406,) Lab and/or radiology exams considered but not ordered:: none Interpretation Summary: Procedure(s): XR hip RT w pelvis 2-3V Accession Number(s): [id number] cc: Sangeeta (ANDREWS),Kem SPARROW; Bo Garcia MD; Yoan Ortiz PA-C~ 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 Dictated By: Bo Garcia MD Medications / Prescriptions Medications or Prescriptions considered but not ordered:: none Medication administrations:: Medication Administration History Discontinued Medications Acetaminophen (Acetaminophen 325 Mg Tablet) 650 mg PO X1 ONE Stop: 07/03/24 15:10 Last Admin: 07/03/24 16:16 Dose: Not Given Documented By: ANDREE Non-Admin Reason: Patient Refused Albuterol (Albuterol Inh 8 Gm) 2 puff INH Q8HR PRN PRN Reason: SHORTNESS OF BREATH OR WHEEZE Stop: 07/31/24 14:38 Clonazepam (Clonazepam 0.5 Mg Tablet) 1 mg PO X1 ONE Stop: 07/01/24 11:47 Last Admin: 07/01/24 12:20 Dose: 1 mg Documented By: TELMA Clonazepam (Clonazepam 0.5 Mg Tablet) 1 mg PO TID PRN PRN Reason: ANXIETY Stop: 07/06/24 21:59 Last Admin: 07/04/24 01:03 Dose: 1 mg Documented By: Admin: 07/03/24 17:12 Dose: 1 mg Documented By: Admin: 07/03/24 08:01 Dose: 1 mg Documented By: Admin: 07/03/24 00:32 Dose: 1 mg Documented By: Admin: 07/02/24 10:34 Dose: 1 mg Documented By: SONNY Diazepam (Diazepam 5 Mg Tablet) 5 mg PO X1 ONE Stop: 06/29/24 19:52 Last Admin: 06/29/24 19:57 Dose: 5 mg Documented By: GHANSHYAM Diazepam (Diazepam 5 Mg Tablet) 5 mg PO X1 ONE Stop: 06/30/24 01:05 Last Admin: 06/30/24 01:31 Dose: 5 mg Documented By: GEETHA Diazepam (Diazepam 5 Mg Tablet) 5 mg PO X1 ONE Stop: 06/30/24 03:44 Last Admin: 06/30/24 03:51 Dose: 5 mg Documented By: GEETHA Diazepam (Diazepam 5 Mg Tablet) 10 mg PO X1 ONE Stop: 06/30/24 18:56 Last Admin: 06/30/24 18:57 Dose: 10 mg Documented By: SHAKIR Diazepam (Diazepam 5 Mg Tablet) 10 mg PO X1 ONE Stop: 06/30/24 22:24 Last Admin: 06/30/24 22:32 Dose: 10 mg Documented By: GEETHA Dicyclomine HCl (Dicyclomine 10 Mg Capsule) 20 mg PO BID HONORIO Stop: 07/31/24 20:59 Last Admin: 07/04/24 09:37 Dose: 20 mg Documented By: Admin: 07/03/24 21:08 Dose: 20 mg Documented By: Admin: 07/03/24 09:58 Dose: Not Given Documented By: SONNY Non-Admin Reason: Patient Refused Admin: 07/02/24 21:04 Dose: 20 mg Documented By: Admin: 07/02/24 10:34 Dose: 20 mg Documented By: Admin: 07/01/24 22:12 Dose: 20 mg Documented By: GEETHA Levothyroxine Sodium (Levothyroxine Sodium 25 Mcg Tablet) 50 mcg PO ACBR HONORIO Stop: 08/01/24 05:59 Last Admin: 07/04/24 06:11 Dose: 50 mcg Documented By: Admin: 07/03/24 05:48 Dose: 50 mcg Documented By: Admin: 07/02/24 06:50 Dose: 50 mcg Documented By: GEETHA Lorazepam (Lorazepam 0.5 Mg Tablet) 0.5 mg PO X1 ONE Stop: 06/29/24 06:44 Last Admin: 06/29/24 06:53 Dose: 0.5 mg Documented By: LIS Ondansetron HCl (Ondansetron Odt 4 Mg Tabrap) 4 mg PO X1 ONE; Protocol Stop: 06/29/24 06:44 Last Admin: 06/29/24 06:53 Dose: 4 mg Documented By: LIS Quetiapine Fumarate (Quetiapine Fumarate 100 Mg Tablet) 200 mg PO QPM HONORIO Stop: 07/31/24 20:59 Last Admin: 07/03/24 21:07 Dose: 200 mg Documented By: Admin: 07/02/24 21:03 Dose: 200 mg Documented By: Admin: 07/01/24 22:13 Dose: 200 mg Documented By: GEETHA Sertraline HCl (Sertraline Hcl 25 Mg Tablet) 100 mg PO QPM HONORIO Stop: 07/31/24 20:59 Last Admin: 07/03/24 21:08 Dose: 100 mg Documented By: Admin: 07/02/24 21:04 Dose: 100 mg Documented By: Admin: 07/01/24 22:11 Dose: 100 mg Documented By: GEETHA see above Consultations Consultation(s) initiated? (list below): No Diagnosis Psych Differential Diagnosis: acute anxiety and other (right hip fracture, insomnia) Most likely diagnosis given after review of the tests above:: As noted below. Admission Indicated Admission indicated?: not indicated Explain why admission is indicated or not indicated:: Pending SNF placement. Admission Request Was there a request for admission?: No Disposition Plan Disposition Plan: other (specify) (Signed out to slot shift manager doctor.) Discharge Plan Plan Patient Disposition: Xfer Skilled Nsg Fac (SNF) Prescriptions/Referrals Prescriptions/Med Rec: No Action clonazepam [Klonopin] 1 MG tablet 1 mg PO TID PRN (Reason: ANXIETY) Qty: 0 albuterol sulfate [ProAir HFA] 8.5 GM HFA aerosol inhaler 2 puff Inhalation Q8H PRN (Reason: SHORTNESS OF BREATH OR WHEEZE) Qty: 0 sertraline 100 mg tablet 200 mg PO QPM Patient Comments: TAKE 2 TABLETS BY MOUTH AT BEDTIME (90 DAYS) quetiapine 200 mg tablet 200 mg PO QPM Patient Comments: TAKE 1 TABLET BY MOUTH AT BEDTIME (90 DAYS) levothyroxine 50 mcg tablet 50 mcg PO QAM Patient Comments: TAKE 1 TABLET BY MOUTH IN THE MORNING FOR 90 DAYS TAKE ON AN EMPTY STOMACH dicyclomine 20 mg tablet 20 mg PO BID Qty: 14 0RF Referrals: Yoan Ortiz PA-C [Primary Care Provider] - In 1 week Problem List Clinical Impression: Acute anxiety Patient/Caregiver Discharge Instructions Print Language: Divehi Stand Alone Forms: [facility] Award Info., Patient Portal Info Letter
[2024-06-29 10:22] LABS: Collection Type, Urine Clean Catch; Squamous Epithelial Cell,Urine 0 /hpf (0-5)
[2024-06-29 10:39] LABS: Amphetamine/Methamp Scrn,U Negative (Negative); Barbiturate Screen,Urine Negative (Negative); Benzodiazepines Screen,Urine Positive (Negative); Benzoylecgonine Screen, Ur Negative (Negative); Fentanyl Screen,Urine Negative (Negative); Opiate Screen,Urine Negative (Negative); THC Screen,Urine Positive (Negative)
[2024-06-29 11:20] LABS: Bacteria,Urine Rare; Bilirubin,Urine Negative (Negative); Blood,Urine Trace (Negative); Clarity,Urine Clear (Clear/Hazy); Color,Urine Lt-Yellow (Lt Yel-Yel); Culture Indicated,Urine Not Indicated; Glucose, Urine Negative (Negative); Hyaline Casts,Urine < 1 /hpf (0-1); Ketones,Urine 1+ (Negative); Leukocyte Esterase,Urine Negative (Negative); Nitrite,Urine Negative (Negative); PH,Urine 5.5 (5.0-7.0); Protein,Urine Negative (Neg - Trace); RBC,Urine 1 /hpf (0-3); Urobilinogen,Urine Negative mg/dL (0.0-1.0); WBC,Urine 1 /hpf (0-5)
--- NOTE | 2024-06-29 12:07 | PC.CC ---
Patient is a 78 year-old female who presents to the hospital because she cannot sleep. ASWAria made [id number] contact with patient. ASW introduced self, role, and reason for visit. Patient appeared alert and oriented to self, location, and situation. Patient was pleasant and engaged in initial assessment. Patient confirmed information on demographics and reports to living alone with her cat. Patient reports she has no family locally and all her family is in the [facility] but does not have their contact information. Patient uses a rollator to ambulate but reports she has been having difficulty lately with ambulation. Patient was able to complete her own ADLs but reports she is not able to complete them any longer and needs assistance. Patient would like to go to a shelter facility upon discharge as she reports she can no longer care for herself. ASW to remain available and will be sending referral out to shelter facility upon receiving PT Eval recommendations.
--- NOTE | 2024-06-29 14:24 | PC.CC ---
ASW sent referral for SNF placement for patient. [facility] has accepted the patient and patient was made aware and is okay with this facility. Spoke with Yue and she is submitting for auth.
--- NOTE | 2024-06-29 18:01 | PD.EDADDENDU ---
Emergency Room Addendum Addendum Narrative: 1800: Care assumed from Dr. Oleary the previous shift emergency physician. Past medical, surgical, social and family history reviewed. Vitals and home medications reviewed. Results and treatment plan discussed. I will assume the care of the patient at this time and will follow the patient, pending insurance authorization for SNF placement. Please refer to the emergency department record for history and examination from initial visit. The patient was placed in ED observation care at 06/29/24 at 1800 hours. The patient was placed in ED observation care because of pending authorization for SNF placement. The patients past medical history, social history, and family history were reviewed. 0600: Care signed out to Dr. Oleary (emergency physician). Past medical, surgical, social and family history reviewed. Vitals and home medications reviewed. Results and treatment plan discussed. They will assume the care of the patient at this time and will follow the patient, pending insurance authorization for SNF placement. At this time, observation has ended.
--- NOTE | 2024-06-29 19:35 | PC.NURSE ---
First contact with pt in Room 5, pt in gown, connected to bedside manager technical training, whiteboard updated, call light within reach.
[2024-06-29] MEDS: DIAZEPAM 5 MG TABLET PO (19:57)
--- NOTE | 2024-06-29 22:13 | PC.NURSE ---
waiting for SNF PLACEMENT APPEARS IN NAD
[2024-06-30] VITALS (10 sets, daily range): BP systolic 120–159; BP diastolic 60–83; PULSE 69–90; RESP 14–20; TEMP 36.7–37.1; O2SAT 92–96
[2024-06-30] MEDS: DIAZEPAM 5 MG TABLET PO ×2 (01:31→03:51)
--- NOTE | 2024-06-30 06:00 | PD.EDADDENDU ---
Emergency Room Addendum Addendum Narrative: 0600: Care assumed from Dr. Vasquez, the previous shift emergency physician. Past medical, surgical, social and family history reviewed. Vitals and home medications reviewed. I will assume the care of the patient at this time, pending insurance authorization for SNF. The patient was placed in ED observation care at 06/30/2024 at 0600 hours. The patient was placed in ED observation care, pending SNF placement. The patients past medical history, social history, and family history were reviewed. The plan of care will include serial examinations. Please refer to the emergency department record for history and examination.? While in ED observation the patient will have access to water, food, and personal hygiene. If the patient takes home medication(s), they will be continued in ED observation. Physical exam by me shows patient under no acute distress at this time. 1800: Patient was signed out to Dr. Vasquez. Past medical, surgical, social and family history reviewed. Vitals and home medications reviewed. Results and treatment plan discussed. They will assume the care of the patient at this time and will follow the patient, pending insurance authorization for SNF.
--- NOTE | 2024-06-30 08:00 | PC.NURSE ---
PT RESTING IN BED IN NO APPARENT DISTRESS. PT STATES THAT SHE IS HAVING SOME PAIN TO HER R LEG FROM HER ARTHRITIS PER PT. PT STATES THAT SHE TAKES CLONAZEPAM FOR THIS PAIN AND WANTS A CLONAZEPAM. WILL INFORM DR BANGURA
--- NOTE | 2024-06-30 12:30 | PC.NURSE ---
pt given lunch tray; pt ate 75% of meal tray.
--- NOTE | 2024-06-30 16:07 | PC.NURSE ---
PT GIVEN JELLO AND CRANBERRY JUICE AT THIS TIME, PER PT'S REQUEST.
--- NOTE | 2024-06-30 16:17 | PC.NURSE ---
SKIN CHECK DONE ON PT; NO PRESSURE INJURY NOTED ON ANY BONY PROMINENCES ON PT.
--- NOTE | 2024-06-30 18:30 | PD.EDADDENDU ---
Emergency Room Addendum <Oscar Vasquez MD - Last Filed: 06/30/24 23:55> Addendum Narrative: 1800 care assumed by previous shift provider. Past medical, surgical, social and family history reviewed. Vitals and home medications reviewed. Results and treatment plan discussed. I will assume the care of the patient at this time and will follow the patient, pending final disposition. <Jared Adams - Last Filed: 07/01/24 04:54> Addendum Narrative: 1800 care assumed by previous shift provider. Past medical, surgical, social and family history reviewed. Vitals and home medications reviewed. Results and treatment plan discussed. I will assume the care of the patient at this time and will follow the patient, pending final disposition. 0000 Patient re-evaluated by me. Vitals reviewed. Stable. 0400 Patient re-evaluated by me. Vitals reviewed. Stable. 0600 Care signed out to Dr. Campos. Past medical, surgical, social and family history reviewed. Vitals and home medications reviewed. Results and treatment plan discussed. They will assume the care of the patient at this time and will follow the patient, pending SNF placement.
--- NOTE | 2024-06-30 18:55 | PC.NURSE ---
RN AT BEDSIDE; PT REQUESTING MEDICATION FOR ANXIETY; PT STATES SHE TAKES CLONAZEPAM AT HOME FOR ANXIETY. DR. GONSALEZ MADE AWARE; VERBAL ORDERS WITH READBACK RECEIVED TO GIVE PT 10MG OF VALIUM PO.
[2024-06-30] MEDS: DIAZEPAM 5 MG TABLET 10 MG PO ×2 (18:57→22:32)
--- NOTE | 2024-06-30 22:33 | PC.NURSE ---
Pt has beenresting quietly since my arrival. awake and alert. pt requesting meds for anxiety. MD aware and med ordered and given. Also gave pt water and pudding. pt is calm and cooperative.
[2024-07-01] VITALS (35 sets, daily range): BP systolic 120–170; BP diastolic 52–88; PULSE 67–90; RESP 11–29; TEMP 36.7–36.8; O2SAT 88–98
--- NOTE | 2024-07-01 06:19 | PC.NURSE ---
PT SLEPT THROUGHOUT THE NIGHT WITH NO INCIDENTS. ATTEMPTED TO CHANGE PTS BRIEF OR AMBULATE TO BATHROOM THIS AM BUT PATIENT DENIED. PT STILL AWAITING WITH SNF PLACEMENT. WILL CONTINUE WITH PLAN OF CARE.
--- NOTE | 2024-07-01 07:26 | PD.EDADDENDU ---
Emergency Room Addendum Addendum Narrative: 0600: Care assumed from Dr. Vasquez, the previous shift emergency physician. Past medical, surgical, social and family history reviewed. Vitals and home medications reviewed. I will assume the care of the patient at this time, pending insurance authorization for SNF. The patient was placed in ED observation care at 07/01/2024 at 0600 hours. The patient was placed in ED observation care, pending SNF placement. The patients past medical history, social history, and family history were reviewed. The plan of care will include serial examinations. Please refer to the emergency department record for history and examination.? While in ED observation the patient will have access to water, food, and personal hygiene. If the patient takes home medication(s), they will be continued in ED observation. Physical exam by me shows patient under no acute distress at this time. 1800: Patient was signed out to Dr. Vasquez. Past medical, surgical, social and family history reviewed. Vitals and home medications reviewed. Results and treatment plan discussed. They will assume the care of the patient at this time and will follow the patient, pending insurance authorization for SNF.
--- NOTE | 2024-07-01 08:58 | PC.CC ---
Pt Radha Hu is a 78 yr old female, holding in ED for SNF placement. From SS notes pt has been accepted to [facility], and is pending insurance authorization for placement.
[2024-07-01] MEDS: clonazePAM 0.5 MG TABLET 1 MG PO (12:20)
--- NOTE | 2024-07-01 14:27 | PC.NURSE ---
SPOKE WITH DOCTOR AWAN REGARDING RESTARTING PATIENT'S HOME MEDICATIONS, VERIFIED MEDICATIONS WITH PATIENT PRIOR, DR. AWAN ORDERED TO RESTART HOME MEDICATIONS.
--- NOTE | 2024-07-01 17:07 | PC.NURSE ---
PATIENT RESTING IN BED, DENIES PAIN OR DISCOMFORT. PATIENT STATES SHE IS OKAY AND DOES NOT NEED ANYTHING AT THIS TIME.
[2024-07-01] MEDS: SERTRALINE HCL 25 MG TABLET 100 MG PO (22:11)
[2024-07-01] MEDS: DICYCLOMINE 10 MG CAPSULE 20 MG PO (22:12)
[2024-07-01] MEDS: QUEtiapine FUMARATE 100 MG TABLET 200 MG PO (22:13)
--- NOTE | 2024-07-01 22:15 | EDNOTE_ITS ---
Emergency Room Addendum Addendum Narrative: 1800: Care assumed from Dr. Campos, the previous shift emergency physician. Past medical, surgical, social and family history reviewed. Vitals and home medications reviewed. I will assume the care of the patient at this time, pending SNF placement. The patient continues in ED observation care. The patient was placed in ED observation care, pending SNF placement. The patients past medical history, social history, and family history were reviewed. The plan of care will include serial examinations. Please refer to the initial emergency department record for history and examination. While in ED observation the patient will have access to water, food, and person al hygiene. If the patient takes home medication(s), they will be continued in ED observation. Physical exam by me shows patient under no acute distress at this time. 0600: Patient was signed out to Dr. Campos. Past medical, surgical, social and family history reviewed. Vitals and home medications reviewed. Results and treatment plan discussed. They will assume the care of the patient at this time and will follow the patient, pending SNF placement. MD Attestation MD Attestation Scribe Attestation: I, Lindsey Adams, am scribing for and in the presence of Dr. Vasquez. Provider Notation: Although this document has been carefully reviewed, there may still be some phonetic and other typographical errors. These errors are purely grammatical due to imperfections in the software program and should not be construed in any way to compromise the substance of the patient's medical care during this visit.
--- NOTE | 2024-07-01 23:00 | PC.NURSE ---
Pt has been sleeping well. arouses easily, pt offered po fluids.
[2024-07-02] VITALS (34 sets, daily range): BP systolic 86–145; BP diastolic 45–75; PULSE 73–102; RESP 10–25; TEMP 36.7–37; O2SAT 92–98
--- NOTE | 2024-07-02 02:18 | PC.NURSE ---
Pt continues to sleep. arouses easily N changes.
--- NOTE | 2024-07-02 02:43 | PC.NURSE ---
pt sleeping well tonight. pt occasinaly up with cane ambulating to th BR.
[2024-07-02] MEDS: LEVOTHYROXINE SODIUM 25 MCG TABLET 50 MCG PO (06:50)
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
--- NOTE | 2024-07-02 07:04 | PC.NURSE ---
Received report from Albert ALONZO and assumed care of patient. Patient sleeping at this time and appears to be in no distress.
--- NOTE | 2024-07-02 07:59 | PC.NURSE ---
BREAKFAST TRAY GIVEN
--- NOTE | 2024-07-02 08:04 | PC.CC ---
Addendum entered by Santiago Perdomo II 07/02/24 12:44: ASW met with pt at bedside. ASW provided pt with update on status and pending authorization. Pt inquired if she can be provided with the contact information for [facility]. ASW facilitated pts request. Pt expressed understanding that placement is pending insurance authorization. Addendum entered by Santiago Perdomo II 07/02/24 08:45: Follow up communication from Yue with [facility]. Pts health coverage is closed for the long holiday weekend, regular business hours will resume 07/03/24. Original Note: Pt Radha Hu is a 78 yr old female, holding in ED for SNF placement. Pt tentatively accepted to [facility] pending insurance authorization. ASW has communicated with Yue Kendrick, admission coordinator with [facility]. Per Yue plan is for her to follow up this morning.
[2024-07-02] MEDS: DICYCLOMINE 10 MG CAPSULE 20 MG PO ×2 (10:34→21:04)
[2024-07-02] MEDS: clonazePAM 0.5 MG TABLET 1 MG PO (10:34)
--- NOTE | 2024-07-02 18:12 | EDNOTE_ITS ---
Emergency Room Addendum <Catarina Pemberton - Last Filed: 07/02/24 21:56> Addendum Narrative: 1800: Care assumed from Dr. Campos, the previous shift emergency physician. Past medical, surgical, social and family history reviewed. Vitals and home medications reviewed. I will assume the care of the patient at this time, pending SNF placement. The patient was placed in ED observation care at 07/02/2024 at 1800 hours. The patient was placed in ED observation care, pending SNF placement. The patients past medical history, social history, and family history were reviewed. The plan of care will include serial examinations. Please refer to the emergency department record for history and examination.? While in ED observation the patient will have access to water, food, and personal hygiene. If the patient takes home medication(s), they will be continued in ED observation. Physical exam by me shows patient under no acute distress at this time. 0600: Patient was signed out to Dr. Sargent. Past medical, surgical, social and family history reviewed. Vitals and home medications reviewed. Results and treatment plan discussed. They will assume the care of the patient at this time and will follow the patient, pending SNF placement. <Makenna Vasques - Last Filed: 07/03/24 05:41> Addendum Narrative: 1800: Care assumed from Dr. Campos, the previous shift emergency physician. Past medical, surgical, social and family history reviewed. Vitals and home medications reviewed. I will assume the care of the patient at this time, pend ing SNF placement. The patient was placed in ED observation care at 07/02/2024 at 1800 hours. The patient was placed in ED observation care, pending SNF placement. The patients past medical history, social history, and family history were reviewed. The plan of care will include serial examinations. Please refer to the emergency department record for history and examination.? While in ED observation the patient will have access to water, food, and personal hygiene. If the patient takes home medication(s), they will be continued in ED observation. Physical exam by me shows patient under no acute distress at this time. 0600: Patient was signed out to Dr. Sargent. Past medical, surgical, social and family history reviewed. Vitals and home medications reviewed. Results and treatment plan discussed. They will assume the care of the patient at this time and will follow the patient, pending SNF placement. At this time, observation israel s ended.
[2024-07-02] MEDS: QUEtiapine FUMARATE 100 MG TABLET 200 MG PO (21:03)
[2024-07-02] MEDS: SERTRALINE HCL 25 MG TABLET 100 MG PO (21:04)
[2024-07-03] VITALS (29 sets, daily range): BP systolic 95–142; BP diastolic 47–74; PULSE 75–87; RESP 15–19; TEMP 36.5–36.8; O2SAT 91–100
[2024-07-03] MEDS: clonazePAM 0.5 MG TABLET 1 MG PO ×3 (00:32→17:12)
--- NOTE | 2024-07-03 04:22 | PC.NURSE ---
resituated pt. linen change. pt brief clean and dry
[2024-07-03] MEDS: LEVOTHYROXINE SODIUM 25 MCG TABLET 50 MCG PO (05:48)
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
--- NOTE | 2024-07-03 08:41 | PC.CC ---
Addendum entered by Santiago Perdomo II 07/03/24 10:15: 1006-Call from Bonnie with [facility]-per Bonnie she will follow up with team to make contact with ASW with auth for placement. Addendum entered by Santiago Perdomo II 07/03/24 09:18: 0848-Call back from [facility], ASW spoke with Tomasz-call transferred to Inpatient Services, ASW spoke with Josefa. Request for clinical packet to be faxed to [phone], packet faxed at this time. Original Note: Pt Radha Hu is a 78 yr old female, holding in ED for SNF placement. Pt has been tentatively accepted to [facility], pending insurance authorization. 0835-ASW communicated with Yue Kendrick with [facility] admissions, for update on authorization status. Upon review of pts historical-ASW has been in communication with pts health coverage. 0837-ASW left call back request with [facility].
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
--- NOTE | 2024-07-03 12:30 | PC.SS ---
SS follow up note; SS attempted to contact patient's [facility] and left Voicemail with SS contact information. EXT: [phone] as well as EX: [phone] and EXT: [phone]. SS has been on hold with main number, however has not been able to get through.
[2024-07-03] MEDS: QUEtiapine FUMARATE 100 MG TABLET 200 MG PO (21:07)
[2024-07-03] MEDS: SERTRALINE HCL 25 MG TABLET 100 MG PO (21:08)
[2024-07-03] MEDS: DICYCLOMINE 10 MG CAPSULE 20 MG PO (21:08)
--- NOTE | 2024-07-03 23:30 | PD.EDADDENDU ---
Emergency Room Addendum Addendum Narrative: 1800: Care assumed from Dr. Sargent, the previous shift emergency physician. Past medical, surgical, social and family history reviewed. Vitals and home medications reviewed. Results and treatment plan discussed. I will assume the care of the patient at this time and will follow the patient, pending insurance authorization for SNF placement. Please refer to the emergency department record for history and examination from initial visit. OBSERVATION NOTE: The patient was placed in ED observation care at 06/28/24 at 1800 hours. The patient was placed in ED observation care because of pending insurance authorization for SNF placement. The patients past medical history, social history, and family history were reviewed. 0600: Care signed out to Dr. Sargent (emergency physician). Past medical, surgical, social and family history reviewed. Vitals and home medications reviewed. Results and treatment plan discussed. They will assume the care of the patient at this time and will follow the patient, pending insurance authorization for SNF placement. At this time, observation has ended.
[2024-07-04 00:37] VITALS: BP 138/68; PULSE 80; RESP 19; TEMP 36.7; O2SAT 96
[2024-07-04] MEDS: clonazePAM 0.5 MG TABLET 1 MG PO (01:03)
[2024-07-04 03:13] VITALS: BP 127/90; PULSE 78; RESP 19; TEMP 36.7; O2SAT 96
--- NOTE | 2024-07-04 05:25 | PC.NURSE ---
PT'S LINEN AND BRIEF CHANGED. PUREWICK IN PLACE. PT IN NAD AT THIS TIME.
[2024-07-04 06:10] VITALS: BP 129/68; PULSE 76; RESP 16; TEMP 36.7; O2SAT 95
[2024-07-04] MEDS: LEVOTHYROXINE SODIUM 25 MCG TABLET 50 MCG PO (06:11)
--- NOTE | 2024-07-04 07:06 | PD.EDADDENDU ---
Emergency Room Addendum <Temitope Magana - Last Filed: 07/04/24 10:32> Addendum Narrative: 0600: Care assumed from Dr. Ellington, the previous shift emergency physician. Past medical, surgical, social and family history reviewed. Vitals and home medications reviewed. I will assume the care of the patient at this time, pending insurance authorization for SNF placement. Please refer to the emergency department record for history and examination from initial visit.? Nursing notes reviewed by me. Vital signs reviewed by me. [place] medical records reviewed by me. Insurance authorized placement to [facility]. EMS p/u 09:45 am. <Lars Sargent MD - Last Filed: 07/04/24 13:25> Addendum Narrative: 0600: Care assumed from Dr. Ellington, the previous shift emergency physician. Past medical, surgical, social and family history reviewed. Vitals and home medications reviewed. I will assume the care of the patient at this time, pending insurance authorization for SNF placement. Please refer to the emergency department record for history and examination from initial visit.? Nursing notes reviewed by me. Vital signs reviewed by me. [place] medical records reviewed by me. Insurance authorized placement to [facility]. EMS p/u 09:45 am. Note patient was comfort this morning had no complaints or problems.
[2024-07-04 08:45] VITALS: BP 121/70; PULSE 81; RESP 16; TEMP 37; O2SAT 95
--- NOTE | 2024-07-04 08:58 | PC.CC ---
Aria BOCANEGRA spoke with Yue who reports they received authorization and can accept patient. ASW arranged transportation with [facility] for eta p/u 0905.
[2024-07-04] MEDS: DICYCLOMINE 10 MG CAPSULE 20 MG PO (09:37)
--- NOTE | 2024-07-04 09:50 | PC.CC ---
Patient is aware of share of cost for SNF placement and is okay with paying the share of cost. Patient's nephew Yrn Morales who is at bedside reports he is well aware of share of cost and the family has had the discussion that patient cannot live alone any longer and all are agreeable with the cost including the patient.
--- NOTE | 2024-07-04 10:45 | PC.NURSE ---
Report given to CLINTON Caro to continue care at SNF.
== END 2024-07-04 10:22 | disposition skilled nursing facility (03) ==
PROVIDERS: Emergency Medicine; Nurse Practitioner Primary Care; Emergency Provider Emergency Medicine; PCP Physician Assistant
DX: F41.9 Anxiety disorder, unspecified (principal); Z75.1 Person awaiting admission to adequate facility elsewhere; M25.551 Pain in right hip; G47.00 Insomnia, unspecified
CPT/HCPCS: 36415; 73502; 80053; 80307; 81001; 83690; 85025; 87400; 93005; 99285; Q0162; A9270

== ENCOUNTER 2024-08-25 22:32 | Emergency (ER) | payer OTHER, SELFPAY ==
[2024-08-25 22:38] VITALS: BP 133/80; PULSE 86; RESP 18; TEMP 36.6; O2SAT 93
--- NOTE | 2024-08-25 22:57 | PD.EDANX ---
ED Anxiety RME/HPI General Chief Complaint: Anxiety Stated Complaint: ANXIETY Time Seen by Provider: 08/25/24 22:43 Arrival date/time: 08/25/24 22:32 RME / HPI RME / HPI narrative: DR. OMAR LOMBARDO ED EVALUATION: 78 year old female with past medical history significant for anxiety since the presents to the Emergency Department with complaint of anxiety. Symptoms are moderate. Medications include clonazepam, seroquel, and zoloft. Per pateint, her PCP took her off her clonazepam medication cold turkey 4 days ago and she wants another doctor. She states she has not been able to sleep in the last 4 days. She also mentioned that her doctor wanted to see her in the office to get her the medication and then she mentioned the doctor was not in the office. Reviewed last ED visit dated 07/04/24, discharged with the following: Acute anxiety; she has been here for acute anxiety last 7 visits. Patient denies any of the following: fevers, chills, chest pain, or any other symptoms at this time. Related Data Home Medications ?Medication ?Instructions ?Recorded ?Confirmed albuterol sulfate 90 mcg/actuation 2 puff inhalation Q8H PRN 11/11/13 06/30/24 aerosol inhaler (ProAir HFA) SHORTNESS OF BREATH OR WHEEZE ##0 clonazepam 1 mg tablet (Klonopin) 1 mg PO TID PRN ANXIETY #0 tabs 11/11/13 06/30/24 levothyroxine 50 mcg tablet 50 mcg PO QAM 02/24/21 06/30/24 quetiapine 200 mg tablet 200 mg PO QPM 02/24/21 06/30/24 sertraline 100 mg tablet 200 mg PO QPM 02/24/21 06/30/24 Previous Rx's ?Medication ?Instructions ?Recorded dicyclomine 20 mg tablet 20 mg PO BID #14 tabs 12/18/23 Allergies Allergy/AdvReac Type Severity Reaction Status Date / Time codeine Allergy Severe NAUSEA/VOMI Verified 06/29/24 06:22 TING gabapentin Allergy Severe Photosensit Verified 06/29/24 06:22 ivity Sulfa (Sulfonamide Allergy Severe NAUSEA/VOMI Verified 06/29/24 06:22 Antibiotics) TING Review of Systems Review of Systems Systems Reviewed: All systems reviewed, normal except as documented Narrative Review of Systems: GEN: No fever, no chills, no weight loss EYES: No discharge, no visual changes, no pain HEENT: No ear pain, no congestion, no sore throat PULM: No shortness of breath, no cough, no congestion CV: No chest pain, no dyspnea on exertion, no palpitations GI: No nausea, no vomiting, no diarrhea, no pain, no constipation : No frequency, no urgency and no dysuria MUSC/SKEL: No joint pain, no back pain SKIN: No rash PSYCH: No hallucinations, no depression, no suicidal ideation, + anxiety (see HPI) HEME/LYMPH: No easy bleeding or bruising tendencies NEURO: No weakness, no headache Past Medical History Past Medical History CARDIAC: Positive Hypercholesterolemia and Hypotension RESPIRATORY: Positive Chronic Obstructive Pulmonary Disease (COPD) GASTROINTESTINAL: Positive Ulcerative Colitis REPRODUCTIVE: Positive Breast Cancer ENT: Positive Ear Infection PSYCHO/SOCIAL: Positive Schizophrenia (PER PATIENT), Bipolar Disorder (PER PATIENT), Depression and Anxiety OTHER HISTORY: Positive Breast Cancer Family History FAMILY HISTORY: Positive Family Cancer Surgical History SURGICAL: Positive Mastectomy and Hysterectomy Social History SMOKING STATUS: Never smoker SUBSTANCE USE: does not use ALCOHOL: Never ED Exam Narrative Physical exam: GENERAL APPEARANCE:? alert and oriented x 4, well-developed, well-nourished, no acute distress HEENT: Normocephalic, atraumatic; pupils equal, round, reactive to light; EOMI; mucous membranes pink, moist; oropharynx clear NECK: Supple LUNGS: CTABL; no wheezes, no rales, no rhonchi HEART: Regular rate, regular rhythm; normal S1, S2; no murmurs ABDOMEN: non distended; normal BS;? soft, no tenderness, no guarding, no rebound; no masses, no organomegaly, no hernia?? BACK:? no CVA tenderness EXTREMITIES:? atraumatic; no edema NEUROLOGIC: awake; alert and oriented x4; cranial nerves II-XII grossly intact; no focal sensory or motor deficits PSYCHIATRIC:? appropriate mood and affect SKIN: warm, dry, normal color; no rashes Course Quality Measures none Vital Signs Vital signs: Vital Signs Temperature 97.8 F 08/25/24 22:38 Pulse Rate 86 08/25/24 22:38 Respiratory Rate 18 08/25/24 22:38 Blood Pressure 133/80 H 08/25/24 22:38 Pulse Oximetry (%) 93 L 08/25/24 22:38 Oxygen Delivery Method Room Air 08/25/24 22:38 Anxiety MDM Narrative MDM Narrative: I, Catarina Pemberton, am scribing for and in the presence of Dr. Chauhan. Patient data External records reviewed:: [facility] previous records (Reviewed last ED visit dated 07/04/24, discharged with the following: Acute anxiety; she has been here for acute anxiety last 7 visits.) Clinical information provided by:: patient Social determinants that could affect healthcare access:: none Patient has the following chronic illnesses:: Acute anxiety How is presenting disease/condition affected by chronic disease/condition?: caused by Evaluation data The following diagnostics were reviewed and interpreted by me:: other (specify) (none) Lab and/or radiology exams considered but not ordered:: none Interpretation Summary: n/a Medications / Prescriptions Medications or Prescriptions considered but not ordered:: none Medication administrations:: see above if any Consultations Consultation(s) initiated? (list below): No Diagnosis Differential diagnosis anxiety: hyperventilation, panic disorder, acute anxiety and other (insomnia) Most likely diagnosis given after review of the tests above:: Acute anxiety Admission Indicated Admission indicated?: not indicated Admission Request Was there a request for admission?: No Disposition Plan Disposition Plan: Discharge Discharge Attestation Discharge Attestation: The patient and all family members were given an opportunity to ask questions and understood the discharge instructions. Discharge instructions specifically effects, indications for sooner follow up or return to the emergency department, and the expected course of current diagnosis. Patient condition: Stable Discharge Plan Plan Patient Disposition: HOME (Self Care) Patient condition on transfer: Stable Prescriptions/Referrals Prescriptions/Med Rec: No Action clonazepam [Klonopin] 1 MG tablet 1 mg PO TID PRN (Reason: ANXIETY) Qty: 0 albuterol sulfate [ProAir HFA] 8.5 GM HFA aerosol inhaler 2 puff Inhalation Q8H PRN (Reason: SHORTNESS OF BREATH OR WHEEZE) Qty: 0 sertraline 100 mg tablet 200 mg PO QPM Patient Comments: TAKE 2 TABLETS BY MOUTH AT BEDTIME (90 DAYS) quetiapine 200 mg tablet 200 mg PO QPM Patient Comments: TAKE 1 TABLET BY MOUTH AT BEDTIME (90 DAYS) levothyroxine 50 mcg tablet 50 mcg PO QAM Patient Comments: TAKE 1 TABLET BY MOUTH IN THE MORNING FOR 90 DAYS TAKE ON AN EMPTY STOMACH dicyclomine 20 mg tablet 20 mg PO BID Qty: 14 0RF Referrals: No Primary/Family,Physician [Primary Care Provider] - In 1 week Problem List Clinical Impression: Acute anxiety Patient/Caregiver Discharge Instructions Print Language: Bengali Stand Alone Forms: [facility] Award Info., Patient Portal Info Letter
[2024-08-25 23:00] VITALS: PULSE 98; RESP 20; O2SAT 99; BMI 17.5
[2024-08-25 23:22] VITALS: BP 149/76; PULSE 87; RESP 18; TEMP 36.7; O2SAT 95
[2024-08-25] MEDS: clonazePAM 0.5 MG TABLET 1 MG PO (23:25)
--- NOTE | 2024-08-26 00:30 | PC.NURSE ---
Pt resting with eyes closed. Respirations are even and unlabored. No s/s of acute distress noted. Waiting for ride home, pediatric critical care nurse Jenny on her way.
[2024-08-26 00:45] VITALS: BP 150/77; PULSE 85; RESP 18; TEMP 36.6; O2SAT 95
== END 2024-08-26 00:45 | disposition home or self-care (01) ==
PROVIDERS: Emergency Provider Emergency Medicine
DX: F41.9 Anxiety disorder, unspecified (principal)
CPT/HCPCS: 99282; A9270

== ENCOUNTER 2024-08-28 16:03 | Emergency (ER) | payer OTHER, SELFPAY ==
[2024-08-28 16:22] VITALS: PULSE 83; RESP 22; O2SAT 99
[2024-08-28 16:45] VITALS: BP 156/87; PULSE 88; RESP 20; TEMP 36.6; O2SAT 96
--- NOTE | 2024-08-28 16:51 | EKG_ITS ---
[facility] Test Date: 2024-08-28 Pat Name: MAYLIN RODRIGUES Department: Room: - Gender: Female Gage Maker: : 1945 Requested By: Maciel Hendricks Order Number: [id number] Reading MD: Maciel Hendricks Measurements Intervals [place] Rate: 84 P: 80 VT: 140 QRS: 64 QRSD: 84 T: 56 QT: 372 QTc: 441 Interpretive Statements SINUS RHYTHM POSSIBLE RIGHT ATRIAL ENLARGEMENT [0.25mV P-WAVE] POSSIBLE LEFT ATRIAL ENLARGEMENT [-0.1mV P-WAVE IN V1/V2] MODERATE T-WAVE ABNORMALITY, CONSIDER ANTERIOR ISCHEMIA [-0.1+ mV T-WAVE IN V3/V4] Compared to ECG 06/29/2024 09:12:31 T-wave abnormality now present Possible ischemia now present ST (T wave) deviation no longer present /store/S0/[id number]/ecg/[id number].pdf
--- NOTE | 2024-08-28 16:55 | PD.EDRME ---
Rapid Medical Screening Exam RME Arrival date/time: 08/28/24 16:03 78 yo f present to Ed for c/o sob, and kidney pain. I have greeted and performed a focused initial assessment of this patient. A comprehensive ED assessment and evaluation of the patient, analysis of all test results, and completion of the medical decision making process will be conducted by additional ED providers. Time Seen by Provider: 08/28/24 16:28 Vital signs: Vital Signs Temperature 97.8 F 08/28/24 16:45 Pulse Rate 88 08/28/24 16:45 Respiratory Rate 20 08/28/24 16:45 Blood Pressure 156/87 H 08/28/24 16:45 Pulse Oximetry (%) 96 08/28/24 16:45 Oxygen Delivery Method Nasal Cannula 08/28/24 16:45 Oxygen Flow Rate 2 08/28/24 16:45
[2024-08-28 18:18] LABS: Basophils # (Auto) 0.1 Thou/mm3 (0.0-0.2); Basophils % (Auto) 1 % (0-2.5); Eosinophils # (Auto) 0.1 Thou/mm3 (0.0-0.5); Eosinophils % (Auto) 1 % (0-10); Hematocrit 39.6 % (36.0-46.0); Hemoglobin 13.6 g/dL (12.0-16.0); Immature Granulocytes % (Auto) 0 % (0-0); Immature Granulocytes Auto 0.02 Thou/mm3 (0.00-0.00); Lymphocytes # (Auto) 1.8 Thou/mm3 (1.0-4.8); Lymphocytes % (Auto) 18 % (10-50); Mean Corpuscular HGB Conc 34.3 g/dl (31.0-37.0); Mean Corpuscular Hemoglobin 31.9 pg (25.0-35.0); Mean Corpuscular Volume 93 fL (80-100); Monocytes # (Auto) 0.9 Thou/mm3 (0.0-0.8); Monocytes % (Auto) 8 % (0-12); Neutrophils # (Auto) 7.4 Thou/mm3 (1.8-7.7); Neutrophils % (Auto) 73 % (37-80); Nucleated Red Blood Cell % 0 /100 WBC (0); Platelet Count 282 Thou/mm3 (140-440); RDW Standard Deviation 45.1 fL (36.4-46.3); Red Blood Count 4.26 Miln/mm3 (4.00-5.20); White Blood Count 10.2 Thou/mm3 (3.6-11.0)
[2024-08-28 18:42] LABS: B-Type Natriuretic Peptide < 20 pg/mL (0-100)
[2024-08-28 18:45] LABS: Alanine Aminotransferase 12 U/L (10-49); Albumin, Serum 4.6 gm/dL (3.4-4.8); Albumin/Globulin Ratio 1.5 (1.2-2.2); Alkaline Phosphatase 83 U/L (46-116); Anion Gap 6 (7-16); Aspartate Amino Transferase 21 U/L (0-34); BUN/Creatinine Ratio 23 Ratio (12-20); Bilirubin,Total 0.5 mg/dL (0.3-1.2); Blood Urea Nitrogen 18 mg/dL (9-23); Calcium 9.8 mg/dL (8.3-10.6); Calcium (Corrected) 9.8 mg/dL (8.5-10.1); Carbon Dioxide 24.6 mMol/L (20.0-31.0); Chloride 104 mMol/L (98-107); Creatinine (Component) 0.8 mg/dL (0.6-1.3); Glucose 98 mg/dL (74-106); Lipase 32 U/L (12-53); Osmolality,Calculated 272 (275-295); Potassium 3.9 mMol/L (3.4-5.1); Sodium 135 mMol/L (136-145); Total Protein 7.6 gm/dL (5.7-8.2); Troponin I < 0.020 ng/mL (0.0-0.045); eGFR > 60 See Note
[2024-08-28 20:58] LABS: Collection Type, Urine Voided
[2024-08-28 21:10] LABS: Bilirubin,Urine Negative (Negative); Blood,Urine Negative (Negative); Clarity,Urine Clear (Clear/Hazy); Color,Urine Yellow (Lt Yel-Yel); Glucose, Urine Negative (Negative); Hyaline Casts,Urine < 1 /hpf (0-1); Ketones,Urine Negative (Negative); Leukocyte Esterase,Urine Negative (Negative); Nitrite,Urine Negative (Negative); Protein,Urine Trace (Neg - Trace); RBC,Urine 10 /hpf (0-3); Specific Gravity,Urine 1.021 (1.001-1.035); Squamous Epithelial Cell,Urine < 1 /hpf (0-5); Urobilinogen,Urine Negative mg/dL (0.0-1.0); WBC,Urine 2 /hpf (0-5)
[2024-08-28 21:45] VITALS: BP 108/71; PULSE 94; RESP 18; TEMP 36.6; O2SAT 94
--- NOTE | 2024-08-28 22:14 | EDNOTE_ITS ---
ED General RME/HPI General Chief complaint: Weakness Stated complaint: WEAKNESS Time Seen by Provider: 08/28/24 16:28 Arrival date/time: 08/28/24 16:03 CC: Shortness of breath and kidney pain HPI ongoing for the last week. Patient also states she has had loss of appetite loss of weight. Patient points to her right lower back as the source of her pain. Patient denies chest pain shortness of breath or difficulty placed also states that she has hot flashes. Patient denies chest pain and exhibits no shortness of breath as she is speaking in full sentences during the interview. RME / HPI RME / HPI narrative: 08/28/24 16:03 78 yo f present to Ed for c/o sob, and kidney pain. I have greeted and performed a focused initial assessment of this patient. A comprehensive ED assessment and evaluation of the patient, analysis of all test results, and completion of the medical decision making process will be conducted by additional ED providers. Related Data Home Medications ?Medication ?Instructions ?Recorded ?Confirmed albuterol sulfate 90 mcg/actuation 2 puff inhalation Q 8H PRN 11/11/13 06/30/24 aerosol inhaler (ProAir HFA) SHORTNESS OF BREATH OR WH EEZE ##0 clonazepam 1 mg tablet (Klonopin) 1 mg PO TID PRN ANXI ETY #0 tabs 11/11/13 06/30/24 levothyroxine 50 mcg tablet 50 mcg PO QAM 02/24/21 quetiapine 200 mg tablet 200 mg PO QPM 02/24/2106/30 sertraline 100 mg tablet 200 mg PO QPM 02/24/2106/30 Previous Rx's ?Medication ?Instructions ?Recorded dicyclomine 20 mg tablet 20 mg PO BID #14 tabs Allergies Allergy/AdvReac Type Severity Reaction Status Date / Time codeine Allergy Severe Nausea/VOMI Verified 08/28/24 16:28 TING Sulfa (Sulfonamide Allergy Severe NAUSEA/VOMI Verified 08/28/24 16:28 Antibiotics) TING Review of Systems Review of Systems Narrative Review of Systems: GEN: No fever, no chills, no weight loss EYES: No discharge, no visual changes, no pain HEENT: No ear pain, no congestion, no sore throat PULM: No shortness of breath, no cough, no congestion CV: No chest pain, no dyspnea on exertion, no palpitations GI: No nausea, no vomiting, no diarrhea, no pain, no constipation : No frequency, no urgency, no dysuria MUSC/SKEL: No joint pain, no back pain SKIN: No rash PSYCH: No hallucinations, no depression HEME/LYMPH: No easy bleeding or bruising tendencies NEURO: No weakness, no headache Past Medical History Past Medical History NEUROLOGIC: Negative Seizures CARDIAC: Positive Cardiac Disorders, Hypercholesterolemia and Hypotension; Negative Congestive Heart Failure RESPIRATORY: Positive Chronic Obstructive Pulmonary Disease (COPD); Negative Asthma GASTROINTESTINAL: Positive Ulcerative Colitis GENITOURINARY: Negative Renal Disease REPRODUCTIVE: Positive Breast Cancer MUSCULOSKELETAL: Positive Musculoskeletal Disorders and Arthritis ENT: Positive Ear Infection ENDOCRINE: Negative Diabetes Mellitus Type 1 or Diabetes Mellitus Type 2 HEMATOLOGIC: Negative Sickle Cell Disease PSYCHO/SOCIAL: Positive Schizophrenia (PER PATIENT), Bipolar Disorder (PER PATIENT), Depression and Anxiety OTHER HISTORY: Positive Breast Cancer; Negative Blood Transfusions or Anesthesia Reactions Family History FAMILY HISTORY: Positive Family Cancer Surgical History SURGICAL: Positive Mastectomy and Hysterectomy Social History SMOKING STATUS: Never smoker SUBSTANCE USE: does not use ED Exam Narrative Physical exam: [General: Thin but not emaciated not in any acute distress Head normocephalic HEENT: Eyes pupils are PERRLA EOMs are intact mouth pink dry membranes uvula is midline swallow symmetrical phonation is normal. Nose no rhinorrhea. All other subsystems of ATTR within acceptable limits Neck is supple nontender, no JVD Chest equal chest rise nontender to palpation Respiratory: Clear to auscultation no wheezes crackles or rubs CV: Rate rhythm is regular no murmurs rubs or clicks Abdomen is flat soft nontender no masses positive bowel sounds all 4 quadrants Back: Lumbar paraspinal tenderness no lumbar spinous process tenderness with palpation no thoracic or cervical tenderness with palpation. Skin: Intact no petechiae rash induration ulceration or crepitus Extremities: Moving all extremity against resistance cap refill less than 2 seconds neurosensory intact Neuro: Awake alert oriented x2, person and place, Glascow coma 15 no focal deficits] Course Quality Measures none Orders Category Date Time Status EKG (ED ONLY) *Do not use* NOW Care 08/28/24 16:51 Completed EKG (ED Only) Stat Exams 08/28/24 16:51 Draft BNP [B-Type Natriuretic Peptide] Stat Lab 08/28/24 17:02 Completed CBC Stat Lab 08/28/24 17:02 Completed CMP [Comprehensive Metabolic Panel] Stat Lab 08/28/24 17:02 Completed Lipase Stat Lab 08/28/24 17:02 Completed Troponin I Stat Lab 08/28/24 17:02 Completed UA [Urinalysis] Stat Lab 08/28/24 20:55 Completed Urine Culture Stat Lab 08/28/24 20:55 Received Ketorolac Inj [Toradol Inj] Med 08/28/24 22:14 Once 15 mg IM X1 ONE Vital Signs Vital signs: Vital Signs Temperature 97.8 F 08/28/24 16:45 Pulse Rate 88 08/28/24 16:45 Respiratory Rate 20 08/28/24 16:45 Blood Pressure 156/87 H 08/28/24 16:45 Pulse Oximetry (%) 96 08/28/24 16:45 Oxygen Delivery Method Nasal Cannula 08/28/24 16:45 Oxygen Flow Rate 2 08/28/24 16:45 [facility] Patient data External records reviewed:: [facility] previous records Clinical information provided by:: patient Social determinants that could affect healthcare access:: none Patient has the following chronic illnesses:: Hypothyroidism depression anxiety How is presenting disease/condition affected by chronic disease/condition?: u neffected by Evaluation data The following diagnostics were reviewed and interpreted by me:: lab results, radiology exam(s) and EKG tracing(s) Lab and/or radiology exams considered but not ordered:: CBC shows no acute leukocytosis anemia thrombocytopenia CMP shows no significant electrolyte imbalances renal impairment transaminitis T. bili elevation. Troponin is negative BNP is negative Urine is negative Interpretation Summary: Patient has no acute finding that requires emergent or immediate intervention. The more discussion I had with the patient the more complaints that she has including warmness in her face, flushed sensation, losing weight, losing appetite, losing [place] and has no ride home. Medications Medications considered but not ordered:: None Medication administrations:: Medication Administration History Ketorolac Tromethamine (Ketorolac Inj 60 Mg/2 Ml Vial) 15 mg IM X1 ONE Stop: 08/28/24 22:15 None Consultations Consultation(s) initiated? (list below): No Diagnosis Differential Diagnosis ED Complaint MDM: UTI electrolyte imbalance renal impairment Most likely diagnosis given after review of the tests above:: Low back pain loss of appetite Admission Indicated Admission indicated?: not indicated Explain why admission is indicated or not indicated:: Stable for discharge Admission Request Was there a request for admission?: No Disposition Plan Disposition Plan: Discharge Discharge Attestation Discharge Attestation: The patient and all family members were given an opportunity to ask questions and understood the discharge instructions. Discharge instructions specifically effects, indications for sooner follow up or return to the emergency department, and the expected course of current diagnosis. Patient condition: Stable Medical Decision Making Differential Diagnosis Differential Diagnosis: UTI electrolyte imbalance renal impairment Lab Data 08/28/24 17:02 08/28/24 17:02 Labs: Lab Results 08/28/24 08/28/24 Range/Units 17:02 20:55 WBC 10.2 (3.6-11.0) Thou/mm3 RBC 4.26 (4.00-5.20) Miln/mm3 Hgb 13.6 (12.0-16.0) g/dL Hct 39.6 (36.0-46.0) % MCV 93 (80-100) fL MCH 31.9 (25.0-35.0) pg MCHC 34.3 (31.0-37.0) g/dl RDW Std Deviation 45.1 (36.4-46.3) fL Plt Count 282 (140-440) Thou/mm3 Neut % (Auto) 73 (37-80) % Lymph % (Auto) 18 (10-50) % Saline % (Auto) 8 (0-12) % Eos % (Auto) 1 (0-10) % Baso % (Auto) 1 (0-2.5) % Neut # (Auto) 7.4 (1.8-7.7) Thou/mm3 Lymph # (Auto) 1.8 (1.0-4.8) Thou/mm3 Saline # (Auto) 0.9 H (0.0-0.8) Thou/mm3 Eos # (Auto) 0.1 (0.0-0.5) Thou/mm3 Baso # (Auto) 0.1 (0.0-0.2) Thou/mm3 Immature Gran # (Auto) 0.02 H (0.00-0.00) Thou/mm3 Absolute Nucleated RBC 0.00 (0.00-0.00) Thou/mm3 Immature Gran % 0 (0-0) % Nucleated RBC % 0 (0) /100 WBC Sodium 135 L (136-145) mMol/L Potassium 3.9 (3.4-5.1) mMol/L Chloride 104 (98-107) mMol/L Carbon Dioxide 24.6 (20.0-31.0) mMol/L Anion Gap 6 L (7-16) BUN 18 (9-23) mg/dL Creatinine 0.8 (0.6-1.3) mg/dL Estim Creat Clear Calc Not Performed. eGFR > 60 (60 - ) See Note BUN/Creatinine Ratio 23 H (12-20) Ratio Glucose 98 (74-106) mg/dL Calculated Osmolality 272 L (275-295) Calcium 9.8 (8.3-10.6) mg/dL Corrected Calcium 9.8 (8.5-10.1) mg/dL Total Bilirubin 0.5 (0.3-1.2) mg/dL AST 21 (0-34) U/L ALT 12 (10-49) U/L Alkaline Phosphatase 83 (46-116) U/L Troponin I < 0.020 (0.0-0.045) ng/mL B-Natriuretic Peptide < 20 (0-100) pg/mL Total Protein 7.6 (5.7-8.2) gm/dL Albumin 4.6 (3.4-4.8) gm/dL Globulin 3.0 (2.3-3.5) gm/dL Albumin/Globulin Ratio 1.5 (1.2-2.2) Lipase 32 (12-53) U/L Ur Collection Type Voided Urine Color Yellow (Lt Yel-Yel) Urine Clarity Clear (Clear/Hazy) Urine pH 6.0 (5.0-7.0) Ur Specific [place] 1.021 (1.001-1.035) Urine Protein Trace (Neg - Trace) Urine Glucose (UA) Negative (Negative) Urine Ketones Negative (Negative) Urine Blood Negative (Negative) Urine Nitrite Negative (Negative) Urine Bilirubin Negative (Negative) Urine Urobilinogen (Auto) Negative (0.0-1.0) mg/dL Ur Leukocyte Esterase Negative (Negative) Urine RBC 10 H (0-3) /hpf Urine WBC 2 (0-5) /hpf Ur Squamous Epith Cells < 1 (0-5) /hpf Urine Bacteria None (None) Hyaline Casts < 1 (0-1) /hpf Discharge Plan Plan Patient Disposition: HOME (Self Care) Patient condition on transfer: Stable Prescriptions/Referrals Prescriptions/Med Rec: No Action clonazepam [Klonopin] 1 MG tablet 1 mg PO TID PRN (Reason: ANXIETY) Qty: 0 albuterol sulfate [ProAir HFA] 8.5 GM HFA aerosol inhaler 2 puff Inhalation Q8H PRN (Reason: SHORTNESS OF BREATH OR WHEEZE) Qty: 0 sertraline 100 mg tablet 200 mg PO QPM Patient Comments: TAKE 2 TABLETS BY MOUTH AT BEDTIME (90 DAYS) quetiapine 200 mg tablet 200 mg PO QPM Patient Comments: TAKE 1 TABLET BY MOUTH AT BEDTIME (90 DAYS) levothyroxine 50 mcg tablet 50 mcg PO QAM Patient Comments: TAKE 1 TABLET BY MOUTH IN THE MORNING FOR 90 DAYS TAKE ON AN EMPTY STOMACH dicyclomine 20 mg tablet 20 mg PO BID Qty: 14 0RF Referrals: Vera Diaz PA-C [Primary Care Provider] - In 1 week Problem List Clinical Impression: Low back pain Patient/Caregiver Discharge Instructions Education Materials: ED Back Pain (Acute or Chronic) Print Language: Citizen Of [place] Stand Alone Forms: [facility] Award Info., Work/School Release, Patient Portal Info Letter MERRITT/RAJESH Supervising Physician MERRITT/RAJESH Supervising Physician: Gregory Evans ENP
[2024-08-28] MEDS: KETOROLAC INJ 60 MG/2 ML VIAL 15 MG IM (22:26)
== END 2024-08-28 22:29 | disposition home or self-care (01) ==
PROVIDERS: Physician Assistant; Emergency Provider Emergency Medicine; PCP Physician Assistant Medical
DX: M54.50 Low back pain, unspecified (principal); R06.02 Shortness of breath
CPT/HCPCS: 36415; 80053; 81001; 83690; 83880; 84484; 85025; 87086; 93005; 96372; 99283; J1885

== ENCOUNTER 2024-08-29 11:28 | Emergency (ER) | payer OTHER, SELFPAY ==
[2024-08-29 11:30] VITALS: BP 158/82; PULSE 85; RESP 17; TEMP 36.4; O2SAT 96
[2024-08-29 11:40] VITALS: PULSE 88; RESP 97; BMI 17.2
--- NOTE | 2024-08-29 11:42 | EKG_ITS ---
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
--- NOTE | 2024-08-29 11:43 | XR_ITS ---
Examination: AP chest single view TECHNIQUE: AP portable upright chest single view Exam date and time: August 29, 2024 1102 hours INDICATIONS: Weakness today. FINDINGS: Normal heart size No lobar pneumonia or pulmonary edema Prominent osteopenia IMPRESSION: No pneumonia or pulmonary edema
--- NOTE | 2024-08-29 11:44 | EDNOTE_ITS ---
ED General RME/HPI General Chief complaint: General Adult/Misc Complain Stated complaint: WEAKNESS Time Seen by Provider: 08/29/24 11:38 Arrival date/time: 08/29/24 11:28 RME / HPI RME / HPI narrative: 78-year-old female, who lives alone, with significant history of hypothyroidism, anxiety, came in with EMS for evaluation regarding not feeling well. Apparently patient told me that he is not eating food, last time she ate was 3 days ago was only drinking water. She told me the reason for not eating because she is not hungry. And the food smells bad. Patient denies any nausea vomiting. Patient denies any abdominal pain. Denies any fever. Denies any diarrhea or constipation. Denies any other complaints. Patient was seen here yesterday for kidney pain and was discharged home. Today patient told me that he wanted to go to intermediate or rehabilitation hospital. Related Data Home Medications ?Medication ?Instructions ?Recorded ?Confirmed albuterol sulfate 90 mcg/actuation 2 puff inhalation Q 8H PRN 11/11/13 06/30/24 aerosol inhaler (ProAir HFA) SHORTNESS OF BREATH OR WH EEZE ##0 clonazepam 1 mg tablet (Klonopin) 1 mg PO TID PRN ANXI ETY #0 tabs 11/11/13 06/30/24 levothyroxine 50 mcg tablet 50 mcg PO QAM 02/24/21 quetiapine 200 mg tablet 200 mg PO QPM 02/24/2106/30 sertraline 100 mg tablet 200 mg PO QPM 02/24/2106/30 Previous Rx's ?Medication ?Instructions ?Recorded dicyclomine 20 mg tablet 20 mg PO BID #14 tabs Allergies Allergy/AdvReac Type Severity Reaction Status Date / Time codeine Allergy Severe Nausea/VOMI Verified 08/29/24 11:40 TING Sulfa (Sulfonamide Allergy Severe NAUSEA/VOMI Verified 08/29/24 11:40 Antibiotics) TING Review of Systems Review of Systems Narrative Review of Systems: Review of system reviewed and within normal limits except mentioned in HPI ED Exam Narrative Physical exam: VITAL SIGNS: Reviewed. GENERAL APPEARANCE: Alert and interactive, follows commands, no acute distress, HEAD AND FACE: Non-traumatic. ENT: PERRL, pale conjunctiva, eyelid no trauma, Mucous membrane moist. NECK: Supple, nontender, no nuchal rigidity. CHEST: No tenderness, no crepitus, no paradoxical movement, no retractions. LUNGS: Clear, well ventilated, symmetric, no rales, no wheezing, no ronchi, no stridor, good breath sounds bilaterally. HEART: Regular rate, regular rhythm, no murmur, no gallops. ABDOMEN: Soft, positive bowel sounds, nondistended, no guarding, nontender, no rebound, no masses, RECTAL: Deferred. GENITAL: Deferred. NEUROLOGICAL: Gross motor function intact sensory function intact, Appropriate for age. MUSCULOSKELETAL: low back nontender, full range of motion. EXTREMITIES: Nontender, full range of motion. SKIN: Color pink, dry, no rash, no lacerations, no abrasions, no contusions. LYMPHATICS: Deferred. Course Quality Measures none Orders Category Date Time Status EKG (ED ONLY) *Do not use* NOW Care 08/29/24 11:42 Completed PT [Referral Physical Therapy] Stat Cons 08/29/24 11:47 Completed Diet Regular Diet 08/30/24 Lunch Active EKG (ED Only) Stat Exams 08/29/24 11:42 Draft XR chest 1V Stat Exams 08/29/24 11:43 Completed CBC [CBC] Stat Lab 08/29/24 12:52 Completed CMP [Comprehensive Metabolic Panel] Stat Lab 08/29/24 12:52 Completed Troponin I Stat Lab 08/29/24 12:52 Completed UA, C/S IF [Urinalysis, C/S if Indicated] Stat Lab 08/29/24 13:00 Completed Ketorolac Inj [Toradol Inj] Med 08/29/24 15:02 Discontinued 15 mg IM X1 ONE LORazepam [Ativan Inj] Med 08/29/24 23:00 Discontinued 1 mg IV X1 ONE Sodium Chloride 0.9% 1000 ml [Ns] 1,000 ml Med 08/29/24 11:43 Discontinued IV 999 mls/hr Vital Signs Vital signs: Vital Signs Temperature 97.6 F 08/29/24 11:30 Pulse Rate 85 08/29/24 11:30 Respiratory Rate 17 08/29/24 11:30 Blood Pressure 158/82 H 08/29/24 11:30 Pulse Oximetry (%) 96 08/29/24 11:30 Oxygen Delivery Method Room Air 08/29/24 11:30 [facility] Patient data External records reviewed:: None Clinical information provided by:: patient Social determinants that could affect healthcare access:: none Patient has the following chronic illnesses:: Although pt's initial presentation was concerning, Pt now reports feeling better after Ativan and has an unremarkable vital signs. Stable for D/C. Hydroxyzine given as needed How is presenting disease/condition affected by chronic disease/condition?: e xacerbated by Evaluation data The following diagnostics were reviewed and interpreted by me:: lab results and radiology exam(s) Lab and/or radiology exams considered but not ordered:: None Interpretation Summary: See results in MDM Medications Medications considered but not ordered:: None Medication administrations:: Medication Administration History Discontinued Medications Sodium Chloride (Ns) 1,000 mls @ 999 mls/hr IV .Q1H1M ONE Stop: 08/29/24 12:43 Last Infusion: 08/29/24 20:16 Dose: Infused Documented By: Admin: 08/29/24 12:26 Dose: 999 mls/hr Documented By: NAZ Ketorolac Tromethamine (Ketorolac Inj 60 Mg/2 Ml Vial) 15 mg IM X1 ONE Stop: 08/29/24 15:03 Last Admin: 08/29/24 16:00 Dose: 15 mg Documented By: NAZ Lorazepam (Lorazepam 2 Mg/Ml Vial) 1 mg IV X1 ONE Stop: 08/29/24 23:01 Last Admin: 08/29/24 23:39 Dose: 1 mg Documented By: LIS Ativan Toradol and IV fluids for hydration Consultations Consultation(s) initiated? (list below): No Diagnosis Differential Diagnosis ED Complaint MDM: Adult failure to thrive, dehydration,anxiety Most likely diagnosis given after review of the tests above:: Adult failure to thrive Admission Indicated Admission indicated?: indicated Explain why admission is indicated or not indicated:: Transfer to intermediate Admission Request Was there a request for admission?: No Disposition Plan Disposition Plan: Transfer Medical Decision Making [facility] Narrative MDM Narrative: 78-year-old female, who lives alone, with significant history of hypothyroidism, anxiety, came in with EMS for evaluation regarding not feeling well. Apparently patient told me that he is not eating food, last time she ate was 3 days ago was only drinking water. She told me the reason for not eating because she is not hungry. And the food smells bad. Patient denies any nausea vomiting. Patient denies any abdominal pain. Denies any fever. Denies any diarrhea or constipation. Denies any other complaints. Patient was seen here yesterday for kidney pain and was discharged home. Today patient told me that he wanted to go to intermediate or rehabilitation hospital. Laboratory workup all came back unremarkable. Patient is medically cleared for placement to intermediate. 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 Patient was placed in a intermediate Differential Diagnosis Differential Diagnosis: Adult failure to thrive, dehydration,anxiety Lab Data 08/29/24 12:52 08/29/24 12:52 Labs: Lab Results 08/29/24 08/29/24 Range/Units 12:52 13:00 WBC 7.8 (3.6-11.0) Thou/mm3 RBC 3.83 L (4.00-5.20) Miln/mm3 Hgb 12.2 (12.0-16.0) g/dL Hct 36.1 (36.0-46.0) % MCV 94 (80-100) fL MCH 31.9 (25.0-35.0) pg MCHC 33.8 (31.0-37.0) g/dl RDW Std Deviation 45.6 (36.4-46.3) fL Plt Count 227 D (140-440) Thou/mm3 Neut % (Auto) 74 (37-80) % Lymph % (Auto) 18 (10-50) % [place] % (Auto) 8 (0-12) % Eos % (Auto) 0 (0-10) % Baso % (Auto) 0 (0-2.5) % Neut # (Auto) 5.7 (1.8-7.7) Thou/mm3 Lymph # (Auto) 1.4 (1.0-4.8) Thou/mm3 [place] # (Auto) 0.6 (0.0-0.8) Thou/mm3 Eos # (Auto) 0.0 (0.0-0.5) Thou/mm3 Baso # (Auto) 0.0 (0.0-0.2) Thou/mm3 Immature Gran # (Auto) 0.01 H (0.00-0.00) Thou/mm3 Absolute Nucleated RBC 0.00 (0.00-0.00) Thou/mm3 Immature Gran % 0 (0-0) % Nucleated RBC % 0 (0) /100 WBC Sodium 138 (136-145) mMol/L Potassium 3.8 (3.4-5.1) mMol/L Chloride 106 (98-107) mMol/L Carbon Dioxide 25.5 (20.0-31.0) mMol/L Anion Gap 7 (7-16) BUN 17 (9-23) mg/dL Creatinine 0.8 (0.6-1.3) mg/dL Estim Creat Clear Calc 40.8 L (>60) mL/min eGFR > 60 (60 - ) See Note BUN/Creatinine Ratio 21 H (12-20) Ratio Glucose 98 (74-106) mg/dL Calculated Osmolality 277 (275-295) Calcium 8.7 (8.3-10.6) mg/dL Corrected Calcium 8.7 (8.5-10.1) mg/dL Total Bilirubin 0.7 (0.3-1.2) mg/dL AST 19 (0-34) U/L ALT 11 (10-49) U/L Alkaline Phosphatase 72 (46-116) U/L Troponin I < 0.020 (0.0-0.045) ng/mL Total Protein 6.5 (5.7-8.2) gm/dL Albumin 4.0 D (3.4-4.8) gm/dL Globulin 2.5 (2.3-3.5) gm/dL Albumin/Globulin Ratio 1.6 (1.2-2.2) Ur Collection Type Clean Catch Urine Color Lt-Yellow (Lt Yel-Yel) Urine Clarity Clear (Clear/Hazy) Urine pH 7.0 (5.0-7.0) Ur Specific [place] 1.018 (1.001-1.035) Urine Protein Trace (Neg - Trace) Urine Glucose (UA) Negative (Negative) Urine Ketones Negative (Negative) Urine Blood Negative (Negative) Urine Nitrite Negative (Negative) Urine Bilirubin Negative (Negative) Urine Urobilinogen (Auto) Negative (0.0-1.0) mg/dL Ur Leukocyte Esterase Negative (Negative) Urine RBC 6 H (0-3) /hpf Urine WBC < 1 (0-5) /hpf Ur Squamous Epith Cells < 1 (0-5) /hpf Urine Bacteria None (None) Hyaline Casts < 1 (0-1) /hpf Ur Culture Indicated? Not Indicated Discharge Plan Plan Patient Disposition: Xfer Skilled Nsg Fac (SNF) Prescriptions/Referrals Prescriptions/Med Rec: No Action clonazepam [Klonopin] 1 MG tablet 1 mg PO TID PRN (Reason: ANXIETY) Qty: 0 albuterol sulfate [ProAir HFA] 8.5 GM HFA aerosol inhaler 2 puff Inhalation Q8H PRN (Reason: SHORTNESS OF BREATH OR WHEEZE) Qty: 0 sertraline 100 mg tablet 200 mg PO QPM Patient Comments: TAKE 2 TABLETS BY MOUTH AT BEDTIME (90 DAYS) quetiapine 200 mg tablet 200 mg PO QPM Patient Comments: TAKE 1 TABLET BY MOUTH AT BEDTIME (90 DAYS) levothyroxine 50 mcg tablet 50 mcg PO QAM Patient Comments: TAKE 1 TABLET BY MOUTH IN THE MORNING FOR 90 DAYS TAKE ON AN EMPTY STOMACH dicyclomine 20 mg tablet 20 mg PO BID Qty: 14 0RF Referrals: Vera Diaz PA-C [Primary Care Provider] - In 1 week Problem List Clinical Impression: Adult failure to thrive Patient/Caregiver Discharge Instructions Discharge Activity: activity as tolerated Education Materials: ED Feeding Disorder Additional Instructions: Thank you for the opportunity for serving you today. You are stable for discharged . Print Language: Vietnamese Stand Alone Forms: [facility]ley Award Info., Patient Portal Info Letter
--- NOTE | 2024-08-29 12:08 | PC.CC ---
Addendum entered by Aria Hope 08/29/24 18:11: Patient's Level II PASSR was completed and uploaded to [employer]. PASSR was sent to [facility]. Addendum entered by Aria Hope 08/29/24 14:59: Patient reports that she would like to go to [facility]. ASW submitted referral for SNF placement. Patient was accepted to [facility]. ASW informed patient that she is pending insurance authorization. Original Note: Patient is a 78 year-old female who presents to the hospital for Generalized Weakness. ASWAria made [id number] contact with patient. ASW introduced self, role, and reason for visit. Patient appeared alert and oriented to self, location, and situation. Patient was pleasant and engaged in initial assessment. Patient reports she lives home alone and confirmed her information on the demographics. Patient reports she has been struggling with ambulation and completing her ADLs. Patient has been using a walker for ambulation but is unsteady. Patient reports she has no one at home to help her. Patient would like to go to a SNF. Provider ANDREWS Mccurdy will request a PT eval for SNF placement. ASW to remain available.
[2024-08-29] MEDS: SODIUM CHLORIDE 0.9% 1000 ML 1,000 ML 999 ML IV (12:26)
[2024-08-29 13:13] LABS: Basophils % (Auto) 0 % (0-2.5); Eosinophils % (Auto) 0 % (0-10); Hematocrit 36.1 % (36.0-46.0); Hemoglobin 12.2 g/dL (12.0-16.0); Immature Granulocytes % (Auto) 0 % (0-0); Immature Granulocytes Auto 0.01 Thou/mm3 (0.00-0.00); Lymphocytes # (Auto) 1.4 Thou/mm3 (1.0-4.8); Lymphocytes % (Auto) 18 % (10-50); Mean Corpuscular HGB Conc 33.8 g/dl (31.0-37.0); Mean Corpuscular Hemoglobin 31.9 pg (25.0-35.0); Mean Corpuscular Volume 94 fL (80-100); Monocytes # (Auto) 0.6 Thou/mm3 (0.0-0.8); Monocytes % (Auto) 8 % (0-12); Neutrophils # (Auto) 5.7 Thou/mm3 (1.8-7.7); Neutrophils % (Auto) 74 % (37-80); Nucleated Red Blood Cell % 0 /100 WBC (0); Platelet Count 227 Thou/mm3 (140-440); RDW Standard Deviation 45.6 fL (36.4-46.3); Red Blood Count 3.83 Miln/mm3 (4.00-5.20); White Blood Count 7.8 Thou/mm3 (3.6-11.0)
[2024-08-29 13:30] LABS: Alanine Aminotransferase 11 U/L (10-49); Albumin/Globulin Ratio 1.6 (1.2-2.2); Alkaline Phosphatase 72 U/L (46-116); Anion Gap 7 (7-16); Aspartate Amino Transferase 19 U/L (0-34); BUN/Creatinine Ratio 21 Ratio (12-20); Bilirubin,Total 0.7 mg/dL (0.3-1.2); Blood Urea Nitrogen 17 mg/dL (9-23); Calcium 8.7 mg/dL (8.3-10.6); Calcium (Corrected) 8.7 mg/dL (8.5-10.1); Carbon Dioxide 25.5 mMol/L (20.0-31.0); Chloride 106 mMol/L (98-107); Creatinine (Component) 0.8 mg/dL (0.6-1.3); Estimated Creatinine Clearance 40.8 mL/min (>60); Globulin 2.5 gm/dL (2.3-3.5); Glucose 98 mg/dL (74-106); Osmolality,Calculated 277 (275-295); Potassium 3.8 mMol/L (3.4-5.1); Sodium 138 mMol/L (136-145); Total Protein 6.5 gm/dL (5.7-8.2); Troponin I < 0.020 ng/mL (0.0-0.045); eGFR > 60 See Note
[2024-08-29 13:37] LABS: Collection Type, Urine Clean Catch
[2024-08-29 13:50] LABS: Bilirubin,Urine Negative (Negative); Blood,Urine Negative (Negative); Clarity,Urine Clear (Clear/Hazy); Color,Urine Lt-Yellow (Lt Yel-Yel); Culture Indicated,Urine Not Indicated; Glucose, Urine Negative (Negative); Hyaline Casts,Urine < 1 /hpf (0-1); Ketones,Urine Negative (Negative); Leukocyte Esterase,Urine Negative (Negative); Nitrite,Urine Negative (Negative); Protein,Urine Trace (Neg - Trace); RBC,Urine 6 /hpf (0-3); Specific Gravity,Urine 1.018 (1.001-1.035); Squamous Epithelial Cell,Urine < 1 /hpf (0-5); Urobilinogen,Urine Negative mg/dL (0.0-1.0); WBC,Urine < 1 /hpf (0-5)
[2024-08-29 14:03] VITALS: BMI 13.0
[2024-08-29 14:09] VITALS: BP 176/86; PULSE 81; RESP 18; TEMP 36.4; O2SAT 98
--- NOTE | 2024-08-29 14:18 | PC.PT ---
PT eval complete. Please see eval for details.
[2024-08-29] MEDS: KETOROLAC INJ 60 MG/2 ML VIAL 15 MG IM (16:00)
[2024-08-29 18:56] VITALS: BP 192/94; PULSE 78; RESP 25; TEMP 36.5; O2SAT 96
--- NOTE | 2024-08-29 19:45 | PC.NURSE ---
ASSUMED CARE OF PATIENT, PT IN NO ACUTE DISTRESS, CAREGIVER AT BEDSIDE, PT AWAITING SNF PLACEMENT, DENIES ANY PAIN, WILL CONTINUE WITH PLAN OF CARE
--- NOTE | 2024-08-29 20:40 | PC.NURSE ---
pt saturated through own clothes. soiled clothing removed, gown and linen replaced. theresa care provided and purewick in place per pt request.
[2024-08-29 22:03] VITALS: BP 180/84; PULSE 80; RESP 18; TEMP 36.8; O2SAT 98
[2024-08-29] MEDS: LORazepam 2 MG/ML VIAL 1 MG IV (23:39)
[2024-08-30 03:59] VITALS: BP 149/72; PULSE 99; RESP 18; TEMP 36.7; O2SAT 96
--- NOTE | 2024-08-30 05:37 | PD.EDADDENDU ---
Emergency Room Addendum Addendum Narrative: 2300: Care assumed from Kemi Mccurdy, the previous shift emergency physician. Past medical, surgical, social and family history reviewed. Vitals and home medications reviewed. Results and treatment plan discussed. I will assume the care of the patient at this time and will follow the patient, pending insurance authorization for SNF placement. Please refer to the emergency department record for history and examination from initial visit. OBSERVATION NOTE: The patient was placed in ED observation care at 08/29/24 at 2300 hours. The patient was placed in ED observation care because of pending insurance authorization for SNF placement. The patients past medical history, social history, and family history were reviewed. 0600: Care signed out to [facility] emergency physician. Past medical, surgical, social and family history reviewed. Vitals and home medications reviewed. Results and treatment plan discussed. They will assume the care of the patient at this time and will follow the patient, pending insurance authorization for SNF placement. At this time, observation has ended. MD Attestation Attestation Scribe Attestation: I, Lindsey Adams, am scribing for and in the presence of Dr. Chauhan. Provider Notation: Although this document has been carefully reviewed, there may still be some phonetic and other typographical errors. These errors are purely grammatical due to imperfections in the software program and should not be construed in any way to compromise the substance of the patient's medical care during this visit.
--- NOTE | 2024-08-30 06:55 | EDNOTE_ITS ---
Emergency Room Addendum Addendum Narrative: 1800: Care assumed from Dr. Chauhan, the previous shift emergency physician. Past medical, surgical, social and family history reviewed. Vitals and home medications reviewed. I will assume the care of the patient at this time, pending insurance authorization for SNF placement. The patient was placed in ED observation care at 08/30/2024 at 0600 hours. The patient was placed in ED observation care pending SNF placement. The patients past medical history, social history, and family history were reviewed. The plan of care will include serial examinations. Please refer to the emergency department record for history and examination.? While in ED observation the patient will have access to water, food, and personal hygiene. If the patient takes home medication(s), they will be continued in ED observation. Physical exam by me shows patient under no acute distress at this time. 1200: Patient was signed out to Cortney Mccurdy, Past medical, surgical, social and family history reviewed. Vitals and home medications reviewed. Results and tr eatment plan discussed. They will assume the care of the patient at this time and will follow the patient, pending SNF placement. My ED observation care ended at 08/30/2024 at 1200 hours.
[2024-08-30 08:09] VITALS: BP 151/79; PULSE 79; RESP 16; TEMP 36.9; O2SAT 98
--- NOTE | 2024-08-30 08:30 | PC.NURSE ---
ASKED PT IF SHE WANTS BREAKFAST. PT DECLINED FOOD AT THIS TIME STATING THAT SHE WAS NOT HUNGRY BUT PT REQUESTED COFFEE. COFFEE WAS GIVEN TO PT
--- NOTE | 2024-08-30 12:03 | PC.CC ---
Aria BOCANEGRA made contact with Yue at [facility] who reports they have authorization from the insurance. They can /u the patient. Patient was provided with update that she will be going d/c and transported to the SNF. ASW provided update to ANDREWS Mccurdy, Dr. Vasquez, talent acquisition lead Denise, and bedside CLINTON Bradford.
--- NOTE | 2024-08-30 12:07 | EDNOTE_ITS ---
Emergency Room Addendum Addendum Narrative: 1200: Care assumed from Dr. Vasquez, the previous shift emergency physician. Past medical, surgical, social and family history reviewed. Vitals and home medications reviewed. I will assume the care of the patient at this time, pending insurance authorization for SNF placement. The patient was placed in ED observation care at 08/30/2024 at 1200 hours. The patient was placed in ED observation care pending SNF placement. The patients past medical history, social history, and family history were reviewed. The plan of care will include serial examinations. Please refer to the emergency department record for history and examination.? While in ED observation the patient will have access to water, food, and personal hygiene. If the patient takes home medication(s), they will be continued in ED observation. Physical exam by me shows patient under no acute distress at this time. 1210: Patient accepted for placement to [facility]. ETA is 1530 hours. 1630: EMS here to transport the patient to [facility]. My ED observation care ended at 08/30/2024 at 1630 hours.
[2024-08-30 14:24] VITALS: BP 150/76; PULSE 88; RESP 14; O2SAT 94
--- NOTE | 2024-08-30 16:20 | PC.NURSE ---
report given to Vania at [facility].
[2024-08-30 16:37] VITALS: BP 163/90; PULSE 70; RESP 18; TEMP 36.7; O2SAT 98
== END 2024-08-30 16:41 | disposition skilled nursing facility (03) ==
PROVIDERS: Nurse Practitioner Family; Emergency Provider Emergency Medicine; PCP Physician Assistant Medical
DX: R62.7 Adult failure to thrive (principal); E03.9 Hypothyroidism, unspecified; F41.9 Anxiety disorder, unspecified; R53.1 Weakness
CPT/HCPCS: 36415; 71045; 80053; 81001; 84484; 85025; 93005; 96360; 96361; 96372; 99284; J1885; J2060; J7030

== ENCOUNTER 2024-09-19 21:39 | Observation (INO) | payer OTHER, MEDICAID, SELFPAY ==
[2024-09-19 21:45] VITALS: PULSE 108; O2SAT 96
[2024-09-19 21:58] VITALS: BMI 17.5
--- NOTE | 2024-09-19 21:58 | PD.EDADULT ---
ED General RME/HPI General Chief complaint: General Adult/Misc Complain Stated complaint: BODY ACHES/PAIN Time Seen by Provider: 09/19/24 23:05 Arrival date/time: 09/19/24 21:39 RME / HPI RME / HPI narrative: This section includes all my notes and documentations, including HPI, PE, and ED course. Roberto Carlos Wagner MD HPI: 79yo female with a history of COPD, HTN, HLD, anemia BIBA from [facility] presents to the ED for a chief complaint of generalized weakness x today. Patient endorses associated body aches, vomiting, and a dry cough. With abdominal pain. And fever at the [facility]. No other complaints reported. ROS: All negative except as documented in HPI. Physical Exam: General: Alert and oriented. Appearance of malaise noted. Eyes: Conjunctivae and lids clear. ENT: No nasal congestion. Pharynx normal. TM normal bilaterally. Neck: Supple. Heart: RRR. Lungs: No respiratory distress. Good air movement. No rhonchi, wheezing, rales. Abdomen: Soft with epigastric and RUQ tenderness. No rebound or guarding. Legs: No clubbing, cyanosis, edema. Skin: Warm and dry. Neuro: Alert and oriented X 3. I reviewed all diagnostic test results. My interpretation of the EKG is sinus rhythm with no acute ST?T changes. My interpretation of the chest x-ray is no acute findings. My review of the abdominal CT report is gallbladder sludge versus stones. My review of the gallbladder US report is sludge/calculi in the fundus of the gallbladder. Blood tests ESR 47, CRP 1.6. UA normal. COVID/influenza/RSV/strep negative. At this point, diagnoses include cholecystitis, despite obvious signs on CT or US. Patient presented with abdominal pain and vomiting and fever and we have no other source of the fever. Treatment here included Duoneb, NS Tylenol, Toradol, Ativan, Methylprednisolone, Zosyn, and Zofran. Significant improvement not noted. I discussed the case with our surgeon and our hospitalist. About the presentation and exam and diagnostics and treatments here. And need of further care in the hospital. Will accept the patient. Roberto Carlos Wagner MD Related Data Home Medications ?Medication ?Instructions ?Recorded ?Confirmed albuterol sulfate 90 mcg/actuation 2 puff inhalation Q8H PRN 11/11/13 06/30/24 aerosol inhaler (ProAir HFA) SHORTNESS OF BREATH OR WHEEZE ##0 clonazepam 1 mg tablet (Klonopin) 1 mg PO TID PRN ANXIETY #0 tabs 11/11/13 06/30/24 levothyroxine 50 mcg tablet 50 mcg PO QAM 02/24/21 06/30/24 quetiapine 200 mg tablet 200 mg PO QPM 02/24/21 06/30/24 sertraline 100 mg tablet 200 mg PO QPM 02/24/21 06/30/24 Previous Rx's ?Medication ?Instructions ?Recorded dicyclomine 20 mg tablet 20 mg PO BID #14 tabs 12/18/23 Allergies Allergy/AdvReac Type Severity Reaction Status Date / Time codeine Allergy Severe Nausea/VOMI Verified 08/29/24 11:40 TING Sulfa (Sulfonamide Allergy Severe NAUSEA/VOMI Verified 08/29/24 11:40 Antibiotics) TING Review of Systems Review of Systems Systems Reviewed: All systems reviewed, normal except as documented Past Medical History Past Medical History NEUROLOGIC: Negative Neurological Disorders or Seizures CARDIAC: Positive Cardiac Disorders, Hypercholesterolemia and Hypotension; Negative Congestive Heart Failure RESPIRATORY: Positive Chronic Obstructive Pulmonary Disease (COPD); Negative Asthma GASTROINTESTINAL: Positive Gastrointestinal Disorders and Ulcerative Colitis GENITOURINARY: Positive Genitourinary Disorders; Negative Renal Disease REPRODUCTIVE: Positive Breast Cancer MUSCULOSKELETAL: Positive Musculoskeletal Disorders and Arthritis ENT: Positive Ear Infection ENDOCRINE: Negative Diabetes Mellitus Type 1 or Diabetes Mellitus Type 2 HEMATOLOGIC: Negative Blood Disorders or Sickle Cell Disease PSYCHO/SOCIAL: Positive Schizophrenia, Bipolar Disorder, Depression and Anxiety OTHER HISTORY: Positive Breast Cancer; Negative Blood Transfusions or Anesthesia Reactions Family History FAMILY HISTORY: Positive Family Cancer Surgical History SURGICAL: Positive Mastectomy and Hysterectomy Social History SMOKING STATUS: Never smoker SUBSTANCE USE: does not use ED Exam Narrative Physical exam: As noted in HPI. Course Course Course Narrative: CXR is ordered for determining the etiology of weakness. Quality Measures none Orders Category Date Time Status Bedside COVID-19 Antigen Test NOW Care 09/19/24 22:07 Active Bedside Influenza A&B Antigen Test NOW Care 09/19/24 22:07 Completed COVID-19 Screening Questionnaire NOW Care 09/20/24 02:33 Active Decision to Admit X1 Care 09/20/24 02:33 Completed EKG (ED ONLY) *Do not use* NOW Care 09/19/24 22:12 Completed Miscellaneous Nursing Order NOW Care 09/19/24 22:07 Active Saline [Insert IV] NOW Care 09/19/24 22:07 Active Straight [In and Out Catheter] X1 Care 09/19/24 22:07 Completed Consult to Gastroenterology Stat Cons 09/20/24 02:[address] abdomen pelvis wo con Stat Exams 09/19/24 22:12 Completed EKG (ED Only) Stat Exams 09/19/24 22:12 Draft US gall bladder Stat Exams 09/20/24 00:13 Taken XR chest 1V portable Stat Exams 09/19/24 22:12 Completed Amylase Stat Lab 09/19/24 22:24 Completed Bilirubin,Direct Stat Lab 09/19/24 22:24 Completed Blood Culture (Lab) Stat Lab 09/19/24 22:13 Received CBC Stat Lab 09/19/24 22:24 Completed CMP [Comprehensive Metabolic Panel] Stat Lab 09/19/24 22:24 Completed CRP [C-Reactive Protein] Stat Lab 09/19/24 22:24 Completed ESR [Sed Rate (ESR)] Stat Lab 09/19/24 22:24 Completed Free T4 (Free Thyroxine) Stat Lab 09/19/24 22:24 Completed Lactate (Lactic Acid) Stat Lab 09/19/24 22:27 Completed Lipase Stat Lab 09/19/24 22:24 Completed Magnesium Stat Lab 09/19/24 22:24 Completed Prolactin* Stat Lab 09/19/24 22:24 Received RSV [Respiratory Syncytial Virus Ag] Stat Lab 09/20/24 00:44 Completed Strep A Rapid Stat Lab 09/20/24 00:44 Completed TSH [Thyroid Stimulating Hormone] Stat Lab 09/19/24 22:24 Completed Troponin I Stat Lab 09/19/24 22:24 Completed UA, C/S IF [Urinalysis, C/S if Indicated] Stat Lab 09/20/24 00:30 Completed Acetaminophen Ivpb [Ofirmev Inj] Med 09/19/24 22:35 Discontinued 1,000 mg in 100 ml IV X1 Albuterol/Ipratr Rt Tabitha [Duoneb Rt Tabitha] Med 09/19/24 22:08 Discontinued 3 ml INH X1 ONE Ketorolac Inj [Toradol Inj] Med 09/19/24 22:35 Discontinued 7.5 mg IVP X1 ONE LORazepam [Ativan Inj] Med 09/19/24 22:08 Discontinued 1 mg IVP X1 ONE MethylPREDNISolone.* [SoluMEDROL Inj] Med 09/19/24 22:08 Discontinued 125 mg IVP X1 ONE Ondansetron Inj [Zofran Inj] Med 09/19/24 22:08 Discontinued 4 mg IV X1 ONE Piper/Tazo 3.375 gm Premix [Zosyn] Med 09/20/24 02:34 Ordered 3.375 gm in 50 ml IV X1 Sodium Chloride 0.9% 1000 ml [Ns] 1,000 ml Med 09/19/24 22:08 Discontinued IV 999 mls/hr Vital Signs Vital signs: Vital Signs Temperature 99.3 F 09/19/24 22:02 Pulse Rate 76 09/19/24 22:02 Respiratory Rate 16 09/19/24 22:02 Blood Pressure 123/62 09/19/24 22:02 Pulse Oximetry (%) 92 L 09/19/24 22:02 Oxygen Delivery Method Room Air 09/19/24 22:02 [facility] Patient data External records reviewed:: [facility] previous records (Per chart review, patient was seen here on 08/29/24 for failure to thrive.) Clinical information provided by:: patient Social determinants that could affect healthcare access:: housing (SNF resident) Patient has the following chronic illnesses:: COPD, HTN, HLD, anemia How is presenting disease/condition affected by chronic disease/condition?: uneffected by Evaluation data The following diagnostics were reviewed and interpreted by me:: lab results, radiology exam(s) and EKG tracing(s) Lab and/or radiology exams considered but not ordered:: none Interpretation Summary: Cholecystitis Medications Medications considered but not ordered:: none Medication administrations:: Medication Administration History Piperacillin/Tazobactam/Dextrose (Zosyn) 3.375 gm in 50 mls @ 100 mls/hr IV X1 ONE Stop: 09/20/24 03:03 Discontinued Medications Albuterol/Ipratropium (Albuterol/Ipratropium (Duoneb) Rt Tabitha 3 Ml Nebu) 3 ml INH X1 ONE Stop: 09/19/24 22:09 Last Admin: 09/19/24 22:47 Dose: 3 ml Documented By: GB Sodium Chloride (Ns) 1,000 mls @ 999 mls/hr IV .Q1H1M ONE Stop: 09/19/24 23:08 Last Infusion: 09/19/24 23:46 Dose: Infused Documented By: Admin: 09/19/24 22:41 Dose: 999 mls/hr Documented By: EF Acetaminophen (Ofirmev Inj) 1,000 mg in 100 mls @ 250 mls/hr IV X1 ONE Stop: 09/19/24 22:58 Last Infusion: 09/19/24 23:46 Dose: Infused Documented By: Admin: 09/19/24 23:22 Dose: 250 mls/hr Documented By: EF Ketorolac Tromethamine (Ketorolac Inj 30 Mg/Ml Vial) 7.5 mg IVP X1 ONE Stop: 09/19/24 22:36 Last Admin: 09/19/24 23:22 Dose: 7.5 mg Documented By: EF Lorazepam (Lorazepam 2 Mg/Ml Vial) 1 mg IVP X1 ONE Stop: 09/19/24 22:09 Last Admin: 09/19/24 22:51 Dose: Not Given Documented By: EF Non-Admin Reason: Cancelled by Provider Methylprednisolone Sodium Succinate (Methylprednisolone Sod Succ 62.5 Mg/Ml 2ml Vial) 125 mg IVP X1 ONE Stop: 09/19/24 22:09 Last Admin: 09/19/24 22:41 Dose: 125 mg Documented By: EF Ondansetron HCl (Ondansetron Inj 2 Mg/Ml Inj 2 Ml) 4 mg IV X1 ONE; Protocol Stop: 09/19/24 22:09 Last Admin: 09/19/24 22:41 Dose: 4 mg Documented By: EF Duoneb, NS, Tylenol, Toradol, Ativan, Methylprednisolone, Zofran Consultations Consultation(s) initiated? (list below): Yes Consultation #1 (Physician, Specialty, Details): Discussed case with Dr. Paris from general surgery regarding consultation. Discussed patients ED course, exam findings, labs, and radiology results. Recommended admission and will consult. Time: 02:30 Diagnosis Differential Diagnosis ED Complaint MDM: UTI, pneumonia, COVID, influenza, sepsis, cholecystitis Most likely diagnosis given after review of the tests above:: Cholecystitis Admission Indicated Admission indicated?: indicated Explain why admission is indicated or not indicated:: Admission criteria met. Admission Request Was there a request for admission?: Yes Admission Attestation Admission request attestation: Discussed case with [] from Hospitalist service regarding admission. Discussed patients ED course, exam findings, labs, and radiology results. The Hospitalist [agrees,declines] to accept the patient for admission. Disposition Plan Disposition Plan: Admit Medical Decision Making MDM Narrative MDM Narrative: Scribe Attestation: 09/19/24 - Makenna Day am scribing for and in the presence of Dr. Wagner. Differential Diagnosis Differential Diagnosis: UTI, pneumonia, COVID, influenza, sepsis, cholecystitis Lab Data 09/19/24 22:24 09/19/24 22:24 Labs: Lab Results 09/19/24 09/19/24 09/20/24 Range/Units 22:24 22:27 00:30 WBC 5.2 (3.6-11.0) Thou/mm3 RBC 4.15 (4.00-5.20) Miln/mm3 Hgb 13.2 (12.0-16.0) g/dL Hct 39.8 (36.0-46.0) % MCV 96 (80-100) fL MCH 31.8 (25.0-35.0) pg MCHC 33.2 (31.0-37.0) g/dl RDW Std Deviation 45.4 (36.4-46.3) fL Plt Count 249 (140-440) Thou/mm3 Neut % (Auto) 61 (37-80) % Lymph % (Auto) 27 (10-50) % [place] % (Auto) 10 (0-12) % Eos % (Auto) 2 (0-10) % Baso % (Auto) 0 (0-2.5) % Neut # (Auto) 3.2 (1.8-7.7) Thou/mm3 Lymph # (Auto) 1.4 (1.0-4.8) Thou/mm3 [place] # (Auto) 0.5 (0.0-0.8) Thou/mm3 Eos # (Auto) 0.1 (0.0-0.5) Thou/mm3 Baso # (Auto) 0.0 (0.0-0.2) Thou/mm3 Immature Gran # (Auto) 0.01 H (0.00-0.00) Thou/mm3 Absolute Nucleated RBC 0.00 (0.00-0.00) Thou/mm3 Immature Gran % 0 (0-0) % Nucleated RBC % 0 (0) /100 WBC ESR 47 H (0-30) mm/hr Sodium 139 (136-145) mMol/L Potassium 3.9 (3.4-5.1) mMol/L Chloride 103 (98-107) mMol/L Carbon Dioxide 27.9 (20.0-31.0) mMol/L Anion Gap 8 (7-16) BUN 9 (9-23) mg/dL Creatinine 0.9 (0.6-1.3) mg/dL Estim Creat Clear Calc 36.4 L (>60) mL/min eGFR > 60 (60 - ) See Note BUN/Creatinine Ratio 10 L (12-20) Ratio Glucose 75 (74-106) mg/dL Calculated Osmolality 275 (275-295) Lactic Acid 1.4 (0.4-2.0) mMol/L Calcium 9.3 (8.3-10.6) mg/dL Corrected Calcium 9.3 (8.5-10.1) mg/dL Magnesium 2.1 (1.6-2.6) mg/dL Total Bilirubin 0.6 (0.3-1.2) mg/dL Direct Bilirubin 0.1 (0.0-0.3) mg/dL AST 18 (0-34) U/L ALT 8 L (10-49) U/L Alkaline Phosphatase 80 (46-116) U/L Troponin I < 0.020 (0.0-0.045) ng/mL C-Reactive Prot, Quant 1.6 H (0.0-0.9) mg/dL Total Protein 7.4 (5.7-8.2) gm/dL Albumin 4.4 (3.4-4.8) gm/dL Globulin 3.0 (2.3-3.5) gm/dL Albumin/Globulin Ratio 1.5 (1.2-2.2) Amylase 92 (30-118) U/L Lipase 33 (12-53) U/L TSH 2.08 (0.55-4.78) uIU/mL Free T4 1.24 (0.89-1.76) ng/dL Ur Collection Type Clean Catch Urine Color Lt-Yellow (Lt Yel-Yel) Urine Clarity Clear (Clear/Hazy) Urine pH 6.5 (5.0-7.0) Ur Specific [place] 1.012 (1.001-1.035) Urine Protein Negative (Neg - Trace) Urine Glucose (UA) Negative (Negative) Urine Ketones Negative (Negative) Urine Blood Negative (Negative) Urine Nitrite Negative (Negative) Urine Bilirubin Negative (Negative) Urine Urobilinogen (Auto) Negative (0.0-1.0) mg/dL Ur Leukocyte Esterase Negative (Negative) Urine RBC 2 (0-3) /hpf Urine WBC < 1 (0-5) /hpf Ur Squamous Epith Cells 0 (0-5) /hpf Urine Bacteria None (None) Ur Culture Indicated? Not Indicated RSV Rapid (Negative) Group A Strep Rapid (Negative) 09/20/24 Range/Units 00:44 WBC (3.6-11.0) Thou/mm3 RBC (4.00-5.20) Miln/mm3 Hgb (12.0-16.0) g/dL Hct (36.0-46.0) % MCV (80-100) fL MCH (25.0-35.0) pg MCHC (31.0-37.0) g/dl RDW Std Deviation (36.4-46.3) fL Plt Count (140-440) Thou/mm3 Neut % (Auto) (37-80) % Lymph % (Auto) (10-50) % [place] % (Auto) (0-12) % Eos % (Auto) (0-10) % Baso % (Auto) (0-2.5) % Neut # (Auto) (1.8-7.7) Thou/mm3 Lymph # (Auto) (1.0-4.8) Thou/mm3 [place] # (Auto) (0.0-0.8) Thou/mm3 Eos # (Auto) (0.0-0.5) Thou/mm3 Baso # (Auto) (0.0-0.2) Thou/mm3 Immature Gran # (Auto) (0.00-0.00) Thou/mm3 Absolute Nucleated RBC (0.00-0.00) Thou/mm3 Immature Gran % (0-0) % Nucleated RBC % (0) /100 WBC ESR (0-30) mm/hr Sodium (136-145) mMol/L Potassium (3.4-5.1) mMol/L Chloride (98-107) mMol/L Carbon Dioxide (20.0-31.0) mMol/L Anion Gap (7-16) BUN (9-23) mg/dL Creatinine (0.6-1.3) mg/dL Estim Creat Clear Calc (>60) mL/min eGFR (60 - ) See Note BUN/Creatinine Ratio (12-20) Ratio Glucose (74-106) mg/dL Calculated Osmolality (275-295) Lactic Acid (0.4-2.0) mMol/L Calcium (8.3-10.6) mg/dL Corrected Calcium (8.5-10.1) mg/dL Magnesium (1.6-2.6) mg/dL Total Bilirubin (0.3-1.2) mg/dL Direct Bilirubin (0.0-0.3) mg/dL AST (0-34) U/L ALT (10-49) U/L Alkaline Phosphatase (46-116) U/L Troponin I (0.0-0.045) ng/mL C-Reactive Prot, Quant (0.0-0.9) mg/dL Total Protein (5.7-8.2) gm/dL Albumin (3.4-4.8) gm/dL Globulin (2.3-3.5) gm/dL Albumin/Globulin Ratio (1.2-2.2) Amylase (30-118) U/L Lipase (12-53) U/L TSH (0.55-4.78) uIU/mL Free T4 (0.89-1.76) ng/dL Ur Collection Type Urine Color (Lt Yel-Yel) Urine Clarity (Clear/Hazy) Urine pH (5.0-7.0) Ur Specific [place] (1.001-1.035) Urine Protein (Neg - Trace) Urine Glucose (UA) (Negative) Urine Ketones (Negative) Urine Blood (Negative) Urine Nitrite (Negative) Urine Bilirubin (Negative) Urine Urobilinogen (Auto) (0.0-1.0) mg/dL Ur Leukocyte Esterase (Negative) Urine RBC (0-3) /hpf Urine WBC (0-5) /hpf Ur Squamous Epith Cells (0-5) /hpf Urine Bacteria (None) Ur Culture Indicated? RSV Rapid Negative (Negative) Group A Strep Rapid Negative (Negative) Discharge Plan Plan Patient Disposition: Admit Acute Care w/in Hospital Prescriptions/Referrals Prescriptions/Med Rec: No Action clonazepam [Klonopin] 1 MG tablet 1 mg PO TID PRN (Reason: ANXIETY) Qty: 0 albuterol sulfate [ProAir HFA] 8.5 GM HFA aerosol inhaler 2 puff Inhalation Q8H PRN (Reason: SHORTNESS OF BREATH OR WHEEZE) Qty: 0 sertraline 100 mg tablet 200 mg PO QPM Patient Comments: TAKE 2 TABLETS BY MOUTH AT BEDTIME (90 DAYS) quetiapine 200 mg tablet 200 mg PO QPM Patient Comments: TAKE 1 TABLET BY MOUTH AT BEDTIME (90 DAYS) levothyroxine 50 mcg tablet 50 mcg PO QAM Patient Comments: TAKE 1 TABLET BY MOUTH IN THE MORNING FOR 90 DAYS TAKE ON AN EMPTY STOMACH dicyclomine 20 mg tablet 20 mg PO BID Qty: 14 0RF Referrals: Rik([facility])Eugenia MD [Primary Care Provider] - In 1 week Problem List Clinical Impression: Cholecystitis Patient/Caregiver Discharge Instructions Print Language: Togolese Stand Alone Forms: [facility] Award Info., Patient Portal Info Letter
[2024-09-19 22:02] VITALS: BP 123/62; PULSE 76; RESP 16; TEMP 37.4; O2SAT 92
--- NOTE | 2024-09-19 22:12 | EKG_ITS ---
[facility] Test Date: 2024-09-19 Pat Name: MAYLIN RODRIGUES Department: Room: - Gender: Female Manager Requirements: : 1945 Requested By: Roberto Carlos Echavarria Order Number: [id number] Reading MD: Roberto Carlos Echavarria Measurements Intervals [place] Rate: 84 P: 77 MN: 146 QRS: 31 QRSD: 86 T: 50 QT: 354 QTc: 420 Interpretive Statements SINUS RHYTHM POSSIBLE LEFT ATRIAL ENLARGEMENT [-0.1mV P-WAVE IN V1/V2] SEPTAL MYOCARDIAL INFARCTION , OF INDETERMINATE AGE [40+ ms Q WAVE IN V1/V2] Compared to ECG 08/29/2024 11:50:43 Myocardial infarct finding now present /store/S0/[id number]/ecg/[id number].pdf
--- NOTE | 2024-09-19 22:12 | XR_ITS ---
Examination: CT abdomen and pelvis without contrast. Coronal 3-D reconstructions. Sagittal 2-D reconstructions. Date and time of exam:September 19, 2024 at 11:08 PM Comparison May 19, 2024 Indications: Abdominal pain vomiting beginning this morning CTDI: vol (mGy): 4.45 DLP: (mGycm): 214 Technique: Axial images of the abdomen have been obtained, 3 mm slice thickness Intravenous contrast material has not been administered. Low dose protocols were performed. One or more of the following dose reduction techniques were used; automated exposure control, adjustment of the mA and/or KV according to patient size, use of iterative reconstruction technique. Findings: Suspicious for mild septal edema at the lung bases Trace pericardial thickening No focal liver or splenic lesions Suspicious for gallbladder sludge versus stones No pancreatic mass Bilateral advanced Bilateral renal cysts, the largest in the lateral right kidney 4.5 cm No renal or ureteral calculi, no hydronephrosis Abdominal aortic calcification no aneurysmal dilatation No bowel obstruction Normal appendix No diverticulitis Absent uterus No pelvic mass Intact urinary bladder Diffuse rectal wall thickening Severe osteopenia Moderate to advanced disc narrowing L1-L2, L2-L3 Bilateral advanced hip osteoarthritis Old healed right hip fracture Impression: Suspicious for mild septal edema the lung bases, consider AP chest follow-up Recommend hepatobiliary sonography follow-up to assess for gallbladder sludge versus stones Normal appendix No bowel obstruction Diffuse rectal wall thickening, differential would include proctitis, rectal tumor not excluded, clinical correlation advised, recommend direct inspection
--- NOTE | 2024-09-19 22:12 | XR_ITS ---
Examination: AP chest single view Technique one AP portable upright chest single view Exam date and time: September 19, 2024 10:33 PM Comparison August 29, 2024 Indications: Shortness of breath today Findings: Normal heart size No pneumonia or pulmonary edema Significant osteopenia Impression: No pneumonia or pulmonary edema
[2024-09-19 22:32] VITALS: TEMP 38.7
[2024-09-19] MEDS: SODIUM CHLORIDE 0.9% 1000 ML 1,000 ML 999 ML IV (22:41)
[2024-09-19] MEDS: MethylPREDNISolone SOD SUCC 62.5 MG/ML 2ML VIAL 125 MG IVP (22:41)
[2024-09-19] MEDS: ONDANSETRON INJ 2 MG/ML INJ 2 ML 4 MG IV (22:41)
[2024-09-19 22:45] LABS: Lactate (Lactic Acid) 1.4 mMol/L (0.4-2.0)
[2024-09-19] MEDS: ALBUTEROL/IPRATROPIUM (Duoneb) RT SOL 3 ML NEBU INH (22:47)
[2024-09-19 22:50] VITALS: PULSE 79; RESP 20; O2SAT 99
[2024-09-19 22:58] LABS: Basophils % (Auto) 0 % (0-2.5); Eosinophils # (Auto) 0.1 Thou/mm3 (0.0-0.5); Eosinophils % (Auto) 2 % (0-10); Hematocrit 39.8 % (36.0-46.0); Hemoglobin 13.2 g/dL (12.0-16.0); Immature Granulocytes % (Auto) 0 % (0-0); Immature Granulocytes Auto 0.01 Thou/mm3 (0.00-0.00); Lymphocytes # (Auto) 1.4 Thou/mm3 (1.0-4.8); Lymphocytes % (Auto) 27 % (10-50); Mean Corpuscular HGB Conc 33.2 g/dl (31.0-37.0); Mean Corpuscular Hemoglobin 31.8 pg (25.0-35.0); Mean Corpuscular Volume 96 fL (80-100); Monocytes # (Auto) 0.5 Thou/mm3 (0.0-0.8); Monocytes % (Auto) 10 % (0-12); Neutrophils # (Auto) 3.2 Thou/mm3 (1.8-7.7); Neutrophils % (Auto) 61 % (37-80); Nucleated Red Blood Cell % 0 /100 WBC (0); Platelet Count 249 Thou/mm3 (140-440); RDW Standard Deviation 45.4 fL (36.4-46.3); Red Blood Count 4.15 Miln/mm3 (4.00-5.20); White Blood Count 5.2 Thou/mm3 (3.6-11.0)
[2024-09-19 23:18] LABS: Sed Rate (ESR) 47 mm/hr (0-30)
[2024-09-19] MEDS: KETOROLAC INJ 30 MG/ML VIAL 7.5 MG IVP (23:22)
[2024-09-19] MEDS: ACETAMINOPHEN IVPB 1,000 MG/100 ML VIAL 250 MG IV (23:22)
[2024-09-20] VITALS (8 sets, daily range): BP systolic 91–112; BP diastolic 53–59; PULSE 64–88; RESP 16–97; TEMP 36.1–36.8; O2SAT 91–97; BMI 16.4
[2024-09-20 00:01] LABS: Alanine Aminotransferase 8 U/L (10-49); Albumin, Serum 4.4 gm/dL (3.4-4.8); Albumin/Globulin Ratio 1.5 (1.2-2.2); Alkaline Phosphatase 80 U/L (46-116); Amylase 92 U/L (30-118); Anion Gap 8 (7-16); Aspartate Amino Transferase 18 U/L (0-34); BUN/Creatinine Ratio 10 Ratio (12-20); Bilirubin,Direct 0.1 mg/dL (0.0-0.3); Bilirubin,Total 0.6 mg/dL (0.3-1.2); Blood Urea Nitrogen 9 mg/dL (9-23); C-Reactive Protein 1.6 mg/dL (0.0-0.9); Calcium 9.3 mg/dL (8.3-10.6); Calcium (Corrected) 9.3 mg/dL (8.5-10.1); Carbon Dioxide 27.9 mMol/L (20.0-31.0); Chloride 103 mMol/L (98-107); Creatinine (Component) 0.9 mg/dL (0.6-1.3); Estimated Creatinine Clearance 36.4 mL/min (>60); Free T4 (Free Thyroxine) 1.24 ng/dL (0.89-1.76); Glucose 75 mg/dL (74-106); Lipase 33 U/L (12-53); Magnesium 2.1 mg/dL (1.6-2.6); Osmolality,Calculated 275 (275-295); Potassium 3.9 mMol/L (3.4-5.1); Sodium 139 mMol/L (136-145); Thyroid Stimulating Hormone 2.08 uIU/mL (0.55-4.78); Total Protein 7.4 gm/dL (5.7-8.2); Troponin I < 0.020 ng/mL (0.0-0.045); eGFR > 60 See Note
--- NOTE | 2024-09-20 00:13 | XR_ITS ---
Examination: Abdomen sonogram, Limited Date and time of exam: September 20, 2024 0123 hrs. Indications: Right upper abdominal pain and tenderness today Technique: Real-time manzo scale transabdominal sonographic images of the upper abdomen obtained. Findings: Tiny gallstones and gallbladder sludge Gallbladder wall 0.2 cm Common bile duct 0.4 cm Pancreatic head 1.4 cm Liver 17.0 cm fatty infiltration Normal hepatopedal portal venous flow Patent IVC Impression: Cholelithiasis, negative for cholecystitis Mild hepatomegaly fatty liver
[2024-09-20 01:18] LABS: Collection Type, Urine Clean Catch; Squamous Epithelial Cell,Urine 0 /hpf (0-5)
[2024-09-20 01:24] LABS: Bilirubin,Urine Negative (Negative); Blood,Urine Negative (Negative); Clarity,Urine Clear (Clear/Hazy); Color,Urine Lt-Yellow (Lt Yel-Yel); Culture Indicated,Urine Not Indicated; Glucose, Urine Negative (Negative); Ketones,Urine Negative (Negative); Leukocyte Esterase,Urine Negative (Negative); Nitrite,Urine Negative (Negative); PH,Urine 6.5 (5.0-7.0); Protein,Urine Negative (Neg - Trace); RBC,Urine 2 /hpf (0-3); Specific Gravity,Urine 1.012 (1.001-1.035); Urobilinogen,Urine Negative mg/dL (0.0-1.0); WBC,Urine < 1 /hpf (0-5)
[2024-09-20 01:45] LABS: Strep A Rapid Negative (Negative)
[2024-09-20 01:53] LABS: Respiratory Syncytial Virus Ag Negative (Negative)
--- NOTE | 2024-09-20 02:45 | PRELIM_ITS ---
Ultrasound of gallbladder with Limited Doppler. September 20, 2024 at 0123 hours Clinical history: Right upper quadrant tenderness. No prior study is available for comparison. Findings: The liver measures 17 cm in length and demonstrates coarse echotexture. No intrahepatic biliary ductal dilatation. Small echogenic foci in the fundus of the gallbladder, likely sludge/calculi. No wall thickening or pericholecystic fluid is demonstrated. The common bile duct is normal in caliber at 4 mm. No free fluid is demonstrated on the submitted images. The portal vein demonstrates normal flow and is patent. The pancreas is unremarkable to the extent visualized. The inferior vena cava to the extent visualized is within normal limits. Impression: Sludge/calculi in the fundus of the gallbladder. No wall thickening, pericholecystic fluid or biliary dilatation. Coarse echotexture of the liver. Report Electronically Signed By: Oren Guidry 09/20/2024 2:44:46 AM [EST]
--- NOTE | 2024-09-20 03:19 | PD.EVENT ---
Documentation for date of: 09/20/24 Event Note Event Note: An 79-year-old female presented to the ER with the chief complaint of sore throat and diffuse body aches. She reported waking up the day prior with a severe sore throat and swollen glands. She consumed part of a protein shake and some coffee but subsequently felt nauseated and experienced a diffuse headache and generalized body pain. She also reported sweating and subjective fever, though she was unaware of the exact temperature. She denied abdominal pain and dysuria. She was able to tolerate a small amount of food and fluids after taking a pill provided by her facility. At baseline, she is able to ambulate with a walker and uses a wheelchair as needed. The patient has a history of COPD (secondary to secondhand smoke exposure), fibromyalgia, anxiety, colitis, hypothyroidism (on Levothyroxine), breast cancer status post-mastectomy, and recurrent UTIs. Surgical history includes hip repair with rosa placement and hand surgery following a fall. She does not smoke, drink alcohol, or use recreational drugs. In the ER, vital signs recorded as temp 99.3?F, HR 76 bpm, RR 16, BP 123/62 mmHg. Labs revealed WBC 5.2, Hb 13.2, Plt 249, Na 139, K 3.9, BUN 9, Creatinine 0.9, Lactic Acid 1.4, ESR 47, CRP 1.6. UA was clear with WBC <1. Infectious panel including COVID, influenza, RSV, and strep was negative. CXR showed no pneumonia or pulmonary edema. CT showed diffuse rectal wall thickening suggestive of proctitis; rectal tumor not excluded. Abdominal ultrasound revealed sludge and calculi in the gallbladder fundus with coarse liver echotexture, without wall thickening or biliary dilatation. The patient had a documented fever of 101.6?F managed with Tylenol. She is being admitted for observation.
--- NOTE | 2024-09-20 04:24 | PD.RESHP ---
Documentation for date of: 09/20/24 [facility] History of Present Illness Chief complaint: general weakness, fever, chills History of present illness: The patient is a 79-year-old female with previous medical history of COPD (secondhand smoke exposure), anxiety, hypothyroidism, fibromyalgia, colitis, breast cancer status postmastectomy, recurrent UTIs who was brought to the ED on 09/19/[address] [facility] due to fever, chills, general weakness. Today she woke up with sore throat, had subjective fever, chills, had nausea, vomiting. She denies diarrhea, constipation, bloody stools. She reports mild cough with phlegm. The day before she reported feeling fine and and was able to tolerate a workout. ED course: Blood pressure 123/62, heart rate 76, saturation 92% on room air, initial temperature was 99.3, temperature went up to 101.6. Labs showed WBC count of 5.2, hemoglobin 13.2, platelets 249, UA was negative for signs of UTI, abdomen/pelvis CT was negative for bowel obstruction, showed diffuse rectal thickening, possible proctitis or rectal tumor. Chest x-ray was negative for pneumonia or pulmonary edema. She reported that she had a psychotic episode due to the stress, was put on medications, but does not take them anymore because she feels better. Patient received 1 L of fluids, methylprednisolone, ondansetron, one-time DuoNeb inhalations, IV paracetamol and ketorolac IV. Surgical history: Status post right hip repair, status post hand fracture repair surgery, s/p mastectomy. Home medications: Clonazepam, levothyroxine, sertraline, quetiapine. Patient is going to be admitted for observation, will receive IV antibiotics, will wait for the results of the cultures. Review of Systems Review of Systems Systems Reviewed: All systems reviewed, normal except as documented Past Medical History Past Medical History NEUROLOGIC: Negative Neurological Disorders or Seizures CARDIAC: Positive Cardiac Disorders, Hypercholesterolemia and Hypotension; Negative Congestive Heart Failure RESPIRATORY: Positive Chronic Obstructive Pulmonary Disease (COPD); Negative Asthma GASTROINTESTINAL: Positive Gastrointestinal Disorders and Ulcerative Colitis GENITOURINARY: Positive Genitourinary Disorders; Negative Renal Disease REPRODUCTIVE: Positive Breast Cancer MUSCULOSKELETAL: Positive Musculoskeletal Disorders and Arthritis ENT: Positive Ear Infection ENDOCRINE: Negative Diabetes Mellitus Type 1 or Diabetes Mellitus Type 2 HEMATOLOGIC: Negative Blood Disorders or Sickle Cell Disease PSYCHO/SOCIAL: Positive Schizophrenia, Bipolar Disorder, Depression and Anxiety OTHER HISTORY: Positive Breast Cancer; Negative Blood Transfusions or Anesthesia Reactions Family History FAMILY HISTORY: Positive Family Cancer Surgical History SURGICAL: Positive Mastectomy and Hysterectomy Social History SMOKING STATUS: Never smoker SUBSTANCE USE: does not use Exam Vital Signs Temp Pulse Resp BP Pulse Ox O2 Del Method O2 Flow Rate 98.2 F 88 16 101/54 L 95 Nasal Cannula 2 09/20/24 03:01 09/20/24 03:01 09/20/24 03:01 09/20/24 03:01 09/20/24 03:01 09/20/24 03:01 09/20/24 03:01 Narrative Exam Physical Exam General: Awake and in no acute distress. Conversational and non-toxic appearing. HEENT: Normocephalic, atraumatic, mucous membranes moist. Heart: Regular rate and rhythm, no murmurs. Lungs: Clear to auscultation with no wheezing or crackles. Abdomen: Soft, nondistended, nontender, positive bowel sounds. ?No guarding or rebound tenderness. Neurologic: Alert and oriented x3, no gross neurological deficit, and patient able to move all 4 extremities. Extremities: No edema. Right wrist S-like deformation. Skin: No rash or ecchymoses. Results: Labs 09/20/24 04:44 09/20/24 04:44 Labs: Short CBC 09/19/24 Range/Units 22:24 WBC 5.2 (3.6-11.0) Thou/mm3 Hgb 13.2 (12.0-16.0) g/dL Hct 39.8 (36.0-46.0) % Plt Count 249 (140-440) Thou/mm3 BMP 09/19/24 22:24 Sodium 139 Potassium 3.9 Chloride 103 Carbon Dioxide 27.9 BUN 9 Creatinine 0.9 Glucose 75 Calcium 9.3 Cardiac Enzymes 09/19/24 Range/Units 22:24 Troponin I < 0.020 (0.0-0.045) ng/mL Liver Function 09/19/24 Range/Units 22:24 Total Bilirubin 0.6 (0.3-1.2) mg/dL Direct Bilirubin 0.1 (0.0-0.3) mg/dL AST 18 (0-34) U/L ALT 8 L (10-49) U/L Alkaline Phosphatase 80 (46-116) U/L Albumin 4.4 (3.4-4.8) gm/dL Urine 09/20/24 Range/Units 00:30 Urine Color Lt-Yellow (Lt Yel-Yel) Urine Clarity Clear (Clear/Hazy) Urine pH 6.5 (5.0-7.0) Ur Specific [place] 1.012 (1.001-1.035) Urine Protein Negative (Neg - Trace) Urine Glucose (UA) Negative (Negative) Quality Measures Quality Measures VTE prophylaxis Advance care planning discussed with:: patient Medications Home Medications and Allergies Home Medications ?Medication ?Instructions ?Recorded ?Confirmed ?Type albuterol sulfate 90 mcg/actuation 2 puff inhalation Q8H PRN 11/11/13 06/30/24 History aerosol inhaler (ProAir HFA) SHORTNESS OF BREATH OR WHEEZE ##0 clonazepam 1 mg tablet (Klonopin) 1 mg PO TID PRN ANXIETY #0 tabs 11/11/13 06/30/24 History levothyroxine 50 mcg tablet 50 mcg PO QAM 02/24/21 06/30/24 History quetiapine 200 mg tablet 200 mg PO QPM 02/24/21 06/30/24 History sertraline 100 mg tablet 200 mg PO QPM 02/24/21 06/30/24 History Allergies Allergy/AdvReac Type Severity Reaction Status Date / Time codeine Allergy Severe Nausea/VOMI Verified 08/29/24 11:40 TING Sulfa (Sulfonamide Allergy Severe NAUSEA/VOMI Verified 08/29/24 11:40 Antibiotics) TING Visit Medications Acetaminophen (Acetaminophen 325 Mg Tablet) 650 mg PO Q6H PRN PRN Reason: Fever >101.5 Stop: 10/20/24 03:04 Albuterol/Ipratropium (Albuterol/Ipratropium (Duoneb) Rt Tabitha 3 Ml Nebu) 3 ml INH Q2HR PRN PRN Reason: SHORTNESS OF BREATH OR WHEEZE Stop: 10/20/24 03:41 Clonazepam (Clonazepam 0.5 Mg Tablet) 1 mg PO PRN PRN PRN Reason: ANXIETY Stop: 09/25/24 03:11 Heparin Sodium (Porcine) (Heparin Sod Inj 5000 Unit/Ml Vial) 5,000 unit SC Q8HR HONORIO Stop: 10/04/24 05:59 Sodium Chloride (Ns) 1,000 mls @ 75 mls/hr IV .[id number] HONORIO Stop: 10/20/24 03:14 Ceftriaxone Sodium/Dextrose (Rocephin/D5w 1gm Iv Premix) 50 mls @ 100 mls/hr IV QDAY HONORIO Stop: 09/27/24 08:59 Ceftriaxone Sodium/Dextrose (Rocephin/D5w 1gm Iv Premix) 1 gm in 50 mls @ 100 mls/hr IV X1 ONE Stop: 09/20/24 04:29 Levothyroxine Sodium (Levothyroxine Sodium 25 Mcg Tablet) 50 mcg PO ACBR HONORIO Stop: 10/20/24 05:59 Quetiapine Fumarate (Quetiapine Fumarate 100 Mg Tablet) 200 mg PO QDAY [facility] Stop: 10/20/24 08:59 Discontinued Medications Albuterol/Ipratropium (Albuterol/Ipratropium (Duoneb) Rt Tabitha 3 Ml Nebu) 3 ml INH X1 ONE Stop: 09/19/24 22:09 Last Admin: 09/19/24 22:47 Dose: 3 ml Sodium Chloride (Ns) 1,000 mls @ 999 mls/hr IV .[id number] ONE Stop: 09/19/24 23:08 Last Infusion: 09/19/24 23:46 Dose: Infused Acetaminophen (Ofirmev Inj) 1,000 mg in 100 mls @ 250 mls/hr IV X1 ONE Stop: 09/19/24 22:58 Last Infusion: 09/19/24 23:46 Dose: Infused Piperacillin/Tazobactam/Dextrose (Zosyn) 3.375 gm in 50 mls @ 100 mls/hr IV X1 ONE Stop: 09/20/24 03:03 Ketorolac Tromethamine (Ketorolac Inj 30 Mg/Ml Vial) 7.5 mg IVP X1 ONE Stop: 09/19/24 22:36 Last Admin: 09/19/24 23:22 Dose: 7.5 mg Lorazepam (Lorazepam 2 Mg/Ml Vial) 1 mg IVP X1 ONE Stop: 09/19/24 22:09 Last Admin: 09/19/24 22:51 Dose: Not Given Methylprednisolone Sodium Succinate (Methylprednisolone Sod Succ 62.5 Mg/Ml 2ml Vial) 125 mg IVP X1 ONE Stop: 09/19/24 22:09 Last Admin: 09/19/24 22:41 Dose: 125 mg Ondansetron HCl (Ondansetron Inj 2 Mg/Ml Inj 2 Ml) 4 mg IV X1 ONE; Protocol Stop: 09/19/24 22:09 Last Admin: 09/19/24 22:41 Dose: 4 mg Assessment & Plan Plan The patient is a 79-year-old female with previous medical history of COPD (secondhand smoke exposure), anxiety, hypothyroidism, fibromyalgia, colitis, breast cancer status postmastectomy, recurrent UTIs who was brought to the ED on 09/19/[address] [facility] due to fever, chills, general weakness. Patient is going to be admitted for observation, will receive IV antibiotics, will wait for the results of the cultures. #Suspected cholecystitis Patient had episode of vomiting, nausea. ESR 47 mm/hr. CRP 1.6 mg/dl. Plan: - Pending gallbladder US read - Ceftriaxone 1 g qday 09/20/2024-current - Follow-up cultures - Tylenol for fever as needed #COPD Due to secondhand smoke exposure. Patient denies smoking, denies using oxygen at home. Plan: - Wean down oxygen as tolerated - Duonebs inhalations as needed #Anxiety - Resumed home medications #Hypothyroidism Plan: - Resumed home levothyroxine #Fibromyalgia Chronic condition, stable #Colitis CT showed possible proctitis or rectal tumor. Plan: - Consider GI consult Health maintenance: FEN: regular DVT prophylaxis: heparin sc GI prophylaxis: none Dispo: med surg CODE STATUS:Full code Plan of care discussed with attending Dr. Kevin. Brooklynn Ross MD, PGY 1. Attending Provider Attestation/Addendum Pt was evaluated and plan formulated together with the housestaff team. I have reviewed the residents note above and agree with most of its content. Please refer to the residents note for additional details.
--- NOTE | 2024-09-20 04:27 | PC.NURSE ---
patient states she was picked up with a blue purse from sn[facility] and upon arrival she no longer had it she believes that she might have left it in the ambulance. upon arrival patient just came with robe, red shirt, 5 rings and a necklace no blue purse was ever seen.
[2024-09-20] MEDS: PIPER/TAZO 3.375 GM PREMIX 3.375 GM/50 ML BAG IV (04:45)
[2024-09-20] MEDS: SODIUM CHLORIDE 0.9% 1000 ML 1,000 ML 75 ML IV (04:50)
[2024-09-20 05:18] LABS: Basophils % (Auto) 0 % (0-2.5); Eosinophils % (Auto) 0 % (0-10); Hematocrit 32.2 % (36.0-46.0); Hemoglobin 10.5 g/dL (12.0-16.0); Immature Granulocytes % (Auto) 0 % (0-0); Immature Granulocytes Auto 0.02 Thou/mm3 (0.00-0.00); Lymphocytes # (Auto) 0.4 Thou/mm3 (1.0-4.8); Lymphocytes % (Auto) 6 % (10-50); Mean Corpuscular HGB Conc 32.6 g/dl (31.0-37.0); Mean Corpuscular Hemoglobin 31.3 pg (25.0-35.0); Mean Corpuscular Volume 96 fL (80-100); Monocytes # (Auto) 0.1 Thou/mm3 (0.0-0.8); Monocytes % (Auto) 1 % (0-12); Neutrophils # (Auto) 5.7 Thou/mm3 (1.8-7.7); Neutrophils % (Auto) 93 % (37-80); Nucleated Red Blood Cell % 0 /100 WBC (0); Platelet Count 240 Thou/mm3 (140-440); RDW Standard Deviation 44.2 fL (36.4-46.3); Red Blood Count 3.35 Miln/mm3 (4.00-5.20); White Blood Count 6.2 Thou/mm3 (3.6-11.0)
[2024-09-20] MEDS: LEVOTHYROXINE SODIUM 25 MCG TABLET 50 MCG PO (05:34)
[2024-09-20] MEDS: cefTRIAXone/D5w 1gm IV premix 1 GM/50 ML BAG IV (05:34)
[2024-09-20] MEDS: HEPARIN SOD INJ 5000 UNIT/ML VIAL SC ×3 (05:35→21:09)
[2024-09-20 05:40] LABS: Anion Gap 7 (7-16); BUN/Creatinine Ratio 11 Ratio (12-20); Blood Urea Nitrogen 10 mg/dL (9-23); Calcium 8.4 mg/dL (8.3-10.6); Carbon Dioxide 24.8 mMol/L (20.0-31.0); Chloride 108 mMol/L (98-107); Creatinine (Component) 0.9 mg/dL (0.6-1.3); Estimated Creatinine Clearance 34.2 mL/min (>60); Glucose 156 mg/dL (74-106); Osmolality,Calculated 281 (275-295); Potassium 4.4 mMol/L (3.4-5.1); Sodium 140 mMol/L (136-145); eGFR > 60 See Note
--- NOTE | 2024-09-20 07:50 | PC.NURSE ---
0725 patient SaO2 at 88% on RA, notified nurse, placed patient on 2L via NC. Rechecked at 0750 SaO2 at 92% on 2L via NC.
--- NOTE | 2024-09-20 09:53 | PC.SS ---
Addendum entered by NICK Rviera 09/20/24 10:00: Jenny Gema . Original Note: Initial assessment: this is 79 year-old female who presents to the hospital from [facility]. Patient uses a rollator walker to ambulate and requires some assistance completing ADL's. The patient recenly discharged to [facility] as she was living home alone and required more assistance with care. Patient is seen by facility PCP. Patient would like to return to [facility] upon discharge. Patient assigned her caregiver/friend Jennyzackery Torreschago as her emergency contact. D/c plan: return to [facility] Next of kin: Jenny Herrera
--- NOTE | 2024-09-20 10:00 | PC.SS ---
Addendum entered by NICK Rivera 09/20/24 12:24: SS update: sent update clinicals to [facility] via [employer]. Pending PT eval. Original Note: SS follow up: per Margret at [facility], the patient will require new authorization upon returning back to facility.
[2024-09-20] MEDS: ACETAMINOPHEN 325 MG TABLET 650 MG PO ×2 (10:56→22:58)
--- NOTE | 2024-09-20 12:14 | ESPR_ITS ---
<Statement entered by Celio Tovar MD - 09/21/24 14:20> Senior Resident Attestation: I supervised/discussed management plan with technical support internship physician Dr. Noguera, and was involved in the care of this patient. I personally saw and examined the patient and discussed the assessment and plan with the entire medicine team, including my attending. I agree with the assessment and plan as documented. Patient's care was discussed with attending physician, Dr. Edwards. Celio Tovar MD PGY-2. Documentation for date of: 09/20/24 Subjective Subjective Interval history: Patient is an overnight admit. Patient seen and examined at bedside this morning patient is saturating above 95% on room air patient denies any abdominal pain nausea or vomiting patient states she has complete resolution of her symptoms. Vitals are stable with blood pressure 91/57 patient remain afebrile. Chest x-ray and UA is negative labs are within normal limits with the exception of hemoglobin 10.5 patient's baseline is 12 patient denies any history of melena or hematochezia there are no bleeding plan continue to follow patient PT is ordered as patient feels like she has generalized weakness. Exam Vital Signs Temp Pulse Resp BP Pulse Ox O2 Del Method O2 Flow Rate 97.3 F 70 16 112/53 L 93 L Room Air 2 09/20/24 11:50 09/20/24 11:50 09/20/24 11:50 09/20/24 11:50 09/20/24 11:50 09/20/24 11:50 09/20/24 08:00 Narrative Exam GENERAL: A&Ox3 . elderly thing female, relaxed, cooperative and pleasant NEURO: no focal neurological deficits HEENT: Atraumatic, Normocephalic. mucous membranes moist. Eyes open, symmetrical, & clear HEART: Normal Heart Sounds LUNGS: Clear to auscultation with no wheezing or crackles. ABDOMEN: soft, non-distended, non-tender, bowel sounds heard, no guarding or rebound tenderness SKIN: No Rash or ecchymoses EXTREMITIES: No edema, tenderness, able to move all 4 extremities, pedal pulses palpated Objective Labs 09/21/24 05:07 09/21/24 05:07 Labs: Laboratory Results - last 24 hr 09/19/24 09/19/24 09/20/24 22:24 22:27 00:30 WBC 5.2 RBC 4.15 Hgb 13.2 Hct 39.8 MCV 96 MCH 31.8 MCHC 33.2 RDW Std Deviation 45.4 Plt Count 249 Neut % (Auto) 61 Lymph % (Auto) 27 Cooper % (Auto) 10 Eos % (Auto) 2 Baso % (Auto) 0 Neut # (Auto) 3.2 Lymph # (Auto) 1.4 Cooper # (Auto) 0.5 Eos # (Auto) 0.1 Baso # (Auto) 0.0 Immature Gran # (Auto) 0.01 H Absolute Nucleated RBC 0.00 Immature Gran % 0 Nucleated RBC % 0 ESR 47 H Sodium 139 Potassium 3.9 Chloride 103 Carbon Dioxide 27.9 Anion Gap 8 BUN 9 Creatinine 0.9 Estim Creat Clear Calc 36.4 L eGFR > 60 BUN/Creatinine Ratio 10 L Glucose 75 Calculated Osmolality 275 Lactic Acid 1.4 Calcium 9.3 Corrected Calcium 9.3 Magnesium 2.1 Total Bilirubin 0.6 Direct Bilirubin 0.1 AST 18 ALT 8 L Alkaline Phosphatase 80 Troponin I < 0.020 C-Reactive Prot, Quant 1.6 H Total Protein 7.4 Albumin 4.4 Globulin 3.0 Albumin/Globulin Ratio 1.5 Amylase 92 Lipase 33 TSH 2.08 Free T4 1.24 Ur Collection Type Clean Catch Urine Color Lt-Yellow Urine Clarity Clear Urine pH 6.5 Ur Specific [place] 1.012 Urine Protein Negative Urine Glucose (UA) Negative Urine Ketones Negative Urine Blood Negative Urine Nitrite Negative Urine Bilirubin Negative Urine Urobilinogen (Auto) Negative Ur Leukocyte Esterase Negative Urine RBC 2 Urine WBC < 1 Ur Squamous Epith Cells 0 Urine Bacteria None Ur Culture Indicated? Not Indicated RSV Rapid Group A Strep Rapid 09/20/24 09/20/24 00:44 04:44 WBC 6.2 RBC 3.35 L Hgb 10.5 L D Hct 32.2 L MCV 96 MCH 31.3 MCHC 32.6 RDW Std Deviation 44.2 Plt Count 240 Neut % (Auto) 93 H Lymph % (Auto) 6 L Cooper % (Auto) 1 Eos % (Auto) 0 Baso % (Auto) 0 Neut # (Auto) 5.7 Lymph # (Auto) 0.4 L Cooper # (Auto) 0.1 Eos # (Auto) 0.0 Baso # (Auto) 0.0 Immature Gran # (Auto) 0.02 H Absolute Nucleated RBC 0.00 Immature Gran % 0 Nucleated RBC % 0 ESR Sodium 140 Potassium 4.4 D Chloride 108 H Carbon Dioxide 24.8 Anion Gap 7 BUN 10 Creatinine 0.9 Estim Creat Clear Calc 34.2 L eGFR > 60 BUN/Creatinine Ratio 11 L Glucose 156 H D Calculated Osmolality 281 Lactic Acid Calcium 8.4 Corrected Calcium Magnesium Total Bilirubin Direct Bilirubin AST ALT Alkaline Phosphatase Troponin I C-Reactive Prot, Quant Total Protein Albumin Globulin Albumin/Globulin Ratio Amylase Lipase TSH Free T4 Ur Collection Type Urine Color Urine Clarity Urine pH Ur Specific [place] Urine Protein Urine Glucose (UA) Urine Ketones Urine Blood Urine Nitrite Urine Bilirubin Urine Urobilinogen (Auto) Ur Leukocyte Esterase Urine RBC Urine WBC Ur Squamous Epith Cells Urine Bacteria Ur Culture Indicated? RSV Rapid Negative Group A Strep Rapid Negative Quality Measures Quality Measures VTE prophylaxis Advance care planning discussed with:: patient Assessment & Plan Assessment Current Active Medications: Generic Name Dose Route Start Last Admin Trade Name Freq PRN Reason Stop Dose Admin Acetaminophen 650 mg 09/20/24 03:05 09/20/24 10:56 Acetaminophen 325 Mg Tablet PO 10/20/24 03:04 650 mg Q6H PRN Administration Fever >101.5 Albuterol/Ipratropium 3 ml 09/20/24 03:42 Albuterol/Ipratropium (Duoneb) Rt Tabitha 3 Ml Nebu INH 10/20/24 03:41 Q2HR PRN SHORTNESS OF BREATH OR WHEEZE Clonazepam 1 mg 09/20/24 03:12 Clonazepam 0.5 Mg Tablet PO 09/25/24 03:11 DAILY PRN ANXIETY Heparin Sodium (Porcine) 5,000 unit 09/20/24 06:00 09/20/24 05:35 Heparin Sod Inj 5000 Unit/Ml Vial SC 10/04/24 05:59 5,000 unit Q8HR HONORIO Administration Sodium Chloride 1,000 mls @ 75 mls/hr 09/20/24 03:15 09/20/24 04:50 Ns IV 10/20/24 03:14 75 mls/hr .[id number] HONORIO Administration Ceftriaxone Sodium/Dextrose 1 gm in 50 mls @ 100 mls/hr 09/21/24 09:00 Rocephin/D5w 1gm Iv Premix IV 09/28/24 08:59 QDAY HONORIO Levothyroxine Sodium 50 mcg 09/20/24 06:00 04/10/25 05:34 Levothyroxine Sodium 25 Mcg Tablet PO 10/20/24 05:59 50 mcg ACBR HONORIO Administration Quetiapine Fumarate 200 mg 09/20/24 09:00 09/20/24 08:57 Quetiapine Fumarate 100 Mg Tablet PO 10/20/24 08:59 Not Given QDAY HONORIO Plan The patient is a 79-year-old female with previous medical history of COPD (secondhand smoke exposure), anxiety, hypothyroidism, fibromyalgia, colitis, breast cancer status postmastectomy, recurrent UTIs who was brought to the ED on 09/19/24 from [facility] due to fever, chills, general weakness. Patient is going to be admitted for observation, will receive IV antibiotics, will wait for the results of the cultures. #cholelithiasis Patient had episode of vomiting, nausea. ESR 47 mm/hr. CRP 1.6 mg/dl. -Gallblader US is evident of cholilithiasis Plan: - Ceftriaxone 1 g qday 09/20/2024- - Follow-up cultures - Tylenol for fever and pain as needed -General surgery is consulted, as per surgery recs pt does not need surgery, as pt is asymptomatic #COPD Due to secondhand smoke exposure. Patient denies smoking, denies using oxygen at home. Plan: - Wean down oxygen as tolerated - Duonebs inhalations as needed #Anxiety - Resumed home medications #Hypothyroidism Plan: - Resumed home levothyroxine #Fibromyalgia Chronic condition, stable #Colitis CT showed possible proctitis or rectal tumor. Plan: - Pt will need to follow up outpatient for further work up and referral for colonoscopy Health maintenance: FEN: regular DVT prophylaxis: heparin sc GI prophylaxis: none Dispo: med surg CODE STATUS:Full code Assessment and plan discussed with my senior resident Dr. Tovar & attending physician Dr. Jerry Noguera (PGY-1)- Internal medicine resident Attending Provider Attestation/Addendum I attest that I was physically present for the evaluation, physical examination, lab and imaging review of the patient with the residents. I discussed the case with the residents and agree with the findings and plans of care as documented above. At bedside today, patient appears comfortable, denies any new complaints.? Saturating well on room air.? Discussed with patient and her olive pitter at bedside in detail, stated that patient was on Flonase which has been discontinued due to insurance issues following which she started having congestion, cough and sore throat.? Her vitals have been stable.? Lab results are also stable.? Gallbladder ultrasound showed cholelithiasis without cholecystitis, patient does not have abdominal pain.? Her nausea/vomiting has also been resolved.? Awaiting physical therapy and general surgery recommendation. Celso Edwards MD
--- NOTE | 2024-09-20 12:39 | PC.NURSE ---
Dr. King made aware pt refused quetiapine and med req completed. Caregiver will bring in a med list this afternoon. no new orders.
--- NOTE | 2024-09-20 15:17 | PC.SS ---
Rounding note: pending workup with Dr. Finch.
[2024-09-20] MEDS: clonazePAM 0.5 MG TABLET 1 MG PO (15:48)
[2024-09-20] MEDS: FLUTICASONE NAS SPRAY 0.05% 16 GM BTL 1 SPRAY NASAL ×2 (15:49→20:03)
--- NOTE | 2024-09-20 16:31 | PD.SURCONS ---
HPI Consult details Consult date: 09/20/24 Reason for consultation narrative: The patient was seen in consultation at the request of the ER physician for possible gallstones and sludge in the gallbladder. History of present illness: Patient was admitted to the hospital with various medical problem like nausea and vomiting and fever. She never had any abdominal pain. Nobody has told her that she has had gallstones Past Medical History Past Medical History NEUROLOGIC: Negative Neurological Disorders or Seizures CARDIAC: Positive Cardiac Disorders, Hypercholesterolemia and Hypotension; Negative Congestive Heart Failure RESPIRATORY: Positive Chronic Obstructive Pulmonary Disease (COPD); Negative Asthma GASTROINTESTINAL: Positive Gastrointestinal Disorders and Ulcerative Colitis GENITOURINARY: Positive Genitourinary Disorders; Negative Renal Disease REPRODUCTIVE: Positive Breast Cancer MUSCULOSKELETAL: Positive Musculoskeletal Disorders and Arthritis ENT: Positive Ear Infection ENDOCRINE: Negative Diabetes Mellitus Type 1 or Diabetes Mellitus Type 2 HEMATOLOGIC: Negative Blood Disorders or Sickle Cell Disease PSYCHO/SOCIAL: Positive Schizophrenia, Bipolar Disorder, Depression and Anxiety OTHER HISTORY: Positive Breast Cancer; Negative Blood Transfusions or Anesthesia Reactions Family History FAMILY HISTORY: Positive Family Cancer Surgical History SURGICAL: Positive Mastectomy and Hysterectomy Social History SMOKING STATUS: Never smoker SUBSTANCE USE: does not use Meds Home Medications and Allergies Home Medications ?Medication ?Instructions ?Recorded ?Confirmed ?Type albuterol sulfate 90 mcg/actuation 2 puff inhalation Q8H PRN 11/11/13 09/20/24 History aerosol inhaler (ProAir HFA) SHORTNESS OF BREATH OR WHEEZE ##0 clonazepam 1 mg tablet (Klonopin) 1 mg PO TID PRN ANXIETY #0 tabs 11/11/13 09/20/24 History levothyroxine 50 mcg tablet 50 mcg PO QAM 02/24/21 09/20/24 History quetiapine 200 mg tablet 200 mg PO QPM 02/24/21 06/30/24 History sertraline 100 mg tablet 200 mg PO QPM 02/24/21 06/30/24 History fluticasone propionate 50 1 spray intranasal QDAY PRN 09/20/24 09/20/24 History mcg/actuation nasal allergy symptoms spray,suspension gabapentin 300 mg capsule 300 mg PO BID 09/20/24 09/20/24 History Allergies Allergy/AdvReac Type Severity Reaction Status Date / Time codeine Allergy Severe Nausea/VOMI Verified 08/29/24 11:40 TING Sulfa (Sulfonamide Allergy Severe NAUSEA/VOMI Verified 08/29/24 11:40 Antibiotics) TING Exam Vital Signs Temp Pulse Resp BP Pulse Ox O2 Del Method O2 Flow Rate 97.3 F 72 16 107/54 L 94 L Room Air 2 09/20/24 15:18 09/20/24 15:18 09/20/24 15:18 09/20/24 15:18 09/20/24 15:18 09/20/24 15:18 09/20/24 08:00 Narrative Exam Physical examination revealed 79-year-old fragile white female who is 5 feet 4 inches tall weighing only 95 pounds. Her vital signs are normal Routine Abdominal Exam Comments: Examination of the abdomen showed no tenderness anywhere. It was soft and flat Results Results: Laboratory Laboratory Narrative: Patient's laboratory tests are within normal limits Results: Imaging Imaging narrative: Patient's CT scan showed no significant abnormality in the gallbladder. Ultrasound showed possibly some sludge or tiny stones Assessment & Plan Additional Assessment Additional comments: Impression: This patient does not have any surgical condition and there are no symptoms to suggest any biliary colic. The stones are not visible on the ultrasound on the wall appears normal Plan Plan: Patient does not require follow-up by surgical service. Thank you very much
--- NOTE | 2024-09-20 16:40 | PC.PT ---
PT eval only. Patient is xI and is safe to ambulate to the bathroom and in the halls with a FWW and 1 staff for safety. RN made aware.
[2024-09-20] MEDS: GABAPENTIN 300 MG CAPSULE PO (20:02)
[2024-09-21] VITALS: BP 132/69; PULSE 73; RESP 18; TEMP 36.1; O2SAT 94
[2024-09-21 04:00] VITALS: BP 124/65; PULSE 79; RESP 16; TEMP 36.2; O2SAT 93
[2024-09-21] MEDS: LEVOTHYROXINE SODIUM 25 MCG TABLET 50 MCG PO (05:32)
[2024-09-21] MEDS: HEPARIN SOD INJ 5000 UNIT/ML VIAL SC ×2 (05:32→14:04)
[2024-09-21 05:33] LABS: Basophils % (Auto) 0 % (0-2.5); Eosinophils % (Auto) 1 % (0-10); Hematocrit 28.1 % (36.0-46.0); Hemoglobin 9.3 g/dL (12.0-16.0); Immature Granulocytes % (Auto) 0 % (0-0); Immature Granulocytes Auto 0.01 Thou/mm3 (0.00-0.00); Lymphocytes # (Auto) 1.7 Thou/mm3 (1.0-4.8); Lymphocytes % (Auto) 35 % (10-50); Mean Corpuscular HGB Conc 33.1 g/dl (31.0-37.0); Mean Corpuscular Hemoglobin 31.6 pg (25.0-35.0); Mean Corpuscular Volume 96 fL (80-100); Monocytes # (Auto) 0.4 Thou/mm3 (0.0-0.8); Monocytes % (Auto) 7 % (0-12); Neutrophils # (Auto) 2.8 Thou/mm3 (1.8-7.7); Neutrophils % (Auto) 57 % (37-80); Nucleated Red Blood Cell % 0 /100 WBC (0); Platelet Count 224 Thou/mm3 (140-440); RDW Standard Deviation 43.3 fL (36.4-46.3); Red Blood Count 2.94 Miln/mm3 (4.00-5.20); White Blood Count 4.9 Thou/mm3 (3.6-11.0)
[2024-09-21 05:53] LABS: Anion Gap 7 (7-16); BUN/Creatinine Ratio 16 Ratio (12-20); Blood Urea Nitrogen 13 mg/dL (9-23); Calcium 8.4 mg/dL (8.3-10.6); Carbon Dioxide 24.4 mMol/L (20.0-31.0); Chloride 106 mMol/L (98-107); Creatinine (Component) 0.8 mg/dL (0.6-1.3); Estimated Creatinine Clearance 38.4 mL/min (>60); Glucose 89 mg/dL (74-106); Osmolality,Calculated 272 (275-295); Potassium 3.9 mMol/L (3.4-5.1); Sodium 137 mMol/L (136-145); eGFR > 60 See Note
[2024-09-21 07:49] VITALS: BP 131/68; PULSE 75; RESP 16; TEMP 36.2; O2SAT 91
[2024-09-21] MEDS: GABAPENTIN 300 MG CAPSULE PO (08:33)
--- NOTE | 2024-09-21 08:37 | PC.SS ---
Addendum entered by Danika Soto 09/21/24 12:24: SS follow up note; SS met with patient and she reported she has been followed by [facility] in the past and would like for [facility] to continue to follow. Addendum entered by Danika Soto 09/21/24 11:23: SS follow up note; SS met with patient at bedside to discuss discharge plan, patient reports she will discharge home with HH. Original Note: SS follow up note; SS sent PT note through [employer] and contacted Yue from [facility]. Yue informed SS that patient was discharging home with HH after discharge, SS informed Yue that SS would follow up with discharge plan and contact her once SS verified discharge plan.
[2024-09-21 08:43] VITALS: PULSE 76; RESP 16; RESP 92
--- NOTE | 2024-09-21 08:50 | PC.NURSE ---
Dr. Tovar made aware pt has no IV access, zosyn is IV; md will review chart and put in orders.
[2024-09-21] MEDS: clonazePAM 0.5 MG TABLET 1 MG PO (09:06)
[2024-09-21] MEDS: FLUTICASONE NAS SPRAY 0.05% 16 GM BTL 1 SPRAY NASAL (09:08)
[2024-09-21 11:07] VITALS: BP 128/62; PULSE 82; RESP 16; TEMP 37.4; O2SAT 90
[2024-09-21] MEDS: MUPIROCIN OINT 2% 15 GM TUBE TOP (12:00)
--- NOTE | 2024-09-21 13:14 | PC.NURSE ---
Patient discharge this morning, caregiver was notified she will be picking up patient at 1615. made aware.
--- NOTE | 2024-09-21 15:33 | ESDS_ITS ---
Planned Discharge Date 09/21/24 DS: Providers Provider Date of admission: 09/20/24 03:05 Primary care physician: Eugenia Jolly MD ([facility]) Admitting Provider: Dereck Kevin MD Attending Provider on Admission: Celso Edwards MD Consults: 09/20/24 02:31 Consult to Gastroenterology Stat Comment: Cholecystitis Consulting Provider: Zen Paris 09/20/24 10:46 Referral Physical Therapy Routine Comment: Physician Instructions: Attending Provider on DC: Bridget Noguera MD Discharging Provider: Bridget Noguera MD DS: Diagnosis Problem List Completed Was Problem List Reviewed/Reconciled?: Yes Hospital Course Hospital Course Hospital course: Ms. Nunez is a 79-year-old female with past medical history of COPD (secondhand smoke exposure), anxiety, hypothyroidism, fibromyalgia, colitis, breast cancer status postmastectomy, recurrent UTIs who was brought to the ED on 09/19/24 from [facility] due to fever, chills, general weakness . Initially it was suspected pt may have cholecysititis adn general surgery was consulted. However repeat imaging show no evidence of cholecystitis but small gallstones. Pt denies any discomfort or abdominal pain therefore general surgery advised against surgery. Pt is MRSA nares positive but blodd cultures are negative with no growth. During hospitalization pt also expressed she did not want to go back to SNF but instead wanted to return to her home. PT evaluation was ordered and recommended PT with home health. Pt is hemodynamically, saturating on room air, denies nausea or vomiting and have remained afebrile, Pt is ready to be discharged home with home health PT. Pt is advised if her symptoms returned or worsen to promptly returned to the ED. Images US of gallbladder: Cholelithiasis, negative for cholecystitis, Mild hepatomegaly fatty liver Chest XR: No pneumonia or pulmonary edema CT abdomen/pelvis: Suspicious for mild septal edema the lung bases, consider AP chest follow-up Recommend hepatobiliary sonography follow-up to assess for gallbladder sludge versus stones, Normal appendix, No bowel obstruction, Diffuse rectal wall thickening Discharge Recommendations Continue home medications as prescribed. Use nasal mupirocin twice daily for 5 days. Take hydroxyzine 1 tab as needed for anxiety before sleep. Use fluticasone nasal spray once a day as needed for allergy. Follow up with PCP within 1 week. Hospitalization Diagnosis #cholelithiasis #COPD #Anxiety #Hypothyroidism #Fibromyalgia #Colitis Assessment and plan discussed with my attending physician Dr. Jerry Noguera (PGY-1)- Internal medicine resident Time Spent with Patient Time attestation: Total time spent providing and/or coordinating discharge services: Time spent: Less than 30 minutes Home Health Home Health Referral Orders: 09/21/24 10:16 Home Health Referral Routine Reason For Exam: Generalized weakness Home-Bound The patient must either because of illness or injury, need the aid of supportive devices such as crutches, canes, wheelchairs, and walkers; the use of special transportation; or the assistance of another person in order to leave their place of residence; OR have a condition such that leaving his or her home is medically contraindicated. In addition, the patient also meets the following criteria: patient is normally unable to leave the home and leaving home requires considerable taxing effort. Addendum to Home Health Certification Practitioner's Certification: I certify that the patient has been under my care in the hospital and the care of attending physician (see below). We had a [id number] encounter on (see date below). My clinical findings indicate that the patient is home bound per the above criteria and the Home Health Services noted in these orders are medically necessary. The primary reason for the [id number] encounter is related to the fact that the patient requires home health services. Date Certifying Vawb-ow-Avkd Physician Encounter: 09/20/24 Physician's Name who will Assume Oversight for Services: Eugenia Jolly([facility]) Physician's Phone No.who will Assume Oversight for Service: SE[employer]ER - Community Resources: No PT to Evaluate: Yes PT to evaluate and provide a treatmnet plan to increase patient's mobility and strength. Wound Care: No IV Therapy: No RN Safety Evaluation: Yes RN to evaluate and create a plan of care that will produce positive outcomes. Palliative Treatment: No Palliative treatment and evaluate the need for hospice. Home Health Aide - Personal Care: No Home Health Aide to assist with any ADL's. Exam Vital Signs Temp Pulse Resp BP Pulse Ox O2 Del Method O2 Flow Rate 99.3 F 82 16 128/62 90 L Room Air 2 09/21/24 11:07 09/21/24 11:07 09/21/24 11:07 09/21/24 11:07 09/21/24 11:07 09/21/24 11:07 09/20/24 08:00 Narrative Exam GENERAL: A&Ox3 . elderly thing female, relaxed, cooperative and pleasant NEURO: no focal neurological deficits HEENT: Atraumatic, Normocephalic. mucous membranes moist. Eyes open, symmetrical, & clear HEART: Normal Heart Sounds LUNGS: Clear to auscultation with no wheezing or crackles. ABDOMEN: soft, non-distended, non-tender, bowel sounds heard, no guarding or rebound tenderness SKIN: No Rash or ecchymoses EXTREMITIES: No edema, tenderness, able to move all 4 extremities, pedal pulses palpated Discharge Plan Plan Patient Disposition: Home w/HOME HEALTH Patient condition on transfer: Stable Care Plan Goals: Continue home medications as prescribed. Use nasal mupirocin twice daily for 5 days. Take hydroxyzine 1 tab as needed for anxiety before sleep. Use fluticasone nasal spray once a day as needed for allergy. Follow up with PCP within 1 week. Prescriptions/Referrals Prescriptions/Med Rec: New mupirocin 2 % ointment 1 applic topical BID 5 Days Qty: 1 0RF fluticasone propionate 50 mcg/actuation spray,suspension 1 spray intranasal QDAY PRN (Reason: allergy symptoms) Qty: 16 0RF Rx Instructions: administer into each nostril hydroxyzine HCl 25 mg tablet 25 mg PO HS Qty: 10 0RF Continued clonazepam [Klonopin] 1 MG tablet 1 mg PO TID PRN (Reason: ANXIETY) Qty: 0 albuterol sulfate [ProAir HFA] 8.5 GM HFA aerosol inhaler 2 puff Inhalation Q8H PRN (Reason: SHORTNESS OF BREATH OR WHEEZE) Qty: 0 sertraline 100 mg tablet 200 mg PO QPM Patient Comments: TAKE 2 TABLETS BY MOUTH AT BEDTIME (90 DAYS) quetiapine 200 mg tablet 200 mg PO QPM Patient Comments: TAKE 1 TABLET BY MOUTH AT BEDTIME (90 DAYS) levothyroxine 50 mcg tablet 50 mcg PO QAM Patient Comments: TAKE 1 TABLET BY MOUTH IN THE MORNING FOR 90 DAYS TAKE ON AN EMPTY STOMACH gabapentin 300 mg capsule 300 mg PO BID Patient Comments: TAKE 1 CAPSULE BY MOUTH TWICE A DAY FOR 90 DAYS fluticasone propionate 50 mcg/actuation spray,suspension 1 spray intranasal QDAY PRN (Reason: allergy symptoms) Rx Instructions: administer into each nostril dicyclomine 20 mg tablet 20 mg PO BID Qty: 14 0RF Referrals: Rik([facility]),Eugenia Trujillo MD [Primary Care Provider] - Patient/Caregiver Discharge Instructions Other Discharge Activity Instructions:: Continue home medications as prescribed. Use nasal mupirocin twice daily for 5 days. Take hydroxyzine 1 tab as needed for anxiety before sleep. Use fluticasone nasal spray once a day as needed for allergy. Follow up with PCP within 1 week. Print Language: Honduran Stand Alone Forms: [facility] Award Info., Patient Portal Info Letter Discharge Order Discharge Orders: Discharge (Routine); Ordered 09/21/24 Ordered By: Bridget Noguera Quality Discharge Quality Measures VTE prophylaxis Attestestation MD Attestation I attest that I was physically present for the evaluation, physical examination, lab and imaging review of the patient with the residents. I discussed the case with the residents and agree with the findings and plans of care as documented above. Celso Edwards MD
[2024-09-21 16:00] VITALS: BP 137/65; PULSE 85; RESP 17; TEMP 37.3; O2SAT 88
--- NOTE | 2024-09-22 09:52 | PC.CM ---
Patient has been accepted by [facility]. Start of care date is set for 09/24.
[2024-09-26 06:55] LABS: Prolactin* 9.3 ng/mL
== END 2024-09-21 17:48 | disposition home health service (06) ==
LOC: SERX 09-20 02:33 → S3SX 09-20 09:24 → SERHOLD 09-21 06:13
PROVIDERS: Admitting Provider Internal Medicine; Emergency Provider Emergency Medicine; PCP Hospitalist; Visit Provider Student in an Organized Health Care Education/Training Program
DX: K80.20 Calculus of gallbladder without cholecystitis without obstruction (principal); Z22.322 Carrier or suspected carrier of Methicillin resistant Staphylococcus aureus; J44.9 Chronic obstructive pulmonary disease, unspecified; F41.9 Anxiety disorder, unspecified; E03.9 Hypothyroidism, unspecified; M79.7 Fibromyalgia; K52.9 Noninfective gastroenteritis and colitis, unspecified; F31.9 Bipolar disorder, unspecified; I10 Essential (primary) hypertension; Z90.710 Acquired absence of both cervix and uterus; Z87.440 Personal history of urinary (tract) infections; Z79.890 Hormone replacement therapy; Z77.22 Contact with and (suspected) exposure to environmental tobacco smoke (acute) (chronic); Z59.71 Insufficient health insurance coverage; Z51.5 Encounter for palliative care; F20.9 Schizophrenia, unspecified; E78.00 Pure hypercholesterolemia, unspecified; M19.90 Unspecified osteoarthritis, unspecified site; Z79.899 Other long term (current) drug therapy; Z85.3 Personal history of malignant neoplasm of breast; K76.0 Fatty (change of) liver, not elsewhere classified; Z01.810 Encounter for preprocedural cardiovascular examination
CPT/HCPCS: 36415; 71045; 74176; 76705; 80048; 80053; 81001; 82150; 82248; 83605; 83690; 83735; 84146; 84439; 84443; 84484; 85025; 85652; 86140; 87040; 87081; 87400; 87634; 87651; 87811; 94640; 96361; 96365; 96372; 96375; 97162; 99285; A9270; G0378; J0131; J0696; J1643; J1885; J2405; J2543; J2919; J7030

== ENCOUNTER 2024-09-25 16:11 | Emergency (ER) | payer OTHER, MEDICAID, SELFPAY ==
[2024-09-25 16:21] VITALS: PULSE 94; O2SAT 94
[2024-09-25 16:42] VITALS: BP 158/82; PULSE 108; RESP 20; TEMP 36.4; O2SAT 95
--- NOTE | 2024-09-25 16:42 | XR_ITS ---
Examination: AP lateral chest 2 views Technique: Sitting AP lateral chest 2 views Exam date and time: September 25, 2024 1816 hrs. Indications: Shortness of breath today. Findings: Normal heart size Significant hyperexpansion No lobar pneumonia No pulmonary edema Moderate diffuse thoracic degenerative disc disease Impression: COPD with significant hyperexpansion No pneumonia or pulmonary edema
[2024-09-25 17:22] LABS: Basophils % (Auto) 0 % (0-2.5); Eosinophils % (Auto) 0 % (0-10); Hematocrit 42.1 % (36.0-46.0); Hemoglobin 14.4 g/dL (12.0-16.0); Immature Granulocytes % (Auto) 0 % (0-0); Immature Granulocytes Auto 0.02 Thou/mm3 (0.00-0.00); Lymphocytes # (Auto) 2.6 Thou/mm3 (1.0-4.8); Lymphocytes % (Auto) 31 % (10-50); Mean Corpuscular HGB Conc 34.2 g/dl (31.0-37.0); Mean Corpuscular Hemoglobin 31.9 pg (25.0-35.0); Mean Corpuscular Volume 93 fL (80-100); Monocytes # (Auto) 0.6 Thou/mm3 (0.0-0.8); Monocytes % (Auto) 7 % (0-12); Neutrophils # (Auto) 5.3 Thou/mm3 (1.8-7.7); Neutrophils % (Auto) 61 % (37-80); Nucleated Red Blood Cell % 0 /100 WBC (0); Platelet Count 499 Thou/mm3 (140-440); Red Blood Count 4.52 Miln/mm3 (4.00-5.20); White Blood Count 8.6 Thou/mm3 (3.6-11.0)
[2024-09-25 17:36] LABS: Partial Thromboplastin Time 27.1 Seconds (22.0-36.0); Prothrombin Time 10.5 Seconds (9.0-12.2)
--- NOTE | 2024-09-25 17:38 | PD.EDRME ---
Rapid Medical Screening Exam RME Arrival date/time: 09/25/24 16:11 79-year-old female with a history of hypothyroidism presents to the emergency room with a chief complaint of a headache, nausea, shortness of breath x 3 days. I have greeted and performed a focused initial assessment of this patient. A comprehensive ED assessment and evaluation of the patient, analysis of all test results, and completion of the medical decision making process will be conducted by additional ED providers. Chief Complaint: Headache Time Seen by Provider: 09/25/24 16:19 Vital signs: Vital Signs Temperature 97.5 F 09/25/24 16:42 Pulse Rate 108 H 09/25/24 16:42 Respiratory Rate 20 09/25/24 16:42 Blood Pressure 158/82 H 09/25/24 16:42 Pulse Oximetry (%) 95 09/25/24 16:42 Oxygen Delivery Method Room Air 09/25/24 16:42 Vital signs reviewed by provider: Yes
[2024-09-25 17:43] LABS: Alanine Aminotransferase 13 U/L (10-49); Albumin, Serum 4.9 gm/dL (3.4-4.8); Albumin/Globulin Ratio 1.4 (1.2-2.2); Alkaline Phosphatase 77 U/L (46-116); Anion Gap 10 (7-16); Aspartate Amino Transferase 22 U/L (0-34); BUN/Creatinine Ratio 12 Ratio (12-20); Bilirubin,Total 0.8 mg/dL (0.3-1.2); Blood Urea Nitrogen 11 mg/dL (9-23); Calcium 9.9 mg/dL (8.3-10.6); Calcium (Corrected) 9.9 mg/dL (8.5-10.1); Carbon Dioxide 24.7 mMol/L (20.0-31.0); Chloride 103 mMol/L (98-107); Creatinine (Component) 0.9 mg/dL (0.6-1.3); Free T4 (Free Thyroxine) 1.46 ng/dL (0.89-1.76); Globulin 3.5 gm/dL (2.3-3.5); Glucose 113 mg/dL (74-106); Magnesium 2.2 mg/dL (1.6-2.6); Osmolality,Calculated 276 (275-295); Potassium 3.5 mMol/L (3.4-5.1); Sodium 138 mMol/L (136-145); Thyroid Stimulating Hormone 5.61 uIU/mL (0.55-4.78); Total Protein 8.4 gm/dL (5.7-8.2); eGFR > 60 See Note
--- NOTE | 2024-09-25 19:35 | PD.EDHA ---
ED Headache RME/HPI General Chief Complaint: Headache Stated Complaint: HEADACHE Time Seen by Provider: 09/25/24 16:19 Arrival date/time: 09/25/24 16:11 RME / HPI RME / HPI Narrative: 09/25/24 16:11 79-year-old female with a history of hypothyroidism presents to the emergency room with a chief complaint of a headache, nausea, shortness of breath x 3 days. I have greeted and performed a focused initial assessment of this patient. A comprehensive ED assessment and evaluation of the patient, analysis of all test results, and completion of the medical decision making process will be conducted by additional ED providers. This section includes all my notes and documentations, including HPI, PE, and ED course. Roberto Carlos Wagner MD HPI: 79yo female with a history of HTN, HLD, anxiety BIBA from home presents to the ED for a chief complaint of generalized weakness x 4 days. Patient states she's been feeling generally weak since she was discharged from our facility 4 days ago. She states she has not been eating much the last few days and has had difficulty standing or ambulating or functioning, so she called 911 to come in for evaluation. She normally ambulates with a walker or cane. Patient states she is unable to take care of herself. She denies any falls or injuries. No headache or dizziness. No speech or visual impairment. No right-sided or left-sided weakness. No chest pain. No shortness of breath. No fever. No other complaints reported. ROS: All negative except as documented in HPI. Physical Exam: General:? Alert and oriented.? No acute distress.?? Eyes:? Conjunctivae and lids clear.? EOMI.? PERRL. ENT:? No nasal congestion.? Pharynx normal.? Tympanic membrane normal bilaterally.??? Neck:? Supple.? No carotid bruit.? No JVD.?? Heart:? RRR.? Lungs:? No respiratory distress.? Good air movement.? No rhonchi, wheezing, rales.?? Abdomen:? Soft and nontender.? Normal bowel sounds.? No distension.? No rebound or guarding.?? Back:? No CVA tenderness.?? Legs:? No clubbing, cyanosis, edema.? Skin:? Warm and dry.?? Neuro:? Alert and oriented X 3.? Cranial Nerves II-XII grossly intact.? No peripheral motor deficits. Musculoskeletal:? All major joints and bones are not tender with no limited ROM. I reviewed all diagnostic test results. My interpretation of the EKG is sinus rhythm with no acute ST?T changes. My interpretation of the chest x-ray is NAD. My review of the head CT report is NAD. My review of the chest/abdomen/pelvis CT report is NAD. Blood tests and urine tests unremarkable. At this point, diagnoses include failure to thrive and dehydration. Treatment here included IV fluid and Zofran. Remained stable. I discussed the case with our hospitalist. About the presentation and exam and diagnostics and treatments here. And need of further care in the hospital. Declined because there is no criteria for admission. Patient requested [facility] placement. Referral ordered for evaluation by our addiction social worker. At 6 AM on 09/26/2024, the care of the patient was transferred to Dr Vasquez. Roberto Carlos Wagner MD Related Data Home Medications ?Medication ?Instructions ?Recorded ?Confirmed albuterol sulfate 90 mcg/actuation 2 puff inhalation Q8H PRN 11/11/13 09/20/24 aerosol inhaler (ProAir HFA) SHORTNESS OF BREATH OR WHEEZE ##0 clonazepam 1 mg tablet (Klonopin) 1 mg PO TID PRN ANXIETY #0 tabs 11/11/13 09/20/24 levothyroxine 50 mcg tablet 50 mcg PO QAM 02/24/21 09/20/24 quetiapine 200 mg tablet 200 mg PO QPM 02/24/21 06/30/24 sertraline 100 mg tablet 200 mg PO QPM 02/24/21 06/30/24 fluticasone propionate 50 1 spray intranasal QDAY PRN 09/20/24 09/20/24 mcg/actuation nasal allergy symptoms spray,suspension gabapentin 300 mg capsule 300 mg PO BID 09/20/24 09/20/24 Previous Rx's ?Medication ?Instructions ?Recorded dicyclomine 20 mg tablet 20 mg PO BID #14 tabs 12/18/23 fluticasone propionate 50 1 spray intranasal QDAY PRN 09/21/24 mcg/actuation nasal allergy symptoms #16 grams spray,suspension hydroxyzine HCl 25 mg tablet 25 mg PO HS anxiety #10 tabs 09/21/24 mupirocin 2 % topical ointment 1 applic topical BID 5 days #1 oz 09/21/24 Allergies Allergy/AdvReac Type Severity Reaction Status Date / Time codeine Allergy Severe Nausea/VOMI Verified 09/25/24 16:21 TING Sulfa (Sulfonamide Allergy Severe NAUSEA/VOMI Verified 09/25/24 16:21 Antibiotics) TING Review of Systems Review of Systems Systems Reviewed: All systems reviewed, normal except as documented Past Medical History Past Medical History NEUROLOGIC: Negative Neurological Disorders or Seizures CARDIAC: Positive Cardiac Disorders, Hypercholesterolemia and Hypotension; Negative Congestive Heart Failure RESPIRATORY: Positive Chronic Obstructive Pulmonary Disease (COPD); Negative Asthma GASTROINTESTINAL: Positive Gastrointestinal Disorders and Ulcerative Colitis GENITOURINARY: Positive Genitourinary Disorders; Negative Renal Disease REPRODUCTIVE: Positive Breast Cancer MUSCULOSKELETAL: Positive Musculoskeletal Disorders and Arthritis ENT: Positive Ear Infection ENDOCRINE: Negative Diabetes Mellitus Type 1 or Diabetes Mellitus Type 2 HEMATOLOGIC: Negative Blood Disorders or Sickle Cell Disease PSYCHO/SOCIAL: Positive Schizophrenia, Bipolar Disorder, Depression and Anxiety OTHER HISTORY: Positive Breast Cancer; Negative Blood Transfusions or Anesthesia Reactions Family History FAMILY HISTORY: Positive Family Cancer Surgical History SURGICAL: Positive Mastectomy and Hysterectomy Social History SMOKING STATUS: Never smoker SUBSTANCE USE: does not use ED Exam Narrative Physical exam: As noted in HPI. Course Quality Measures none Orders Category Date Time Status Bedside COVID-19 Antigen Test NOW Care 09/25/24 20:02 Active Bedside Influenza A&B Antigen Test NOW Care 09/25/24 20:02 Active EKG (ED ONLY) *Do not use* NOW Care 09/25/24 20:04 Completed In and Out Catheter X1 Care 09/25/24 16:42 Active Orthostatic Vitals NOW Care 09/25/24 20:03 Active Saline [Insert IV] NOW Care 09/25/24 20:02 Active Straight [In and Out Catheter] X1 Care 09/25/24 20:[address] chest abdomen pelvis wo Stat Exams 09/25/24 20:[address] head/brain wo con Stat Exams 09/25/24 20:04 Completed EKG (ED Only) Stat Exams 09/25/24 20:04 Ordered XR chest 2V Stat Exams 09/25/24 16:42 Completed BNP [B-Type Natriuretic Peptide] Stat Lab 09/25/24 17:00 Completed Blood Culture (Lab) Stat Lab 09/25/24 20:42 Received C-Reactive Protein Stat Lab 09/25/24 17:00 Completed CBC Stat Lab 09/25/24 17:00 Completed CMP [Comprehensive Metabolic Panel] Stat Lab 09/25/24 17:00 Completed Free T4 (Free Thyroxine) Stat Lab 09/25/24 17:00 Completed Lactate (Lactic Acid) Stat Lab 09/25/24 20:37 Completed Lactic Acid, 3 HR Stat Lab 09/25/24 23:51 Completed Magnesium Stat Lab 09/25/24 17:00 Completed PT [Prothrombin Time with INR] Stat Lab 09/25/24 17:00 Completed PTT [Partial Thromboplastin Time] Stat Lab 09/25/24 17:00 Completed Procalcitonin Stat Lab 09/25/24 17:00 Completed Sed Rate (ESR) Stat Lab 09/25/24 17:00 Completed TSH [Thyroid Stimulating Hormone] Stat Lab 09/25/24 17:00 Completed Troponin I Stat Lab 09/25/24 17:00 Completed UA, C/S IF [Urinalysis, C/S if Indicated] Stat Lab 09/26/24 00:40 Completed Ondansetron Inj [Zofran Inj] Med 09/25/24 20:03 Discontinued 4 mg IV X1 ONE Sodium Chloride 0.9% 1000 ml [Ns] 1,000 ml Med 09/26/24 05:20 Ordered IV 125 mls/hr Sodium Chloride 0.9% 1000 ml [Ns] 1,000 ml Med 09/25/24 20:03 Discontinued IV 999 mls/hr Referral Plant Reliability Engineer NOW 09/26/24 04:13 Active Vital Signs Vital signs: Vital Signs Temperature 97.5 F 09/25/24 16:42 Pulse Rate 108 H 09/25/24 16:42 Respiratory Rate 20 09/25/24 16:42 Blood Pressure 158/82 H 09/25/24 16:42 Pulse Oximetry (%) 95 09/25/24 16:42 Oxygen Delivery Method Room Air 09/25/24 16:42 Headache MDM Narrative MDM Narrative:: Scribe Attestation: 09/25/24 Makenna Schaefer am scribing for and in the presence of Dr. Wagner. Patient data External records reviewed:: [facility] previous records (Per chart review, patient was admitted here on 09/19/24 for cholecystitis.) Clinical information provided by:: patient Social determinants that could affect healthcare access:: housing (Lives alone) Patient has the following chronic illnesses:: HTN, HLD, anxiety How is presenting disease/condition affected by chronic disease/condition?: uneffected by Evaluation data The following diagnostics were reviewed and interpreted by me:: lab results, radiology exam(s) and EKG tracing(s) Lab and/or radiology exams considered but not ordered:: none Interpretation Summary: Normal diagnostics Medications / Prescriptions Medications or Prescriptions considered but not ordered:: none Medication administrations:: Medication Administration History Sodium Chloride (Ns) 1,000 mls @ 125 mls/hr IV .Q8H STA Stop: 09/26/24 13:19 Discontinued Medications Sodium Chloride (Ns) 1,000 mls @ 999 mls/hr IV .Q1H1M ONE Stop: 09/25/24 21:03 Last Admin: 09/25/24 23:02 Dose: 999 mls/hr Documented By: YENI Ondansetron HCl (Ondansetron Inj 2 Mg/Ml Inj 2 Ml) 4 mg IV X1 ONE; Protocol Stop: 09/25/24 20:04 Last Admin: 09/25/24 23:02 Dose: 4 mg Documented By: YENI SCHAEFER, Marcela Consultations Consultation(s) initiated? (list below): No Diagnosis Differential diagnosis headache: subarachnoid hemorrhage and other (CVA, brain tumor, TN, dehydration, sepsis, electrolyte abnormalities, failure to thrive) Most likely diagnosis given after review of the tests above:: Failure to thrive and dehydration Admission Indicated Admission indicated?: not indicated Explain why admission is indicated or not indicated:: I discussed the case with our hospitalist. About the presentation and exam and diagnostics and treatments here. And need of further care in the hospital. Declined because there is no criteria for admission. Admission Request Was there a request for admission?: No Disposition Plan Disposition Plan: other (specify) (Care of the patient was transferred to Dr Vasquez.) Discharge Plan Prescriptions/Referrals Prescriptions/Med Rec: No Action clonazepam [Klonopin] 1 MG tablet 1 mg PO TID PRN (Reason: ANXIETY) Qty: 0 albuterol sulfate [ProAir HFA] 8.5 GM HFA aerosol inhaler 2 puff Inhalation Q8H PRN (Reason: SHORTNESS OF BREATH OR WHEEZE) Qty: 0 sertraline 100 mg tablet 200 mg PO QPM Patient Comments: TAKE 2 TABLETS BY MOUTH AT BEDTIME (90 DAYS) quetiapine 200 mg tablet 200 mg PO QPM Patient Comments: TAKE 1 TABLET BY MOUTH AT BEDTIME (90 DAYS) levothyroxine 50 mcg tablet 50 mcg PO QAM Patient Comments: TAKE 1 TABLET BY MOUTH IN THE MORNING FOR 90 DAYS TAKE ON AN EMPTY STOMACH gabapentin 300 mg capsule 300 mg PO BID Patient Comments: TAKE 1 CAPSULE BY MOUTH TWICE A DAY FOR 90 DAYS fluticasone propionate 50 mcg/actuation spray,suspension 1 spray intranasal QDAY PRN (Reason: allergy symptoms) Rx Instructions: administer into each nostril mupirocin 2 % ointment 1 applic topical BID 5 Days Qty: 1 0RF fluticasone propionate 50 mcg/actuation spray,suspension 1 spray intranasal QDAY PRN (Reason: allergy symptoms) Qty: 16 0RF Rx Instructions: administer into each nostril hydroxyzine HCl 25 mg tablet 25 mg PO HS Qty: 10 0RF dicyclomine 20 mg tablet 20 mg PO BID Qty: 14 0RF Referrals: Vera Diaz PA-C [Primary Care Provider] - In 1 week Problem List Clinical Impression: Failure to thrive, Dehydration Patient/Caregiver Discharge Instructions Print Language: Swedish
--- NOTE | 2024-09-25 20:04 | XR_ITS ---
Examination: CT brain head without contrast. 2-D sagittal coronal reconstructions Date and time of exam:September 25, 2024 at 2052 hrs. Comparison March 2020 Indications: Generalized weakness today CTDI: vol (mGy):48.8 DLP: (mGycm):955 Technique: Multiple CT axial sections of the brain have been obtained, 5 mm slice thickness. Contrast has not been administered. 2-D sagittal, coronal reconstructions have been obtained Low dose protocols were performed. One or more of the following dose reduction techniques were used; automated exposure control, adjustment of the mA and/or KV according to patient size, use of iterative reconstruction technique. Findings: No significant ventricular enlargement. Intra-axial or extra-axial hemorrhage density is not seen. No mass effect or midline shift Basal cisterns are not remarkable. Fourth ventricle is midline. Cranial vault intact. Bilateral acute maxillary sinusitis Impression: Negative for acute hemorrhage, mass effect or midline shift Advise clinical correlation and follow-up accordingly
--- NOTE | 2024-09-25 20:04 | XR_ITS ---
Examination: CT chest, without intravenous contrast. CT abdomen, without intravenous contrast. CT pelvis, without intravenous contrast. 2-D sagittal and coronal reconstructions. 3-D reconstructions. Date and time of exam:September 25, 20242057 hrs. Indications: Onset chest and abdominal pain today CTDI vol (mgy) 3.50 DLP (MGycm)236 Technique: Multiple CT images, 3.0 mm slice thickness, obtained chest, abdomen, pelvis, with the high-resolution 64 slice scanner.. Sagittal and coronal 2-D reconstructions are obtained. 3-D reconstructions Low dose protocols were performed. One or more of the following dose reduction techniques were used; automated exposure control, adjustment of the mA and/or KV according to patient size, use of iterative reconstruction technique. Findings: No thoracic aortic aneurysm dilatation Pulmonary artery segments are not enlarged Small pericardial effusion Prominent COPD with large areas of bullous change in the right upper lobe, 5.5 cm No pneumonia or pulmonary edema No visualized liver or splenic lesion 4.8 cm right renal cyst No renal or ureteral calculi No gallstones Aorta normal size with moderate calcification No bowel obstruction No diverticulitis Contracted urinary bladder No pelvic mass Moderate osteopenia Bilateral advanced hip osteoarthritis Impression: Severe COPD Large area of bullous disease in the right upper lobe 5.5 cm No pneumonia or pulmonary edema No renal or ureteral calculi, no hydronephrosis No bowel obstruction Normal appendix No diverticulitis
[2024-09-25 20:49] LABS: Sed Rate (ESR) 46 mm/hr (0-30)
[2024-09-25 20:52] LABS: Lactate (Lactic Acid) 3.1 mMol/L (0.4-2.0)
[2024-09-25 21:07] LABS: B-Type Natriuretic Peptide 45 pg/mL (0-100)
[2024-09-25 22:20] VITALS: BP 134/72; PULSE 90; RESP 20; O2SAT 96
[2024-09-25] MEDS: SODIUM CHLORIDE 0.9% 1000 ML 1,000 ML 999 ML IV (23:02)
[2024-09-25] MEDS: ONDANSETRON INJ 2 MG/ML INJ 2 ML 4 MG IV (23:02)
[2024-09-25 23:51] LABS: Reflex Lactate? Y
[2024-09-26] VITALS (8 sets, daily range): BP systolic 138–162; BP diastolic 58–81; PULSE 69–87; RESP 16–20; TEMP 36.1–36.8; O2SAT 94–96; BMI 13.0
[2024-09-26 00:21] LABS: Lactic Acid, 3 HR 2.3 mMol/L (0.4-2.0)
[2024-09-26 00:33] LABS: Procalcitonin 0.05 ng/ml (0.0-0.49); Troponin I < 0.020 ng/mL (0.0-0.045)
[2024-09-26 00:46] LABS: C-Reactive Protein 0.6 mg/dL (0.0-0.9)
[2024-09-26 00:48] LABS: Collection Type, Urine Clean Catch; RBC,Urine 0 /hpf (0-3); WBC,Urine 0 /hpf (0-5)
[2024-09-26 01:51] LABS: Bilirubin,Urine Negative (Negative); Blood,Urine Negative (Negative); Clarity,Urine Clear (Clear/Hazy); Color,Urine Yellow (Lt Yel-Yel); Culture Indicated,Urine Not Indicated; Glucose, Urine Negative (Negative); Hyaline Casts,Urine 1 /hpf (0-1); Ketones,Urine Trace (Negative); Leukocyte Esterase,Urine Negative (Negative); Nitrite,Urine Negative (Negative); Protein,Urine 2+ (Neg - Trace); Specific Gravity,Urine 1.025 (1.001-1.035); Squamous Epithelial Cell,Urine < 1 /hpf (0-5); Urobilinogen,Urine Negative mg/dL (0.0-1.0)
[2024-09-26] MEDS: SODIUM CHLORIDE 0.9% 1000 ML 1,000 ML 125 ML IV (05:49)
--- NOTE | 2024-09-26 07:10 | EDNOTE_ITS ---
Emergency Room Addendum <Vania Cadet - Last Filed: 09/26/24 08:19> Addendum Narrative: 0600: Care assumed from Dr. Wagner, the previous shift emergency physician. Past medical, surgical, social and family history reviewed. Vitals and home medications reviewed. I will assume the care of the patient at this time, pending evaluation by perinatal social worker. Please refer to the emergency department record for history and examination from initial visit. <Temitope Magana - Last Filed: 09/26/24 17:19> Addendum Narrative: 0600: Care assumed from Dr. Wagner, the previous shift emergency physician. Past medical, surgical, social and family history reviewed. Vitals and home medications reviewed. I will assume the care of the patient at this time, pending evaluation by perinatal social worker. Please refer to the emergency department record for history and examination from initial visit. Patient has been evaluated by PT who recommended SNF placement. Patient has been accepted at [facility], pending insurance authorization. 1800: Patient signed out to Dr. Wagner pending insurance authorization for SNF placement.
--- NOTE | 2024-09-26 07:55 | PC.NURSE ---
REPORT RECEIVED AT 0700 AND CARE ASSUMES. PT SLEEPING AT THIS TIME. AWAITING DIRECTOR OF STUDENT AFFAIRS CONSULT FOR PLACEMENT
--- NOTE | 2024-09-26 07:58 | PC.NURSE ---
PUREWICK IN PLACE TO LOW SUCTION FOR URINE
--- NOTE | 2024-09-26 08:28 | PC.NURSE ---
GIVEN MEAL TRAY
--- NOTE | 2024-09-26 11:34 | PC.PT ---
PT eval complete. Please see evaluation for details.
--- NOTE | 2024-09-26 11:41 | PC.CC ---
Patient is a 79 year-old female who presents to the hospital for generalized weakness and headache. ELLIOTWAria and COURT DEPUTY Student Sil made [id number]-hvly contact with patient. ASW introduced self, role, and reason for visit. Patient appeared alert and oriented to self, location, and situation. Patient provided consent for COURT DEPUTY to remain in the room during assessment. Patient was pleasant and engaged in initial assessment. Patient reports she lives home alone and is struggling with ambulation and completing her own ADLs as she requires assistance. Patient reports at home she uses a walker to ambulate and in the past she has been able to use a can but not recently. Patient reports she would like to be placed at [facility]. Patient reports her medical decision maker in the event she is unable to make her own medical decisions is her friend, Jenny Ribeiro . Patient reports she is full-code and wants to live until she is 89 years-old as her grandfather lived until he was 100 years-old. Patient reports her primary care provider is Vera Diaz. assurance services manager health care will be sending her referral to [facility].
--- NOTE | 2024-09-26 11:47 | PC.NURSE ---
PUREWICK HAS LEAKED. LINEN AND NEW INCONTINET BREIF PUT ON PT AND PUREWICK REPOSITIONED
--- NOTE | 2024-09-26 16:05 | PC.NURSE ---
PT INFORMED THAT QUICK MIXER OPERATOR WORKING ON PLACEMENT BUT THAT IT WILL PROBALY NOT HAPPEN TODAY
--- NOTE | 2024-09-26 17:44 | PC.NURSE ---
GIVEN MEAL TRAY
--- NOTE | 2024-09-26 22:46 | PD.EDADDENDU ---
Emergency Room Addendum <Makenna Vasques - Last Filed: 09/26/24 22:46> Addendum Narrative: I took over the care from Dr. Vasquez at 6 PM on 09/26/2024, see his notes for complete H&P and ED course. <Roberto Carlos Wagner MD - Last Filed: 09/27/24 04:49> Addendum Narrative: I took over the care from Dr. Vasquez at 6 PM on 09/26/2024, see previous notes for complete H&P and ED course. I ordered maintenance fluid because patient is not eating or drinking. At 6 AM on 09/27/24, the care of the patient was transferred to Dr. Vasquez. During my watch, the patient remained stable. Roberto Carlos Wagner MD
[2024-09-27] MEDS: DEXTROSE 5%-0.45% NS 1,000 ML 75 ML IV (03:55)
[2024-09-27] MEDS: ACETAMINOPHEN 325 MG TABLET 650 MG PO (04:28)
[2024-09-27 06:19] VITALS: BP 164/73; PULSE 73; RESP 16; TEMP 37.2; O2SAT 93
--- NOTE | 2024-09-27 06:50 | PD.EDADDENDU ---
Emergency Room Addendum Addendum Narrative: 0600: Care assumed from Dr. Wagner, the previous shift emergency physician. Past medical, surgical, social and family history reviewed. Vitals and home medications reviewed. I will assume the care of the patient at this time, pending insurance authorization for SNF placement. Please refer to the emergency department record for history and examination from initial visit.?The following addendum documentation note is intended to reflect any pending information, findings, or radiology results not included in the patient?s initial chart. 1800: Patient signed out to Dr. Wagner pending insurance authorization for SNF placement.
--- NOTE | 2024-09-27 07:30 | PC.NURSE ---
pt allowed to sleep, resting quietly at this time. v/s assessed and stable. respirations equal and unlabored. call light is within reach. pending placement at this time.
[2024-09-27 08:29] VITALS: BP 173/84; PULSE 84; RESP 18; TEMP 36.8; O2SAT 94
--- NOTE | 2024-09-27 11:21 | PC.CC ---
Addendum entered by Aria Hope 09/27/24 17:03: PASSR was cleared and sent to Yue at [facility]. Original Note: ASW, made face to face contact with patient to inform her she is still pending insurance authorization. This sports book writer made telephone contact with PASSR to close out referral for level 2 awaiting a call back.
[2024-09-27 12:10] VITALS: BP 163/75; PULSE 72; RESP 17; TEMP 36.9; O2SAT 96
[2024-09-27 16:28] VITALS: BP 149/76; PULSE 77; RESP 18; TEMP 36.7; O2SAT 96
--- NOTE | 2024-09-27 18:53 | PD.EDADDENDU ---
Emergency Room Addendum Addendum Narrative: At 6 PM on 09/27/24, I took over the care from Dr Vasquez. See previous notes for complete H&P and ED course. Patient is waiting for correction placement. At 6 AM on 09/28/2024, the care of the patient was transferred to Dr Vasquez. Roberto Carlos Wagner MD
[2024-09-27 21:14] VITALS: BP 138/72; PULSE 72; RESP 18; TEMP 36.8; O2SAT 98
[2024-09-28 06:17] VITALS: BP 151/79; PULSE 83; RESP 16; TEMP 36.8; O2SAT 94
--- NOTE | 2024-09-28 07:45 | PC.NURSE ---
pt incontinent of urine. pt cleaned up and new brief applied
--- NOTE | 2024-09-28 09:43 | PD.EDADDENDU ---
Emergency Room Addendum <Temitope Magana - Last Filed: 09/28/24 14:13> Addendum Narrative: 0600: Care assumed from Dr. Wagner, the previous shift emergency physician. Past medical, surgical, social and family history reviewed. Vitals and home medications reviewed. I will assume the care of the patient at this time, pending insurance authorization for SNF placement. Please refer to the emergency department record for history and examination from initial visit.?The following addendum documentation note is intended to reflect any pending information, findings, or radiology results not included in the patient?s initial chart. <Oscar Vasquez MD - Last Filed: 09/28/24 17:43> Addendum Narrative: 0600: Care assumed from Dr. Wagner, the previous shift emergency physician. Past medical, surgical, social and family history reviewed. Vitals and home medications reviewed. I will assume the care of the patient at this time, pending insurance authorization for SNF placement. Please refer to the emergency department record for history and examination from initial visit.?The following addendum documentation note is intended to reflect any pending information, findings, or radiology results not included in the patient?s initial chart. 1800 Signed out to oncomping provider, Dr. Wagner, in stable condition pending crisis team plan and disposition.
--- NOTE | 2024-09-28 09:50 | PC.CC ---
Addendum entered by Aria Hope 09/28/24 15:14: ASW made telephone contact with Yue for update. Yue reports [facility] would like a phone call from this ASW. ASW made telephone contact with [facility] who would like ASW to fax clinicals. ASW faxed clinicals to Palak at [facility]. Original Note: ASW, made telephone contact with Yue with [facility] who reports patient is still pending insurance authorization. ASW made face to face contact with patient and informed her of this update.
[2024-09-28 11:08] VITALS: BP 169/88; PULSE 78; RESP 20; O2SAT 97
--- NOTE | 2024-09-28 11:37 | PC.NURSE ---
PATIENT SITTING UP IN BED WITH NO COMPLAINT OF PAIN. PATIENT STATES SHE IS NOT ABLE TO AMBULATE DUE TO INCREASE IN WEAKNESS. PATIENT OFFERED WATER. NO OTHER COMPLAINTS AT THIS TIME. CALL LIGHT WITHIN REACH.
[2024-09-28 14:35] VITALS: BP 162/72; PULSE 76; RESP 20; O2SAT 97
--- NOTE | 2024-09-28 15:48 | PC.NURSE ---
PATIENT SLEEPING, PATIENT STILL NOT EATING.
[2024-09-28 18:00] VITALS: BP 155/78; PULSE 93; RESP 18; TEMP 37; O2SAT 94
[2024-09-28] MEDS: ACETAMINOPHEN 325 MG TABLET PO (20:41)
[2024-09-28] MEDS: hydrOXYzine HCL 25 MG TABLET PO (20:41)
[2024-09-28] MEDS: GABAPENTIN 300 MG CAPSULE PO (20:41)
[2024-09-28] MEDS: DEXTROSE 5%-0.45% NS 1,000 ML 75 ML IV (20:42)
--- NOTE | 2024-09-28 20:42 | PD.EDADDENDU ---
Emergency Room Addendum <Vania Cadet - Last Filed: 09/28/24 20:45> Addendum Narrative: I took over the care from previous shift physician at 6 PM on 09/28/2024 See previous notes for complete H & P and ED course. Diagnoses include: Treatment here included Based on my best medical judgment, made decision no further evaluation or treatment indicated at this time. Patient pending SNF placement. Roberto Carlos Wagner MD <Roberto Carlos Wagner MD - Last Filed: 09/29/24 03:39> Addendum Narrative: I took over the care from previous shift physician, Dr Vasquez, at 6 PM on 09/28/2024 See previous notes for complete H & P and ED course. Patient still requests retirement placement. At 6 AM on 09/29/2024, the care of the patient was transferred to Dr Vasquez. During my watch, the patient remained stable. Roberto Carlos Wagner MD
[2024-09-29 01:14] VITALS: BP 148/70; PULSE 75; RESP 18; TEMP 36.9; O2SAT 93
[2024-09-29 06:31] VITALS: BP 143/77; PULSE 89; RESP 17; TEMP 36.6; O2SAT 92
--- NOTE | 2024-09-29 07:07 | PD.EDADDENDU ---
Emergency Room Addendum Addendum Narrative: 0600: Care assumed from Dr. Wagner, the previous shift emergency physician. Past medical, surgical, social and family history reviewed. Vitals and home medications reviewed. I will assume the care of the patient at this time, pending insurance authorization for SNF placement. Please refer to the emergency department record for history and examination from initial visit.?The following addendum documentation note is intended to reflect any pending information, findings, or radiology results not included in the patient?s initial chart. 1051: Notified by charge rn that [facility] has received authorization and will p/u patient at noon today. Disposition: Txfer to assisted facility Diagnosis: Failure to thrive, dehydration
--- NOTE | 2024-09-29 07:18 | PC.NURSE ---
hand off received from nightshift rn. pt is currently on bed resting and is not reporting headache. pt is repoting arthitis pain
[2024-09-29] MEDS: GABAPENTIN 300 MG CAPSULE PO (08:18)
[2024-09-29 08:23] VITALS: BP 150/80; PULSE 92; RESP 19; TEMP 36.5; O2SAT 93
--- NOTE | 2024-09-29 08:25 | PC.NURSE ---
pt declined breakfast. all pt wanted was coffee
--- NOTE | 2024-09-29 09:12 | PC.CC ---
Aria BOCANEGRA made telephone contact with Yue at [facility] who reports she will be following up with Katie/[facility] for authorization. DALJIT Knapp made face to face contact with patient to provide her with update that insurance is still pending authorization for placement.
--- NOTE | 2024-09-29 09:46 | PC.CC ---
Addendum entered by Aria Hope 09/29/24 10:13: Lorie Mason Apprentice with [employer] called and informs this sports book writer that they are approving for patient to go to SNF and will generate authorization. Addendum entered by Aria Hope 09/29/24 10:01: Gabby Jules made contact with [facility] and requested the Clinicals be re-faxed to them at [phone]. [facility] faxed documents. Original Note: Aria BOCANEGRA contacted [facility] Jules regarding insurance authorization for SNF placement. They reported they will have someone call me back.
[2024-09-29 10:07] VITALS: BP 129/74; PULSE 85; RESP 18; TEMP 36.3; O2SAT 94
[2024-09-29] MEDS: DEXTROSE 5%-0.45% NS 1,000 ML 75 ML IV (10:12)
--- NOTE | 2024-09-29 10:50 | PC.CC ---
Addendum entered by Aria Hope 09/29/24 11:17: [facility] provided update to patient that she will be p/u at noon. Original Note: [facility]by Casper provided insurance authroization to this entry writer [id number]. ASW made contact with Margret at [facility] and she reports she can crab picker the patient and confirmed she had also received authorization.
--- NOTE | 2024-09-29 11:54 | PC.LAC ---
report given to harshad nolen
[2024-09-29 12:22] VITALS: BP 117/69; PULSE 70; RESP 18; TEMP 36.7
== END 2024-09-29 12:22 | disposition skilled nursing facility (03) ==
PROVIDERS: Emergency Medicine; Nurse Practitioner Family; Emergency Provider Emergency Medicine; PCP Physician Assistant Medical
DX: E86.0 Dehydration (principal); R62.7 Adult failure to thrive; R06.02 Shortness of breath; R10.9 Unspecified abdominal pain; R05.9 Cough, unspecified; J44.9 Chronic obstructive pulmonary disease, unspecified; E78.00 Pure hypercholesterolemia, unspecified; Z75.1 Person awaiting admission to adequate facility elsewhere
CPT/HCPCS: 36415; 70450; 71046; 71250; 74176; 80053; 81001; 83605; 83735; 83880; 84145; 84439; 84443; 84484; 85025; 85610; 85652; 85730; 86140; 87040; 87400; 87811; 93005; 96360; 96361; 99285; J2405; J7030; J7042; A9270

== ENCOUNTER 2024-11-23 08:58 | Emergency (ER) | payer OTHER, MEDICAID, SELFPAY ==
[2024-11-23 09:06] VITALS: BP 167/83; PULSE 92; RESP 18; TEMP 36.7; O2SAT 94
--- NOTE | 2024-11-23 09:06 | EKG_ITS ---
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
--- NOTE | 2024-11-23 09:06 | XR_ITS ---
Examination: AP chest single view Technique one AP portable upright chest single view Date and time: 07/26/2024 0922 hours Comparison September 25, 2024 INDICATIONS: Acute chest pain today. FINDINGS: Moderate hyperexpansion. Mild accentuation basilar bronchovascular markings Normal heart size No lobar pneumonia or pulmonary edema Prominent osteopenia IMPRESSION: Moderate hyperexpansion, mild basilar bronchitis pattern No pneumonia or pulmonary edema
[2024-11-23 09:09] VITALS: PULSE 90; RESP 18; O2SAT 93; BMI 18.8
[2024-11-23] MEDS: clonazePAM 0.5 MG TABLET 1 MG PO (09:19)
[2024-11-23 09:24] VITALS: PULSE 79
[2024-11-23 09:37] VITALS: BP 140/88; PULSE 78; RESP 19; O2SAT 95
--- NOTE | 2024-11-23 09:43 | PC.NURSE ---
Patient BIBA from home for weakness. patient is receiving treatment for UTI. Patient also ran out of Clonazepam prescription a couple of days ago. Patient placed in gown. Vitals stable. Alert and Oriented X4. Plan of care ongoing
--- NOTE | 2024-11-23 09:46 | PD.EDADULT ---
ED General RME/HPI General Chief complaint: Weakness Stated complaint: WEAKNESS Time Seen by Provider: 11/23/24 09:01 Arrival date/time: 11/23/24 08:58 Limitations: no limitations RME / HPI RME / HPI narrative: DR. AYERS MAIN ED EVALUATION: 79 year old female with past medical history significant for hypothyroidism and anxiety presents to the Emergency Department [facility] with complaint of generalized weakness onset 3 days. She is states she ran out of clonazepam. She states the Zipro 500 mg for her kidney infection is too much fro her. Otherwise, no other symptoms reported at this time. Related Data Home Medications ?Medication ?Instructions ?Recorded ?Confirmed albuterol sulfate 90 mcg/actuation 2 puff inhalation Q8H PRN 11/11/13 09/20/24 aerosol inhaler (ProAir HFA) SHORTNESS OF BREATH OR WHEEZE ##0 clonazepam 1 mg tablet (Klonopin) 1 mg PO TID PRN ANXIETY #0 tabs 11/11/13 09/20/24 levothyroxine 50 mcg tablet 50 mcg PO QAM 02/24/21 09/20/24 quetiapine 200 mg tablet 200 mg PO QPM 02/24/21 06/30/24 sertraline 100 mg tablet 200 mg PO QPM 02/24/21 06/30/24 fluticasone propionate 50 1 spray intranasal QDAY PRN 09/20/24 09/20/24 mcg/actuation nasal allergy symptoms spray,suspension gabapentin 300 mg capsule 300 mg PO BID 09/20/24 09/20/24 Previous Rx's ?Medication ?Instructions ?Recorded dicyclomine 20 mg tablet 20 mg PO BID #14 tabs 12/18/23 fluticasone propionate 50 1 spray intranasal QDAY PRN 09/21/24 mcg/actuation nasal allergy symptoms #16 grams spray,suspension hydroxyzine HCl 25 mg tablet 25 mg PO HS anxiety #10 tabs 09/21/24 clonazepam 1 mg tablet 1 mg PO QHSPRN PRN anxiety #7 tabs 11/23/24 Allergies Allergy/AdvReac Type Severity Reaction Status Date / Time codeine Allergy Severe Nausea/VOMI Verified 09/25/24 16:21 TING Sulfa (Sulfonamide Allergy Severe NAUSEA/VOMI Verified 09/25/24 16:21 Antibiotics) TING gabapentin Allergy Blurry Verified 11/23/24 09:13 Vision Review of Systems Review of Systems Systems Reviewed: All systems reviewed, normal except as documented Past Medical History Past Medical History CARDIAC: Positive Hypercholesterolemia and Hypotension RESPIRATORY: Positive Chronic Obstructive Pulmonary Disease (COPD) GASTROINTESTINAL: Positive Ulcerative Colitis REPRODUCTIVE: Positive Breast Cancer ENT: Positive Ear Infection PSYCHO/SOCIAL: Positive Schizophrenia (PER PATIENT), Bipolar Disorder (PER PATIENT), Depression and Anxiety OTHER HISTORY: Positive Breast Cancer Family History FAMILY HISTORY: Positive Family Cancer Surgical History SURGICAL: Positive Mastectomy and Hysterectomy Social History SMOKING STATUS: Never smoker SUBSTANCE USE: does not use ALCOHOL: Never ED Exam General Limitations: Present no limitations General appearance: Present alert and in no apparent distress Head Head exam: Present atraumatic, normocephalic and normal inspection Eye Eye exam: Present normal appearance, PERRL and EOMI ENT ENT exam: Present normal exam, normal oropharynx and mucous membranes moist Neck Neck exam: Present normal inspection, full ROM and trachea midline Chest Chest inspection: Present normal inspection and symmetric chest wall rise Respiratory Respiratory exam: Present normal lung sounds bilaterally Cardiovascular Cardiovascular exam: Present regular rate, normal rhythm and normal heart sounds Abdominal Exam Abdominal exam: Present soft and normal bowel sounds Extremities Exam Extremities exam: Present normal inspection and full ROM Back Exam Back exam: Present normal inspection and full ROM Neurological Exam Neurological exam: Present alert, oriented X3 and CN II-XII intact Psychiatric Psychiatric exam: Present normal affect and normal mood Skin Skin exam: Present warm, dry, intact and normal color Course Quality Measures none Orders Category Date Time Status Equal Opportunity Representative STAT Care 11/23/24 09:06 Active Continuous Pulse Oximetry ONCE Care 11/23/24 09:06 Completed EKG (ED ONLY) *Do not use* NOW Care 11/23/24 09:06 Completed Insert IV STAT Care 11/23/24 09:06 Active EKG (ED Only) Stat Exams 11/23/24 09:06 Draft XR chest 1V portable Stat Exams 11/23/24 09:06 Completed B-Type Natriuretic Peptide Stat Lab 11/23/24 09:40 Completed CBC Stat Lab 11/23/24 09:40 Completed Comprehensive Metabolic Panel Stat Lab 11/23/24 09:40 Completed Magnesium Stat Lab 11/23/24 09:40 Completed Troponin I Stat Lab 11/23/24 09:40 Completed clonazePAM [KlonoPIN] Med 11/23/24 09:07 Discontinued 1 mg PO X1 ONE Vital Signs Vital signs: Vital Signs Temperature 98.0 F 11/23/24 09:06 Pulse Rate 92 11/23/24 09:06 Respiratory Rate 18 11/23/24 09:06 Blood Pressure 167/83 H 11/23/24 09:06 Pulse Oximetry (%) 94 L 11/23/24 09:06 Oxygen Delivery Method Room Air 11/23/24 09:06 Discharge Plan Plan Patient Disposition: HOME (Self Care) Patient condition on transfer: Stable Prescriptions/Referrals Prescriptions/Med Rec: New clonazepam 1 mg tablet 1 mg PO QHSPRN PRN (Reason: anxiety) Qty: 7 0RF No Action clonazepam [Klonopin] 1 MG tablet 1 mg PO TID PRN (Reason: ANXIETY) Qty: 0 albuterol sulfate [ProAir HFA] 8.5 GM HFA aerosol inhaler 2 puff Inhalation Q8H PRN (Reason: SHORTNESS OF BREATH OR WHEEZE) Qty: 0 sertraline 100 mg tablet 200 mg PO QPM Patient Comments: TAKE 2 TABLETS BY MOUTH AT BEDTIME (90 DAYS) quetiapine 200 mg tablet 200 mg PO QPM Patient Comments: TAKE 1 TABLET BY MOUTH AT BEDTIME (90 DAYS) levothyroxine 50 mcg tablet 50 mcg PO QAM Patient Comments: TAKE 1 TABLET BY MOUTH IN THE MORNING FOR 90 DAYS TAKE ON AN EMPTY STOMACH gabapentin 300 mg capsule 300 mg PO BID Patient Comments: TAKE 1 CAPSULE BY MOUTH TWICE A DAY FOR 90 DAYS fluticasone propionate 50 mcg/actuation spray,suspension 1 spray intranasal QDAY PRN (Reason: allergy symptoms) Rx Instructions: administer into each nostril fluticasone propionate 50 mcg/actuation spray,suspension 1 spray intranasal QDAY PRN (Reason: allergy symptoms) Qty: 16 0RF Rx Instructions: administer into each nostril hydroxyzine HCl 25 mg tablet 25 mg PO HS Qty: 10 0RF dicyclomine 20 mg tablet 20 mg PO BID Qty: 14 0RF Referrals: Vera Diaz PA-C [Primary Care Provider] - In 1 week Problem List Clinical Impression: Generalized weakness, Encounter for medication refill Patient/Caregiver Discharge Instructions Print Language: Urdu Stand Alone Forms: [facility] Award Info., Patient Portal Info Letter MDM Clinical Information Provided by patient and EMS Medical Records Reviewed [facility] and EMS Meds/Rx Considered, not Ordered None Labs/Rad/Tests considered, not Ordered None Chronic Illness/Social Conditions Add or document further as needed: hypothyroidism and anxiety EKG EKG Interpretation narrative: My interpretation: EKG performed at 0914 hours, sinus rhythm, rate 80, no STEMI Lab Interpretation Labs: interpreted by me Lab(s) interpretation(s): Unremarkable. Imaging Radiology reports / interpretation(s): Procedure(s): XR chest 1V portable Accession Number(s): [id number] cc: Zoltan Ayers MD; Bo Garcia MD~ Examination: AP chest single view Technique one AP portable upright chest single view Date and time: 07/26/2024 0922 hours Comparison September 25, 2024 INDICATIONS: Acute chest pain today. FINDINGS: Moderate hyperexpansion. Mild accentuation basilar bronchovascular markings Normal heart size No lobar pneumonia or pulmonary edema Prominent osteopenia IMPRESSION: Moderate hyperexpansion, mild basilar bronchitis pattern No pneumonia or pulmonary edema Dictated By: Bo Garcia MD Medication Administration(s) Medication Administration History Discontinued Medications Clonazepam (Clonazepam 0.5 Mg Tablet) 1 mg PO X1 ONE Stop: 11/23/24 09:08 Last Admin: 11/23/24 09:19 Dose: 1 mg Documented By: VL Diagnosis Differential diagnosis: weakness, dehydration, electrolyte inbalance Most likely dx, and/or detailed dx discussion: Generalized weakness Encounter for medication refill Dispositon Disposition: Discharge Home
[2024-11-23 09:57] LABS: Basophils % (Auto) 0 % (0-2.5); Eosinophils % (Auto) 0 % (0-10); Hematocrit 34.4 % (36.0-46.0); Hemoglobin 12.4 g/dL (12.0-16.0); Immature Granulocytes % (Auto) 0 % (0-0); Immature Granulocytes Auto 0.02 Thou/mm3 (0.00-0.00); Lymphocytes # (Auto) 1.1 Thou/mm3 (1.0-4.8); Lymphocytes % (Auto) 13 % (10-50); Mean Corpuscular Hemoglobin 32.5 pg (25.0-35.0); Mean Corpuscular Volume 90 fL (80-100); Monocytes # (Auto) 0.6 Thou/mm3 (0.0-0.8); Monocytes % (Auto) 8 % (0-12); Neutrophils # (Auto) 6.7 Thou/mm3 (1.8-7.7); Neutrophils % (Auto) 79 % (37-80); Nucleated Red Blood Cell % 0 /100 WBC (0); Platelet Count 243 Thou/mm3 (140-440); RDW Standard Deviation 43.4 fL (36.4-46.3); Red Blood Count 3.82 Miln/mm3 (4.00-5.20); White Blood Count 8.4 Thou/mm3 (3.6-11.0)
[2024-11-23 10:24] LABS: Alanine Aminotransferase 10 U/L (10-49); Albumin, Serum 4.3 gm/dL (3.4-4.8); Albumin/Globulin Ratio 1.8 (1.2-2.2); Alkaline Phosphatase 56 U/L (46-116); Anion Gap 8 (7-16); Aspartate Amino Transferase 21 U/L (0-34); BUN/Creatinine Ratio 13 Ratio (12-20); Bilirubin,Total 0.7 mg/dL (0.3-1.2); Blood Urea Nitrogen 10 mg/dL (9-23); Calcium 9.4 mg/dL (8.3-10.6); Calcium (Corrected) 9.4 mg/dL (8.5-10.1); Carbon Dioxide 23.7 mMol/L (20.0-31.0); Chloride 105 mMol/L (98-107); Creatinine (Component) 0.8 mg/dL (0.6-1.3); Estimated Creatinine Clearance 44.2 mL/min (>60); Globulin 2.4 gm/dL (2.3-3.5); Glucose 101 mg/dL (74-106); Magnesium 1.8 mg/dL (1.6-2.6); Osmolality,Calculated 272 (275-295); Potassium 3.6 mMol/L (3.4-5.1); Sodium 137 mMol/L (136-145); Total Protein 6.7 gm/dL (5.7-8.2); Troponin I < 0.020 ng/mL (0.0-0.045); eGFR > 60 See Note
[2024-11-23 10:27] LABS: B-Type Natriuretic Peptide 23 pg/mL (0-100)
[2024-11-23 10:33] VITALS: BP 139/76; PULSE 78; RESP 16; TEMP 36.7; O2SAT 96
[2024-11-23 11:18] VITALS: BP 157/80; PULSE 80; RESP 19; TEMP 36.7; O2SAT 95
== END 2024-11-23 11:20 | disposition home or self-care (01) ==
PROVIDERS: Emergency Provider Emergency Medicine; PCP Physician Assistant Medical
DX: R53.1 Weakness (principal); J98.4 Other disorders of lung; Z76.0 Encounter for issue of repeat prescription; E78.00 Pure hypercholesterolemia, unspecified
CPT/HCPCS: 36415; 71045; 80053; 83735; 83880; 84484; 85025; 93005; 99283; A9270

== ENCOUNTER 2024-11-24 18:34 | Emergency (ER) | payer OTHER, MEDICAID, SELFPAY ==
[2024-11-24 18:39] VITALS: PULSE 82; RESP 18; O2SAT 96
[2024-11-24 18:40] VITALS: BP 155/87; PULSE 84; RESP 18; TEMP 36.3; O2SAT 95
--- NOTE | 2024-11-24 19:30 | PD.EDANX ---
ED Anxiety RME/HPI General Chief Complaint: Anxiety Stated Complaint: ANXIETY Time Seen by Provider: 11/24/24 19:16 Arrival date/time: 11/24/24 18:34 79F with history of hypothyroidism and anxiety presents to ED with needing her normal meds. Patient was here yesterday with normal cardiac work-up. Patient feels no different than when she was here yesterday. 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 She just wants her daily dose of clonazepam. Limitations: no limitations Related Data Home Medications ?Medication ?Instructions ?Recorded ?Confirmed albuterol sulfate 90 mcg/actuation 2 puff inhalation Q8H PRN 11/11/13 09/20/24 aerosol inhaler (ProAir HFA) SHORTNESS OF BREATH OR WHEEZE ##0 clonazepam 1 mg tablet (Klonopin) 1 mg PO TID PRN ANXIETY #0 tabs 11/11/13 09/20/24 levothyroxine 50 mcg tablet 50 mcg PO QAM 02/24/21 09/20/24 quetiapine 200 mg tablet 200 mg PO QPM 02/24/21 06/30/24 sertraline 100 mg tablet 200 mg PO QPM 02/24/21 06/30/24 fluticasone propionate 50 1 spray intranasal QDAY PRN 09/20/24 09/20/24 mcg/actuation nasal allergy symptoms spray,suspension gabapentin 300 mg capsule 300 mg PO BID 09/20/24 09/20/24 Previous Rx's ?Medication ?Instructions ?Recorded dicyclomine 20 mg tablet 20 mg PO BID #14 tabs 12/18/23 fluticasone propionate 50 1 spray intranasal QDAY PRN 09/21/24 mcg/actuation nasal allergy symptoms #16 grams spray,suspension hydroxyzine HCl 25 mg tablet 25 mg PO HS anxiety #10 tabs 09/21/24 clonazepam 1 mg tablet 1 mg PO QHSPRN PRN anxiety #7 tabs 11/23/24 Allergies Allergy/AdvReac Type Severity Reaction Status Date / Time codeine Allergy Severe Nausea/VOMI Verified 09/25/24 16:21 TING Sulfa (Sulfonamide Allergy Severe NAUSEA/VOMI Verified 09/25/24 16:21 Antibiotics) TING gabapentin Allergy Blurry Verified 11/23/24 09:13 Vision Review of Systems Review of Systems Systems Reviewed: All systems reviewed, normal except as documented Constitutional Constitutional: Reports system reviewed and no additional complaints, except as documented, Denies fever(s) and Denies headache(s) ENT Ears, Nose, Mouth, and Throat: Denies disequilibrium and Denies headache(s) Cardiovascular Cardiovascular: Reports system reviewed and no additional complaints, except as documented, Denies chest pain and Denies dyspnea Respiratory Respiratory: Reports system reviewed and no additional complaints, except as documented, Denies cough and Denies dyspnea Gastrointestinal Gastrointestinal: Reports system reviewed and no additional complaints, except as documented, Denies abdominal pain, Denies nausea and Denies vomiting Neurologic Neurologic: Reports system reviewed and no additional complaints, except as documented, Denies confusion, Denies disequilibrium and Denies headache(s) Psychiatric Psychiatric: Denies confusion Past Medical History Past Medical History NEUROLOGIC: Negative Neurological Disorders or Seizures CARDIAC: Positive Cardiac Disorders, Hypercholesterolemia and Hypotension; Negative Congestive Heart Failure RESPIRATORY: Positive Chronic Obstructive Pulmonary Disease (COPD); Negative Asthma GASTROINTESTINAL: Positive Gastrointestinal Disorders and Ulcerative Colitis GENITOURINARY: Positive Genitourinary Disorders; Negative Renal Disease REPRODUCTIVE: Positive Breast Cancer MUSCULOSKELETAL: Positive Musculoskeletal Disorders and Arthritis ENT: Positive Ear Infection ENDOCRINE: Negative Diabetes Mellitus Type 1 or Diabetes Mellitus Type 2 HEMATOLOGIC: Negative Blood Disorders or Sickle Cell Disease PSYCHO/SOCIAL: Positive Schizophrenia (PER PATIENT), Bipolar Disorder (PER PATIENT), Depression and Anxiety OTHER HISTORY: Positive Breast Cancer; Negative Blood Transfusions or Anesthesia Reactions Family History FAMILY HISTORY: Positive Family Cancer Surgical History SURGICAL: Positive Mastectomy and Hysterectomy Social History SMOKING STATUS: Never smoker SUBSTANCE USE: does not use ED Exam General Limitations: Present no limitations General appearance: Present alert and in no apparent distress Head Head exam: Present atraumatic Eye Eye exam: Present normal appearance, PERRL and EOMI ENT ENT exam: Present normal exam, normal oropharynx and mucous membranes moist Neck Neck exam: Present normal inspection, full ROM and trachea midline Chest Chest inspection: Present normal inspection and symmetric chest wall rise Respiratory Respiratory exam: Present normal lung sounds bilaterally Cardiovascular Cardiovascular exam: Present regular rate, normal rhythm and normal heart sounds Abdominal Exam Abdominal exam: Present soft and normal bowel sounds Extremities Exam Extremities exam: Present normal inspection and full ROM Back Exam Back exam: Present normal inspection and full ROM Neurological Exam Neurological exam: Present alert, oriented X3 and CN II-XII intact Psychiatric Psychiatric exam: Present normal affect and normal mood Skin Skin exam: Present warm, dry, intact and normal color Course Quality Measures none Orders Category Date Time Status clonazePAM [KlonoPIN] Med 11/24/24 19:16 Discontinued 1 mg PO X1 ONE Vital Signs Vital signs: Vital Signs Temperature 97.3 F 11/24/24 18:40 Pulse Rate 84 11/24/24 18:40 Respiratory Rate 18 11/24/24 18:40 Blood Pressure 155/87 H 11/24/24 18:40 Pulse Oximetry (%) 95 11/24/24 18:40 Oxygen Delivery Method Room Air 11/24/24 18:40 Anxiety MDM Narrative MDM Narrative: 79F with history of hypothyroidism and anxiety presents to ED with needing her normal meds. Patient was here yesterday with normal cardiac work-up. Patient feels no different than when she was here yesterday. 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 She just wants her daily dose of clonazepam. Physical exam reveals normal WOB. Patient is afebrile, calm, and alert. Meds and cancer genetic counselor given. Patient data External records reviewed:: [facility] previous records Clinical information provided by:: patient Social determinants that could affect healthcare access:: mental health Patient has the following chronic illnesses:: anxiety and hypothyroidism How is presenting disease/condition affected by chronic disease/condition?: exacerbated by Evaluation data The following diagnostics were reviewed and interpreted by me:: other (specify) (none) Lab and/or radiology exams considered but not ordered:: not ordered Interpretation Summary: n/a Medications / Prescriptions Medications or Prescriptions considered but not ordered:: ordered Medication administrations:: Medication Administration History Discontinued Medications Clonazepam (Clonazepam 0.5 Mg Tablet) 1 mg PO X1 ONE Stop: 11/24/24 19:17 Consultations Consultation(s) initiated? (list below): No Diagnosis Differential diagnosis anxiety: hyperventilation, panic disorder and acute anxiety Most likely diagnosis given after review of the tests above:: anxiety Admission Indicated Admission indicated?: not indicated Admission Request Was there a request for admission?: No Disposition Plan Disposition Plan: Discharge Discharge Attestation Discharge Attestation: The patient and all family members were given an opportunity to ask questions and understood the discharge instructions. Discharge instructions specifically effects, indications for sooner follow up or return to the emergency department, and the expected course of current diagnosis. Patient condition: Stable Discharge Plan Plan Patient Disposition: HOME (Self Care) Discharge Disposition comment: Stable Prescriptions/Referrals Prescriptions/Med Rec: No Action clonazepam [Klonopin] 1 MG tablet 1 mg PO TID PRN (Reason: ANXIETY) Qty: 0 albuterol sulfate [ProAir HFA] 8.5 GM HFA aerosol inhaler 2 puff Inhalation Q8H PRN (Reason: SHORTNESS OF BREATH OR WHEEZE) Qty: 0 sertraline 100 mg tablet 200 mg PO QPM Patient Comments: TAKE 2 TABLETS BY MOUTH AT BEDTIME (90 DAYS) quetiapine 200 mg tablet 200 mg PO QPM Patient Comments: TAKE 1 TABLET BY MOUTH AT BEDTIME (90 DAYS) levothyroxine 50 mcg tablet 50 mcg PO QAM Patient Comments: TAKE 1 TABLET BY MOUTH IN THE MORNING FOR 90 DAYS TAKE ON AN EMPTY STOMACH gabapentin 300 mg capsule 300 mg PO BID Patient Comments: TAKE 1 CAPSULE BY MOUTH TWICE A DAY FOR 90 DAYS fluticasone propionate 50 mcg/actuation spray,suspension 1 spray intranasal QDAY PRN (Reason: allergy symptoms) Rx Instructions: administer into each nostril fluticasone propionate 50 mcg/actuation spray,suspension 1 spray intranasal QDAY PRN (Reason: allergy symptoms) Qty: 16 0RF Rx Instructions: administer into each nostril hydroxyzine HCl 25 mg tablet 25 mg PO HS Qty: 10 0RF clonazepam 1 mg tablet 1 mg PO QHSPRN PRN (Reason: anxiety) Qty: 7 0RF dicyclomine 20 mg tablet 20 mg PO BID Qty: 14 0RF Problem List Clinical Impression: Anxiety Patient/Caregiver Discharge Instructions Education Materials: Boosting Your Mental Health Additional Instructions: Please follow-up with PCP within 24-48 hours and return immediately if symptoms worsen. Print Language: Belarusian Stand Alone Forms: Patient Portal Info Letter PA/HAND PACKER/PACKAGER Supervising Physician MERRITT/HAND PACKER/PACKAGER Supervising Physician: Dr. Wagner
[2024-11-24] MEDS: clonazePAM 0.5 MG TABLET 1 MG PO (20:06)
== END 2024-11-24 20:48 | disposition home or self-care (01) ==
LOC: SERX 19:23
PROVIDERS: Emergency Provider Emergency Medicine; PCP Physician Assistant Medical
DX: F41.9 Anxiety disorder, unspecified (principal); E03.9 Hypothyroidism, unspecified
CPT/HCPCS: 99282; A9270

== ENCOUNTER 2024-12-06 05:43 | Emergency (ER) | payer OTHER, MEDICAID, SELFPAY ==
[2024-12-06] VITALS (9 sets, daily range): BP systolic 145–180; BP diastolic 71–96; PULSE 64–102; RESP 15–19; TEMP 36.4–37; O2SAT 94–98; BMI 16.2; BMI 14.0
--- NOTE | 2024-12-06 06:32 | XR_ITS ---
Examination: CT abdomen with intravenous contrast CT pelvis with intravenous contrast 2-D coronal reconstructions 2-D sagittal reconstructions Date and time of exam:December 062024 at 0759 hours Comparison September 25, 2024 INDICATIONS: Sepsis alert, lower abdominal pain diarrhea beginning today. CTDI: vol (mGy) 3.98 DLP: (mGycm) 196 Technique: Multiple axial sections of the abdomen and pelvis have been obtained. 64 slice high-resolution scanner used. 3 mm axial sections have been obtained, post intravenous injection 60 cc [id number] 2-D sagittal, coronal reconstructions obtained. Low dose protocols were performed. One or more of the following dose reduction techniques were used; automated exposure control, adjustment of the mA and/or KV according to patient size, use of iterative reconstruction technique. Findings: COPD No focal liver or splenic lesions Bilateral renal cysts, the largest lateral margin right kidney 4.4 cm Gallbladder contracted, gallbladder wall appears mildly thickened No extra hepatic biliary tract dilatation No pancreatic mass Abdominal aortic calcification no aneurysmal dilatation No bowel obstruction Normal appendix No diverticulitis No abdominal or pelvic abscess Distended urinary bladder No pelvic mass Advanced degenerative disc disease L1-L2, L2-L3 IMPRESSION: COPD Gallbladder wall appears mildly thickened, recommend hepatobiliary sonography follow-up No CT findings of appendicitis bowel obstruction or diverticulitis Distended urinary bladder, clinical correlation advised No abdominal or pelvic abscess
--- NOTE | 2024-12-06 06:37 | PD.EDABDPN ---
ED Abdominal Pain RME/HPI General Chief Complaint: Abdominal Pain Stated complaint: DIARRHEA Time seen by provider: 12/06/24 06:17 Arrival date/time: 12/06/24 05:43 Limitations: no limitations RME / HPI RME / HPI narrative: 79 year old female with history of COPD, hypothyroidism, fibromyalgia, colitis presents to the ED BIBA from home for evaluation of nonbloody diarrhea and abdominal pain beginning 1 day ago. Pain described as aching in sensation that is located most across lower abdomen, rating as moderate. No known modifying factors noted. Patient additionally complains of a headache and global weakness. Denies fevers, chills, chest pain, cough, vomiting, or urinary symptoms. Related Data Home Medications ?Medication ?Instructions ?Recorded ?Confirmed albuterol sulfate 90 mcg/actuation 2 puff inhalation Q8H PRN 11/11/13 09/20/24 aerosol inhaler (ProAir HFA) SHORTNESS OF BREATH OR WHEEZE ##0 clonazepam 1 mg tablet (Klonopin) 1 mg PO TID PRN ANXIETY #0 tabs 11/11/13 09/20/24 levothyroxine 50 mcg tablet 50 mcg PO QAM 02/24/21 09/20/24 quetiapine 200 mg tablet 200 mg PO QPM 02/24/21 06/30/24 sertraline 100 mg tablet 200 mg PO QPM 02/24/21 06/30/24 fluticasone propionate 50 1 spray intranasal QDAY PRN 09/20/24 09/20/24 mcg/actuation nasal allergy symptoms spray,suspension gabapentin 300 mg capsule 300 mg PO BID 09/20/24 09/20/24 Previous Rx's ?Medication ?Instructions ?Recorded dicyclomine 20 mg tablet 20 mg PO BID #14 tabs 12/18/23 fluticasone propionate 50 1 spray intranasal QDAY PRN 09/21/24 mcg/actuation nasal allergy symptoms #16 grams spray,suspension hydroxyzine HCl 25 mg tablet 25 mg PO HS anxiety #10 tabs 09/21/24 clonazepam 1 mg tablet 1 mg PO QHSPRN PRN anxiety #7 tabs 11/23/24 Allergies Allergy/AdvReac Type Severity Reaction Status Date / Time codeine Allergy Severe Nausea/VOMI Verified 09/25/24 16:21 TING Sulfa (Sulfonamide Allergy Severe NAUSEA/VOMI Verified 09/25/24 16:21 Antibiotics) TING gabapentin Allergy Blurry Verified 11/23/24 09:13 Vision Review of Systems Review of Systems Systems Reviewed: All systems reviewed, normal except as documented Past Medical History Past Medical History CARDIAC: Positive Cardiac Disorders, Hypercholesterolemia and Hypotension RESPIRATORY: Positive Chronic Obstructive Pulmonary Disease (COPD) GASTROINTESTINAL: Positive Gastrointestinal Disorders and Ulcerative Colitis GENITOURINARY: Positive Genitourinary Disorders REPRODUCTIVE: Positive Breast Cancer MUSCULOSKELETAL: Positive Musculoskeletal Disorders and Arthritis ENT: Positive Ear Infection PSYCHO/SOCIAL: Positive Schizophrenia, Bipolar Disorder, Depression and Anxiety OTHER HISTORY: Positive Breast Cancer Family History FAMILY HISTORY: Positive Family Cancer Surgical History SURGICAL: Positive Mastectomy and Hysterectomy Social History SMOKING STATUS: Never smoker SUBSTANCE USE: does not use ED Exam General Limitations: Present no limitations General appearance: Present alert and in no apparent distress Head Head exam: Present atraumatic, normocephalic and normal inspection Eye Eye exam: Present normal appearance, PERRL and EOMI ENT ENT exam: Present normal exam, normal oropharynx and mucous membranes moist Neck Neck exam: Present normal inspection, full ROM and trachea midline Chest Chest inspection: Present normal inspection and symmetric chest wall rise Respiratory Respiratory exam: Present normal lung sounds bilaterally Cardiovascular Cardiovascular exam: Present regular rate, normal rhythm and normal heart sounds Abdominal Exam Abdominal exam: Present soft, tenderness (across lower abdomen ) and normal bowel sounds Extremities Exam Extremities exam: Present normal inspection and full ROM Back Exam Back exam: Present normal inspection and full ROM Neurological Exam Neurological exam: Present alert, oriented X3 and CN II-XII intact Psychiatric Psychiatric exam: Present normal affect and normal mood Skin Skin exam: Present warm, dry, intact and normal color Course Quality Measures none Orders Category Date Time Status CT Screening NOW Care 12/06/24 06:32 Active Consult Rig Builder Helper NOW Care 12/06/24 11:50 Active PT [Referral Physical Therapy] Stat Cons 12/06/24 12:[address] abd pel w con SEPSIS CURRY Stat Exams 12/06/24 06:32 Completed B-Type Natriuretic Peptide Stat Lab 12/06/24 06:45 Completed CBC Stat Lab 12/06/24 06:45 Completed Comprehensive Metabolic Panel Stat Lab 12/06/24 06:45 Completed Drug Screen,Urine Stat Lab 12/06/24 09:23 Completed Lipase Stat Lab 12/06/24 06:45 Completed Magnesium Stat Lab 12/06/24 06:45 Completed Partial Thromboplastin Time Stat Lab 12/06/24 06:45 Completed Prothrombin Time with INR Stat Lab 12/06/24 06:45 Completed Sed Rate (ESR) Stat Lab 12/06/24 06:45 Completed Urinalysis Stat Lab 12/06/24 09:23 Completed DiphenhydrAMINE [Benadryl] Med 12/06/24 11:44 Discontinued 25 mg PO X1 ONE HYDROcodone*/APAP 5/325 [Tilden 5/325] Med 12/06/24 17:17 Discontinued 1 tab PO X1 ONE Metoclopramide [Reglan] Med 12/06/24 11:44 Discontinued 10 mg PO X1 ONE Ringers Lactated 1000 ml [Lactated Ringers] 1,000 ml Med 12/06/24 07:03 Discontinued IV 999 mls/hr clonazePAM [KlonoPIN] Med 12/06/24 17:17 Discontinued 1 mg PO X1 ONE Vital Signs Vital signs: Vital Signs Temperature 97.5 F 12/06/24 05:53 Pulse Rate 66 12/06/24 05:53 Respiratory Rate 19 12/06/24 05:53 Blood Pressure 150/80 H 12/06/24 05:53 Pulse Oximetry (%) 95 12/06/24 05:53 Oxygen Delivery Method Room Air 12/06/24 05:53 Pulse ox is 95% on room air which is adequate. Abdominal Pain MDM MDM Narrative MDM Narrative:: ITemitope am scribing for and in the presence of Dr. Coats. Assessment: colitis w/ diarrhea probable flare up, intra abdominal pathologies, diverticulitis, emaciation, weight loss, GI symptoms probably marijuana induced Plan: CT with contrast, sed rate, IV fluids, Benadryl, social work manager consultation On reassessment at 1145. The patient reports feeling weak and unable to care for herself at home, requesting SNF placement. Will consult with social work manager. Physical therapist has evaluated the patient and recommended SNF placement. director of employer services aware and will begin SNF placement. Patient has been accepted at [facility]. EMS p/u to be arranged for today. Patient data External records reviewed:: [facility] previous records (I reviewed ED visit on 11/23/2024 for medication refill. ) and EMS form Clinical information provided by:: patient and EMS Social determinants that could affect healthcare access:: none Patient has the following chronic illnesses:: COPD, hypothyroidism, fibromyalgia, colitis How is presenting disease/condition affected by chronic disease/condition?: exacerbated by Evaluation data The following diagnostics were reviewed and interpreted by me:: lab results and radiology exam(s) Lab and/or radiology exams considered but not ordered:: None Interpretation Summary: Ordering Physician: Alva Camargo MD Date of Service: 12/06/24 Procedure(s): CT abd pel w con SEPSIS CURRY Accession Number(s): [id number] cc: Alva Camargo MD; Vera Diaz PA-C; Bo Garcia MD~ Examination: CT abdomen with intravenous contrast CT pelvis with intravenous contrast 2-D coronal reconstructions 2-D sagittal reconstructions Date and time of exam:December 062024 at 0759 hours Comparison September 25, 2024 INDICATIONS: Sepsis alert, lower abdominal pain diarrhea beginning today. CTDI: vol (mGy) 3.98 DLP: (mGycm) 196 Technique: Multiple axial sections of the abdomen and pelvis have been obtained. 64 slice high-resolution scanner used. 3 mm axial sections have been obtained, post intravenous injection 60 cc [id number] 2-D sagittal, coronal reconstructions obtained. Low dose protocols were performed. One or more of the following dose reduction techniques were used; automated exposure control, adjustment of the mA and/or KV according to patient size, use of iterative reconstruction technique. Findings: COPD No focal liver or splenic lesions Bilateral renal cysts, the largest lateral margin right kidney 4.4 cm Gallbladder contracted, gallbladder wall appears mildly thickened No extra hepatic biliary tract dilatation No pancreatic mass Abdominal aortic calcification no aneurysmal dilatation No bowel obstruction Normal appendix No diverticulitis No abdominal or pelvic abscess Distended urinary bladder No pelvic mass Advanced degenerative disc disease L1-L2, L2-L3 IMPRESSION: COPD Gallbladder wall appears mildly thickened, recommend hepatobiliary sonography follow-up No CT findings of appendicitis bowel obstruction or diverticulitis Distended urinary bladder, clinical correlation advised No abdominal or pelvic abscess Dictated By: Bo Garcia MD Signed By: <Electronically signed by Bo Garcia MD in OV> 12/06/24 0910 Medications / Prescriptions Medications or Prescriptions considered but not ordered:: None Medication administrations:: Medication Administration History Discontinued Medications Hydrocodone Bitart/Acetaminophen (Hydrocodone/Apap 5/325 Tablet) 1 tab PO X1 ONE Stop: 12/06/24 17:18 Last Admin: 12/06/24 17:39 Dose: 1 tab Documented By: MARCO A Clonazepam (Clonazepam 0.5 Mg Tablet) 1 mg PO X1 ONE Stop: 12/06/24 17:18 Last Admin: 12/06/24 17:39 Dose: 1 mg Documented By: MARCO A Diphenhydramine HCl (Diphenhydramine 25 Mg Capsule) 25 mg PO X1 ONE Stop: 12/06/24 11:45 Last Admin: 12/06/24 12:11 Dose: 25 mg Documented By: MARCO A Lactated Ringer's (Lactated Ringers) 1,000 mls @ 999 mls/hr IV .Q1H1M ONE Stop: 12/06/24 08:03 Last Infusion: 12/06/24 08:30 Dose: Infused Documented By: MARCO A Admin: 12/06/24 07:28 Dose: 999 mls/hr Documented By: MARCO A Metoclopramide HCl (Metoclopramide 5 Mg Tablet) 10 mg PO X1 ONE Stop: 12/06/24 11:45 Last Admin: 12/06/24 12:11 Dose: 10 mg Documented By: MARCO A See above Consultations Consultation(s) initiated? (list below): No Diagnosis Differential diagnosis abdominal pain: abdominal pain, calculus of kidney, diverticulitis and other (colitis flare up, gastroenteritis ) Most likely diagnosis given after review of the tests above:: Chronic colitis Generalized weakness osteoarthritis Adult failure to thrive Admission Indicated Admission indicated?: not indicated Admission Request Was there a request for admission?: No Disposition Plan Disposition Plan: Transfer (to SNF ) Discharge Plan Plan Patient Disposition: Xfer Skilled Nsg Fac (SNF) Prescriptions/Referrals Prescriptions/Med Rec: No Action clonazepam [Klonopin] 1 MG tablet 1 mg PO TID PRN (Reason: ANXIETY) Qty: 0 albuterol sulfate [ProAir HFA] 8.5 GM HFA aerosol inhaler 2 puff Inhalation Q8H PRN (Reason: SHORTNESS OF BREATH OR WHEEZE) Qty: 0 sertraline 100 mg tablet 200 mg PO QPM Patient Comments: TAKE 2 TABLETS BY MOUTH AT BEDTIME (90 DAYS) quetiapine 200 mg tablet 200 mg PO QPM Patient Comments: TAKE 1 TABLET BY MOUTH AT BEDTIME (90 DAYS) levothyroxine 50 mcg tablet 50 mcg PO QAM Patient Comments: TAKE 1 TABLET BY MOUTH IN THE MORNING FOR 90 DAYS TAKE ON AN EMPTY STOMACH gabapentin 300 mg capsule 300 mg PO BID Patient Comments: TAKE 1 CAPSULE BY MOUTH TWICE A DAY FOR 90 DAYS fluticasone propionate 50 mcg/actuation spray,suspension 1 spray intranasal QDAY PRN (Reason: allergy symptoms) Rx Instructions: administer into each nostril fluticasone propionate 50 mcg/actuation spray,suspension 1 spray intranasal QDAY PRN (Reason: allergy symptoms) Qty: 16 0RF Rx Instructions: administer into each nostril hydroxyzine HCl 25 mg tablet 25 mg PO HS Qty: 10 0RF clonazepam 1 mg tablet 1 mg PO QHSPRN PRN (Reason: anxiety) Qty: 7 0RF dicyclomine 20 mg tablet 20 mg PO BID Qty: 14 0RF Referrals: Vera Diaz PA-C [Primary Care Provider] - In 1 week Problem List Clinical Impression: Colitis, Generalized weakness, Osteoarthritis, Adult failure to thrive Patient/Caregiver Discharge Instructions Print Language: Pakistani Stand Alone Forms: [facility]ley Award Info., Patient Portal Info Letter
[2024-12-06 07:07] LABS: Basophils % (Auto) 1 % (0-2.5); Eosinophils # (Auto) 0.1 Thou/mm3 (0.0-0.5); Eosinophils % (Auto) 1 % (0-10); Hematocrit 37.1 % (36.0-46.0); Immature Granulocytes % (Auto) 0 % (0-0); Immature Granulocytes Auto 0.01 Thou/mm3 (0.00-0.00); Lymphocytes # (Auto) 1.2 Thou/mm3 (1.0-4.8); Lymphocytes % (Auto) 21 % (10-50); Mean Corpuscular Hemoglobin 32.3 pg (25.0-35.0); Mean Corpuscular Volume 92 fL (80-100); Monocytes # (Auto) 0.4 Thou/mm3 (0.0-0.8); Monocytes % (Auto) 6 % (0-12); Neutrophils # (Auto) 4.1 Thou/mm3 (1.8-7.7); Neutrophils % (Auto) 71 % (37-80); Nucleated Red Blood Cell % 0 /100 WBC (0); Platelet Count 231 Thou/mm3 (140-440); RDW Standard Deviation 45.4 fL (36.4-46.3); Red Blood Count 4.02 Miln/mm3 (4.00-5.20); White Blood Count 5.8 Thou/mm3 (3.6-11.0)
[2024-12-06 07:23] LABS: Sed Rate (ESR) 15 mm/hr (0-30)
[2024-12-06 07:26] LABS: Partial Thromboplastin Time 26.5 Seconds (22.0-36.0); Prothrombin Time 10.5 Seconds (9.0-12.2)
[2024-12-06] MEDS: RINGERS LACTATED 1000 ML 1,000 ML 999 ML IV (07:28)
[2024-12-06 07:40] LABS: Alanine Aminotransferase 12 U/L (10-49); Albumin, Serum 4.2 gm/dL (3.4-4.8); Albumin/Globulin Ratio 1.8 (1.2-2.2); Alkaline Phosphatase 59 U/L (46-116); Anion Gap 7 (7-16); Aspartate Amino Transferase 20 U/L (0-34); BUN/Creatinine Ratio 9 Ratio (12-20); Bilirubin,Total 0.4 mg/dL (0.3-1.2); Blood Urea Nitrogen 6 mg/dL (9-23); Calcium 9.3 mg/dL (8.3-10.6); Calcium (Corrected) 9.3 mg/dL (8.5-10.1); Carbon Dioxide 27.8 mMol/L (20.0-31.0); Chloride 104 mMol/L (98-107); Creatinine (Component) 0.7 mg/dL (0.6-1.3); Estimated Creatinine Clearance 43.6 mL/min (>60); Globulin 2.4 gm/dL (2.3-3.5); Glucose 92 mg/dL (74-106); Lipase 30 U/L (12-53); Magnesium 2.1 mg/dL (1.6-2.6); Osmolality,Calculated 275 (275-295); Potassium 3.9 mMol/L (3.4-5.1); Sodium 139 mMol/L (136-145); Total Protein 6.6 gm/dL (5.7-8.2); eGFR > 60 See Note
[2024-12-06 07:55] LABS: B-Type Natriuretic Peptide 58 pg/mL (0-100)
[2024-12-06 09:30] LABS: Collection Type, Urine Clean Catch; Squamous Epithelial Cell,Urine 0 /hpf (0-5); WBC,Urine 0 /hpf (0-5)
[2024-12-06 09:31] LABS: Bilirubin,Urine Negative (Negative); Blood,Urine Negative (Negative); Clarity,Urine Clear (Clear/Hazy); Color,Urine Colorless (Lt Yel-Yel); Glucose, Urine Negative (Negative); Ketones,Urine Negative (Negative); Leukocyte Esterase,Urine Negative (Negative); Nitrite,Urine Negative (Negative); Protein,Urine Negative (Neg - Trace); RBC,Urine < 1 /hpf (0-3); Specific Gravity,Urine 1.012 (1.001-1.035); Urobilinogen,Urine Negative mg/dL (0.0-1.0)
[2024-12-06 09:44] LABS: Amphetamine/Methamp Scrn,U Negative (Negative); Barbiturate Screen,Urine Negative (Negative); Benzodiazepines Screen,Urine Negative (Negative); Benzoylecgonine Screen, Ur Negative (Negative); Fentanyl Screen,Urine Negative (Negative); Opiate Screen,Urine Negative (Negative); THC Screen,Urine Positive (Negative)
[2024-12-06] MEDS: METOCLOPRAMIDE 5 MG TABLET 10 MG PO (12:11)
[2024-12-06] MEDS: DiphenhydrAMINE 25 MG CAPSULE PO (12:11)
--- NOTE | 2024-12-06 13:21 | PC.CC ---
Patient is a 79 year-old female who presents to the hospital diarrhea. ASWAria made tzzo-eq-gjfs contact with patient. ASW introduced self, role, and reason for visit. Patient appeared alert and oriented to self, location, and situation. Patient was pleasant and engaged in initial assessment. Patient confirmed information on demographics and reports to living at home. Patient reports her medical decision maker in the event she is unable to make her own decisions would be her friend, Jenny Ribeiro /[phone]. Patient reports she has been extremely week lately struggling with ambulation even with the assistance of a walker. Patient reports she now weighs 95 pounds and has been struggling in completing her own ADLs. Patient would like to be placed at a SNF. Her first choice is [facility]. ASW informed the patient that Yue at [facility] reported she had no open beds available. Patient is receptive to going to another facility. ASW informed patient that packet would be sent to other facilities as well, patient was receptive to information. Provider has ordered a PT Eval. ELLIOTW to follow up with patient.
--- NOTE | 2024-12-06 14:30 | PC.NURSE ---
PT at bedside.
--- NOTE | 2024-12-06 15:35 | PC.CC ---
Addendum entered by Aria Hope 12/06/24 15:45: Patient was accepted to [facility]. Patient was provided with accepting information and is receptive to going to [facility]. ASW submitted for insurance authorization to fax [phone]. Original Note: PASSR was completed it was a level II it was closed out. Packet sent out to SNF placements.
--- NOTE | 2024-12-06 16:56 | PC.CC ---
Aria BOCANEGRA spoke to Pamela [phone] ex. [phone] with [facility] for authorization who reports that patient has been approved for level 2 but they have to submit auth to Kriss the fast food shift supervisor will take over.
--- NOTE | 2024-12-06 17:18 | PC.CC ---
Jasson with [facility] [employer] [facility] provided authorization to this screen writer auth [id number].
[2024-12-06] MEDS: clonazePAM 0.5 MG TABLET 1 MG PO (17:39)
[2024-12-06] MEDS: HYDROcodone/APAP 5/325 TABLET 1 TAB PO (17:39)
--- NOTE | 2024-12-06 17:49 | PC.CC ---
Aria BOCANEGRA made telephone contact with [facility] [phone]. ASW provided patient with update that authorization was obtained and she will be transported tonight. ELLIOTW provided update discharge plan to Dr. Coats, automatic coil machine operator Brandee, and bedside CLINTON John.
--- NOTE | 2024-12-06 20:13 | PC.NURSE ---
CALLED [facility] TO GIVE REPORT SPOKE TO JA ALONZO.
== END 2024-12-06 20:16 | disposition skilled nursing facility (03) ==
PROVIDERS: Emergency Provider Emergency Medicine; PCP Physician Assistant Medical
DX: K52.9 Noninfective gastroenteritis and colitis, unspecified (principal); M19.90 Unspecified osteoarthritis, unspecified site; R62.7 Adult failure to thrive; J44.9 Chronic obstructive pulmonary disease, unspecified; N32.89 Other specified disorders of bladder; E03.9 Hypothyroidism, unspecified; M79.7 Fibromyalgia
CPT/HCPCS: 36415; 74177; 80053; 80307; 81001; 83690; 83735; 83880; 85025; 85610; 85652; 85730; 96360; 99285; A4649; J7120; Q9967; A9270

== ENCOUNTER 2025-01-02 07:26 | Emergency (ER) | payer OTHER, MEDICAID, SELFPAY ==
[2025-01-02 07:41] VITALS: BP 132/88; PULSE 75; PULSE 81; RESP 16; TEMP 36.5; O2SAT 93; O2SAT 96
[2025-01-02 07:43] VITALS: BMI 15.4
--- NOTE | 2025-01-02 08:05 | EDRME_ITS ---
Rapid Medical Screening Exam RME Arrival date/time: 01/02/25 07:26 Chief Complaint: Anxiety Vital signs: Vital Signs Temperature 97.7 F 01/02/25 07:41 Pulse Rate 75 01/02/25 07:41 Respiratory Rate 16 01/02/25 07:41 Blood Pressure 132/88 H 01/02/25 07:41 Pulse Oximetry (%) 93 L 01/02/25 07:41 Oxygen Delivery Method Room Air 01/02/25 07:41 Pulse ox room air 93% Vital signs reviewed by provider: Yes RME Narrative: 79-year-old female presents to the ED with a complaint of anxiety and other psychiatric issues. Patient was sent to a assisted for her psychiatric issues. Patient has been consuming [place] well at the assisted and then discharged with [place] and to other psychiatry medications that she does not know. Complains of bodyaches everywhere.
[2025-01-02 08:30] LABS: Basophils # (Auto) 0.0 Thou/mm3 (0.0-0.2); Basophils % (Auto) 1 % (0-2.5); Eosinophils # (Auto) 0.1 Thou/mm3 (0.0-0.5); Eosinophils % (Auto) 1 % (0-10); Hematocrit 39.2 % (36.0-46.0); Hemoglobin 13.7 g/dL (12.0-16.0); Immature Granulocytes Auto 0.01 Thou/mm3 (0.00-0.00); Lymphocytes # (Auto) 1.6 Thou/mm3 (1.0-4.8); Lymphocytes % (Auto) 26 % (10-50); Mean Corpuscular HGB Conc 34.9 g/dl (31.0-37.0); Mean Corpuscular Hemoglobin 32.1 pg (25.0-35.0); Mean Corpuscular Volume 92 fL (80-100); Monocytes # (Auto) 0.4 Thou/mm3 (0.0-0.8); Monocytes % (Auto) 7 % (0-12); Neutrophils # (Auto) 3.9 Thou/mm3 (1.8-7.7); Neutrophils % (Auto) 65 % (37-80); Nucleated Red Blood Cell # 0.00 Thou/mm3 (0.00-0.00); Nucleated Red Blood Cell % 0 /100 WBC (0); Platelet Count 273 Thou/mm3 (140-440); RDW Standard Deviation 41.8 fL (36.4-46.3); Red Blood Count 4.27 Miln/mm3 (4.00-5.20); White Blood Count 6.0 Thou/mm3 (3.6-11.0)
[2025-01-02 08:52] LABS: T4 (Thyroxine) 7.4 mcg/dL (4.5-10.9)
[2025-01-02 09:05] LABS: Alanine Aminotransferase 10 U/L (10-49); Albumin, Serum 4.2 gm/dL (3.4-4.8); Albumin/Globulin Ratio 1.5 (1.2-2.2); Alkaline Phosphatase 62 U/L (46-116); Anion Gap 10 (7-16); Aspartate Amino Transferase 21 U/L (0-34); BUN/Creatinine Ratio 7 Ratio (12-20); Bilirubin,Total 0.6 mg/dL (0.3-1.2); Blood Urea Nitrogen 5 mg/dL (9-23); Calcium 9.6 mg/dL (8.3-10.6); Calcium (Corrected) 9.6 mg/dL (8.5-10.1); Carbon Dioxide 24.6 mMol/L (20.0-31.0); Chloride 101 mMol/L (98-107); Creatinine (Component) 0.7 mg/dL (0.6-1.3); Estimated Creatinine Clearance 41.3 mL/min (>60); Globulin 2.8 gm/dL (2.3-3.5); Glucose 98 mg/dL (74-106); Osmolality,Calculated 269 (275-295); Potassium 4.1 mMol/L (3.4-5.1); Sodium 136 mMol/L (136-145); Thyroid Stimulating Hormone 2.78 uIU/mL (0.55-4.78); Total Protein 7.0 gm/dL (5.7-8.2); eGFR > 60 See Note
[2025-01-02 10:35] VITALS: BP 132/79; PULSE 99; RESP 18; TEMP 36.7; O2SAT 95
[2025-01-02 16:32] LABS: Bilirubin,Urine Negative (Negative); Blood,Urine 1+ (Negative); Clarity,Urine Clear (Clear/Hazy); Collection Type, Urine Clean Catch; Color,Urine Lt Yellow (Lt Yel-Yel); Culture Indicated,Urine Not Indicated; Glucose, Urine Negative (Negative); Ketones,Urine 2+ (Negative); Leukocyte Esterase,Urine Negative (Negative); Nitrite,Urine Negative (Negative); PH,Urine 6.5 (5.0-7.0); Protein,Urine Trace (Neg - Trace); RBC,Urine 0 /hpf (0-3); Specific Gravity,Urine 1.010 (1.001-1.035); Urobilinogen,Urine 0.2 mg/dL (0.0-1.0)
[2025-01-02 16:54] LABS: WBC,Urine 2 /hpf (0-5)
[2025-01-02 16:55] LABS: Squamous Epithelial Cell,Urine 1 /hpf (0-5)
[2025-01-02 18:15] VITALS: BP 145/92; PULSE 98; RESP 18; TEMP 36.3; O2SAT 96
--- NOTE | 2025-01-02 19:01 | PD.EDANX ---
ED Anxiety RME/HPI General Chief Complaint: Anxiety Stated Complaint: ANXIETY Time Seen by Provider: 01/02/25 18:53 Arrival date/time: 01/02/25 07:26 Limitations: no limitations RME / HPI RME / HPI narrative: 79-year-old female who is here today with a history adjustment disorder, mixed anxiety, depression, bipolar disorder. She states this morning she woke up, felt tired and faitgued today. She had difficulty sleeping last night. [place] anxious. She was recently discharged from [facility] on the of this month. She is living at an apartment with a friend of hers now in [place], [place]. Related Data Home Medications ?Medication ?Instructions ?Recorded ?Confirmed albuterol sulfate 90 mcg/actuation 2 puff inhalation Q8H PRN 11/11/13 09/20/24 aerosol inhaler (ProAir HFA) SHORTNESS OF BREATH OR WHEEZE ##0 clonazepam 1 mg tablet (Klonopin) 1 mg PO TID PRN ANXIETY #0 tabs 11/11/13 09/20/24 levothyroxine 50 mcg tablet 50 mcg PO QAM 02/24/21 09/20/24 quetiapine 200 mg tablet 200 mg PO QPM 02/24/21 06/30/24 sertraline 100 mg tablet 200 mg PO QPM 02/24/21 06/30/24 fluticasone propionate 50 1 spray intranasal QDAY PRN 09/20/24 09/20/24 mcg/actuation nasal allergy symptoms spray,suspension gabapentin 300 mg capsule 300 mg PO BID 09/20/24 09/20/24 Previous Rx's ?Medication ?Instructions ?Recorded dicyclomine 20 mg tablet 20 mg PO BID #14 tabs 12/18/23 fluticasone propionate 50 1 spray intranasal QDAY PRN 09/21/24 mcg/actuation nasal allergy symptoms #16 grams spray,suspension hydroxyzine HCl 25 mg tablet 25 mg PO HS anxiety #10 tabs 09/21/24 clonazepam 1 mg tablet 1 mg PO QHSPRN PRN anxiety #7 tabs 11/23/24 Allergies Allergy/AdvReac Type Severity Reaction Status Date / Time codeine Allergy Severe Nausea/VOMI Verified 01/02/25 07:41 TING Sulfa (Sulfonamide Allergy Severe NAUSEA/VOMI Verified 01/02/25 07:41 Antibiotics) TING gabapentin Allergy Blurry Verified 01/02/25 07:41 Vision Review of Systems Review of Systems Systems Reviewed: All systems reviewed, normal except as documented ED Exam General Limitations: Present no limitations General appearance: Present alert and in no apparent distress Head Head exam: Present atraumatic Eye Eye exam: Present normal appearance, PERRL and EOMI ENT ENT exam: Present normal exam, normal oropharynx and mucous membranes moist Neck Neck exam: Present normal inspection, full ROM and trachea midline Chest Chest inspection: Present normal inspection and symmetric chest wall rise Respiratory Respiratory exam: Present normal lung sounds bilaterally Cardiovascular Cardiovascular exam: Present regular rate, normal rhythm and normal heart sounds Abdominal Exam Abdominal exam: Present soft and normal bowel sounds Extremities Exam Extremities exam: Present normal inspection and full ROM Back Exam Back exam: Present normal inspection and full ROM Neurological Exam Neurological exam: Present alert and oriented X3 Psychiatric Psychiatric exam: Present depressed; Absent suicidal ideation Skin Skin exam: Present warm, dry, intact and normal color Course Quality Measures none Orders Category Date Time Status CBC Stat Lab 01/02/25 08:16 Completed CMP [Comprehensive Metabolic Panel] Stat Lab 01/02/25 08:16 Completed T4 (Thyroxine) Stat Lab 01/02/25 08:16 Completed TSH [Thyroid Stimulating Hormone] Stat Lab 01/02/25 08:16 Completed UA, C/S IF [Urinalysis, C/S if Indicated] Stat Lab 01/02/25 16:18 Completed Vital Signs Vital signs: Vital Signs Temperature 97.7 F 01/02/25 07:41 Pulse Rate 75 01/02/25 07:41 Respiratory Rate 16 01/02/25 07:41 Blood Pressure 132/88 H 01/02/25 07:41 Pulse Oximetry (%) 93 L 01/02/25 07:41 Oxygen Delivery Method Room Air 01/02/25 07:41 Anxiety Patient data External records reviewed:: EMS form Clinical information provided by:: patient Social determinants that could affect healthcare access:: none Patient has the following chronic illnesses:: Schizophrenia How is presenting disease/condition affected by chronic disease/condition?: no chronic disease Evaluation data The following diagnostics were reviewed and interpreted by me:: lab results (CBC, CMP, TSH, and urinalysis are unremarkable) Lab and/or radiology exams considered but not ordered:: n/a Interpretation Summary: n/a Medications / Prescriptions Medications or Prescriptions considered but not ordered:: n/a Medication administrations:: n/a Consultations Consultation(s) initiated? (list below): No Diagnosis Most likely diagnosis given after review of the tests above:: Depression, anxiety Admission Indicated Admission indicated?: not indicated Admission Request Was there a request for admission?: No Disposition Plan Disposition Plan: Discharge Discharge Attestation Discharge Attestation: The patient and all family members were given an opportunity to ask questions and understood the discharge instructions. Discharge instructions specifically effects, indications for sooner follow up or return to the emergency department, and the expected course of current diagnosis. Patient condition: Stable Discharge Plan Plan Patient Disposition: HOME (Self Care) Patient condition on transfer: Stable Prescriptions/Referrals Prescriptions/Med Rec: No Action clonazepam [Klonopin] 1 MG tablet 1 mg PO TID PRN (Reason: ANXIETY) Qty: 0 albuterol sulfate [ProAir HFA] 8.5 GM HFA aerosol inhaler 2 puff Inhalation Q8H PRN (Reason: SHORTNESS OF BREATH OR WHEEZE) Qty: 0 sertraline 100 mg tablet 200 mg PO QPM Patient Comments: TAKE 2 TABLETS BY MOUTH AT BEDTIME (90 DAYS) quetiapine 200 mg tablet 200 mg PO QPM Patient Comments: TAKE 1 TABLET BY MOUTH AT BEDTIME (90 DAYS) levothyroxine 50 mcg tablet 50 mcg PO QAM Patient Comments: TAKE 1 TABLET BY MOUTH IN THE MORNING FOR 90 DAYS TAKE ON AN EMPTY STOMACH gabapentin 300 mg capsule 300 mg PO BID Patient Comments: TAKE 1 CAPSULE BY MOUTH TWICE A DAY FOR 90 DAYS fluticasone propionate 50 mcg/actuation spray,suspension 1 spray intranasal QDAY PRN (Reason: allergy symptoms) Rx Instructions: administer into each nostril fluticasone propionate 50 mcg/actuation spray,suspension 1 spray intranasal QDAY PRN (Reason: allergy symptoms) Qty: 16 0RF Rx Instructions: administer into each nostril hydroxyzine HCl 25 mg tablet 25 mg PO HS Qty: 10 0RF clonazepam 1 mg tablet 1 mg PO QHSPRN PRN (Reason: anxiety) Qty: 7 0RF dicyclomine 20 mg tablet 20 mg PO BID Qty: 14 0RF Referrals: Vera Diaz PA-C [Primary Care Provider] - In 1 week Problem List Clinical Impression: Fatigue, Anxiety Patient/Caregiver Discharge Instructions Education Materials: ED Anxiety Reaction, ED Weakness (Uncertain Cause) Additional Instructions: -Your lab work shows no anemia. Your thyroid is within normal limits. There is no urinary tract infection. -Follow up with your doctor tomorrow as planned. -Return here as needed for any emergent changes. Print Language: Portuguese Stand Alone Forms: [facility]ley Award Info., Patient Portal Info Letter
== END 2025-01-02 19:52 | disposition home or self-care (01) ==
PROVIDERS: Physician Assistant; Emergency Provider Emergency Medicine; PCP Physician Assistant Medical
DX: F41.9 Anxiety disorder, unspecified (principal); R53.83 Other fatigue
CPT/HCPCS: 36415; 80053; 81001; 84436; 84443; 85025; 99283

== ENCOUNTER 2025-03-04 00:33 | Observation (INO) | payer OTHER, MEDICAID, SELFPAY ==
[2025-03-04] VITALS (12 sets, daily range): BP systolic 124–174; BP diastolic 60–90; PULSE 70–92; RESP 16–20; TEMP 36.1–37.1; O2SAT 93–98; BMI 16.1
--- NOTE | 2025-03-04 00:41 | EKG_ITS ---
[facility] Test Date: 2025-03-04 Pat Name: MAYLIN RODRIGUES Department: Room: - Gender: Female Stripe Marker: : 1945 Requested By: Joi Martini Order Number: [id number] Reading MD: Joi Martini Measurements Intervals [place] Rate: 96 P: 78 MT: 155 QRS: 85 QRSD: 89 T: -72 QT: 293 QTc: 370 Interpretive Statements SINUS RHYTHM SEPTAL MYOCARDIAL INFARCTION , OF INDETERMINATE AGE [40+ ms Q WAVE IN V1/V2] Compared to ECG 11/23/2024 09:14:09 Myocardial infarct finding now present /store/S0/[id number]
--- NOTE | 2025-03-04 00:57 | XR_ITS ---
Examination: CT abdomen with intravenous contrast CT pelvis with intravenous contrast 2-D coronal reconstructions 2-D sagittal reconstructions Date and time of exam:March 04, 2025, 0309 hrs. Indications: Nausea vomiting right-sided abdominal pain radiating to the back beginning 3 days ago. CTDI: vol (mGy) 3.85 DLP: (mGycm) 177 Technique: Multiple axial sections of the abdomen and pelvis have been obtained. 64 slice high-resolution scanner used. 3 mm axial sections have been obtained, post intravenous injection 60 cc [id number] 2-D sagittal, coronal reconstructions obtained. Low dose protocols were performed. One or more of the following dose reduction techniques were used; automated exposure control, adjustment of the mA and/or KV according to patient size, use of iterative reconstruction technique. Findings: Small pericardial effusion No visualized liver or splenic lesion Gallbladder wall appears edematous No definite common bile duct stones, common bile duct 8 mm Pancreatic duct dilated 3.5 mm no pancreatic mass Bilateral renal cysts, the largest in the right kidney 4.5 cm Heavy abdominal aortic calcification No bowel obstruction Normal appendix No diverticulitis Distended urinary bladder No pelvic mass Pelvic phleboliths Severe osteopenia with significant disc narrowing L1-L2, L2-L3 Impression: Recommend hepatobiliary sonography follow-up to exclude cholecystitis and assess the enlarged common bile duct
--- NOTE | 2025-03-04 00:59 | PD.EDNV ---
Nausea/Vomit./Diarrhea-RME/HPI General Chief complaint: Nausea/Vomiting/Diarrhea Stated complaint: NAUSEA Time Seen by Provider: 03/04/25 00:38 Arrival date/time: 03/04/25 00:33 RME / HPI RME / HPI Narrative: Ms. Hu is a 79-year-old female with past medical history of fibromyalgia, adjustment disorder, anxiety disorder, depression, bipolar disorder, COPD, hypothyroidism, colitis, presented to [facility] emergency department on 03/04/2025 with a chief complaint of severe nausea and vomiting, complaints of right-sided abdominal pain, reports that she has been unable to eat continues to have dry heaving and feels nauseous. Otherwise denies any diarrhea, fever, chills, myalgias. Related Data Home Medications ?Medication ?Instructions ?Recorded ?Confirmed albuterol sulfate 90 mcg/actuation 2 puff inhalation Q8H PRN 11/11/13 03/04/25 aerosol inhaler (ProAir HFA) SHORTNESS OF BREATH OR WHEEZE ##0 clonazepam 1 mg tablet (Klonopin) 1 mg PO TID PRN ANXIETY #0 tabs 11/11/13 03/04/25 Held on 03/04/25. Instructions: not taking levothyroxine 50 mcg tablet 50 mcg PO QAM 02/24/21 03/04/25 sertraline 100 mg tablet 200 mg PO QPM 02/24/21 03/04/25 Held on 03/04/25. Instructions: Duplicate fluticasone propionate 50 1 spray intranasal QDAY PRN 09/20/24 03/04/25 mcg/actuation nasal allergy symptoms spray,suspension aripiprazole 5 mg tablet 5 mg PO .bedtime 03/04/25 03/04/25 clonazepam 1 mg tablet 1 mg PO BID anxiety 03/04/25 03/04/25 diclofenac sodium 1 % topical gel See Rx Instructions topical 03/04/25 03/04/25 .COMPLEX PRN pain dicyclomine 20 mg tablet 20 mg PO TID 03/04/25 03/04/25 escitalopram oxalate 10 mg tablet 10 mg PO QDAY 03/04/25 03/04/25 Previous Rx's ?Medication ?Instructions ?Recorded fluticasone propionate 50 1 spray intranasal QDAY PRN 09/21/24 mcg/actuation nasal allergy symptoms #16 grams spray,suspension hydroxyzine HCl 25 mg tablet 25 mg PO HS anxiety #10 tabs 09/21/24 Held on 03/04/25. Instructions: states not taking Allergies Allergy/AdvReac Type Severity Reaction Status Date / Time codeine Allergy Severe Nausea/VOMI Verified 01/02/25 07:41 TING Sulfa (Sulfonamide Allergy Severe NAUSEA/VOMI Verified 01/02/25 07:41 Antibiotics) TING gabapentin Allergy Blurry Verified 01/02/25 07:41 Vision Review of Systems Review of Systems Systems Reviewed: All systems reviewed, normal except as documented Past Medical History Past Medical History CARDIAC: Positive Cardiac Disorders, Hypercholesterolemia and Hypotension RESPIRATORY: Positive Chronic Obstructive Pulmonary Disease (COPD) GASTROINTESTINAL: Positive Gastrointestinal Disorders and Ulcerative Colitis GENITOURINARY: Positive Genitourinary Disorders REPRODUCTIVE: Positive Breast Cancer MUSCULOSKELETAL: Positive Musculoskeletal Disorders and Arthritis ENT: Positive Ear Infection PSYCHO/SOCIAL: Positive Schizophrenia, Bipolar Disorder, Depression and Anxiety OTHER HISTORY: Positive Breast Cancer Family History FAMILY HISTORY: Positive Family Cancer Surgical History SURGICAL: Positive Mastectomy and Hysterectomy OTHER SURGICAL HX: Right mastectomy, hysterectomy, ORIF right hip fracture Social History SMOKING STATUS: Never smoker SUBSTANCE USE: does not use ED Exam Narrative Physical exam: Physical Exam General: Awake and in no acute distress. Elderly frail. Conversational and non-toxic appearing. HEENT: Normocephalic, atraumatic, mucous membranes moist. Heart: Regular rate and rhythm, no murmurs. Lungs: Clear to auscultation with no wheezing or crackles. Abdomen: Soft, nondistended, right upper quadrant tenderness and epigastric tenderness, positive bowel sounds. ?No guarding or rebound tenderness. Neurologic: Alert and oriented x3, no gross neurological deficit, and patient able to move all 4 extremities. Extremities: No edema. Skin: No rash or ecchymoses. Course Quality Measures none Orders Category Date Time Status Bedside COVID-19 Antigen Test NOW Care 03/04/25 05:15 Active COVID-19 Screening Questionnaire NOW Care 03/04/25 05:[address] Screening NOW Care 03/04/25 00:58 Active EKG (ED ONLY) *Do not use* NOW Care 03/04/25 00:41 Completed In and Out Catheter X1 Care 03/04/25 04:16 Completed Insert IV NOW Care 03/04/25 00:[address] abdomen pelvis w con Stat Exams 03/04/25 00:57 Completed EKG (ED Only) Stat Exams 03/04/25 00:41 Ordered US gall bladder Stat Exams 03/04/25 04:55 Completed Amylase Stat Lab 03/04/25 01:18 Completed CBC Stat Lab 03/04/25 01:18 Completed CK [Creatine Kinase] Stat Lab 03/04/25 01:18 Completed CMP [Comprehensive Metabolic Panel] Stat Lab 03/04/25 01:18 Completed Lactate (Lactic Acid) Stat Lab 03/04/25 01:18 Completed Procalcitonin Stat Lab 03/04/25 01:18 Completed Urinalysis, C/S if Indicated Stat Lab 03/04/25 04:25 Completed Ondansetron Inj [Zofran Inj] Med 03/04/25 00:43 Discontinued 4 mg IVP X1 ONE POTASSIUM CHL 10% Liq 15 ML Med 03/04/25 02:27 Discontinued 40 meq PO X1 ONE Sodium Chloride 0.9% 1000 ml [Ns] 1,000 ml Med 03/04/25 00:58 Discontinued IV 999 mls/hr clonazePAM [KlonoPIN] Med 03/04/25 00:52 Discontinued 1 mg PO X1 ONE Vital Signs Vital signs: Vital Signs Temperature 97.6 F 03/04/25 00:37 Pulse Rate 92 03/04/25 00:37 Respiratory Rate 18 03/04/25 00:37 Blood Pressure 174/90 H 03/04/25 00:37 Pulse Oximetry (%) 95 03/04/25 00:37 Oxygen Delivery Method Room Air 03/04/25 00:37 Nausea/Vomiting/Diarrhea MDM Narrative MDM Narrative:: #Suspicion of acute cholecystitis 79-year-old female with past medical history as above presented with right upper quadrant epigastric tenderness with nausea and vomiting. Patient's CBC within normal limits, CMP showed sodium 131, potassium 3.2, chloride 94, glucose 122 osmolality 262, otherwise within normal limits lactate and Pro-José normal Urinalysis shows trace blood 2+ ketones otherwise unremarkable CT abdomen pelvis preliminary report showed acute cholecystitis Findings discussed with Dr. Ortega his general surgeon on-call who recommending admitting the patient and obtaining gallbladder ultrasound. Case discussed with hospitalist team, patient will be admitted Patient was given Zofran 4 mg IV push x 1, clonazepam 1 mg p.o. times one 1 L NS bolus 40 mEq of potassium. Case discussed with Attending Physician Dr. Kristy Martini MD Internal Medicine PGY-2 Disclaimer: This note was dictated by speech recognition. Minor errors in care consultant may be present due to voice recognition software. Patient data External records reviewed:: [facility] previous records Clinical information provided by:: patient Social determinants that could affect healthcare access:: housing Patient has the following chronic illnesses:: As Above How is presenting disease/condition affected by chronic disease/condition?: uneffected by Evaluation data The following diagnostics were reviewed and interpreted by me:: lab results and radiology exam(s) Lab and/or radiology exams considered but not ordered:: None Interpretation Summary: CBC within normal limits, CMP showed sodium 131, potassium 3.2, chloride 94, glucose 122 osmolality 262, otherwise within normal limits lactate and Pro-José normal Urinalysis shows trace blood 2+ ketones otherwise unremarkable CT abdomen pelvis preliminary report showed acute cholecystitis Medications / Prescriptions Medications / Prescriptions considered but not ordered:: None Medication administrations:: Medication Administration History Acetaminophen (Acetaminophen 325 Mg Tablet) 650 mg PO Q6H PRN PRN Reason: PAIN SCALE 1-3 (mild Stop: 04/03/25 05:38 Albuterol/Ipratropium (Albuterol/Ipratropium (Duoneb) Rt Tabitha 3 Ml Nebu) 3 ml INH Q6HRRT PRN PRN Reason: Wheezing Stop: 04/03/25 05:44 Aripiprazole (Aripiprazole 5 Mg Tablet) 5 mg PO HS HONORIO Stop: 04/03/25 20:59 Clonazepam (Clonazepam 0.5 Mg Tablet) 1 mg PO BID HONORIO Stop: 03/09/25 08:59 Heparin Sodium (Porcine) (Heparin Sod Inj 5000 Unit/Ml Vial) 5,000 unit SC Q8HR HONORIO Stop: 03/18/25 13:59 Hydromorphone HCl (Hydromorphone Inj 2 Mg/Ml Vial) 1 mg IVP Q4HR PRN PRN Reason: PAIN SCALE 7-10 Stop: 03/09/25 05:40 Acetaminophen (Ofirmev Inj) 1,000 mg in 100 mls @ 250 mls/hr IV Q6HR PRN PRN Reason: Fever >100.4 or Pain 1-3 Sodium Chloride (Ns) 1,000 mls @ 80 mls/hr IV .[id number] HONORIO Stop: 04/03/25 05:44 Last Admin: 03/04/25 06:55 Dose: 80 mls/hr Documented By: BD Potassium Chloride (Kcl Ivpb) 10 meq in 100 mls @ 100 mls/hr IV Q1H HONORIO Stop: 03/04/25 09:44 Last Admin: 03/04/25 06:55 Dose: 100 mls/hr Documented By: BD Levothyroxine Sodium (Levothyroxine Sodium 25 Mcg Tablet) 50 mcg PO ACBR [facility] Stop: 04/03/25 07:14 Morphine Sulfate (Morphine Sulf Inj 4 Mg/Ml Vial) 2 mg IVP Q4HR PRN PRN Reason: PAIN SCALE 4-6 Stop: 03/09/25 05:40 Ondansetron HCl (Ondansetron Inj 2 Mg/Ml Inj 2 Ml) 4 mg IVP Q6H PRN; Protocol PRN Reason: NAUSEA OR VOMITING Stop: 04/03/25 05:38 Pantoprazole Sodium (Pantoprazole Inj 40 Mg Vial) 40 mg IVP QDAY [facility] Stop: 04/03/25 08:59 Discontinued Medications Clonazepam (Clonazepam 0.5 Mg Tablet) 1 mg PO X1 ONE Stop: 03/04/25 00:53 Last Admin: 03/04/25 01:27 Dose: 1 mg Documented By: BD Sodium Chloride (Ns) 1,000 mls @ 999 mls/hr IV .Q1H1M ONE Stop: 03/04/25 01:58 Last Infusion: 03/04/25 02:34 Dose: Infused Documented By: Admin: 03/04/25 01:27 Dose: 999 mls/hr Documented By: BD Piperacillin/Tazobactam/Dextrose (Zosyn) 3.375 g in 50 mls @ 100 mls/hr IV Q6HR [facility]; Protocol Stop: 03/11/25 05:41 Last Admin: 03/04/25 06:54 Dose: 100 mls/hr Documented By: BD Ondansetron HCl (Ondansetron Inj 2 Mg/Ml Inj 2 Ml) 4 mg IVP X1 ONE; Protocol Stop: 03/04/25 00:44 Last Admin: 03/04/25 01:27 Dose: 4 mg Documented By: BD Potassium Chloride (Potassium Chloride 10% 20 Meq/15 Ml Udc) 40 meq PO X1 ONE Stop: 03/04/25 02:28 Last Admin: 03/04/25 02:33 Dose: 40 meq Documented By: BD Potassium Chloride (Potassium Chloride 20 Meq Tabcr) 40 meq PO X1 ONE Stop: 03/04/25 05:45 Potassium Chloride (Potassium Chloride 10% 20 Meq/15 Ml Udc) 40 meq GT X1 ONE Stop: 03/04/25 05:47 Potassium Chloride (Potassium Chloride 10% 20 Meq/15 Ml Udc) 40 meq PO X1 ONE Stop: 03/04/25 06:29 Last Admin: 03/04/25 06:56 Dose: 40 meq Documented By: BD As Above Consultations Consultation(s) initiated? (list below): No Diagnosis Nausea Differential Diagnosis: gastroenteritis, dehydration and other Most likely diagnosis given after review of the tests above:: Cholelithiasis Admission Indicated Admission indicated?: indicated Admission Request Was there a request for admission?: Yes Admission Attestation Admission request attestation: Discussed case with [] from Hospitalist service regarding admission. Discussed patients ED course, exam findings, labs, and radiology results. The Hospitalist [agrees,declines] to accept the patient for admission. Disposition Plan Disposition Plan: Admit Discharge Plan Plan Patient Disposition: Admit Acute Care w/in Hospital Problem List Clinical Impression: Dehydration, Cholecystitis
[2025-03-04] MEDS: ONDANSETRON INJ 2 MG/ML INJ 2 ML 4 MG IVP (01:27)
[2025-03-04] MEDS: SODIUM CHLORIDE 0.9% 1000 ML 1,000 ML 999 ML IV (01:27)
[2025-03-04 01:29] LABS: Lactate (Lactic Acid) 1.9 mMol/L (0.4-2.0)
[2025-03-04 01:33] LABS: Basophils # (Auto) 0.0 Thou/mm3 (0.0-0.2); Basophils % (Auto) 0 % (0-2.5); Eosinophils # (Auto) 0.0 Thou/mm3 (0.0-0.5); Eosinophils % (Auto) 0 % (0-10); Hematocrit 38.4 % (36.0-46.0); Hemoglobin 13.7 g/dL (12.0-16.0); Immature Granulocytes Auto 0.02 Thou/mm3 (0.00-0.00); Lymphocytes # (Auto) 1.3 Thou/mm3 (1.0-4.8); Lymphocytes % (Auto) 17 % (10-50); Mean Corpuscular HGB Conc 35.7 g/dl (31.0-37.0); Mean Corpuscular Hemoglobin 32.2 pg (25.0-35.0); Mean Corpuscular Volume 90 fL (80-100); Monocytes # (Auto) 0.5 Thou/mm3 (0.0-0.8); Monocytes % (Auto) 7 % (0-12); Neutrophils # (Auto) 5.7 Thou/mm3 (1.8-7.7); Neutrophils % (Auto) 75 % (37-80); Nucleated Red Blood Cell # 0.00 Thou/mm3 (0.00-0.00); Nucleated Red Blood Cell % 0 /100 WBC (0); Platelet Count 275 Thou/mm3 (140-440); RDW Standard Deviation 38.6 fL (36.4-46.3); Red Blood Count 4.26 Miln/mm3 (4.00-5.20); White Blood Count 7.6 Thou/mm3 (3.6-11.0)
[2025-03-04 01:58] LABS: Alanine Aminotransferase 22 U/L (10-49); Albumin, Serum 4.7 gm/dL (3.4-4.8); Albumin/Globulin Ratio 2.0 (1.2-2.2); Alkaline Phosphatase 60 U/L (46-116); Amylase 94 U/L (30-118); Anion Gap 12 (7-16); Aspartate Amino Transferase 31 U/L (0-34); BUN/Creatinine Ratio 17 Ratio (12-20); Bilirubin,Total 1.0 mg/dL (0.3-1.2); Blood Urea Nitrogen 10 mg/dL (9-23); Calcium 9.7 mg/dL (8.3-10.6); Calcium (Corrected) 9.7 mg/dL (8.5-10.1); Carbon Dioxide 25.1 mMol/L (20.0-31.0); Chloride 94 mMol/L (98-107); Creatine Kinase 74 U/L (34-171); Creatinine (Component) 0.6 mg/dL (0.6-1.3); Globulin 2.3 gm/dL (2.3-3.5); Glucose 122 mg/dL (74-106); Osmolality,Calculated 262 (275-295); Potassium 3.2 mMol/L (3.4-5.1); Procalcitonin 0.08 ng/ml (0.0-0.49); Sodium 131 mMol/L (136-145); Total Protein 7.0 gm/dL (5.7-8.2); eGFR > 60 See Note
[2025-03-04] MEDS: POTASSIUM CHLORIDE 10% 20 MEQ/15 ML UDC 40 MEQ PO ×2 (02:33→06:56)
[2025-03-04 04:33] LABS: Collection Type, Urine Clean Catch
[2025-03-04 04:45] LABS: Bilirubin,Urine Negative (Negative); Blood,Urine Trace (Negative); Clarity,Urine Clear (Clear/Hazy); Color,Urine Colorless (Lt Yel-Yel); Culture Indicated,Urine Not Indicated; Glucose, Urine Negative (Negative); Ketones,Urine 2+ (Negative); Leukocyte Esterase,Urine Negative (Negative); Nitrite,Urine Negative (Negative); PH,Urine 7.0 (5.0-7.0); Protein,Urine Negative (Neg - Trace); RBC,Urine 3 /hpf (0-3); Specific Gravity,Urine 1.010 (1.001-1.035); Squamous Epithelial Cell,Urine < 1 /hpf (0-5); Urobilinogen,Urine Negative mg/dL (0.0-1.0); WBC,Urine < 1 /hpf (0-5)
--- NOTE | 2025-03-04 04:47 | PRELIM_ITS ---
CT scan of the abdomen and pelvis with intravenous contrast (axial sections with sagittal and coronal reformats)March 04, 2025 at 0309 hours Clinical History: Abdominal pain. Comparison: No prior study is available for comparison. Findings: Emphysematous changes are identified. There is a 3 mm nodule in the right lower lobe. The gallbladder demonstrates mild wall thickening and pericholecystic fluid. There is minimal intrahepatic biliary duct dilatation. Small hypodense lesions are noted in the liver, too small to characterize. There are multiple cysts in bilateral kidneys, the largest in the right kidney measuring 5 cm. The pancreas, spleen and adrenals are unremarkable. No evidence of bowel obstruction. The appendix is within normal limits (coronal images 49-56). A moderate amount of fecal material is present in the colon. The urinary bladder is unremarkable. There is no free fluid or free air. The aorta and its branches demonstrate atheromatous calcification without evidence of aneurysm. Degenerative changes are identified in the spine. Impression: 1. Acute cholecystitis. Recommend further evaluation with sonography, if clinically indicated. 2. No evidence of bowel obstruction, free air or abscess. 3. Other findings as described above. Report Electronically Signed By: Mac Solis 03/04/2025 4:46:30 AM [EST]
--- NOTE | 2025-03-04 04:55 | XR_ITS ---
Examination: Abdomen sonogram, Limited Date and time of exam: March 04, 2025 0533 hrs. Indications: Onset abdominal pain and nausea beginning one week ago. Technique: Real-time manzo scale transabdominal sonographic images of the upper abdomen obtained. Findings: Normal gallbladder. Normal common bile duct 0.3 cm. Pancreatic head 1.0 cm Liver 16 cm smooth contour no focal liver lesions Normal hepatopedal portal venous flow Patent IVC. 5.3 cm right renal cyst Impression: Normal gallbladder Normal common bile duct
--- NOTE | 2025-03-04 05:45 | PC.NURSE ---
called lab to add on [facility]
--- NOTE | 2025-03-04 05:48 | PD.RESHP ---
Documentation for date of: 03/04/25 [facility] History of Present Illness History of present illness: This is 79-year-old female with PMHx of COPD, hypothyroidism, fibromyalgia, colitis, hypothyroidism and generalized anxiety/depression who presented to ED with abdominal pain. Pain started gradually about 3 days ago, located on the right side of the abdomen, described as dull and achy, worse after eating associated with nausea and vomiting. States she has been vomiting mainly stomach content several times daily, especially after eating, however since this morning she has been dry heaving but still feel nauseous. Last bowel movement was on the morning of admission was normal and nonbloody. Also reports chills and shivers but no fever over the last 3 days. She had similar symptoms last month, presented to the ED, ultrasound did not show any biliary pathology. She was discharged home. States current abdominal pain feels about the same as last time. Also reports burning sensation with urination, and increased urinary frequency without urgency or vaginal discharge. She had a colonoscopy done last year showing multiple polyps, otherwise nonmalignant findings per her knowledge. Also reports several years of weight loss, but no night sweats. Attributes her symptoms to low appetite, and had previously asked her PCP to prescribe appetite stimulants, however her PCP refused for unknown reason. Past Medical History: As above. Past Surgical History: Right mastectomy, hysterectomy, ORIF right hip fracture. Medications: DuoNebs PRN, ABILIFY, and another prescribed medication for depression. Allergies: CODEINE, SULFA DRUG, GABAPENTIN. Family History: Noncontributory. Social History: Currently lives alone. Has 2 children, natural . Has history of secondhand smoking from her previous job. Occasional recreational marijuana use. Denies alcohol or drug use. ED Course: Afebrile, BP 174/90, HR 91, satting well on room air. CBC unremarkable. Sodium 131, potassium 3.2, chloride 94, GLUCOSE 122. Normal renal function, liver function, total bilirubin, procalcitonin, and remainder electrolytes. UA negative for UTI. CT abdomen suggested acute cholecystitis without CBD dilation, no bowel obstruction, no free air or abscess. Follow-up ultrasound showed no evidence of acute cholecystitis. ED consulted Dr. Ortega from general surgery who will evaluate patient later today. Reason for admission: Acute cholecystitis requiring admission for general surgery evaluation for possible surgical intervention. Exam Vital Signs Temp Pulse Resp BP Pulse Ox O2 Del Method 98.6 F 79 16 143/68 H 98 Room Air 03/04/25 04:33 03/04/25 04:33 03/04/25 04:33 03/04/25 04:33 03/04/25 04:33 03/04/25 04:33 Narrative Exam GENERAL Normal appearance, in mild distress secondary to pain. HEENT NCAT.?SHANNON. Oral mucosa is dry. Patent Nares NECK Supple, nontender, no JVD. CHEST RRR, no m/g/r CTAB, no w/r/r, symmetrical expansion. ABDOMEN Soft, flat, tenderness in the right upper quadrant and slightly epigastrically. No guarding/rebound tenderness/masses. Bowel sounds presents EXTREMITIES No edema/cyanosis.? SKIN Warm and dry, no jaundice/rashes. NEUROMUSCULAR No lumbar or midline, no CVA, no paraspinal muscle spasm or tenderness. No focal neurologic deficits. PSYCHIATRY Normal mood and affect, cooperative, no SI or HI or hallucinations. Results: Labs 03/04/25 01:18 03/04/25 12:43 Labs: Short CBC 03/04/25 Range/Units 01:18 WBC 7.6 (3.6-11.0) Thou/mm3 Hgb 13.7 (12.0-16.0) g/dL Hct 38.4 (36.0-46.0) % Plt Count 275 (140-440) Thou/mm3 BMP 03/04/25 01:18 Sodium 131 L Potassium 3.2 L Chloride 94 L Carbon Dioxide 25.1 BUN 10 Creatinine 0.6 Glucose 122 H Calcium 9.7 Cardiac Enzymes 03/04/25 Range/Units 01:18 Total Creatine Kinase 74 (34-171) U/L Liver Function 03/04/25 Range/Units 01:18 Total Bilirubin 1.0 (0.3-1.2) mg/dL AST 31 (0-34) U/L ALT 22 (10-49) U/L Alkaline Phosphatase 60 (46-116) U/L Albumin 4.7 (3.4-4.8) gm/dL Urine 03/04/25 Range/Units 04:25 Urine Color Colorless A (Lt Yel-Yel) Urine Clarity Clear (Clear/Hazy) Urine pH 7.0 (5.0-7.0) Ur Specific [place] 1.010 (1.001-1.035) Urine Protein Negative (Neg - Trace) Urine Glucose (UA) Negative (Negative) Quality Measures Quality Measures VTE prophylaxis Advance care planning discussed with:: patient Medications Home Medications and Allergies Home Medications ?Medication ?Instructions ?Recorded ?Confirmed ?Type albuterol sulfate 90 mcg/actuation 2 puff inhalation Q8H PRN 11/11/13 03/04/25 History aerosol inhaler (ProAir HFA) SHORTNESS OF BREATH OR WHEEZE ##0 levothyroxine 50 mcg tablet 50 mcg PO QAM 02/24/21 03/04/25 History fluticasone propionate 50 1 spray intranasal QDAY PRN 09/20/24 03/04/25 History mcg/actuation nasal allergy symptoms spray,suspension aripiprazole 5 mg tablet 5 mg PO .bedtime 03/04/25 03/04/25 History clonazepam 1 mg tablet 1 mg PO BID anxiety 03/04/25 03/04/25 History diclofenac sodium 1 % topical gel See Rx Instructions topical 03/04/25 03/04/25 History .COMPLEX PRN pain dicyclomine 20 mg tablet 20 mg PO TID 03/04/25 03/04/25 History escitalopram oxalate 10 mg tablet 10 mg PO QDAY 03/04/25 03/04/25 History Allergies Allergy/AdvReac Type Severity Reaction Status Date / Time codeine Allergy Severe Nausea/VOMI Verified 01/02/25 07:41 TING Sulfa (Sulfonamide Allergy Severe NAUSEA/VOMI Verified 01/02/25 07:41 Antibiotics) TING gabapentin Allergy Blurry Verified 01/02/25 07:41 Vision Visit Medications Acetaminophen (Acetaminophen 325 Mg Tablet) 650 mg PO Q6H PRN PRN Reason: PAIN SCALE 1-3 (mild Stop: 04/03/25 05:38 Albuterol/Ipratropium (Albuterol/Ipratropium (Duoneb) Rt Tabitha 3 Ml Nebu) 3 ml INH Q6HRRT PRN PRN Reason: Wheezing Stop: 04/03/25 05:44 Hydromorphone HCl (Hydromorphone Inj 2 Mg/Ml Vial) 1 mg IVP Q4HR PRN PRN Reason: PAIN SCALE 7-10 Stop: 03/09/25 05:40 Acetaminophen (Ofirmev Inj) 1,000 mg in 100 mls @ 250 mls/hr IV Q6HR PRN PRN Reason: Fever >100.4 or Pain 1-4 Sodium Chloride (Ns) 1,000 mls @ 80 mls/hr IV .[id number] [facility] Stop: 04/03/25 05:44 Piperacillin/Tazobactam/Dextrose (Zosyn) 50 mls @ 100 mls/hr IV Q6HR HONORIO; Protocol Stop: 03/11/25 05:41 Potassium Chloride (Kcl Ivpb) 10 meq in 100 mls @ 100 mls/hr IV Q1H HONORIO Stop: 03/04/25 09:44 Morphine Sulfate (Morphine Sulf Inj 4 Mg/Ml Vial) 2 mg IVP Q4HR PRN PRN Reason: PAIN SCALE 4-6 Stop: 03/09/25 05:40 Ondansetron HCl (Ondansetron Inj 2 Mg/Ml Inj 2 Ml) 4 mg IVP Q6H PRN; Protocol PRN Reason: NAUSEA OR VOMITING Stop: 04/03/25 05:38 Pantoprazole Sodium (Pantoprazole Inj 40 Mg Vial) 40 mg IVP QDAY [facility] Stop: 04/03/25 08:59 Potassium Chloride (Potassium Chloride 10% 20 Meq/15 Ml Udc) 40 meq GT X1 ONE Stop: 03/04/25 05:47 Discontinued Medications Clonazepam (Clonazepam 0.5 Mg Tablet) 1 mg PO X1 ONE Stop: 03/04/25 00:53 Last Admin: 03/04/25 01:27 Dose: 1 mg Sodium Chloride (Ns) 1,000 mls @ 999 mls/hr IV .Q1H1M ONE Stop: 03/04/25 01:58 Last Infusion: 03/04/25 02:34 Dose: Infused Ondansetron HCl (Ondansetron Inj 2 Mg/Ml Inj 2 Ml) 4 mg IVP X1 ONE; Protocol Stop: 03/04/25 00:44 Last Admin: 03/04/25 01:27 Dose: 4 mg Potassium Chloride (Potassium Chloride 10% 20 Meq/15 Ml Udc) 40 meq PO X1 ONE Stop: 03/04/25 02:28 Last Admin: 03/04/25 02:33 Dose: 40 meq Potassium Chloride (Potassium Chloride 20 Meq Tabcr) 40 meq PO X1 ONE Stop: 03/04/25 05:45 Assessment & Plan Plan This is 79-year-old female with PMHx of COPD, hypothyroidism, fibromyalgia, colitis, hypothyroidism and generalized anxiety/depression who presented to ED with abdominal pain. Appreciate recommendation from general surgery team. Acute cholecystitis Hx colitis Presenting with 3 days of abdominal pain, nausea and vomiting, and chills. Initial abdominal CT showed possible cholecystitis without evidence of CBD dilatation. This was followed up by abdominal ultrasound which showed no evidence of acute cholecystitis. Currently afebrile, no leukocytosis. Normal LFTs, ALP and total bilirubin. She has a history of colitis and chronic constipation managed with [id number] regimen, last BM was this morning and was normal. ? N.p.o. ? Pain control ? Continue NS maintenance at 80 cc/H ? Pending recommendations from general surgery Dysuria Reports about a week of burning sensation with urination along with increased urinary frequency. UA did not show UTI. CT abdomen showed incidental bilateral renal cyst, but no evidence of hydronephrosis. Again, afebrile and no leukocytosis. Normal renal function. ? Continue to monitor ? Pending cultures ? Consider ANTIBIOTICS if sepsis persists or worsen Hypokalemia Hyponatremia Likely malnutrition given poor oral intake. Patient sodium 131, potassium 3.2. ? Potassium repleted ? Continue IVF as above COPD Secondary to secondhand smoking. No signs of COPD exacerbation. ? Continue DuoNebs PRN Hypothyroidism ? Resume home LEVOTHYROXINE 50 mcg ? Pending TSH Fibromyalgia Anxiety/depression ? Multimodal pain meds ? Continue home ABILIFY 5 mg HS ? Continue home OLANZAPINE 1 mg TID PRN for anxiety Health maintenance Diet: NPO GI prophylaxis: PROTONIX DVT prophylaxis: HEPARIN subcu Antibiotics: Not indicated CODE STATUS: Full code Disposition: Admitted for abdominal pain and surgical evaluation. Case was discussed with attending physician. Terri Adikns DO PGY II This document was transcribed using voice recognition technology. Minor inaccuracies may be present. Attending Provider Attestation/Addendum After examination of the patient and review of the clinical data I feel that this patient needs admission to the hospital for further treatment/evaluation. Plan of care discussed with patient and is in agreement. I Jacob Cordero MD, attest that I was physically present for quinn portions of evaluation, and examined patient, labs and imagings and plan of care were discussed with IM residents team, and I agree with the findings and plans documented above.
--- NOTE | 2025-03-04 06:23 | PRELIM_ITS ---
Right upper quadrant abdominal ultrasound. March 04, 2025 0533 hours Clinical history: Cholecystitis Technique: Grayscale and color flow images of the right upper quadrant are provided. Hepatic and portal veins were also imaged with color flow images. Compared with the prior study dated 03/04/2025 Findings: The liver is normal in echogenicity. No intrahepatic biliary ductal dilatation. No gallbladder calculus, wall thickening or pericholecystic fluid is demonstrated. The common bile duct is normal in caliber at 3 mm. The pancreas is unremarkable to the extent visualized. There is a 5.3x3.7x4cm right renal cyst.There is no hydronephrosis and the corticomedullary differentiation is maintained. The inferior vena cava is patent. Impression: No evidence of cholecystitis. Report Electronically Signed By: Mac Solis 03/04/2025 6:23:00 AM [EST]
[2025-03-04] MEDS: PIPER/TAZO 3.375 GM PREMIX 3.375 G/50 ML BAG IV (06:54)
[2025-03-04] MEDS: SODIUM CHLORIDE 0.9% 1000 ML 1,000 ML 80 ML IV ×2 (06:55→18:13)
[2025-03-04] MEDS: POTASSIUM CHL 10 mEq IVPB 10 MEQ/100 ML BAG 100 MEQ IV ×4 (06:55→11:52)
--- NOTE | 2025-03-04 07:15 | PC.NURSE ---
Pt. here from home to room 18, pt. states she was vomiting, pt. denies any vomiting at this time, pt. states she feels better since she got medicine. Pt. brief was changed, pt. tolerated well. Pt. repositioned in bed, offered warm blanket, pt. states she brought her blanket from home, pt. states she is resting well at this time.
[2025-03-04 07:59] LABS: Thyroid Stimulating Hormone 6.06 uIU/mL (0.55-4.78)
--- NOTE | 2025-03-04 08:00 | PD.SURCONS ---
HPI Consult details Consult date: 03/04/25 Reason for consultation narrative: Acute cholecystitis History of present illness: 79-year-old female with history of COPD, fibromyalgia, hypothyroidism and depression presented to the emergency department with generalized weakness. She states that over the past 4 days she has felt weak. She denies abdominal pain, nausea or vomiting however she states that she does not feel like eating. Her liver enzymes and CBC were normal. CT scan showed possible gallbladder wall thickening with edema, however abdominal ultrasound showed normal gallbladder. Review of Systems Constitutional Constitutional: Denies chills, Denies fever(s) and Reports weakness Cardiovascular Cardiovascular: Denies chest pain Respiratory Respiratory: Denies cough Gastrointestinal Gastrointestinal: Denies abdominal pain, Denies nausea and Denies vomiting Neurologic Neurologic: Reports weakness Hematologic/Lymphatic Hematologic/Lymphatic: Denies easy bleeding and Reports easy bruising Past Medical History Surgical History OTHER SURGICAL HX: Right mastectomy, hysterectomy, ORIF right hip fracture Social History SMOKING STATUS: Former smoker SUBSTANCE USE: marijuana ALCOHOL: Never Meds Home Medications and Allergies Home Medications ?Medication ?Instructions ?Recorded ?Confirmed ?Type albuterol sulfate 90 mcg/actuation 2 puff inhalation Q8H PRN 11/11/13 03/04/25 History aerosol inhaler (ProAir HFA) SHORTNESS OF BREATH OR WHEEZE ##0 clonazepam 1 mg tablet (Klonopin) 1 mg PO TID PRN ANXIETY #0 tabs 11/11/13 03/04/25 History Held on 03/04/25. Instructions: not taking levothyroxine 50 mcg tablet 50 mcg PO QAM 02/24/21 03/04/25 History sertraline 100 mg tablet 200 mg PO QPM 02/24/21 03/04/25 History Held on 03/04/25. Instructions: Duplicate fluticasone propionate 50 1 spray intranasal QDAY PRN 09/20/24 03/04/25 History mcg/actuation nasal allergy symptoms spray,suspension aripiprazole 5 mg tablet 5 mg PO .bedtime 03/04/25 03/04/25 History clonazepam 1 mg tablet 1 mg PO BID anxiety 03/04/25 03/04/25 History diclofenac sodium 1 % topical gel See Rx Instructions topical 03/04/25 03/04/25 History .COMPLEX PRN pain dicyclomine 20 mg tablet 20 mg PO TID 03/04/25 03/04/25 History escitalopram oxalate 10 mg tablet 10 mg PO QDAY 03/04/25 03/04/25 History Allergies Allergy/AdvReac Type Severity Reaction Status Date / Time codeine Allergy Severe Nausea/VOMI Verified 01/02/25 07:41 TING Sulfa (Sulfonamide Allergy Severe NAUSEA/VOMI Verified 01/02/25 07:41 Antibiotics) TING gabapentin Allergy Blurry Verified 01/02/25 07:41 Vision Exam Vital Signs Temp Pulse Resp BP Pulse Ox O2 Del Method 98.5 F 75 17 146/83 H 95 Room Air 03/04/25 07:15 03/04/25 07:15 03/04/25 07:15 03/04/25 07:15 03/04/25 07:15 03/04/25 07:15 Constitutional Constitutional: no acute distress Routine Abdominal Exam Abdominal: Present soft and normoactive bowel sounds; Absent tenderness or distended Results Results: Laboratory Laboratory results: results reviewed Results: Imaging CT scan - abdomen: report reviewed and image reviewed CT scan - pelvis: report reviewed and image reviewed US - abdomen: report reviewed and image reviewed Assessment & Plan Additional Assessment Additional comments: CT scan showed possible gallbladder wall thickening with edema, however ultrasound is normal. She has had multiple CT scans in the past that showed similar findings and the ultrasound was unremarkable Plan She does not have clinical sign of cholecystitis and abdominal ultrasound is normal. There are no indications for surgical intervention at this time. May start diet, when tolerating diet she can be discharged from surgical standpoint.
--- NOTE | 2025-03-04 08:08 | PC.NURSE ---
Dr. Ortega bedside talking with pt.
--- NOTE | 2025-03-04 08:16 | ESPR_ITS ---
<Statement entered by Maricarmen Becerra MD - 03/07/25 17:40> I reviewed above note and agree with findings and plans. I have also personally examined the patient with medicine team and went over assessment and plan with medical team including software intern and resident physician. <Statement entered by Ting Jiménez MD - 03/04/25 20:21> Note reviewed, I agree with most of its contents and agree with the patient's care as documented by Dr. Be. The patient's management plan was discussed with my attending physician Dr. Becerra. Ting Jiménez, PGY-2 Documentation for date of: 03/04/25 Subjective Subjective Interval history: This is 79-year-old female with PMHx of COPD, hypothyroidism, fibromyalgia, colitis, hypothyroidism and generalized anxiety/depression who presented to ED with abdominal pain. 03/04/2025, patient seen and examined while in the ED still, she was evaluated by Dr. Ortega, given initial concern for cholecystitis. however it was ruled out on US. she has no RUQ pain. Given her malnutrition, BMI 16, started on high calorie diet, and ensure shakes. given potassium for hypokalemia, now 5.2. pending dietition recs. likely d/c tomorrow. Exam Vital Signs Temp Pulse Resp BP Pulse Ox O2 Del Method 98.5 F 75 17 146/83 H 95 Room Air 03/04/25 07:15 03/04/25 07:15 03/04/25 07:15 03/04/25 07:15 03/04/25 07:15 03/04/25 07:15 Narrative Exam GENERAL: no acute distress, very frail, AAO x3, comfortably laying in bed HEENT: Head AT/ NC. Mucous membranes moist. PERRL. NECK: Supple, no lymphadenopathy, no carotid bruits. CARDIOVASCULAR: RRR. Normal S1/S2, No m/r/g. No pitting edema of bilateral LEs. RESPIRATORY: CTAB. No wheezing, rhonchi, crackles. GASTROINTESTINAL: Abdomen soft, non tender no palpable masses. Bowel sounds present MUSCULOSKELETAL:? No cyanosis or edema, no visible joint swelling. NEUROLOGICAL: CN II-XII grossly intact. No focal deficits. Sensation intact, symmetric. PSYCHIATRIC: Awake and alert, not agitated, normal mood and affect. SKIN: No obvious rashes, no jaundice, poor turgor. Objective Labs 03/04/25 01:18 03/04/25 12:43 Labs: Laboratory Results - last 24 hr 03/04/25 03/04/25 03/04/25 01:18 04:25 06:10 WBC 7.6 RBC 4.26 Hgb 13.7 Hct 38.4 MCV 90 MCH 32.2 MCHC 35.7 RDW Std Deviation 38.6 Plt Count 275 Neut % (Auto) 75 Lymph % (Auto) 17 [place] % (Auto) 7 Eos % (Auto) 0 Baso % (Auto) 0 Neut # (Auto) 5.7 Lymph # (Auto) 1.3 [place] # (Auto) 0.5 Eos # (Auto) 0.0 Baso # (Auto) 0.0 Immature Gran # (Auto) 0.02 H Absolute Nucleated RBC 0.00 Immature Gran % 0 Nucleated RBC % 0 Sodium 131 L Potassium 3.2 L Chloride 94 L Carbon Dioxide 25.1 Anion Gap 12 BUN 10 Creatinine 0.6 Estim Creat Clear Calc Not Performed. eGFR > 60 BUN/Creatinine Ratio 17 Glucose 122 H Calculated Osmolality 262 L Lactic Acid 1.9 Calcium 9.7 Corrected Calcium 9.7 Total Bilirubin 1.0 AST 31 ALT 22 Alkaline Phosphatase 60 Total Creatine Kinase 74 Total Protein 7.0 Albumin 4.7 Globulin 2.3 Albumin/Globulin Ratio 2.0 Amylase 94 Procalcitonin 0.08 TSH 6.06 H Ur Collection Type Clean Catch Urine Color Colorless A Urine Clarity Clear Urine pH 7.0 Ur Specific [place] 1.010 Urine Protein Negative Urine Glucose (UA) Negative Urine Ketones 2+ A Urine Blood Trace Urine Nitrite Negative Urine Bilirubin Negative Urine Urobilinogen (Auto) Negative Ur Leukocyte Esterase Negative Urine RBC 3 Urine WBC < 1 Ur Squamous Epith Cells < 1 Urine Bacteria None Ur Culture Indicated? Not Indicated Quality Measures Quality Measures VTE prophylaxis Advance care planning discussed with:: patient Assessment & Plan Assessment Current Active Medications: Generic Name Dose Route Start Last Admin Trade Name Freq PRN Reason Stop Dose Admin Acetaminophen 650 mg 03/04/25 05:39 Acetaminophen 325 Mg Tablet PO 04/03/25 05:38 Q6H PRN PAIN SCALE 1-3 (mild Albuterol/Ipratropium 3 ml 03/04/25 05:45 Albuterol/Ipratropium (Duoneb) Rt Tabitha 3 Ml Nebu INH 04/03/25 05:44 Q6HRRT PRN Wheezing Aripiprazole 5 mg 03/04/25 21:00 Aripiprazole 5 Mg Tablet PO 04/03/25 20:59 HS HONORIO Clonazepam 1 mg 03/04/25 09:00 Clonazepam 0.5 Mg Tablet PO 03/09/25 08:59 BID HONORIO Heparin Sodium (Porcine) 5,000 unit 03/04/25 14:00 Heparin Sod Inj 5000 Unit/Ml Vial SC 03/18/25 13:59 Q8HR HONORIO Hydromorphone HCl 1 mg 03/04/25 05:41 Hydromorphone Inj 2 Mg/Ml Vial IVP 03/09/25 05:40 Q4HR PRN PAIN SCALE 7-10 Acetaminophen 1,000 mg in 100 mls @ 250 mls/hr 03/04/25 05:41 Ofirmev Inj IV Q6HR PRN Fever >100.4 or Pain 1-3 Sodium Chloride 1,000 mls @ 80 mls/hr 03/04/25 05:45 03/04/25 06:55 Ns IV 04/03/25 05:44 80 mls/hr .[id number] HONORIO Administration Potassium Chloride 10 meq in 100 mls @ 100 mls/hr 03/04/25 05:45 03/04/25 06:55 Kcl Ivpb IV 03/04/25 09:44 100 mls/hr Q1H HONORIO Administration Levothyroxine Sodium 50 mcg 03/04/25 07:15 Levothyroxine Sodium 25 Mcg Tablet PO 04/03/25 07:14 ACBR HONORIO Morphine Sulfate 2 mg 03/04/25 05:41 Morphine Sulf Inj 4 Mg/Ml Vial IVP 03/09/25 05:40 Q4HR PRN PAIN SCALE 4-6 Ondansetron HCl 4 mg 03/04/25 05:39 Ondansetron Inj 2 Mg/Ml Inj 2 Ml IVP 04/03/25 05:38 Q6H PRN NAUSEA OR VOMITING Protocol Pantoprazole Sodium 40 mg 03/04/25 09:00 Pantoprazole Inj 40 Mg Vial IVP 04/03/25 08:59 QDAY HONORIO Plan Ms Nunez is a 79-year-old female with PMHx of COPD, hypothyroidism, fibromyalgia, colitis, hypothyroidism and generalized anxiety/depression who presented to ED with nausea and abdominal pain , acute cholecysititis was ruled out. repleated electrolytes. dietitian recs, given BMI 16 Electrolyte derrangements (hypokalemia/natremia/chloremia) 2/2 Anorexia Malnutrition BMI 16 - consult dietitian - high calorie diet - ensure high calorie shakes Dysuria Reports about a week of burning sensation with urination along with increased urinary frequency. UA did not show UTI. CT abdomen showed incidental bilateral renal cyst, but no evidence of hydronephrosis. Again, afebrile and no leukocytosis. Normal renal function. ? Continue to monitor ? macrobid 100 bid Acute cholecystitis- ruled out Hx colitis Presenting with 3 days of abdominal pain, nausea and vomiting, and chills. Initial abdominal CT showed possible cholecystitis without evidence of CBD dilatation. This was followed up by abdominal ultrasound which showed no evidence of acute cholecystitis. Currently afebrile, no leukocytosis. Normal LFTs, ALP and total bilirubin. She has a history of colitis and chronic constipation managed with [id number] regimen, last BM was this morning and was normal. ? Continue NS maintenance at 80 cc/H ? surgery not indicated. COPD Secondary to secondhand smoking. No signs of COPD exacerbation. ? Continue DuoNebs PRN Hypothyroidism ? Resume home LEVOTHYROXINE 50 mcg ? TSH elevated 6.06 Fibromyalgia Anxiety/depression ? Multimodal pain meds ? Continue home ABILIFY 5 mg HS ? Continue home OLANZAPINE 1 mg TID PRN for anxiety Depression Anxiety - clonazepam 1mg PO BID - ecetalepram 10 mg po qd Health maintenance Diet: high calorie diet GI prophylaxis: PROTONIX DVT prophylaxis: HEPARIN subcu CODE STATUS: Full code Disposition: electrolytes better, pending discharge likely tomorrow. Plan discussed with Dr. Jiménez, and Dr. Hernan Be MD PGY1
[2025-03-04 08:35] LABS: INR 1.0 (0.9-1.3); Partial Thromboplastin Time 25.7 Seconds (22.0-36.0); Prothrombin Time 11.1 Seconds (9.0-12.2)
[2025-03-04] MEDS: LEVOTHYROXINE SODIUM 25 MCG TABLET 50 MCG PO (09:38)
--- NOTE | 2025-03-04 10:06 | PC.NURSE ---
Pt. brief changed, pt. had redness to upper buttocks, pt. tolerated well.
[2025-03-04 14:24] LABS: Alanine Aminotransferase 18 U/L (10-49); Albumin, Serum 4.3 gm/dL (3.4-4.8); Albumin/Globulin Ratio 1.8 (1.2-2.2); Alkaline Phosphatase 51 U/L (46-116); Anion Gap 5 (7-16); Aspartate Amino Transferase 30 U/L (0-34); BUN/Creatinine Ratio 8 Ratio (12-20); Bilirubin,Total 0.9 mg/dL (0.3-1.2); Blood Urea Nitrogen 6 mg/dL (9-23); Calcium 9.4 mg/dL (8.3-10.6); Calcium (Corrected) 9.4 mg/dL (8.5-10.1); Carbon Dioxide 24.8 mMol/L (20.0-31.0); Chloride 104 mMol/L (98-107); Creatinine (Component) 0.8 mg/dL (0.6-1.3); Globulin 2.4 gm/dL (2.3-3.5); Glucose 88 mg/dL (74-106); Osmolality,Calculated 264 (275-295); Potassium 5.2 mMol/L (3.4-5.1); Sodium 134 mMol/L (136-145); Total Protein 6.7 gm/dL (5.7-8.2); eGFR > 60 See Note
[2025-03-04] MEDS: HEPARIN SOD INJ 5000 UNIT/ML VIAL SC (21:10)
[2025-03-04] MEDS: ESCITALOPRAM OXALATE 10 MG TABLET PO (21:11)
[2025-03-04] MEDS: NITROFURANTOIN MACRO 100 MG CAPSULE PO (21:11)
[2025-03-05] VITALS: BP 150/86; PULSE 92; RESP 16; TEMP 36.9; O2SAT 94
[2025-03-05 04:00] VITALS: BP 141/75; PULSE 78; RESP 16; TEMP 36.2; O2SAT 94
[2025-03-05] MEDS: HEPARIN SOD INJ 5000 UNIT/ML VIAL SC (05:26)
[2025-03-05] MEDS: LEVOTHYROXINE SODIUM 25 MCG TABLET 50 MCG PO (05:26)
[2025-03-05 05:47] LABS: Basophils # (Auto) 0.0 Thou/mm3 (0.0-0.2); Basophils % (Auto) 1 % (0-2.5); Eosinophils # (Auto) 0.0 Thou/mm3 (0.0-0.5); Eosinophils % (Auto) 1 % (0-10); Hematocrit 32.5 % (36.0-46.0); Hemoglobin 11.4 g/dL (12.0-16.0); Immature Granulocytes Auto 0.01 Thou/mm3 (0.00-0.00); Lymphocytes # (Auto) 2.1 Thou/mm3 (1.0-4.8); Lymphocytes % (Auto) 38 % (10-50); Mean Corpuscular HGB Conc 35.1 g/dl (31.0-37.0); Mean Corpuscular Hemoglobin 32.9 pg (25.0-35.0); Mean Corpuscular Volume 94 fL (80-100); Monocytes # (Auto) 0.4 Thou/mm3 (0.0-0.8); Monocytes % (Auto) 7 % (0-12); Neutrophils # (Auto) 3.0 Thou/mm3 (1.8-7.7); Neutrophils % (Auto) 54 % (37-80); Nucleated Red Blood Cell # 0.00 Thou/mm3 (0.00-0.00); Nucleated Red Blood Cell % 0 /100 WBC (0); Platelet Count 207 Thou/mm3 (140-440); RDW Standard Deviation 42.5 fL (36.4-46.3); Red Blood Count 3.46 Miln/mm3 (4.00-5.20); White Blood Count 5.6 Thou/mm3 (3.6-11.0)
[2025-03-05 06:16] LABS: Alanine Aminotransferase 14 U/L (10-49); Albumin, Serum 3.6 gm/dL (3.4-4.8); Albumin/Globulin Ratio 1.9 (1.2-2.2); Alkaline Phosphatase 45 U/L (46-116); Anion Gap 7 (7-16); Aspartate Amino Transferase 21 U/L (0-34); BUN/Creatinine Ratio 13 Ratio (12-20); Bilirubin,Total 0.7 mg/dL (0.3-1.2); Blood Urea Nitrogen 8 mg/dL (9-23); Calcium 8.8 mg/dL (8.3-10.6); Calcium (Corrected) 9.1 mg/dL (8.5-10.1); Carbon Dioxide 25.1 mMol/L (20.0-31.0); Chloride 105 mMol/L (98-107); Creatinine (Component) 0.6 mg/dL (0.6-1.3); Estimated Creatinine Clearance 50.6 mL/min (>60); Free T4 (Free Thyroxine) 1.40 ng/dL (0.89-1.76); Globulin 1.9 gm/dL (2.3-3.5); Glucose 88 mg/dL (74-106); Magnesium 1.7 mg/dL (1.6-2.6); Osmolality,Calculated 271 (275-295); Phosphorous 3.1 mg/dL (2.4-5.1); Potassium 4.0 mMol/L (3.4-5.1); Sodium 137 mMol/L (136-145); Total Protein 5.5 gm/dL (5.7-8.2); eGFR > 60 See Note
[2025-03-05 06:20] VITALS: PULSE 72; RESP 16; O2SAT 92
[2025-03-05 07:25] VITALS: BP 148/79; PULSE 70; RESP 19; TEMP 37.1; O2SAT 94
--- NOTE | 2025-03-05 07:57 | PC.SS ---
Patient Radha Nunez is a 79 Year old female admitted for Acute Sherin. SS me with patient at bedside to discuss discharge plan and verify demographic information. Patient reports she lives at home alone and utilizes a Rollator walker to assist with ambulation. Patient also reports she has a Wheel chair and Cane at home as well. Patient reports she is able to complete ADL's independently. Patient Reports her friend, Philip Priti Kaufman is her surrogate decision maker, [phone]. At time of discharge patient will return back home, [facility] will provide transportation. Discharge plan: Home Next of kin: Hayden Marcos Heart: [phone]
[2025-03-05 08:51] VITALS: BP 148/79; PULSE 70
[2025-03-05] MEDS: ESCITALOPRAM OXALATE 10 MG TABLET PO (08:55)
[2025-03-05] MEDS: NITROFURANTOIN MACRO 100 MG CAPSULE PO (08:56)
[2025-03-05] MEDS: Magnesium Sulfate 2 GM Ivpb 2 GM/50 ML BAG IV (09:18)
--- NOTE | 2025-03-05 09:42 | PC.NURSE ---
discharge orders placed, pending mag infusion and hospitalist rounding
--- NOTE | 2025-03-05 09:52 | PC.SS ---
SS follow up note; Patient will possible discharge home today.
--- NOTE | 2025-03-05 11:23 | PC.NURSE ---
Hospitalist team rounded, mag infused, pt ready for discharge awaiting ride
[2025-03-05 11:35] VITALS: BP 147/73; PULSE 68; RESP 20; TEMP 36.9; O2SAT 95
--- NOTE | 2025-03-05 12:50 | PC.NURSE ---
Spoke with PRINCE Veliz regarding voicemail this nurse left regarding patient being discharged. Jose Alfredo stated he got the message and is on his way and will be arriving around 1 pm. Patient is finishing up lunch, is dressed, and ready to go.
--- NOTE | 2025-03-05 20:34 | ESDS_ITS ---
<Statement entered by Maricarmen Becerra MD - 03/07/25 17:42> I reviewed above note and agree with findings and plans. I have also personally examined the patient with medicine team and went over assessment and plan with medical team including general intern and resident physician. Planned Discharge Date 03/05/25 DS: Providers Provider Date of admission: 03/04/25 05:39 Primary care physician: Vera Diaz PA-C Admitting Provider: Jacob Cordero MD Attending Provider on Admission: Maricarmen Becerra MD Consults: 03/04/25 05:39 Consult to General Surgery Stat Comment: Acute rabia Consulting Provider: Chriss Ortega 03/04/25 10:42 Referral Registered Dietitian Routine Comment: 03/04/25 12:24 Referral Registered Dietitian Routine Comment: Attending Provider on DC: Maricarmen Becerra MD Discharging Provider: Maricarmen Becerra MD DS: Diagnosis Problem List Completed Was Problem List Reviewed/Reconciled?: Yes Hospital Course Hospital Course Hospital course: Reason for hospitalization: intractable abdominal pain 79-year-old female with PMHx of COPD, hypothyroidism, fibromyalgia, colitis, hypothyroidism and generalized anxiety/depression who presented to ED 03/04/25 due to abdominal pain. Described as dull and achy, worse after eating associated with nausea and vomiting. States she has been vomiting mainly stomach content several times daily, especially after eating.Her liver enzymes and CBC were normal. CT scan showed possible gallbladder wall thickening with edema, however abdominal ultrasound showed normal gallbladder. Vitals were stable. Srugery was consulted however there were no indications for surgery. Pain resovled during hospitalization and patient was able to tolerate diet. Patient is now in stable condition and ready for discharge. Recommendations were given as below. Discharge Recommendations: Resume your previous medications. Start taking amlodipine as treatment for your high blood pressure. Follow up with your Primary Care Physician in 1-2 weeks. Stay hydrated with water. Return to Emergency Department, if symptoms worsen. Hospital Diagnoses: Electrolyte derrangements (hypokalemia/natremia/chloremia) 2/2 Anorexia Malnutrition BMI 16 Dysuria Acute cholecystitis- ruled out Hx colitis COPD Hypothyroidism Fibromyalgia Anxiety/depression Depression Anxiety The patient's management plan was discussed with my attending physician Dr. Becerra. Ting Jiménez MD, PGY-2 Time Spent with Patient Time attestation: Total time spent providing and/or coordinating discharge services: Time spent: Greater than 30 minutes Exam Vital Signs Temp Pulse Resp BP Pulse Ox O2 Del Method 98.4 F 68 20 147/73 H 95 Room Air 03/05/25 11:35 03/05/25 11:35 03/05/25 11:35 03/05/25 11:35 03/05/25 11:35 03/05/25 11:35 Narrative Exam GENERAL: no acute distress, very frail, AAO x3, comfortably laying in bed HEENT: Head AT/ NC. Mucous membranes moist. PERRL. NECK: Supple, no lymphadenopathy, no carotid bruits. CARDIOVASCULAR: RRR. Normal S1/S2, No m/r/g. No pitting edema of bilateral LEs. RESPIRATORY: CTAB. No wheezing, rhonchi, crackles. GASTROINTESTINAL: Abdomen soft, non tender no palpable masses. Bowel sounds present MUSCULOSKELETAL:? No cyanosis or edema, no visible joint swelling. NEUROLOGICAL: CN II-XII grossly intact. No focal deficits. Sensation intact, symmetric. PSYCHIATRIC: Awake and alert, not agitated, normal mood and affect. SKIN: No obvious rashes, no jaundice, poor turgor. Discharge Plan Plan Patient Disposition: HOME (Self Care) Patient condition on transfer: Stable Prescriptions/Referrals Prescriptions/Med Rec: New amlodipine 5 mg Tablet 5 mg PO QDAY Qty: 30 0RF clonazepam 1 mg tablet 1 mg PO BID Qty: 4 0RF Continued albuterol sulfate [ProAir HFA] 8.5 GM HFA aerosol inhaler 2 puff Inhalation Q8H PRN (Reason: SHORTNESS OF BREATH OR WHEEZE) Qty: 0 levothyroxine 50 mcg tablet 50 mcg PO QAM Patient Comments: TAKE 1 TABLET BY MOUTH IN THE MORNING FOR 90 DAYS TAKE ON AN EMPTY STOMACH fluticasone propionate 50 mcg/actuation spray,suspension 1 spray intranasal QDAY PRN (Reason: allergy symptoms) Rx Instructions: administer into each nostril diclofenac sodium 1 % gel See Rx Instructions TOPICAL .COMPLEX PRN (Reason: pain) Rx Instructions: 1% topically PRN; aripiprazole 5 mg tablet 5 mg PO .bedtime Patient Comments: TAKE 1 TABLET BY MOUTH AT NIGHT escitalopram oxalate 10 mg tablet 10 mg PO QDAY Patient Comments: TAKE 1 TABLET BY MOUTH EVERY DAY clonazepam 1 mg tablet 1 mg PO BID dicyclomine 20 mg tablet 20 mg PO TID Discontinued clonazepam [Klonopin] 1 MG tablet 1 mg PO TID PRN (Reason: ANXIETY) Qty: 0 sertraline 100 mg tablet 200 mg PO QPM Patient Comments: TAKE 2 TABLETS BY MOUTH AT BEDTIME (90 DAYS) fluticasone propionate 50 mcg/actuation spray,suspension 1 spray intranasal QDAY PRN (Reason: allergy symptoms) Qty: 16 0RF Rx Instructions: administer into each nostril hydroxyzine HCl 25 mg tablet 25 mg PO HS Qty: 10 0RF Referrals: Vera Diaz PA-C [Primary Care Provider] Patient/Caregiver Discharge Instructions Other Discharge Activity Instructions:: Resume your previous medications. Start taking amlodipine as treatment for your high blood pressure. Follow up with your Primary Care Physician in 1-2 weeks. Stay hydrated with water. Return to Emergency Department, if symptoms worsen. Education Materials: Abdominal Pain, ED Dehydration (Adult) Print Language: [place] Stand Alone Forms: [facility] Award Info., Patient Portal Info Letter Discharge Order Discharge Orders: Discharge (Routine); Ordered 03/05/25 Ordered By: Ting Jiménez Quality Discharge Quality Measures VTE prophylaxis
== END 2025-03-05 14:42 | disposition home or self-care (01) ==
LOC: SERX 02:22 → SERHOLD 06:10 → S3NX 12:12 → SERHOLD 03-05 08:32 → S3NX 03-05 08:33
PROVIDERS: Admitting Provider Student in an Organized Health Care Education/Training Program; Emergency Provider Emergency Medicine; PCP Physician Assistant Medical; Visit Provider Internal Medicine
DX: E87.6 Hypokalemia (principal); Z68.1 Body mass index [BMI] 19.9 or less, adult; E46 Unspecified protein-calorie malnutrition; J44.9 Chronic obstructive pulmonary disease, unspecified; M79.7 Fibromyalgia; E03.9 Hypothyroidism, unspecified; F32.A Depression, unspecified; F41.9 Anxiety disorder, unspecified; E87.1 Hypo-osmolality and hyponatremia; N28.1 Cyst of kidney, acquired
CPT/HCPCS: 36415; 74177; 76705; 80053; 80069; 81001; 82150; 82550; 83605; 83735; 84100; 84145; 84439; 84443; 85025; 85610; 85730; 87040; 87086; 87811; 93005; 96361; 96365; 96366; 96372; 96375; 96376; 99284; A4649; G0378; J1644; J2405; J2470; J2543; J3475; J3480; J7030; Q9967; A9270

== ENCOUNTER 2025-05-31 04:06 | Emergency (ER) | payer OTHER, MEDICAID, SELFPAY ==
[2025-05-31 04:08] VITALS: BP 161/85; PULSE 70; RESP 18; TEMP 36.8; O2SAT 95
[2025-05-31 04:25] VITALS: PULSE 68; RESP 18
[2025-05-31 05:30] VITALS: BMI 16.1
--- NOTE | 2025-05-31 05:40 | PD.EDRME ---
Rapid Medical Screening Exam [facility] Arrival date/time: 05/31/25 04:06 79F with history of COPD, hypothyroidism, fibromyalgia, hypothyroidism and anxiety presents to ED with some dysuria and non-bloody diarrhea. Patient denies any other pain as well as N/V. Chief Complaint: Nausea/Vomiting/Diarrhea Vital signs: Vital Signs Temperature 98.2 F 05/31/25 04:08 Pulse Rate 70 05/31/25 04:08 Respiratory Rate 18 05/31/25 04:08 Blood Pressure 161/85 H 05/31/25 04:08 Pulse Oximetry (%) 95 05/31/25 04:08 Oxygen Delivery Method Room Air 05/31/25 04:08 Exam: Thin but well-appearing. Clinical Impression: UTI vs gastroenteritis vs electrolyte abnormality vs colitis
[2025-05-31 05:57] LABS: Lactate (Lactic Acid) 1.1 mMol/L (0.4-2.0)
[2025-05-31 06:02] LABS: Basophils # (Auto) 0.1 Thou/mm3 (0.0-0.2); Basophils % (Auto) 1 % (0-2.5); Eosinophils # (Auto) 0.0 Thou/mm3 (0.0-0.5); Eosinophils % (Auto) 1 % (0-10); Hematocrit 39.4 % (36.0-46.0); Hemoglobin 13.5 g/dL (12.0-16.0); Immature Granulocytes Auto 0.01 Thou/mm3 (0.00-0.00); Lymphocytes # (Auto) 1.4 Thou/mm3 (1.0-4.8); Lymphocytes % (Auto) 28 % (10-50); Mean Corpuscular HGB Conc 34.3 g/dl (31.0-37.0); Mean Corpuscular Hemoglobin 32.5 pg (25.0-35.0); Mean Corpuscular Volume 95 fL (80-100); Monocytes # (Auto) 0.3 Thou/mm3 (0.0-0.8); Monocytes % (Auto) 7 % (0-12); Neutrophils # (Auto) 3.2 Thou/mm3 (1.8-7.7); Neutrophils % (Auto) 64 % (37-80); Nucleated Red Blood Cell # 0.00 Thou/mm3 (0.00-0.00); Nucleated Red Blood Cell % 0 /100 WBC (0); Platelet Count 241 Thou/mm3 (140-440); RDW Standard Deviation 42.1 fL (36.4-46.3); Red Blood Count 4.15 Miln/mm3 (4.00-5.20); White Blood Count 5.0 Thou/mm3 (3.6-11.0)
[2025-05-31 06:28] LABS: Alanine Aminotransferase 30 U/L (10-49); Albumin, Serum 4.6 gm/dL (3.4-4.8); Albumin/Globulin Ratio 1.6 (1.2-2.2); Alkaline Phosphatase 60 U/L (46-116); Anion Gap 12 (7-16); Aspartate Amino Transferase 34 U/L (0-34); BUN/Creatinine Ratio 15 Ratio (12-20); Bilirubin,Total 1.1 mg/dL (0.3-1.2); Blood Urea Nitrogen 12 mg/dL (9-23); Calcium 9.6 mg/dL (8.3-10.6); Calcium (Corrected) 9.6 mg/dL (8.5-10.1); Carbon Dioxide 27.6 mMol/L (20.0-31.0); Chloride 101 mMol/L (98-107); Creatinine (Component) 0.8 mg/dL (0.6-1.3); Estimated Creatinine Clearance 32.1 mL/min (>60); Globulin 2.8 gm/dL (2.3-3.5); Glucose 113 mg/dL (74-106); Osmolality,Calculated 281 (275-295); Potassium 3.6 mMol/L (3.4-5.1); Procalcitonin < 0.04 ng/ml (0.0-0.49); Sodium 141 mMol/L (136-145); Total Protein 7.4 gm/dL (5.7-8.2); eGFR > 60 See Note
[2025-05-31 07:54] LABS: Collection Type, Urine Clean Catch
[2025-05-31 08:40] LABS: Bilirubin,Urine Negative (Negative); Blood,Urine Negative (Negative); Clarity,Urine Clear (Clear/Hazy); Color,Urine Lt-Yellow (Lt Yel-Yel); Culture Indicated,Urine Not Indicated; Glucose, Urine Negative (Negative); Ketones,Urine 1+ (Negative); Leukocyte Esterase,Urine Negative (Negative); Nitrite,Urine Negative (Negative); PH,Urine 6.5 (5.0-7.0); Protein,Urine Trace (Neg - Trace); RBC,Urine 1 /hpf (0-3); Specific Gravity,Urine 1.014 (1.001-1.035); Squamous Epithelial Cell,Urine < 1 /hpf (0-5); Urobilinogen,Urine Negative mg/dL (0.0-1.0); WBC,Urine 1 /hpf (0-5)
--- NOTE | 2025-05-31 09:45 | PD.EDNV ---
Nausea/Vomit./Diarrhea-RME/HPI General Chief complaint: Nausea/Vomiting/Diarrhea Stated complaint: SHAKEY, DIARRHEA Time Seen by Provider: 05/31/25 05:44 Arrival date/time: 05/31/25 04:06 RME / HPI RME / HPI Narrative: 05/31/25 04:06 79F with history of COPD, hypothyroidism, fibromyalgia, hypothyroidism and anxiety presents to ED with some dysuria and non-bloody diarrhea. Patient denies any other pain as well as N/V. DR. TAVERAS MAIN ED EVALUATION 79 year old female with history of COPD, hypothyroidism, fibromyalgia, colitis, anxiety and depression presents to the ED for evaluation of lower back pain beginning yesterday. Reports her pain today is similar to previous kidney problem . Additionally reports she is shaking and had diarrhea 1x yesterday though had improved after taking one dose of Imodium. Patient also states yesterday she felt poorly and did not eat but did stay hydrated with water. No other associated symptoms reported. Denies fevers, chest pain, cough, shortness of breath, abdominal pain, nausea, vomiting, or urinary symptoms. No sick contacts. Exam: Thin but well-appearing. Impression: UTI vs gastroenteritis vs electrolyte abnormality vs colitis Related Data Home Medications ?Medication ?Instructions ?Recorded ?Confirmed albuterol sulfate 90 mcg/actuation 2 puff inhalation Q8H PRN 11/11/13 03/04/25 aerosol inhaler (ProAir HFA) SHORTNESS OF BREATH OR WHEEZE ##0 levothyroxine 50 mcg tablet 50 mcg PO QAM 02/24/21 03/04/25 fluticasone propionate 50 1 spray intranasal QDAY PRN 09/20/24 03/04/25 mcg/actuation nasal allergy symptoms spray,suspension aripiprazole 5 mg tablet 5 mg PO .bedtime 03/04/25 03/04/25 clonazepam 1 mg tablet 1 mg PO BID anxiety 03/04/25 03/04/25 diclofenac sodium 1 % topical gel See Rx Instructions topical 03/04/25 03/04/25 .COMPLEX PRN pain dicyclomine 20 mg tablet 20 mg PO TID 03/04/25 03/04/25 escitalopram oxalate 10 mg tablet 10 mg PO QDAY 03/04/25 03/04/25 Previous Rx's ?Medication ?Instructions ?Recorded amlodipine 5 mg tablet 5 mg PO QDAY #30 tabs 03/05/25 clonazepam 1 mg tablet 1 mg PO BID #4 tabs 03/05/25 acetaminophen 500 mg tablet 1,000 mg (2 x 500 mg) PO Q6H PRN 05/31/25 (Tylenol Extra Strength) pain #30 tabs Allergies Allergy/AdvReac Type Severity Reaction Status Date / Time codeine Allergy Severe Nausea/VOMI Verified 01/02/25 07:41 TING Sulfa (Sulfonamide Allergy Severe NAUSEA/VOMI Verified 01/02/25 07:41 Antibiotics) TING gabapentin Allergy Blurry Verified 01/02/25 07:41 Vision Review of Systems Review of Systems Systems Reviewed: All systems reviewed, normal except as documented Past Medical History Past Medical History CARDIAC: Positive Cardiac Disorders, Hypercholesterolemia and Hypotension RESPIRATORY: Positive Chronic Obstructive Pulmonary Disease (COPD) and Asthma GASTROINTESTINAL: Positive Gastrointestinal Disorders, Ulcerative Colitis and Diverticulitis GENITOURINARY: Positive Genitourinary Disorders and Renal Disease REPRODUCTIVE: Positive Breast Cancer MUSCULOSKELETAL: Positive Musculoskeletal Disorders and Arthritis ENT: Positive Ear Infection and Deafness ENDOCRINE: Positive Hyperthyroidism PSYCHO/SOCIAL: Positive Schizophrenia, Bipolar Disorder, Depression and Anxiety OTHER HISTORY: Positive Breast Cancer Family History FAMILY HISTORY: Positive Family Cancer Surgical History SURGICAL: Positive Mastectomy and Hysterectomy Social History SMOKING STATUS: Smoker, status unknown SECOND HAND EXPOSURE: Yes SUBSTANCE USE: marijuana ED Exam Narrative Physical exam: Constitutional: Awake, alert, elderly, frail HEENT: Normocephalic, atraumatic, extraocular movements intact, lips are dry otherwise mucous membranes are moist Neck: Supple CV: Regular rate and rhythm, no murmurs/rubs/gallops Lungs: Clear to auscultation BL, no respiratory distress. Abd: Soft, NT, ND, no HSM noted to palpation Back: Mild pain to palpation of the entire back, generally appears worse to bilateral lower back Extremities: No deformities, no edema noted Neuro: AAOx3, CN 2-12 GIBL, no acute neuro deficit noted. Skin: Warm, dry, intact Course Quality Measures none Orders Category Date Time Status Miscellaneous Nursing Order NOW Care 05/31/25 10:24 Active CBC Stat Lab 05/31/25 05:50 Completed CMP [Comprehensive Metabolic Panel] Stat Lab 05/31/25 05:50 Completed Lactate (Lactic Acid) Stat Lab 05/31/25 05:50 Completed Procalcitonin Stat Lab 05/31/25 05:50 Completed Urinalysis, C/S if Indicated Stat Lab 05/31/25 07:44 Completed Acetaminophen Tab [Tylenol ES Tab] Med 05/31/25 10:23 Discontinued 1,000 mg PO X1 ONE Ketorolac Inj [Toradol Inj] Med 05/31/25 10:23 Discontinued 30 mg IM X1 ONE Vital Signs Vital signs: Vital Signs Temperature 98.2 F 05/31/25 04:08 Pulse Rate 70 05/31/25 04:08 Respiratory Rate 18 05/31/25 04:08 Blood Pressure 161/85 H 05/31/25 04:08 Pulse Oximetry (%) 95 05/31/25 04:08 Oxygen Delivery Method Room Air 05/31/25 04:08 Pulse ox is 95% on room air which is adequate. Nausea/Vomiting/Diarrhea MDM Narrative MDM Narrative:: [place] Day am scribing for and in the presence of Dr. Taveras. Patient data External records reviewed:: [facility] previous records and EMS form Clinical information provided by:: patient and EMS Social determinants that could affect healthcare access:: none Patient has the following chronic illnesses:: COPD, hypothyroidism, fibromyalgia, colitis, anxiety and depression How is presenting disease/condition affected by chronic disease/condition?: exacerbated by Evaluation data The following diagnostics were reviewed and interpreted by me:: lab results Lab and/or radiology exams considered but not ordered:: None Interpretation Summary: As noted above Medications / Prescriptions Medications / Prescriptions considered but not ordered:: None Medication administrations:: Medication Administration History Discontinued Medications Acetaminophen (Acetaminophen 500 Mg Tablet) 1,000 mg PO X1 ONE Stop: 05/31/25 10:24 Ketorolac Tromethamine (Ketorolac Inj 30 Mg/Ml Vial) 30 mg IM X1 ONE Stop: 05/31/25 10:24 See above Consultations Consultation(s) initiated? (list below): No Diagnosis Nausea Differential Diagnosis: gastroenteritis, drug-induced nausea and vomiting, dehydration and other (Viral infection) Most likely diagnosis given after review of the tests above:: Back pain Admission Indicated Admission indicated?: not indicated Explain why admission is indicated or not indicated:: With no condition needing emergent intervention, there was no indication for admission. Admission Request Was there a request for admission?: No Disposition Plan Disposition Plan: Discharge Discharge Attestation Discharge Attestation: The patient and all family members were given an opportunity to ask questions and understood the discharge instructions. Discharge instructions specifically effects, indications for sooner follow up or return to the emergency department, and the expected course of current diagnosis. Patient condition: Stable Discharge Plan Plan Patient Disposition: HOME (Self Care) Patient condition on transfer: Stable Prescriptions/Referrals Prescriptions/Med Rec: New acetaminophen [Tylenol Extra Strength] 500 mg tablet 1,000 mg PO Q6H PRN (Reason: pain) Qty: 30 0RF No Action albuterol sulfate [ProAir HFA] 8.5 GM HFA aerosol inhaler 2 puff Inhalation Q8H PRN (Reason: SHORTNESS OF BREATH OR WHEEZE) Qty: 0 levothyroxine 50 mcg tablet 50 mcg PO QAM Patient Comments: TAKE 1 TABLET BY MOUTH IN THE MORNING FOR 90 DAYS TAKE ON AN EMPTY STOMACH fluticasone propionate 50 mcg/actuation spray,suspension 1 spray intranasal QDAY PRN (Reason: allergy symptoms) Rx Instructions: administer into each nostril diclofenac sodium 1 % gel See Rx Instructions TOPICAL .COMPLEX PRN (Reason: pain) Rx Instructions: 1% topically PRN; aripiprazole 5 mg tablet 5 mg PO .bedtime Patient Comments: TAKE 1 TABLET BY MOUTH AT NIGHT escitalopram oxalate 10 mg tablet 10 mg PO QDAY Patient Comments: TAKE 1 TABLET BY MOUTH EVERY DAY clonazepam 1 mg tablet 1 mg PO BID dicyclomine 20 mg tablet 20 mg PO TID amlodipine 5 mg Tablet 5 mg PO QDAY Qty: 30 0RF clonazepam 1 mg tablet 1 mg PO BID Qty: 4 0RF Referrals: Vera Diaz PA-C [Primary Care Provider] - In 1 week Problem List Clinical Impression: Back pain Patient/Caregiver Discharge Instructions Education Materials: Relieving Back Pain, ED Back Care Tips Additional Instructions: Some general health principles that can help you are the [place] principles: Nutrition (eat a plant-based diet, avoiding meats in general, avoiding highly processed foods) Exercise (Daily exercise/walks as tolerated) Water (Drink adequate fresh water to maintain hydration, concentrating on water rather than on soda, coffee, tea, juice, etc for hydration) [place] (Spend time - 15-20 minutes or so with skin exposed in the bus attendant and late evening sun for Vitamin D health benefits) [place] (Avoid alcohol, illicit drugs, caffeinated beverages, smoking, etc) Air (Deep breathing exercises in the early mornings in fresh air) Rest (Adequate rest at night, going to bed a few hours before midnight and avoiding all screens/television/loud music in the time right before going to bed, also avoiding heavy meals just prior to going to bed) Trust in God (Spend time daily in Bible study and prayer - health benefits in contemplation of God's true character) Additional resources that can benefit: [email or web address], look under resources and seminars. Another good website is www.[facility].org Print Language: [place] Stand Alone Forms: [facility] Award Info., Patient Portal Info Letter
[2025-05-31] MEDS: ACETAMINOPHEN 500 MG TABLET 1000 MG PO (10:58)
[2025-05-31] MEDS: KETOROLAC INJ 30 MG/ML VIAL IM (10:58)
[2025-05-31 11:58] VITALS: BP 162/97; PULSE 92; RESP 19; TEMP 36.7; O2SAT 96
== END 2025-05-31 11:58 | disposition home or self-care (01) ==
PROVIDERS: Physician Assistant; Emergency Provider Family Medicine; PCP Physician Assistant Medical
DX: M54.50 Low back pain, unspecified (principal)
CPT/HCPCS: 36415; 80053; 81001; 83605; 84145; 85025; 96372; 99283; J1885; A9270